=== PATIENT | female | born 1955 | race Caucasian/White ===

== ENCOUNTER → 2018-05-07 | Outpatient (CLI) | payer BC ==
--- NOTE | 2018-05-07 12:06 | Diagnostic Imaging Report ---
EXAMINATION: Left knee 10:30. INDICATION: Knee pain 3 views were obtained. There are no prior studies available for comparison. There is no fracture, dislocation or acute bony abnormality evident. 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 The lateral compartment is well maintained. The soft tissues are unremarkable. IMPRESSION: 1. There is no evidence for an acute bony abnormality. 2. 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 Dictated by: Dictated on workstation # [id number]
== END ==
LOC: RAD FS 10:21
PROVIDERS: ATTEND Nurse Practitioner
DX: M17.12 Unilateral primary osteoarthritis, left knee (principal)
CPT/HCPCS: 73562

== ENCOUNTER → 2019-05-25 | Outpatient (CLI) | payer BC ==
[~2019-05-25] MED LIST: GADOBUTROL 10 MMOL/10 ML (GADAVIST) VIAL IV ONE
[2019-05-25 10:21] LABS: BUN/CREATININE RATIO 10; GFR ESTIMATED > 60
--- NOTE | 2019-05-25 12:46 | Diagnostic Imaging Report ---
PROCEDURE: MRI pelvis with and without contrast. TECHNIQUE: Multiplanar, multisequence MRI of the pelvis was performed with and without contrast. INDICATION: Pelvic mass. COMPARISON: There are no prior studies available for comparison. Reportedly, the patient has had recent pelvic ultrasound exam which suggests the presence of a pelvic mass. Neither that exam nor the report from that study is available at this time. If that exam or report can be made available, it would be helpful for comparison. FINDINGS: On this study, the uterus is anteverted and not enlarged measuring 8.3 x 4.2 x 5.0 cm. The endometrial lining of the uterus does not seem to be abnormally thickened. On the coronal T2 fat saturated series, there is a vague roughly 1 cm area of slightly increased signal within the uterine myometrium adjacent to the endometrium on the left. This area does not appear to enhance on the postcontrast series and its etiology is not certain. This could represent a small fibroid. It would be less likely that this is neoplastic in nature. There is no solid pelvic mass or free fluid collection evident. The urinary bladder is grossly unremarkable. There is no abnormal signal arising from the osseous structures to suggest bone edema or fracture. IMPRESSION: 1. The uterus does not appear to be enlarged and the endometrial lining is not thickened. The vague area of altered signal in the myometrium adjacent to the endometrium on the left is of uncertain etiology. Considerations as above. 2. There is no pelvic mass or free fluid collection noted. 3. If the previous study or the report from the previous exam is available, it would be helpful for comparison. Dictated on workstation # [id number]
== END ==
LOC: RAD 08:56
PROVIDERS: ATTEND Nurse Practitioner Family
DX: N95.0 Postmenopausal bleeding (principal)
CPT/HCPCS: 36415; 72197; 82565; 84520

== ENCOUNTER 2020-05-12 09:09 | Emergency (ER) | payer BC ==
[~2020-05-12] VITALS: Ht 157.4 cm; Wt 94.6 kg
[2020-05-12 09:20] VITALS: BP 139/80
[2020-05-12] MEDS ORDERED: ONDANSETRON 4 MG (ZOFRAN) ORAL DISSOLVE TAB PO STA (09:39)
--- NOTE | 2020-05-12 09:40 | ED GI ---
General Chief Complaint: Abdominal/GI Problems Stated Complaint: BLOODY VOMIT/STOOL History of Present Illness Date Seen by Provider: May 12, 2020 Time Seen by Provider: 09:30 Initial Comments 64-year-old female presents with onset of nausea and vomiting 30 minutes after eating some pizza from [employer] last night. She then proceeded to have some diarrhea which continued this morning about 5 times. Denies any abdominal pain, fever or chills, chest pain or shortness of air. Denies any rash or swelling of extremities. Has taken no medications to alleviate her symptoms. This morning she was able to drink water without vomiting. On arrival she denies nausea, but feels as if she may have more loose stool. Allergies and Home Medications Allergies Coded Allergies: Penicillins (Unverified Allergy, Unknown, 05/25/19) cephalexin (Unverified Allergy, Unknown, 05/25/19) Home Medications Famotidine 20 Mg Tablet, 20 MG PO BID Prescribed by: MOR HAYES on 05/12/20 1028 Ondansetron 4 Mg Tab.rapdis, 4 MG PO TID Prescribed by: MOR HAYES on 05/12/20 1028 Patient Home Medication List Home Medication List Reviewed: Yes Review of Systems Review of Systems Constitutional: No chills, No fever; malaise; No weakness EENTM: No Symptoms Reported Respiratory: No Symptoms Reported Cardiovascular: No Symptoms Reported Gastrointestinal: See HPI; Denies Abdominal Pain; Diarrhea, Nausea; Denies Poor Fluid Intake Musculoskeletal: No back pain, No muscle pain Skin: No change in color, No rash Past Zsugpkk-Twhszr-Ytsdpg Hx Past Med/Social Hx: Reviewed Nursing Past Med/Soc Hx Physical Exam Vital Signs Vital Signs - First Documented 05/12/20 09:20 Temp 37.1 Pulse 91 Resp 20 B/P (MAP) 139/80 (99) Pulse Ox 97 O2 Delivery Room Air Capillary Refill : Height/Weight/BMI Height: '" Weight: lbs. oz. kg; BMI Method: General Appearance: WD/WN, no apparent distress Respiratory: chest non-tender, lungs clear Cardiovascular: regular rate, rhythm, no edema Gastrointestinal: non tender, soft, no organomegaly, no pulsatile mass; No distended, No guarding, No rebound Back: normal inspection, no CVA tenderness Neurologic/Psychiatric: alert, normal mood/affect Skin: normal color, warm/dry Progress/Results/Core Measures Results/Orders Lab Results Laboratory Tests Test 05/12/20 09:42 Range/Units White Blood Count 11.1 H 4.3-11.0 10^3/uL Red Blood Count 3.48 L 4.35-5.85 10^6/uL Hemoglobin 9.9 L 11.5-16.0 G/DL Hematocrit 31 L 35-52 % Mean Corpuscular Volume 88 80-99 FL Mean Corpuscular Hemoglobin 28 25-34 PG Mean Corpuscular Hemoglobin Concent 32 32-36 G/DL Red Cell Distribution Width 13.1 10.0-14.5 % Platelet Count 307 130-400 10^3/uL Mean Platelet Volume 11.3 H 7.4-10.4 FL Immature Granulocyte % (Auto) 0 % Neutrophils (%) (Auto) 78 H 42-75 % Lymphocytes (%) (Auto) 18 12-44 % Monocytes (%) (Auto) 3 0-12 % Eosinophils (%) (Auto) 0 0-10 % Basophils (%) (Auto) 0 0-10 % Neutrophils # (Auto) 8.6 H 1.8-7.8 X 10^3 Lymphocytes # (Auto) 2.0 1.0-4.0 X 10^3 Monocytes # (Auto) 0.4 0.0-1.0 X 10^3 Eosinophils # (Auto) 0.0 0.0-0.3 10^3/uL Basophils # (Auto) 0.1 0.0-0.1 10^3/uL Immature Granulocyte # (Auto) 0.1 0.0-0.1 10^3/uL Sodium Level 138 135-145 MMOL/L Potassium Level 4.2 3.6-5.0 MMOL/L Chloride Level 100 98-107 MMOL/L Carbon Dioxide Level 24 21-32 MMOL/L Anion Gap 14 5-14 MMOL/L Blood Urea Nitrogen 37 H 7-18 MG/DL Creatinine 0.65 0.60-1.30 MG/DL Estimat Glomerular Filtration Rate > 60 BUN/Creatinine Ratio 57 Glucose Level 322 H 70-105 MG/DL Calcium Level 9.3 8.5-10.1 MG/DL Corrected Calcium 9.5 8.5-10.1 MG/DL Total Bilirubin 0.4 0.1-1.0 MG/DL Aspartate Amino Transf (AST/SGOT) 10 5-34 U/L Alanine Aminotransferase (ALT/SGPT) 9 0-55 U/L Alkaline Phosphatase 65 40-136 U/L Total Protein 6.3 L 6.4-8.2 GM/DL Albumin 3.7 3.2-4.5 GM/DL My Orders Orders - MOR HAYES DO Cbc With Automated Diff (05/12/20 09:39) Comprehensive Metabolic Panel (05/12/20 09:39) Ondansetron Oral Dissolve Tab (Zofran (05/12/20 09:39) Famotidine Tablet (Pepcid Tablet) (05/12/20 09:45) Medications Given in ED Current Medications Medications Dose Ordered Sig/Anoop Route Start Time Stop Time Status Last Admin Dose Admin Famotidine 20 mg ONCE ONCE PO 05/12/20 09:45 05/12/20 09:46 DC 05/12/20 09:51 20 MG Vital Signs/I&O 05/12/20 05/12/20 09:20 10:35 Temp 37.1 37.1 Pulse 91 80 Resp 20 18 B/P (MAP) 139/80 (99) 147/72 (97) Pulse Ox 97 97 O2 Delivery Room Air Room Air Progress Progress Note : Progress Note No episodes of nausea vomiting while in the ER. Patient feeling better at discharge and tolerating p.o. liquids. Discussed follow-up if her symptoms get progressively worse otherwise reassurance given and advised allowing this to run its course and seeing her primary care doctor for any other questions. Departure Impression Primary Impression: Food poisoning Disposition: 01 HOME, SELF-CARE Condition: Improved Departure-Patient Inst. Decision time for Depature: 10:16 Referrals: ROXI VALDERRAMA MD (PCP/Family) Primary Care Physician Patient Instructions: Food Poisoning Add. Discharge Instructions: Call Dr Valderrama to arrange for a follow up appointment in 3 days if you are not feeling better. Return to the ER if you are feeling significantly worse. All discharge instructions reviewed with patient and/or family. Voiced understanding. Scripts Ondansetron (Ondansetron Odt) 4 Mg Tab.rapdis 4 MG PO TID for Nausea, #10 TAB Prov: MOR HAYES DO 05/12/20 Famotidine (Pepcid) 20 Mg Tablet 20 MG PO BID, #10 TAB Prov: MOR HAYES DO 05/12/20 MOR HAYES DO May 12, 2020 09:40
[2020-05-12] MEDS ORDERED: FAMOTIDINE 20 MG (PEPCID) TABLET PO ONE (09:45)
[2020-05-12 09:55] LABS: HEMATOCRIT 31 % (35-52); HEMOGLOBIN 9.9 G/DL (11.5-16.0); MEAN CORPUSCULAR HEMOGLOBIN 28 PG (25-34); MEAN CORPUSCULAR HGB CONC 32 G/DL (32-36); MEAN CORPUSCULAR VOLUME 88 FL (80-99); MEAN PLATELET VOLUME 11.3 FL (7.4-10.4); PLATELET COUNT 307 10^3/uL (130-400); WHITE BLOOD COUNT 11.1 10^3/uL (4.3-11.0)
[2020-05-12 09:56] LABS: BASOPHILS # (AUTO) 0.1 10^3/uL (0.0-0.1); BASOPHILS % (AUTO) 0 % (0-10); EOSINOPHILS % (AUTO) 0 % (0-10); LYMPHOCYTES % (AUTO) 18 % (12-44); MONOCYTES # (AUTO) 0.4 X 10^3 (0.0-1.0); MONOCYTES % (AUTO) 3 % (0-12); NEUTROPHILS # (AUTO) 8.6 X 10^3 (1.8-7.8); NEUTROPHILS % (AUTO) 78 % (42-75)
[2020-05-12 10:17] LABS: CARBON DIOXIDE 24 MMOL/L (21-32); CHLORIDE 100 MMOL/L (98-107); POTASSIUM 4.2 MMOL/L (3.6-5.0); SODIUM 138 MMOL/L (135-145)
[2020-05-12 10:18] LABS: ALANINE AMINOTRANSFERASE 9 U/L (0-55); ALBUMIN 3.7 GM/DL (3.2-4.5); ALKALINE PHOSPHATASE 65 U/L (40-136); BILIRUBIN,TOTAL 0.4 MG/DL (0.1-1.0); BUN/CREATININE RATIO 57; CALCIUM 9.3 MG/DL (8.5-10.1); CREATININE SERUM 0.65 MG/DL (0.60-1.30); GFR ESTIMATED > 60; GLUCOSE 322 MG/DL (70-105); TOTAL PROTEIN 6.3 GM/DL (6.4-8.2)
[2020-05-12] MEDS ORDERED: ONDA4TAB11 PO (10:28)
[2020-05-12] MEDS ORDERED: FAMO-119 PO (10:28)
== END 2020-05-12 10:36 | disposition home or self-care (01) ==
LOC: EDUNIT# 09:09 → ER FS 09:12
DX: A05.9 Bacterial foodborne intoxication, unspecified (principal); Z88.0 Allergy status to penicillin; Z88.1 Allergy status to other antibiotic agents
CPT/HCPCS: 36415; 80053; 85025

== ENCOUNTER 2020-07-03 05:38 | Outpatient (RCR) | payer BC ==
[~2020-07-03] VITALS: Ht 157.5 cm; Wt 93.4 kg
[~2020-07-03 05:38] MED LIST changes: +FAMO-119 PO; -GADOBUTROL 10 MMOL/10 ML (GADAVIST) VIAL IV ONE; +ONDA4TAB11 PO
[2020-07-03] MEDS ORDERED: GLUC100016 PO (13:50)
[2020-07-03] MEDS ORDERED: AMLO-250 PO (13:50)
[2020-07-03] MEDS ORDERED: GLIP10TA13 PO (13:50)
[2020-07-03] MEDS ORDERED: PRAV80TA2 PO (13:50)
[2020-07-03] MEDS ORDERED: METF-399 PO (13:50)
[2020-07-03] MEDS ORDERED: LOSA100T3 PO (13:50)
[2020-07-03] MEDS ORDERED: NSTR15C TP (13:50)
[2020-07-03] MEDS ORDERED: SERT-414 PO (13:50)
[2020-07-03] MEDS ORDERED: MULT-593 PO (13:50)
[2020-07-03] MEDS ORDERED: ASPI-999 PO (13:50)
[2020-07-03] MEDS ORDERED: CANA300T PO (13:50)
== END 2020-07-03 14:14 | disposition home or self-care (01) ==
LOC: PREOP 05:38
PROVIDERS: ATTEND Surgery
DX: Z01.818 Encounter for other preprocedural examination (principal)

== ENCOUNTER → 2020-07-07 | Outpatient (CLI) | payer BC ==
[~2020-07-07] MED LIST changes: +AMLO-250 PO; +ASPI-999 PO; +CANA300T PO; +GLIP10TA13 PO; +GLUC100016 PO; +LOSA100T3 PO; +METF-399 PO; +MULT-593 PO; +NSTR15C TP; +PRAV80TA2 PO; +SERT-414 PO
== END ==
LOC: LAB FS 10:00
PROVIDERS: ATTEND Surgery
DX: Z01.812 Encounter for preprocedural laboratory examination (principal); Z12.11 Encounter for screening for malignant neoplasm of colon; K92.0 Hematemesis; Z20.822 Contact with and (suspected) exposure to COVID-19
CPT/HCPCS: 87635

== ENCOUNTER 2020-07-10 10:20 | Day surgery (SDC) | payer BC ==
[~2020-07-10] VITALS: Ht 157 cm; Wt 93.4 kg
[2020-07-10] MEDS ORDERED: LACTATED RINGERS 1,000 ML IV STA (10:33)
[2020-07-10] MEDS ORDERED: HURRICAINE EXT TUBE (BENZOCAINE) XX PRN (10:45)
[2020-07-10 10:59] VITALS: BP 144/71
--- NOTE | 2020-07-10 11:01 | Progress Note-Pre Operative ---
Pre-Operative Progress Note H&P Reviewed The H&P was reviewed, patient examined and no changes noted. Time Seen by Provider: 10:58 Date H&P Reviewed: July 10, 2020 Time H&P Reviewed: 10:58 Pre-Operative Diagnosis: Melena, hematemesis, anemia JASWINDER KAUR DO July 10, 2020 11:01
[2020-07-10] MEDS ORDERED: MIDAZOLAM 2 MG/2 ML (VERSED) VIAL ONE (11:39)
[2020-07-10] MEDS ORDERED: PROPOFOL INJECTION 50 ML IV ONE (11:39)
[2020-07-10] MEDS ORDERED: proPOfol 200 MG/20 ML (DIPRIVAN) VIAL IV ONE (12:01)
[2020-07-10 12:26] VITALS: BP 114/58
[2020-07-10 12:31] VITALS: BP 129/73
--- NOTE | 2020-07-10 12:34 | Progress Note-Post Operative ---
Post-Operative Progess Note Surgeon (s)/Floor Waxer (s) Surgeon JASWINDER KAUR DO Floor Waxer: none Pre-Operative Diagnosis Melena, hematemesis, anemia Post-Operative Diagnosis Gastritis Enteritis Int Hemorrhoid Procedure & Operative Findings Date of Procedure 07/10/20 Procedure Performed/Findings EGD with bx Colonoscopy Anesthesia Type IV sedation by PAPER TUBE GRADER Estimated Blood Loss Estimated blood loss (mL): scant Specimens/Packing Specimens Removed body of stomach bx GE jxn bx JASWINDER KAUR DO July 10, 2020 12:34
[2020-07-10 12:35] VITALS: BP 122/59
--- NOTE | 2020-07-10 12:35 | Endoscopy Discharge Instruct ---
Endo Procedure/Findings Findings 1.: Gastritis 2.: Other Findings (enteritis) 3.: Internal Hemorrhoids Discharge Instructions - Activity: You might feel a little sleepy until tomorrow. This is due to the medicine you received to relax you. Until tomorrow, you should: NOT drive a car, operate machinery or power tools. NOT drink any alcoholic beverages. NOT make any important decisions or sign importortant papers. Do not return to work until tomorrow, unless otherwise instructed. Resume previous activities tomorrow. Diet: Start by taking liquids. If you tolerate liquids, advance to solid food. 1.: EGD in 3 years 2.: Colonscopy in 10 years Notify Physician - If you experience excessive bleeding, unusual abdominal pain, fever, or chest pain, contact your doctor immediately. JASWINDER KAUR DO July 10, 2020 12:35
--- NOTE | 2020-07-10 12:48 | Anesthesia-General Post-Op ---
MAC Patient Condition Mental Status/LOC: Same as Preop Cardiovascular: Satisfactory Nausea/Vomiting: Absent Respiratory: Satisfactory Pain: Controlled Complications: Absent Post Op Complications Complications None Follow Up Care/Instructions Patient Instructions None needed. Anesthesiology Discharge Order Discharge Order Patient is doing well, no complaints, stable vital signs, no apparent adverse anesthesia problems. No complications reported per nursing. KITA MCKAY CRNA July 10, 2020 12:48
[2020-07-10 13:05] VITALS: BP 129/68
[2020-07-10 13:18] VITALS: BP 129/68
--- NOTE | 2020-07-10 21:08 | OPERATIVE REPORT ---
DATE OF SERVICE: PREOPERATIVE DIAGNOSES: History of hematemesis, anemia, some dark stools, but she needed a screening colonoscopy. POSTOPERATIVE DIAGNOSES: Gastritis, enteritis, and internal hemorrhoids. PROCEDURES PERFORMED: 1. EGD with biopsy. 2. Colonoscopy. SURGEON: Audie Valentin DO. MEAT GRADER: None. ANESTHESIA: IV sedation by the WARE SERVER. SPECIMEN: Biopsy from the gastric body and biopsy of the GE junction. BLOOD LOSS: Scant. FLUIDS: Per anesthesia. POSTOPERATIVE CONDITION: Stable. INDICATION FOR PROCEDURE: The patient is a 64-year-old female, who had an episode of hematemesis. She has some anemia and a dark stool, but unsure if this was some melena. She needed a screening colonoscopy; she had not had one in over 10 years. FINDINGS: The patient had some gastritis and enteritis right at her GJ junction and then had some small internal hemorrhoids, nothing else seen. PROCEDURE NOTE: After informed consent was obtained, the patient was brought to the endoscopy suite and placed in the bed in the left lateral decubitus position. She was administered IV sedation by the WARE SERVER, who then monitored her vitals the entire time, heart rate, blood pressure and pulse ox and the scope was inserted, started with the EGD, placed the scope down the mouth through the esophagus and into the remnant of the stomach and right into the small intestine. There was some mild inflammation of the small intestine, took a picture of this and then pulled back into the stomach, did a biopsy of the gastric body. Pulled the scope into the GE junction, did a biopsy and then suctioned the air out and then pulled the scope up the esophagus and out the mouth, did not appear to be any ulcers at the GJ junction. Switched camera, switched gloves, went down below, started the colonoscopy. Pushed all the way into about 140 cm to get all the way to cecum, took a picture of the appendiceal orifice, noted the ileocecal valve and then slowly withdrew the scope, insufflating the circumferential luna looking the cecum, up the ascending colon to the hepatic flexure, then down the transverse colon, splenic flexure, into the descending colon, down into the sigmoid and finally into the rectum, retroflexed in the rectal vault, saw some minimal internal hemorrhoids and took a picture of this. The patient tolerated the procedure and recovered in the endoscopy suite. Job ID: [id number] DocumentID: [id number] Dictated Date: 07/10/2020 14:29:54 Clerk Travel Reservations Date: 07/10/2020 21:07:36 Dictated By: AUDIE VALENTIN DO
== END 2020-07-10 13:23 | disposition home or self-care (01) ==
LOC: ENDO 10:20
PROVIDERS: ATTEND Surgery
DX: Z12.11 Encounter for screening for malignant neoplasm of colon (principal); K29.70 Gastritis, unspecified, without bleeding; K20.90 Esophagitis, unspecified without bleeding; K64.8 Other hemorrhoids; K52.9 Noninfective gastroenteritis and colitis, unspecified; I10 Essential (primary) hypertension; F32.9 Major depressive disorder, single episode, unspecified; E11.9 Type 2 diabetes mellitus without complications; M19.90 Unspecified osteoarthritis, unspecified site; E78.5 Hyperlipidemia, unspecified; D50.9 Iron deficiency anemia, unspecified; E66.01 Morbid (severe) obesity due to excess calories; Z68.37 Body mass index [BMI] 37.0-37.9, adult; Z79.899 Other long term (current) drug therapy; Z79.84 Long term (current) use of oral hypoglycemic drugs; Z79.82 Long term (current) use of aspirin
CPT/HCPCS: 82947; 88305

== ENCOUNTER 2021-01-07 00:09 | Emergency (ER) | payer BC ==
[~2021-01-07] VITALS: Ht 157 cm; Wt 113.0 kg
--- NOTE | 2021-01-07 00:37 | ED Upper Extremity ---
General Stated Complaint: FALL/LEFT SHOULDER PAIN Source: patient Exam Limitations: no limitations History of Present Illness Date Seen by Provider: Jan 07, 2021 Time Seen by Provider: 00:17 Initial Comments 65-year-old female with past medical history of hypertension, hyperlipidemia, and diabetes coming in due to left shoulder pain. About an hour prior to arrival she tripped and landed on her left shoulder with severe sharp constant pain. Pain is worse with movement and better with rest. Never really felt pain like this before. Denies any weakness or numbness, but does have difficulty moving it due to pain. Did not hit her head or pass out. Does not take any blood thinners. Denying any neck or back pain. Allergies and Home Medications Allergies Coded Allergies: Penicillins (Unverified Allergy, Unknown, 05/25/19) adhesive tape (Unverified Allergy, Unknown, 07/03/20) cephalexin (Unverified Allergy, Unknown, 05/25/19) oxycodone (Unverified Allergy, Unknown, 07/03/20) Uncoded Allergies: SULFA (Allergy, Unknown, 07/03/20) Patient Home Medication List Home Medication List Reviewed: Yes Amlodipine Besylate (Amlodipine Besylate) 5 Mg Tablet, 5 MG PO DAILY, (Reported) Entered as Reported by: SKYLA MEDINA on 07/03/20 135 Aspirin (Aspirin) 81 Mg Tab.chew, 81 MG PO DAILY, (Reported) Entered as Reported by: SKYLA MEDINA on 07/03/20 135 Canagliflozin (Invokana) 300 Mg Tablet, 300 MG PO DAILY, (Reported) Entered as Reported by: SKYLA MEDINA on 07/03/20 135 Glipizide (Glipizide) 10 Mg Tablet, 10 MG PO DAILY, (Reported) Entered as Reported by: SKYLA MEDINA on 07/03/20 135 Glucosamine Sulfate 2Kcl (Glucosamine) 1,000 Mg Tablet, 1,000 MG PO DAILY, (Reported) Entered as Reported by: SKYLA MEDINA on 07/03/20 135 Hydrocodone Bit/Acetaminophen (HYDROcodone/APAP 5 MG/325 MG TAB) 1 Tab Tab, 1 TAB PO Q6H Prescribed by: FANY MILLER on 01/07/21 0159 Losartan Potassium (Cozaar) 100 Mg Tablet, 100 MG PO DAILY, (Reported) Entered as Reported by: SKYLA MEDINA on 07/03/201349 Metformin HCl (Metformin HCl) 1,000 Mg Tablet, 1,000 MG PO BID, (Reported) Entered as Reported by: SKYLA MEDINA on 07/03/201349 Multivitamin with Minerals (Multiple Vitamin) 1 Each Tablet, 1 EACH PO DAILY, ( Reported) Entered as Reported by: SKYLA MEDINA on 07/03/201349 Nystatin/Triamcinolone (Nystatin-Triamcinolone Cream) 15 Gm Cr, 15 GM TP for PRN, (Reported) Entered as Reported by: SKYLA MEDINA on 07/03/201349 Pravastatin Sodium (Pravastatin Sodium) 80 Mg Tablet, 80 MG PO DAILY, (Reported) Entered as Reported by: SKYLA MEDINA on 07/03/201349 Sertraline HCl (Sertraline HCl) 100 Mg Tablet, 200 MG PO DAILY, (Reported) Entered as Reported by: SKYLA MEDINA on 07/03/201349 Review of Systems Constitutional: No chills, No fever EENTM: No blurred vision Respiratory: No cough, No short of breath Cardiovascular: No chest pain Gastrointestinal: No abdominal pain, No diarrhea, No nausea, No vomiting Genitourinary: no symptoms reported Musculoskeletal: joint pain Skin: no symptoms reported Psychiatric/Neurological: No Symptoms Reported All Other Systems Reviewed Negative Unless Noted: Yes Past Refvzne-Nrvjrn-Qjezjl Hx Patient Social History Tobacco Use?: No Seasonal Allergies Seasonal Allergies: No Past Medical History Surgeries: Yes (Gastric Bypass, Rotator cuff repair, Carpal tunnel, uterine ablation) Appendectomy, Section, Gallbladder, Orthopedic Respiratory: No Cardiac: Yes High Cholesterol, Hypertension Neurological: No Female Reproductive Disorders: Denies Genitourinary: No Gastrointestinal: Yes Gall Bladder Disease Musculoskeletal: Yes Arthritis Endocrine: Yes Diabetes, Non-Insulin dep HEENT: No Hearing Impairment: Denies Cancer: No Psychosocial: Yes Depression Integumentary: No Blood Disorders: No Adverse Reaction/Blood Tranf: No Physical Exam Vital Signs Vital Signs - First Documented 01/07/21 00:25 Temp 36.2 Pulse 73 Resp 22 B/P (MAP) 126/73 (90) Pulse Ox 99 O2 Delivery Room Air Capillary Refill : Height, Weight, BMI Height: '" Weight: lbs. oz. kg; 37.89 BMI Method: General Appearance: WD/WN, mild distress HEENT: PERRL/EOMI, normal ENT inspection, pharynx normal Neck: non-tender, full range of motion, supple, normal inspection Cardiovascular: no edema, no murmur Respiratory: chest non-tender, lungs clear, normal breath sounds, no respiratory distress, no accessory muscle use Gastrointestinal: normal bowel sounds, non tender, soft; No guarding, No rebound Back: normal inspection, no CVA tenderness, no vertebral tenderness Shoulder: bone tenderness, limited ROM, pain Elbow/Forearm: normal inspection, no evidence of injury, normal ROM Wrist: Yes normal inspection, Yes non-tender, Yes no evidence of injury, Yes normal ROM Hand: normal inspection, non-tender, no evidence of injury, normal ROM Neurologic/Tendon: normal sensation, normal motor functions, normal tendon functions Neurologic/Psychiatric: switchman II-XII nml as tested, no motor/sensory deficits, alert, normal mood/affect, oriented x 3 Skin: normal color, warm/dry Lymphatic: no adenopathy Procedures/Interventions Splinting and Joint Reduction : Pre-Proc Neuro Vasc Exam: normal Post-Proc Neuro Vasc Exam: normal Progress Fracture dislocation seen on initial left shoulder XR. Injected 5cc of 1% lidocaine intraarticular to her shoulder with good pain control followed by traction/countertraction to reduce the shoulder. Joint Reduction Site: shoulder (L) Reduction Attempts: 2 Pre-Procedure NV Exam: Yes post joint reduction film: joint reduced Immobilizers: Large Shoulder Progress/Results/Core Measures Results/Orders My Orders Orders - FANY MILLER MD Shoulder 3 View Left (01/07/21 00:31) Shoulder 1 View Left (01/07/21 00:55) Ct Extremity Upper Left Wo (01/07/21 01:29) Ketorolac Injection (Toradol Injection) (01/07/21 01:51) Hydrocodone/Apap 5/325 Tablet (Lortab 5 (01/07/21 01:51) Rx-Hydrocodone/Apap 5-325 Mg (Rx-Vicodin (01/07/21 02:30) Vital Signs/I&O 01/07/21 00:25 Temp 36.2 Pulse 73 Resp 22 B/P (MAP) 126/73 (90) Pulse Ox 99 O2 Delivery Room Air Progress Progress Note : Progress Note 65-year-old female with above history coming in after a mechanical fall landing on her left shoulder now with severe pain. ABCs intact and vitals were stable on presentation with a GCS of 15. She never did hit her head or pass out. Also not taking blood thinners. Do not believe CT head necessary at this time. Has been ambulatory and denies any neck pain without any weakness or numbness, do not believe we need CT C-spine at this time. X-ray left shoulder ordered by me. This is concerning on my interpretation for fracture dislocation of the left shoulder. I did an intra-articular lidocaine injection in her left shoulder with moderate pain control. I then did traction countertraction reduction x2 with success in the reduction of her shoulder. It was difficult to tell on x-ray if the fracture involved anything intra- articular, so CT was ordered to help assess if she potentially would need surgery and I would needs were for her sooner. She was also given oral hydrocodone and IM Toradol for pain control. On reassessment pain was better. CT confirmed the shoulder is located and she has a left humeral head and anatomic neck fracture. I will recommend follow-up as an outpatient as soon as possible. She was then discharged home in stable condition with strict return precautions Diagnostic Imaging Diagonstic Imaging: Xray (Left shoulder), CT (Left shoulder) Comments X-ray left shoulder ordered and interpreted by me showing fracture dislocation CT left shoulder ordered and read by the overnight stat read showing left humeral head and anatomic neck fracture. Departure Impression Primary Impression: Fracture of humerus Qualified Codes: S42.292A - Other displaced fracture of upper end of left humerus, initial encounter for closed fracture Additional Impression: Shoulder dislocation Qualified Codes: S43.005A - Unspecified dislocation of left shoulder joint, initial encounter Disposition: HOME, SELF-CARE Condition: Stable Departure-Patient Inst. Decision time for Depature: 02:30 Referrals: ROXI CANALES MD (PCP/Family) Primary Care Physician ANNE MARIE DOVER MD Patient Instructions: Shoulder Dislocation, Shoulder Fracture (DC) Add. Discharge Instructions: Your shoulder was dislocated and broken. I need you to follow-up with an orthopedic surgeon as soon as possible as it potentially will need surgery still, but right now it is at least in the correct location. Continue to wear the shoulder immobilizer. Take naproxen 250 mg every 12 hours for pain as well as hydrocodone every 6 hours on top of that for breakthrough pain. You can also ice it for pain. Options for an appointment include with Dr. Dover in [place] (number in this paperwork). Margaret Henriquez [place] [phone] orthopedics [phone] [facility] [phone] Scripts Hydrocodone Bit/Acetaminophen (HYDROcodone/APAP 5 MG/325 MG TAB) 1 Tab Tab 1 TAB PO Q6H for Pain for 3 Days, #12 TAB 0 Refills Prov: FANY MILLER MD 01/07/21 FANY MILLER MD Jan 07, 2021 00:36
[2021-01-07] MEDS ORDERED: KETOROLAC 30 MG/ML VIAL IM STA (01:51)
[2021-01-07] MEDS ORDERED: HYDROcodone/APAP 5 MG/325 MG (LORTAB) TAB PO STA (01:51)
[2021-01-07] MEDS ORDERED: ACHD5005 PO (01:59)
[2021-01-07 02:42] VITALS: BP 126/73
--- NOTE | 2021-01-07 07:22 | Diagnostic Imaging Report ---
EXAM: SHOULDER 3 VIEW LEFT INDICATION: Fall. Left shoulder pain. COMPARISON: None. FINDINGS: Comminuted displaced fractures of the left humeral head. There is also inferior dislocation of the left humeral head in relation to the glenoid. No other fracture is identified. Soft tissue shadows are unremarkable. IMPRESSION: Comminuted displaced fractures of the left humeral head which is also dislocated inferiorly. Dictated by: Dictated on workstation # [id number]
--- NOTE | 2021-01-07 07:24 | Diagnostic Imaging Report ---
PROCEDURE: CT left upper extremity without contrast. TECHNIQUE: Multiple contiguous axial images were obtained through the left upper extremity without the use of intravenous contrast. Auto Exposure Controls were utilized during the CT exam to meet ALARA standards for radiation dose reduction. INDICATION: Left humerus fracture dislocation. COMPARISON: Left shoulder radiographs 01/07/2021. FINDINGS: There has been interval reduction of the left humeral head dislocation. Again seen are the comminuted impacted displaced fractures involving the head and neck of the left humerus. No other fractures are identified. The visualized portions of the left lung are clear. No radiopaque foreign bodies. IMPRESSION: 1. Interval reduction of the left humeral head dislocation. 2. Comminuted impacted displaced fractures of the left humeral head and neck. Agree with preliminary interpretation. Dictated by: Dictated on workstation # [id number]
--- NOTE | 2021-01-07 07:36 | Diagnostic Imaging Report ---
EXAM: SHOULDER 1 VIEW LEFT INDICATION: Left humerus fracture dislocation. COMPARISON: Left shoulder radiograph from earlier today. FINDINGS/ IMPRESSION: Interval reduction of the left humeral head dislocation. Comminuted displaced impacted fractures of the left humeral head. No new fractures identified. Dictated by: Dictated on workstation # [id number]
== END 2021-01-07 02:43 | disposition home or self-care (01) ==
LOC: EDUNIT# 00:09 → ER FS 00:19
DX: S42.292A Other displaced fracture of upper end of left humerus, initial encounter for closed fracture (principal); S43.005A Unspecified dislocation of left shoulder joint, initial encounter; I10 Essential (primary) hypertension; E78.00 Pure hypercholesterolemia, unspecified; F32.9 Major depressive disorder, single episode, unspecified; E11.9 Type 2 diabetes mellitus without complications; Z79.899 Other long term (current) drug therapy; Z79.82 Long term (current) use of aspirin; Z79.84 Long term (current) use of oral hypoglycemic drugs; W01.0XXA Fall on same level from slipping, tripping and stumbling without subsequent striking against object, initial encounter
CPT/HCPCS: 23605; 23655; 73020; 73030; 73200; 99284; A4565; L3650

== ENCOUNTER → 2021-01-23 | Outpatient (CLI) | payer BC ==
[~2021-01-23] MED LIST changes: +ACHD5005 PO
--- NOTE | 2021-01-23 10:53 | Diagnostic Imaging Report ---
INDICATION: Fall with left shoulder fracture. Comparison with 01/07/2021, and CT scan same date. FINDINGS: 3 views. The comminuted impacted fracture of the humeral head is again demonstrated. CT showed large hemarthrosis with pseudosubluxation. There is no evidence of connor dislocation. IMPRESSION: Comminuted impacted humeral head fracture with pseudosubluxation. Dictated by: Dictated on workstation # [id number]
== END ==
LOC: RAD FS 10:03
PROVIDERS: ATTEND Nurse Practitioner
DX: S42.222A 2-part displaced fracture of surgical neck of left humerus, initial encounter for closed fracture (principal); W19.XXXA Unspecified fall, initial encounter
CPT/HCPCS: 73030

== ENCOUNTER 2021-02-04 01:08 | Inpatient (IN) | payer BC ==
[~2021-02-04] VITALS: Ht 157.5 cm; Wt 96.8 kg
--- NOTE | 2021-02-04 01:31 | ED Back Pain ---
General Stated Complaint: CYST IN LEFT GROIN History of Present Illness Date Seen by Provider: Feb 04, 2021 Time Seen by Provider: 01:26 Initial Comments 65-year-old female presents with large abscess induration and erythema present in her right perineal area. She reports that she noticed 3 days ago and has gotten significantly more painful and worse. Patient is a diabetic, does not feel well. She is mildly tachycardic but does not complain of any fever. She does report a significant amount of pain in the area. Patient is in a left arm sling but reports is from a injury back in May. Allergies and Home Medications Allergies Coded Allergies: Penicillins (Unverified Allergy, Unknown, 05/25/19) adhesive tape (Unverified Allergy, Unknown, 07/03/20) cephalexin (Unverified Allergy, Unknown, 05/25/19) oxycodone (Unverified Allergy, Unknown, 07/03/20) Uncoded Allergies: SULFA (Allergy, Unknown, 07/03/20) Patient Home Medication List Home Medication List Reviewed: Yes Amlodipine Besylate (Amlodipine Besylate) 5 Mg Tablet, 5 MG PO DAILY, (Reported) Entered as Reported by: SKYLA MEDINA on 07/03/20 135 Aspirin (Aspirin) 81 Mg Tab.chew, 81 MG PO DAILY, (Reported) Entered as Reported by: SKYLA MEDINA on 07/03/20 135 Canagliflozin (Invokana) 300 Mg Tablet, 300 MG PO DAILY, (Reported) Entered as Reported by: SKYLA MEDINA on 07/03/20 135 Glipizide (Glipizide) 10 Mg Tablet, 10 MG PO DAILY, (Reported) Entered as Reported by: SKYLA MEDINA on 07/03/20 135 Glucosamine Sulfate 2Kcl (Glucosamine) 1,000 Mg Tablet, 1,000 MG PO DAILY, (Reported) Entered as Reported by: SKYLA MEDINA on 07/03/20 135 Hydrocodone Bit/Acetaminophen (HYDROcodone/APAP 5 MG/325 MG TAB) 1 Tab Tab, 1 TAB PO Q6H Prescribed by: FANY MILLER on 01/07/21 0159 Losartan Potassium (Cozaar) 100 Mg Tablet, 100 MG PO DAILY, (Reported) Entered as Reported by: SKYLA MEDINA on 07/03/20 135 Metformin HCl (Metformin HCl) 1,000 Mg Tablet, 1,000 MG PO BID, (Reported) Entered as Reported by: SKYLA MEDINA on 07/03/201349 Multivitamin with Minerals (Multiple Vitamin) 1 Each Tablet, 1 EACH PO DAILY, (Reported) Entered as Reported by: SKYLA MEDINA on 07/03/201349 Nystatin/Triamcinolone (Nystatin-Triamcinolone Cream) 15 Gm Cr, 15 GM TP for P RN, (Reported) Entered as Reported by: SKYLA MEDINA on 07/03/201349 Pravastatin Sodium (Pravastatin Sodium) 80 Mg Tablet, 80 MG PO DAILY, (Reported) Entered as Reported by: SKYLA MEDINA on 07/03/201349 Sertraline HCl (Sertraline HCl) 100 Mg Tablet, 200 MG PO DAILY, (Reported) Entered as Reported by: SKYLA MEDINA on 07/03/201349 Review of Systems Constitutional: malaise Respiratory: No cough, No short of breath Cardiovascular: No chest pain Gastrointestinal: No abdominal pain, No nausea, No vomiting Genitourinary: no symptoms reported Musculoskeletal: see HPI Skin: see HPI Psychiatric/Neurological: No Symptoms Reported Past Dodybmc-Bqwfst-Bxhugn Hx Immunizations Up To Date First/Initial COVID19 Vaccinat: NOV Second COVID19 Vaccination [place]: DEC Seasonal Allergies Seasonal Allergies: No Past Medical History Surgeries: Yes (Gastric Bypass, Rotator cuff repair, Carpal tunnel, uterine ablation) Appendectomy, Section, Gallbladder, Orthopedic Respiratory: No Cardiac: Yes High Cholesterol, Hypertension Neurological: No Female Reproductive Disorders: Denies Genitourinary: No Gastrointestinal: Yes Gall Bladder Disease Musculoskeletal: Yes Arthritis Endocrine: Yes Diabetes, Non-Insulin dep HEENT: No Hearing Impairment: Denies Cancer: No Psychosocial: Yes Depression Integumentary: No Blood Disorders: No Adverse Reaction/Blood Tranf: No Physical Exam Vital Signs Vital Signs - First Documented 02/04/21 01:10 Temp 36.5 Pulse 122 Resp 28 B/P (MAP) 143/81 (101) Pulse Ox 100 O2 Delivery Room Air Capillary Refill : Height, Weight, BMI Height: '" Weight: lbs. oz. kg; 45.00 BMI Method: General Appearance: Moderate Distress, Obese Cardiovascular: Tachycardia Respiratory: Lungs Clear, Normal Breath Sounds Gastrointestinal: Non Tender, Soft Neurologic/Psychiatric: Alert, Oriented x3, Normal Mood/Affect Skin: Other (Large induration/abscess and cellulitis in her perineal region) Progress/Results/Core Measures Results/Orders Lab Results Laboratory Tests Test 02/04/21 01:25 02/04/21 02:20 02/04/21 03:14 02/04/21 04:34 Range/Units White Blood Count 15.4 H 4.3-11.0 10^3/uL Red Blood Count 5.09 3.80-5.11 10^6/uL Hemoglobin 13.3 11.5-16.0 g/dL Hematocrit 43 35-52 % Mean Corpuscular Volume 84 80-99 fL Mean Corpuscular Hemoglobin 26 25-34 pg Mean Corpuscular Hemoglobin Concent 31 L 32-36 g/dL Red Cell Distribution Width 17.0 H 10.0-14.5 % Platelet Count 391 130-400 10^3/uL Mean Platelet Volume 11.5 9.0-12.2 fL Immature Granulocyte % (Auto) 1 % Neutrophils (%) (Auto) 83 H 42-75 % Lymphocytes (%) (Auto) 10 L 12-44 % Monocytes (%) (Auto) 6 0-12 % Eosinophils (%) (Auto) 1 0-10 % Basophils (%) (Auto) 0 0-10 % Neutrophils # (Auto) 12.8 H 1.8-7.8 X 10^3 Lymphocytes # (Auto) 1.5 1.0-4.0 X 10^3 Monocytes # (Auto) 0.9 0.0-1.0 X 10^3 Eosinophils # (Auto) 0.1 0.0-0.3 10^3/uL Basophils # (Auto) 0.1 0.0-0.1 10^3/uL Immature Granulocyte # (Auto) 0.1 0.0-0.1 10^3/uL Neutrophils % (Manual) 89 % Lymphocytes % (Manual) 6 % Monocytes % (Manual) 4 % Band Neutrophils 1 % Sodium Level 128 L 135-145 MMOL/L Potassium Level 3.1 L 3.6-5.0 MMOL/L Chloride Level 88 L 98-107 MMOL/L Carbon Dioxide Level 8 *L 21-32 MMOL/L Anion Gap 32 H 5-14 MMOL/L Blood Urea Nitrogen 14 7-18 MG/DL Creatinine 0.76 0.60-1.30 MG/DL Estimat Glomerular Filtration Rate 76 BUN/Creatinine Ratio 18 Glucose Level 587 *H 70-105 MG/DL Lactic Acid Level 2.18 *H 0.50-2.00 MMOL/L Calcium Level 9.9 8.5-10.1 MG/DL Corrected Calcium 10.1 8.5-10.1 MG/DL Magnesium Level 1.2 L 1.6-2.4 MG/DL Total Bilirubin 0.3 0.1-1.0 MG/DL Aspartate Amino Transf (AST/SGOT) 9 5-34 U/L Alanine Aminotransferase (ALT/SGPT) 5 0-55 U/L Alkaline Phosphatase 217 H 40-136 U/L C-Reactive Protein 28.69 H <0.50 MG/DL Total Protein 8.0 6.4-8.2 GM/DL Albumin 3.7 3.2-4.5 GM/DL Blood Gas Puncture Site RIGHT WRIST Blood Gas Patient Temperature 36.5 Arterial Blood pH 7.27 *L 7.37-7.43 Arterial Blood Partial Pressure CO2 10 *L 35-45 MMHG Arterial Blood Partial Pressure O2 112 H 79-93 MMHG Arterial Blood HCO3 5 *L 23-27 MMOL/L Arterial Blood Total CO2 4.9 *L 21.0-31.0 MMOL/L Arterial Blood Oxygen Saturation 98 94-100 % Arterial Blood Base Excess -19.4 L -2.5-2.5 MMOL/L Bryon Test NA Blood Gas Ventilator Setting NO Blood Gas Inspired Oxygen ROOM AIR Glucometer 451 *H 327 H 70-110 MG/DL My Orders Orders - HERNANDEZ,MK L DO Cbc With Automated Diff (02/04/21 01:34) Comprehensive Metabolic Panel (02/04/21:34) Lactic Acid Analyzer (02/04/21:34) Magnesium (02/04/21:34) Blood Culture (02/04/21:34) Crp Fs (02/04/21:34) Meropenem (Merrem 500 Mg) (02/04/21 01:45) Vancomycin Injection (Vancomycin Injecti (02/04/21 01:45) Fentanyl Inj (Sublimaze Injection) (02/04/21 01:39) Lactated Ringers (Lr 1000 Ml Iv Solution (02/04/21 01:39) Manual Differential (02/04/21 01:25) Iohexol Injection (Omnipaque 350 Mg/Ml 1 (02/04/21 02:15) Received Contrast (Hold Metformin- Contr (02/04/21 02:15) Ns (Ivpb) (Sodium Chloride 0.9% Ivpb Bag (02/04/21 02:15) Potassium Cl 10meq/50ml Ivpb (Kcl 10 Meq (02/04/21 02:15) Insulin Regular Drip (Myxredlin 100 Unit (02/04/21 02:15) Arterial Blood Gas (02/04/21 02:10) Lactated Ringers (Lr 1000 Ml Iv Solution (02/04/21 02:13) Ekg Tracing (02/04/21 02:14) Magnesium 1 Gm/100 Ml Ivpb (Magnesium Paul (02/04/21 02:30) Ct Pelvis W (02/04/21 02:21) Arterial Blood Gas (02/04/21 02:20) Fentanyl Inj (Sublimaze Injection) (02/04/21 03:30) Sodium Bicarbonate 8.4% Syr (Sodium Bica (02/04/21 03:30) Medications Given in ED Current Medications Medications Dose Ordered Sig/Anoop Route Start Time Stop Time Status Last Admin Dose Admin Fentanyl Citrate 50 mcg ONCE ONCE IVP 02/04/21 03:30 02/04/21 03:31 DC 02/04/21 03:47 50 MCG Magnesium Sulfate/ Dextrose 100 ml @ 100 mls/hr ONCE ONCE IV 02/04/21 02:30 02/04/21 03:29 DC 02/04/21 02:47 100 MLS/HR Meropenem 500 mg/ Sodium Chloride 100 ml @ 200 mls/hr ONCE ONCE IV 02/04/21 01:45 02/04/21 02:15 DC 02/04/21 02:05 200 MLS/HR Sodium Bicarbonate 50 meq ONCE ONCE IV 02/04/21 03:30 02/04/21 03:31 DC 02/04/21 03:47 50 MEQ Vancomycin HCl 1000 mg/Sodium Chloride 250 ml @ 250 mls/hr ONCE ONCE IV 02/04/21 01:45 02/04/21 02:44 DC 02/04/21 02:59 250 MLS/HR Vital Signs/I&O 02/04/21 02/04/21 01:10 04:50 Temp 36.5 Pulse 122 119 Resp 28 20 B/P (MAP) 143/81 (101) 139/88 Pulse Ox 100 99 O2 Delivery Room Air Room Air Progress Progress Note : Progress Note Patient is critically ill with DKA and sepsis. Patient with a large buttock/perianal abscess on CT. Patient started on Merrem and Vanco due to her penicillin and cephalexin allergy. Patient is was started on insulin drip, given IV potassium and IV magnesium and IV sodium bicarbonate. Patient was transferred via EMS to [facility] for ICU admission. Initial ECG Impression Date: Feb 04, 2021 Initial ECG Impression Time: 01:24 Initial ECG Rhythm: Normal Sinus Initial ECG Impression: Nonspecific Changes Comment nsr, lvh, fascicular block, no acute changes EKG : EKG Time: 02:17 Rate: 88 Rhythm: Normal Sinus ECG Comparisson: Unchanged Diagnostic Imaging Diagonstic Imaging: CT Plain Films/CT/US/NM/MRI: pelvis Comments Large 7 x 3 x 5.9 cm abscess left buttock Reviewed: Reviewed [facility] Critical Care Note Critical Care Total Time (minutes) 120 Departure Communication (Admissions) Time/Spoke to Admitting Phy: 04:12 Admit to ICU, please consult general surgery on-call Time/Spoke to Consulting Phy: 04:20 Please schedule I&D in OR at [address] Swain Impression Primary Impression: DKA (diabetic ketoacidosis) Qualified Codes: E11.10 - Type 2 diabetes mellitus with ketoacidosis without coma Additional Impressions: Severe sepsis Abscess of left buttock Disposition: 30 STILL A PATIENT Condition: Critical Admissions Decision to Admit Reason: Admit from ER (General) Decision to Admit/Date: Feb 04, 2021 Time/Decision to Admit Time: 04:12 Departure-Patient Inst. Referrals: ROXI CANALES MD (PCP/Family) Primary Care Physician KM HERNANDEZ DO Feb 04, 2021 01:31
[2021-02-04] MEDS ORDERED: LACTATED RINGERS 1,000 ML IV STA ×2 (01:39→02:13)
[2021-02-04] MEDS ORDERED: fentaNYL INJ 100 MCG/2 ML AMP IVP STA (01:39)
[2021-02-04 01:44] LABS: HEMATOCRIT 43 % (35-52); HEMOGLOBIN 13.3 g/dL (11.5-16.0); MEAN CORPUSCULAR HEMOGLOBIN 26 pg (25-34); MEAN CORPUSCULAR HGB CONC 31 g/dL (32-36); MEAN CORPUSCULAR VOLUME 84 fL (80-99); MEAN PLATELET VOLUME 11.5 fL (9.0-12.2); NEUTROPHILS % (AUTO) 83 % (42-75); PLATELET COUNT 391 10^3/uL (130-400); WHITE BLOOD COUNT 15.4 10^3/uL (4.3-11.0)
[2021-02-04 01:45] LABS: BASOPHILS # (AUTO) 0.1 10^3/uL (0.0-0.1); BASOPHILS % (AUTO) 0 % (0-10); EOSINOPHILS # (AUTO) 0.1 10^3/uL (0.0-0.3); EOSINOPHILS % (AUTO) 1 % (0-10); LYMPHOCYTES # (AUTO) 1.5 X 10^3 (1.0-4.0); LYMPHOCYTES % (AUTO) 10 % (12-44); MONOCYTES # (AUTO) 0.9 X 10^3 (0.0-1.0); MONOCYTES % (AUTO) 6 % (0-12); NEUTROPHILS # (AUTO) 12.8 X 10^3 (1.8-7.8)
[2021-02-04] MEDS ORDERED: MEROPENEM 500 MG in NS (IVPB) 100 ML IV ONE (01:45)
[2021-02-04] MEDS ORDERED: VANCOMYCIN INJECTION 1,000 MG in NS (IVPB) 250 ML IV ONE (01:45)
[2021-02-04 02:05] LABS: CREATININE SERUM 0.76 MG/DL (0.60-1.30); POTASSIUM 3.1 MMOL/L (3.6-5.0)
[2021-02-04 02:06] LABS: ALBUMIN 3.7 GM/DL (3.2-4.5); BILIRUBIN,TOTAL 0.3 MG/DL (0.1-1.0); CALCIUM 9.9 MG/DL (8.5-10.1); MAGNESIUM 1.2 MG/DL (1.6-2.4)
[2021-02-04] MEDS ORDERED: NS 100 ML (IVPB) BAG IV ONE (02:15)
[2021-02-04] MEDS ORDERED: HOLD METFORMIN - RECEIVED CONTRAST 20 ML VIAL IV SCH (02:15)
[2021-02-04] MEDS ORDERED: IOHEXOL 350 MG/ML 100 ML (OMNIPAQUE 350) VIAL IV ONE (02:15)
[2021-02-04 02:21] LABS: BAND NEUTROPHILS 1 %; LYMPHOCYTES % (MANUAL) 6 %; MONOCYTES % (MANUAL) 4 %; NEUTROPHILS % (MANUAL) 89 %
[2021-02-04 02:26] LABS: ABG BASE EXCESS -19.4 MMOL/L (-2.5-2.5); ABG OXYGEN SATURATION 98 % (94-100); ABG PO2 112 MMHG (79-93)
[2021-02-04] MEDS ORDERED: MAGNESIUM 1 GM/100 ML IVPB 100 ML IV ONE (02:30)
[2021-02-04 02:31] LABS: INSPIRED O2 ROOM AIR; VENTILATOR NO
[2021-02-04 02:34] LABS: ABG PH 7.27 (7.37-7.43); PATIENT TEMP 36.5
[2021-02-04 02:35] LABS: ABG PCO2 10 MMHG (35-45); ABG TCO2 4.9 MMOL/L (21.0-31.0)
[2021-02-04] MEDS: POTASSIUM CL 10MEQ/50ML IVPB 50 ML IV SCH ×8 (02:48→15:35)
[2021-02-04] MEDS ORDERED: SODIUM BICARB 8.4% 50 MEQ/50 ML (ABBOTT) SYR IV ONE ×2 (03:30→10:00)
[2021-02-04] MEDS ORDERED: fentaNYL INJ 100 MCG/2 ML AMP IVP ONE ×2 (03:30→11:45)
--- NOTE | 2021-02-04 04:22 | Diagnostic Imaging Report ---
PROCEDURE: CT pelvis with contrast. TECHNIQUE: Oral and intravenous contrast were administered with pelvic CT performed. Auto Exposure Controls were utilized during the CT exam to meet ALARA standards for radiation dose reduction. Indication: Left buttock pain and swelling, abscess. Comparison: None. Discussion: Along the left aspect of the gluteal cleft, there is a 7 x 3 x 6 cm complex fluid collection which likely represents an abscess. Mild surrounding soft tissue inflammation. The uterus and urinary bladder are unremarkable. The visualized large and small bowel loops appear within normal limits. Reactive-appearing adenopathy is noted within the inguinal regions. No osseous abnormality identified. Impression: 1. Small abscess along the left aspect of the gluteal cleft as described. 2. Agree with preliminary report. Dictated by: Dictated on workstation # [id number]
[2021-02-04] MEDS ORDERED: EPINEPHrine 1 MG INJECTION 4 MG in NS (IVPB) 248 ML IV SCH (06:00)
--- NOTE | 2021-02-04 06:00 | Tele-ICU Consult ---
History of Present Illness History of Present Illness Date Seen by Provider: Feb 04, 2021 Time Seen by Provider: 05:56 Date of Admission Per ED eval: 65-year-old female presents with large abscess induration and erythema present in her right perineal area. She reports that she noticed 3 days ago and has gotten significantly more painful and worse. Patient is a diabetic, does not feel well. She is mildly tachycardic but does not complain of any fever. She does report a significant amount of pain in the area. Patient is in a left arm sling but reports is from a injury back in May. Pt is not on vasopressor; Inulin drip per DKA protocol; pain still present in the gluteal area Allergies and Home Medications Allergies Coded Allergies: Penicillins (Unverified Allergy, Unknown, 05/25/19) adhesive tape (Unverified Allergy, Unknown, 07/03/20) cephalexin (Unverified Allergy, Unknown, 05/25/19) oxycodone (Unverified Allergy, Unknown, 07/03/20) Uncoded Allergies: SULFA (Allergy, Unknown, 07/03/20) Home Medications Amlodipine Besylate 5 Mg Tablet, 5 MG PO DAILY, (Reported) Aspirin 81 Mg Tab.chew, 81 MG PO DAILY, (Reported) Canagliflozin 300 Mg Tablet, 300 MG PO DAILY, (Reported) Glipizide 10 Mg Tablet, 10 MG PO DAILY, (Reported) Glucosamine Sulfate 2Kcl 1,000 Mg Tablet, 1,000 MG PO DAILY, (Reported) Hydrocodone Bit/Acetaminophen 1 Tab Tab, 1 TAB PO Q6H Prescribed by: FANY MILLER on 01/07/21 0159 Losartan Potassium 100 Mg Tablet, 100 MG PO DAILY, (Reported) Metformin HCl 1,000 Mg Tablet, 1,000 MG PO BID, (Reported) Multivitamin with Minerals 1 Each Tablet, 1 EACH PO DAILY, (Reported) Nystatin/Triamcinolone 15 Gm Cr, 15 GM TP for PRN, (Reported) Pravastatin Sodium 80 Mg Tablet, 80 MG PO DAILY, (Reported) Sertraline HCl 100 Mg Tablet, 200 MG PO DAILY, (Reported) Past Medical/Social/Family Hx Patient Social History Employed/Student: retired Tobacco Use?: No Alcohol Use?: No Pt stated abuse/neglect: No Immunizations Up To Date Influenza Vaccine Up-to-Date: No; Not Current First/Initial COVID19 Vaccinat: SEPT Second COVID19 Vaccination [place]: Moderna Date of Pneumonia Vaccine: Nov 26, 2007 Current Status Communicates: Verbally Primary Language: Irish Preferred Spoken Language: Irish Implanted or Applied Medical D: None Past Medical History DM sepsis OA Review of Systems Constitutional: see HPI Sepsis Event Evaluation Sepsis Stage: Sepsis Possible Source: Skin/Soft Tissue Height, Weight, BMI Height: '" Weight: lbs. oz. kg; 31.00 BMI Method: Exam Exam Patient acknowledged, consented, and participated in this virtual visit which was conducted using real time audio/video Vital Signs Date Time Temp Pulse Resp B/P (MAP) Pulse Ox O2 Delivery O2 Flow Rate FiO2 02/04/21 04:50 119 20 139/88 99 Room Air 02/04/21 01:10 36.5 122 28 143/81 (101) 100 Room Air Height & Weight Height: '" Weight: lbs. oz. kg; 31.00 BMI Method: General Appearance: Moderate Distress (pain in the gluteal area), Obese Respiratory: Lungs Clear, Normal Breath Sounds Cardiovascular: Tachycardia Capillary Refill: Less Than 3 Seconds Neurologic/Psychiatric: Alert, Oriented x3, Normal Mood/Affect Skin: Other (Large induration/abscess and cellulitis in her perineal region) Results Lab Laboratory Tests 02/04/21 01:25 Assessment/Plan Assessment/Plan 1. DKA in the context of gluteus abscess -Insulin drip per DKA protocol -empiric abx meropnem/ vanco -continue iv fluids -trend lactic acid/ labs per dka protocol -gluteus abscess:surgery planned for today am. 2. dvt prophylaxis post op pt visualized; dw bed side team MARISA RIVERA MD Feb 04, 2021 06:00
[2021-02-04 06:12] LABS: BASOPHILS % (AUTO) 0 % (0-10); EOSINOPHILS % (AUTO) 0 % (0-10); HEMATOCRIT 37 % (35-52); HEMOGLOBIN 11.8 g/dL (11.5-16.0); LYMPHOCYTES # (AUTO) 1.3 10^3/uL (1.0-4.0); LYMPHOCYTES % (AUTO) 9 % (12-44); MEAN CORPUSCULAR HEMOGLOBIN 26 pg (25-34); MEAN CORPUSCULAR HGB CONC 32 g/dL (32-36); MEAN CORPUSCULAR VOLUME 82 fL (80-99); MEAN PLATELET VOLUME 11.3 fL (9.0-12.2); MONOCYTES # (AUTO) 0.5 10^3/uL (0.0-1.0); MONOCYTES % (AUTO) 3 % (0-12); NEUTROPHILS # (AUTO) 12.3 10^3/uL (1.8-7.8); NEUTROPHILS % (AUTO) 87 % (42-75); PLATELET COUNT 307 10^3/uL (130-400); WHITE BLOOD COUNT 14.2 10^3/uL (4.3-11.0)
[2021-02-04] MEDS ORDERED: POTASSIUM CL 10MEQ/50ML IVPB 50 ML IV SCH (06:15)
[2021-02-04] MEDS ORDERED: MEROPENEM 1,000 MG in NS (IVPB) 100 ML IV SCH (06:15)
[2021-02-04] MEDS ORDERED: D5 1/2 NS 1000 ML IV SOLUTION 1,000 ML IV SCH (06:15)
[2021-02-04 06:24] LABS: ALBUMIN 3.2 GM/DL (3.2-4.5); CHLORIDE 104 MMOL/L (98-107); POTASSIUM 2.8 MMOL/L (3.6-5.0); SODIUM 138 MMOL/L (135-145)
[2021-02-04 06:26] LABS: CALCIUM 9.4 MG/DL (8.5-10.1)
[2021-02-04 06:27] LABS: GLUCOSE 245 MG/DL (70-105); TOTAL PROTEIN 6.6 GM/DL (6.4-8.2)
[2021-02-04 06:28] LABS: CARBON DIOXIDE 13 MMOL/L (21-32)
[2021-02-04 06:29] LABS: BILIRUBIN,TOTAL 0.4 MG/DL (0.1-1.0)
[2021-02-04 06:30] LABS: ALKALINE PHOSPHATASE 157 U/L (40-136); CREATININE SERUM 1.07 MG/DL (0.60-1.30); GFR ESTIMATED 51
[2021-02-04 06:31] LABS: BUN/CREATININE RATIO 9
[2021-02-04 06:33] LABS: ALANINE AMINOTRANSFERASE < 6 U/L (0-55)
[2021-02-04 06:35] LABS: BAND NEUTROPHILS 1 %; BASOPHILS % (MANUAL) 1 %; LYMPHOCYTES % (MANUAL) 9 %; MONOCYTES % (MANUAL) 3 %; NEUTROPHILS % (MANUAL) 86 %; RBC MORPH NORMAL
--- NOTE | 2021-02-04 06:35 | Diagnostic Imaging Report ---
Indication: Dyspnea. Comparison: None. Discussion: Single portable upright view of the chest was obtained. Hazy infiltrates within the right upper lobe could be seen with artifact, atelectasis, pneumonia. Normal heart size. No pleural fluid or pneumothorax. No osseous abnormality. Impression: 1. Hazy infiltrates within the right upper lobe as described. Dictated by: Dictated on workstation # [id number]
[2021-02-04] MEDS: LACTATED RINGERS 1,000 ML IV SCH ×3 (06:54→21:50)
[2021-02-04] MEDS: NOREPINEPHRINE 8 MG/250 ML 250 ML IV SCH ×2 (06:55→19:30)
[2021-02-04] MEDS: VASOPRESSIN INJECTION 20 UNIT in NS (IVPB) 100 ML IV SCH ×2 (06:56→19:29)
[2021-02-04] MEDS: NS IV 1000 ML 1,000 ML IV SCH ×2 (07:42→08:55)
[2021-02-04 08:42] LABS: POTASSIUM 2.7 MMOL/L (3.6-5.0)
[2021-02-04 08:43] LABS: CALCIUM 8.4 MG/DL (8.5-10.1)
[2021-02-04] MEDS ORDERED: NS IV 1000 ML 1,000 ML ONE (08:46)
[2021-02-04 08:47] LABS: CREATININE SERUM 0.91 MG/DL (0.60-1.30)
[2021-02-04] MEDS: VANCOMYCIN 1 GM/NS 250 ML IVPB IV SCH ×4 (08:51→19:44)
[2021-02-04] MEDS: MEROPENEM 500 MG in NS (IVPB) 100 ML IV SCH ×3 (08:51→19:44)
[2021-02-04] MEDS: 1/2 NS IV SOLUTION 1,000 ML IV SCH ×5 (08:55→23:23)
[2021-02-04] MEDS: fentaNYL INJ 100 MCG/2 ML AMP IV PRN ×3 (09:55→20:50)
[2021-02-04] MEDS ORDERED: MAGNESIUM 2 GM/50 ML IVPB 50 ML IV ONE (10:00)
[2021-02-04] MEDS ORDERED: NS IV 1000 ML 1,000 ML IV PRN (10:00)
[2021-02-04] MEDS ORDERED: MIDAZOLAM 2 MG/2 ML (VERSED) VIAL ONE (10:01)
[2021-02-04] MEDS ORDERED: fentaNYL INJ 100 MCG/2 ML AMP ONE ×2 (10:01→10:40)
--- NOTE | 2021-02-04 10:04 | Progress Note-Pre Operative ---
Pre-Operative Progress Note H&P Reviewed The H&P was reviewed, patient examined and no changes noted. Date Seen by Provider: Feb 04, 2021 Time Seen by Provider: : Date H&P Reviewed: Feb 04, 2021 Time H&P Reviewed: : Pre-Operative Diagnosis: left complex perianal abscess WHIT FISHER MD Feb 04, 2021 10:04
[2021-02-04 10:31] LABS: CLARITY,URINE CLEAR; COLOR,URINE YELLOW; GLUCOSE, URINE (UA) 2+ (NEGATIVE); KETONES,URINE 3+ (NEGATIVE); LEUKOCYTE ESTERASE ,URINE NEGATIVE (NEGATIVE); NITRITE,URINE NEGATIVE (NEGATIVE); PH,URINE 5.5 (5-9); PROTEIN,URINE NEGATIVE (NEGATIVE)
[2021-02-04] MEDS ORDERED: LIDOCAINE/EPI 1%-1:200,000 (XYLOCAINE) 30 ML VIAL ONE (10:36)
[2021-02-04 10:39] LABS: BILIRUBIN,URINE 2+ (NEGATIVE)
[2021-02-04] MEDS ORDERED: morphine INJ 10 MG/ML 1ML (SYR OR VIAL) ONE (10:40)
[2021-02-04] MEDS ORDERED: HYDROmorphone 2 MG/ML VIAL (DILAUDID) ONE (10:40)
[2021-02-04] MEDS ORDERED: MEPERIDINE (DEMEROL) INJ 50 MG/ML ONE (10:40)
[2021-02-04] MEDS ORDERED: ONDANSETRON 4 MG/2 ML (SDV) Z0FRAN ONE ×2 (10:41→11:07)
[2021-02-04 10:43] LABS: BACTERIA,URINE TRACE /HPF; SQUAMOUS EPITHELIAL CELL,UR RARE /HPF; WBC,URINE 0-2 /HPF; YEAST,URINE MODERATE /HPF
--- NOTE | 2021-02-04 10:56 | Progress Note-Post Operative ---
Post-Operative Progess Note Surgeon (s)/Station Mechanic Apprentice (s) Surgeon WHIT FISHER MD Station Mechanic Apprentice: tamiko avalos DIRECTOR QUALITY SYSTEMS Pre-Operative Diagnosis left complex perianal abscess Post-Operative Diagnosis same(10x8cm) Procedure & Operative Findings Date of Procedure 02/04/21 Procedure Performed/Findings incision and drainage and debridement left perineum(skin, subcutaneous, fascia)(10x8cm) Anesthesia Type general LMA Estimated Blood Loss Estimated blood loss (mL): minimal Specimens/Packing Specimens Removed left perineum WHIT FISHER MD Feb 04, 2021 10:55
[2021-02-04] MEDS ORDERED: proPOfol 200 MG/20 ML (DIPRIVAN) VIAL IV ONE (11:07)
[2021-02-04] MEDS ORDERED: SEVOFLURANE (ULTANE) 15 ML INHAL SOLN ONE (11:07)
[2021-02-04 11:16] VITALS: BP 114/66
[2021-02-04 11:20] VITALS: BP 120/64
--- NOTE | 2021-02-04 11:26 | CONSULTATION REPORT ---
DATE OF SERVICE: 02/04/2021 ATTENDING PRIMARY CARE PHYSICIAN: Dr. Valderrama. HISTORY OF PRESENT ILLNESS: The patient is a 65-year-old female who presented to [facility] with left perianal and perineal pain. She states that this developed approximately 3 days ago and became significantly more painful. The patient is an insulin-dependent diabetic and when she presented to the Emergency Department, also did not feel well and may have had some fevers. Upon examination, she was found to have redness and erythema along the left perianal and perineal region. A CT scan was performed, which did confirm this. PAST MEDICAL HISTORY: Hypertension, hypercholesterolemia, diabetes. PAST SURGICAL HISTORY: Gastric bypass, rotator cuff repair, carpal tunnel release, uterine ablation, appendectomy, section, laparoscopic cholecystectomy. ALLERGIES: PENICILLIN, CEPHALEXIN, OXYCODONE, SULFA, SOME TYPES OF TAPE. MEDICATIONS: Amlodipine 5 mg daily, aspirin 81 mg daily, canagliflozin 300 mg daily, glipizide 10 mg daily, hydrocodone p.r.n., losartan 100 mg daily, metformin 1000 mg b.i.d., pravastatin 80 mg daily, sertraline 100 mg daily. SOCIAL HISTORY: Negative smoke, negative alcohol. FAMILY HISTORY: Noncontributory. VITAL SIGNS: Temperature 36.5, blood pressure 134/76, pulse 86, respirations 16, pulse ox 98% on room air. REVIEW OF SYSTEMS: Well-nourished female currently slightly guarded secondary to the perineal pain. She is not experiencing any shortness of breath or difficulty breathing. No chest pain, palpitations, diaphoresis. No nausea, vomiting. No known diarrhea or constipation, no red blood per rectum, no dark tarry stools. Possible fevers and chills at home with fatigue. No recent inadvertent weight loss. All other review of systems negative. PHYSICAL EXAMINATION: CHEST: Clear. Good breath sounds bilaterally. HEART: Regular, no murmurs. EXTREMITIES: No lower extremity edema, negative Homans sign. HEENT: No scleral icterus. NECK: No cervical lymphadenopathy. ABDOMEN: Soft, nontender, nondistended. PERINEUM: Redness, erythema of the left perineal and perianal region with fluctuance to indicate likely complex abscess. LABORATORY DATA: WBC 14.2, hemoglobin 11.8, hematocrit 37, platelets 307. BUN 9, creatinine 0.91, glucose 261. ASSESSMENT AND PLAN: A 65-year-old female with uncontrolled diabetes and left perineal and perianal complex abscess. We will proceed with taking her to the operating room for proper anesthesia and incision and drainage of complex abscess. We will then recommend continued wound care with wet to dry dressings on a b.i.d. basis as well as tight glycemic control and continued IV antibiotics. Job ID: [id number] DocumentID: [id number] Dictated Date: 02/04/2021 10:11:34 Light Rail Train Operator Date: 02/04/2021 11:26:39 Dictated By: WHIT FISHER MD
[2021-02-04 11:30] VITALS: BP 108/70
[2021-02-04 11:40] VITALS: BP 110/70
--- NOTE | 2021-02-04 11:40 | Anesthesia-General Post-Op ---
General Patient Condition Mental Status/LOC: Same as Preop Cardiovascular: Satisfactory Nausea/Vomiting: Absent Respiratory: Satisfactory Pain: Controlled Complications: Absent Post Op Complications Complications None Follow Up Care/Instructions Patient Instructions None needed. Anesthesia/Patient Condition Patient Condition Patient is doing well, no complaints, stable vital signs, no apparent adverse anesthesia problems. No complications reported per nursing. TORSTEN LACKEY CRNA Feb 04, 2021 11:40
[2021-02-04] MEDS ORDERED: morphine INJ 10 MG/ML 1ML (SYR OR VIAL) IVP ONE (11:45)
[2021-02-04] MEDS ORDERED: ONDANSETRON 4 MG/2 ML (SDV) Z0FRAN IVP PRN (11:45)
[2021-02-04 11:50] VITALS: BP 108/72
[2021-02-04 12:00] VITALS: BP 108/70
--- NOTE | 2021-02-04 12:00 | History & Physical-Hospitalist ---
History of Present Illness HPI/Chief Complaint Chief complaint: DKA with abscess History of present illness: This is a 65-year-old white female clinic patient of [facility] who has a past medical history of diabetes who presented to the [place] with left perineal abscess and high sugars. Patient was a poor historian. Patient is in a sling due to prior arm injury in May. She was found to have acidosis requiring insulin drip and IV antibiotics. Source: patient Exam Limitations: clinical condition (Anesthesia from surgery) Date Seen 02/04/21 Time Seen by a Provider: 11:45 Attending Physician Annabelle Moore Pankaj K MD Referring Physician Date of Admission Feb 04, 2021 at 05:27 Home Medications & Allergies Home Medications Reviewed patient Home Medication Reconciliation performed by pharmacy medication reconciliations coffee machine technician and/or nursing. Patients Allergies have been reviewed. Allergies Allergies Coded Allergies Penicillins (Unverified Allergy, Unknown, 05/25/19) adhesive tape (Unverified Allergy, Unknown, 07/03/20) cephalexin (Unverified Allergy, Unknown, 05/25/19) oxycodone (Unverified Allergy, Unknown, 07/03/20) Uncoded Allergies SULFA ( Allergy, Unknown, 07/03/20) Past Nrzkrwx-Qoozvu-Ceqkso Hx Patient Social History Marrital Status: single Employed/Student: retired Tobacco Use?: No Smoking Status: Unknown if Ever Smoked Alcohol Use?: No Pt feels they are or have been: No Immunizations Up To Date Date of Influenza Vaccine: Nov 24, 2019 First/Initial COVID19 Vaccinat: NOV Second COVID19 Vaccination [place]: Moderna Date of Pneumonia Vaccine: Nov 26, 2007 Seasonal Allergies Seasonal Allergies: No Current Status Advance Directives: Unable to obtain Communicates: Verbally Primary Language: [place] Preferred Spoken Language: [place] Is interpretation needed?: No Implanted or Applied Medical D: None Past Medical History Surgeries: Appendectomy, Section, Gallbladder, Orthopedic High Cholesterol, Hypertension Gall Bladder Disease Arthritis Diabetes, Non-Insulin dep Hearing Impairment: Denies Depression Blood Disorders: No Adverse Reaction/Blood Tranf: No DM sepsis OA Review of Systems ROS-Unable to Obtain: Postanesthesia Constitutional: see HPI Physical Exam Physical Exam Vital Signs Vital Signs - First Documented 02/04/21 01:10 Temp 36.5 Pulse 122 Resp 28 B/P (MAP) 143/81 (101) Pulse Ox 100 O2 Delivery Room Air Capillary Refill : Less Than 3 Seconds Height, Weight, BMI Height: '" Weight: lbs. oz. kg; 33.21 BMI Method: General Appearance: No Apparent Distress, Chronically ill Eyes: Right Eye Normal Inspection, Right Eye PERRL HEENT: PERRL/EOMI, TMs Normal, Normal ENT Inspection, Pharynx Normal, Moist Mucous Membranes Neck: Full Range of Motion, Normal Inspection, Non Tender Respiratory: Chest Non Tender, Lungs Clear, Normal Breath Sounds, No Accessory Muscle Use, No Respiratory Distress Cardiovascular: Regular Rate, Rhythm, No Edema, No Gallop, No JVD, No Murmur, Normal Peripheral Pulses Gastrointestinal: Normal Bowel Sounds, No Organomegaly, No Pulsatile Mass, Non Tender, Soft Back: Normal Inspection, No CVA Tenderness, No Vertebral Tenderness Extremity: Normal Capillary Refill, Normal Inspection, Normal Range of Motion, Non Tender, No Calf Tenderness, No Pedal Edema Neurologic/Psychiatric: Alert, Oriented x3, No Motor/Sensory Deficits, Normal Mood/Affect, Disoriented (Disoriented from anesthesia) Skin: Normal Color, Warm/Dry Lymphatic: No Adenopathy Results Results/Procedures Labs Laboratory Tests 02/04/21 01:25 02/04/21 06:07 02/04/21 08:20 02/04/21 12:04 02/04/21 17:15 02/05/21 04:28 Patient resulted labs reviewed. Assessment/Plan Admission Diagnosis Assessment: DKA Right perineal abscess status post incision and drainage by Dr. FISHER uncom plicated Hypertension Hyperlipidemia Acute hypokalemia Plan: Supportive care Antibiotics Appreciate Dr. FISHER Admission Status: Inpatient Order (span 2 midnights) Reason for Inpatient Admission: DKA with right perineal abscess Diagnosis/Problems Diagnosis/Problems (1) DKA (diabetic ketoacidosis) Status: Acute Qualifiers: Diabetes mellitus type: type 2 Diabetes mellitus complication detail: without coma Qualified Codes: E11.10 - Type 2 diabetes mellitus with ketoacidosis without coma (2) Severe sepsis Status: Acute (3) Abscess of left buttock Status: Acute ANNABELLE MOORE DO Feb 04, 2021 12:00
[2021-02-04 12:25] LABS: POTASSIUM 2.7 MMOL/L (3.6-5.0)
[2021-02-04 12:26] LABS: CALCIUM 8.3 MG/DL (8.5-10.1)
[2021-02-04 12:30] LABS: CREATININE SERUM 0.78 MG/DL (0.60-1.30)
--- NOTE | 2021-02-04 14:39 | OPERATIVE REPORT ---
DATE OF SERVICE: 02/04/2021 PRIMARY CARE PHYSICIAN: Dr. Valderrama. ADMITTING PHYSICIAN: Dr. Moore. PREOPERATIVE DIAGNOSIS: Left perineal and perianal complex abscess 10 x 8 cm in size. POSTOPERATIVE DIAGNOSIS: Left perineal and perianal complex abscess 10 x 8 cm in size. PROCEDURE: Incision, drainage and debridement, left perineal abscess from the skin, subcutaneous tissue to the fascia and early necrotizing fasciitis 10 x 8 cm in size. SURGEON: Whit Swain MD. CURLING MACHINE OPERATOR: Sam Lombardi APRN. ANESTHESIA: General laryngeal mask airway with local. ESTIMATED BLOOD LOSS: Minimal. FINDINGS: Necrotic debris and large abscess along the skin and subcutaneous tissue to the level of the fascia of the left perineum 10 x 8 cm in size. DISPOSITION: The patient tolerated the procedure well. INDICATIONS: The patient is a 65-year-old female who presented to [facility] with weakness, fatigue and pain in the perineal region. She stated that this started approximately 3 days ago. She is a diabetic and was found to be significantly hyperglycemic and also ketoacidosis. A CT scan was performed, which did show a large complex abscess of the left perineal region. DESCRIPTION OF PROCEDURE: The patient was brought to the operating room, laid supine on the table. After adequate IV pain and sedative medications and general laryngeal mask airway intubation, the patient was placed in lithotomy and the perineum was prepped and draped in standard surgical fashion. 1% lidocaine with epinephrine was then used to anesthetize the overlying skin and subcutaneous tissue in the perineal region. A skin incision was then made using a 15 blade. There was necrotic debris within the abscess cavity, which was debrided which included skin, subcutaneous tissue to the level of the fascia using blunt dissection as well as electrocautery. The dimensions of the abscess were approximately 10 x 8 cm in size. The wound was then irrigated. The abscess cavity was sent for culture and sensitivity. The wound cavity was then packed with 1-inch iodoform gauze followed by 4 x 4, followed by ABD pad followed by mesh shorts. The patient tolerated the procedure well. We will restart IV antibiotics as well as correction of her ketoacidosis. We will also consult wound care and for now proceed with wet to dry dressings on a b.i.d. basis. Job ID: [id number] DocumentID: [id number] Dictated Date: 02/04/2021 11:01:43 Traffic Signal Repairer Date: 02/04/2021 14:38:38 Dictated By: WHIT SWAIN MD MTDD
[2021-02-04 17:15] LABS: ABG BASE EXCESS -4.6 MMOL/L (-2.5-2.5); ABG OXYGEN SATURATION 94 % (94-100); ABG PCO2 33 MMHG (35-45); ABG PH 7.39 (7.37-7.43); ABG PO2 75 MMHG (79-93); ABG TCO2 20.3 MMOL/L (21.0-31.0); ALLENS TEST POS
[2021-02-04 17:16] LABS: PATIENT TEMP 37.6; VENTILATOR NO
--- NOTE | 2021-02-04 17:23 | Tele-ICU Progress Note ---
Focused Exam Lactate Level 02/04/21 01:25: Lactic Acid Level 2.18*H 02/04/21 08:20: Lactic Acid Level 1.08 Height, Weight, BMI Height: '" Weight: lbs. oz. kg; 33.21 BMI Method: ERIKA CLAYTON MD Feb 04, 2021 17:22
[2021-02-04 17:48] LABS: POTASSIUM 3.4 MMOL/L (3.6-5.0)
[2021-02-04 17:49] LABS: CALCIUM 8.3 MG/DL (8.5-10.1)
[2021-02-04 17:54] LABS: CREATININE SERUM 0.76 MG/DL (0.60-1.30)
[2021-02-04 17:56] LABS: MAGNESIUM 1.5 MG/DL (1.6-2.4)
[2021-02-04] MEDS ORDERED: MAGNESIUM 2 GM/50 ML IVPB 50 ML IV STA (18:11)
[2021-02-04] MEDS ORDERED: MAGNESIUM 1 GM/100 ML IVPB 200 ML IV ONE (19:34)
[2021-02-04] MEDS: MAGNESIUM 1 GM/100 ML IVPB 100 ML IV SCH ×2 (19:45→20:50)
[2021-02-04] MEDS: inSUlin ASPART (NovoLOG) 1 UNIT/0.01 ML (CHARGE PER UNIT) SC SCH (23:35)
[2021-02-05] MEDS: LACTATED RINGERS 1,000 ML IV SCH ×4 (01:52→19:32)
[2021-02-05] MEDS: 1/2 NS IV SOLUTION 1,000 ML IV SCH ×6 (01:53→21:50)
[2021-02-05] MEDS: VASOPRESSIN INJECTION 20 UNIT in NS (IVPB) 100 ML IV SCH ×2 (01:53→15:26)
[2021-02-05] MEDS: MEROPENEM 500 MG in NS (IVPB) 100 ML IV SCH ×4 (01:59→19:32)
[2021-02-05 04:48] LABS: BASOPHILS % (AUTO) 0 % (0-10); EOSINOPHILS # (AUTO) 0.3 10^3/uL (0.0-0.3); EOSINOPHILS % (AUTO) 2 % (0-10); HEMATOCRIT 30 % (35-52); HEMOGLOBIN 9.8 g/dL (11.5-16.0); LYMPHOCYTES # (AUTO) 1.2 10^3/uL (1.0-4.0); LYMPHOCYTES % (AUTO) 11 % (12-44); MEAN CORPUSCULAR HEMOGLOBIN 27 pg (25-34); MEAN CORPUSCULAR HGB CONC 33 g/dL (32-36); MEAN CORPUSCULAR VOLUME 82 fL (80-99); MEAN PLATELET VOLUME 11.2 fL (9.0-12.2); MONOCYTES # (AUTO) 0.6 10^3/uL (0.0-1.0); MONOCYTES % (AUTO) 6 % (0-12); NEUTROPHILS # (AUTO) 9.1 10^3/uL (1.8-7.8); NEUTROPHILS % (AUTO) 80 % (42-75); PLATELET COUNT 225 10^3/uL (130-400); WHITE BLOOD COUNT 11.4 10^3/uL (4.3-11.0)
[2021-02-05 04:59] LABS: ALBUMIN 2.4 GM/DL (3.2-4.5); POTASSIUM 2.8 MMOL/L (3.6-5.0)
[2021-02-05 05:02] LABS: TOTAL PROTEIN 4.8 GM/DL (6.4-8.2)
[2021-02-05 05:03] LABS: BILIRUBIN,TOTAL 0.3 MG/DL (0.1-1.0)
[2021-02-05 05:05] LABS: CREATININE SERUM 0.66 MG/DL (0.60-1.30)
[2021-02-05 05:08] LABS: MAGNESIUM 1.7 MG/DL (1.6-2.4)
[2021-02-05] MEDS: inSUlin ASPART (NovoLOG) 1 UNIT/0.01 ML (CHARGE PER UNIT) SC SCH ×3 (05:13→18:15)
[2021-02-05] MEDS: POTASSIUM CL 10MEQ/50ML IVPB 50 ML IV SCH ×4 (05:21→08:47)
[2021-02-05] MEDS: KCL 20 MEQ TAB (K-DUR) PO SCH (05:21)
[2021-02-05] MEDS: MAGNESIUM 1 GM/100 ML IVPB 100 ML IV SCH ×3 (05:21→06:21)
[2021-02-05] MEDS: fentaNYL INJ 100 MCG/2 ML AMP IV PRN (05:27)
[2021-02-05] MEDS ORDERED: POTASSIUM PHOSPHATE INJ 30 MM in NS (IVPB) 250 ML IV ONE (05:45)
[2021-02-05] MEDS: VANCOMYCIN 1 GM/NS 250 ML IVPB IV SCH ×4 (08:49→19:32)
[2021-02-05] MEDS ORDERED: KCL 20 MEQ TAB (K-DUR) PO ONE (09:45)
--- NOTE | 2021-02-05 09:52 | Tele-ICU Progress Note ---
Subjective Date Seen by a Provider: Feb 05, 2021 Time Seen by a Provider: 09:51 Sepsis Event Evaluation Height, Weight, BMI Height: '" Weight: lbs. oz. kg; 33.21 BMI Method: Focused Exam Lactate Level 02/04/21 01:25: Lactic Acid Level 2.18*H 02/04/21 08:20: Lactic Acid Level 1.08 Exam Exam Patient acknowledged, consented, and participated in this virtual visit which was conducted using real time audio/video Vital Signs Date Time Temp Pulse Resp B/P (MAP) Pulse Ox O2 Delivery O2 Flow Rate FiO2 02/05/21 09:15 12 94 Room Air 02/05/21 09:00 77 13 93 Room Air 02/05/21 08:45 80 16 96 Room Air 02/05/21 08:30 Room Air 02/05/21 08:15 79 18 91 Room Air 02/05/21 08:00 73 13 102/55 94 Room Air 02/05/21 07:54 37.0 02/05/21 07:30 79 16 93 Room Air 02/05/21 07:15 77 14 92 Room Air 02/05/21 07:00 75 02/05/21 07:00 25 118/64 91 Room Air 02/05/21 06:00 76 17 98/56 95 Room Air 02/05/21 05:00 77 9 111/59 95 Room Air 02/05/21 04:00 75 10 107/58 94 Room Air 02/05/21 03:19 37.2 02/05/21 03:17 Room Air 02/05/21 03:00 82 17 107/58 91 Room Air 02/05/21 02:00 81 9 110/66 97 Room Air 02/05/21 01:00 80 19 118/65 94 Room Air 02/05/21 01:00 80 02/05/21 00:00 76 20 104/56 94 Room Air 02/05/21 00:00 37.0 02/04/21 23:25 Room Air 02/04/21 23:00 75 15 111/59 93 Room Air 02/04/21 22:00 84 17 102/60 91 Room Air 02/04/21 21:00 88 17 110/66 92 Room Air 02/04/21 20:00 88 17 95/57 97 Room Air 02/04/21 20:00 Room Air 02/04/21 19:36 92 13 109/64 94 Room Air 02/04/21 19:35 37.4 02/04/21 19:00 91 02/04/21 19:00 91 18 106/67 98 Room Air 02/04/21 18:00 93 14 106/67 97 Room Air 02/04/21 17:45 96 17 107/68 96 02/04/21 17:40 93 18 118/91 98 02/04/21 17:30 14 107/79 95 02/04/21 17:20 21 121/59 96 02/04/21 17:15 102 14 94 02/04/21 17:00 101 22 113/64 97 Room Air 02/04/21 16:45 97 14 112/70 97 02/04/21 16:30 100 16 124/81 95 02/04/21 16:15 98 22 113/67 95 02/04/21 16:00 37.2 02/04/21 16:00 Room Air 02/04/21 16:00 96 13 108/71 96 Room Air 02/04/21 15:50 92 15 132/69 95 02/04/21 15:45 92 14 132/69 95 02/04/21 15:30 96 15 127/68 94 02/04/21 15:15 89 14 119/74 94 02/04/21 15:00 87 18 133/71 94 Room Air 02/04/21 14:45 90 17 130/73 94 02/04/21 14:20 90 18 138/80 96 02/04/21 14:15 85 11 134/73 96 02/04/21 14:00 86 14 128/76 97 Room Air 02/04/21 13:45 85 11 132/75 99 02/04/21 13:30 80 13 122/74 95 02/04/21 13:15 82 12 122/72 96 02/04/21 13:00 87 14 132/74 95 Room Air 02/04/21 13:00 85 35 132/74 94 02/04/21 12:50 83 11 123/70 93 02/04/21 12:45 87 15 93 02/04/21 12:43 85 02/04/21 12:30 87 12 128/71 94 02/04/21 12:15 104 20 95 02/04/21 12:00 36.5 20 108/70 (83) 97 Room Air 02/04/21 12:00 84 11 133/73 97 Room Air 02/04/21 12:00 Room Air 02/04/21 11:56 85 15 108/70 95 02/04/21 11:50 20 108/72 (84) 95 Room Air 02/04/21 11:45 Room Air 02/04/21 11:45 84 14 93 02/04/21 11:40 20 110/70 (83) 95 Room Air 02/04/21 11:30 OxyMask 3 02/04/21 11:30 20 108/70 (83) 100 OxyMask 3 02/04/21 11:30 92 21 114/66 100 02/04/21 11:20 20 120/64 (82) 100 OxyMask 6 02/04/21 11:16 36.5 20 114/66 (82) 100 OxyMask 3 02/04/21 11:16 OxyMask 6 02/04/21 10:00 88 19 126/73 98 Room Air I & O 02/05/21 07:00 Intake Total 4110 ml Output Total 1200 ml Balance 2910 ml Height & Weight Height: '" Weight: lbs. oz. kg; 33.21 BMI Method: General Appearance: No Apparent Distress, Chronically ill HEENT: PERRL/EOMI, TMs Normal, Normal ENT Inspection, Pharynx Normal, Moist Mucous Membranes Neck: Full Range of Motion, Normal Inspection, Non Tender Respiratory: Chest Non Tender, Lungs Clear, Normal Breath Sounds, No Accessory Muscle Use, No Respiratory Distress Cardiovascular: Regular Rate, Rhythm, No Edema, No Gallop, No JVD, No Murmur, Normal Peripheral Pulses Capillary Refill: Less Than 3 Seconds Extremity: Normal Capillary Refill, Normal Inspection, Normal Range of Motion, Non Tender, No Calf Tenderness, No Pedal Edema Neurologic/Psychiatric: Alert, Oriented x3, No Motor/Sensory Deficits, Normal Mood/Affect, Disoriented (Disoriented from anesthesia) Skin: Normal Color, Warm/Dry Lymphatic: No Adenopathy Results Lab Laboratory Tests 02/04/21 01:25 02/04/21 06:07 02/04/21 08:20 02/04/21 12:04 02/04/21 17:15 02/05/21 04:28 Assessment/Plan Assessment/Plan (Tele-ICU Physician , Progress Note ) Available chart/ vitals / labs / Images reviewed Video assessment done using teleICU camera, rest of exam as per RN Discussed with RN , EXAM PER RN Events overnight : febrile FiO2 - ra I/O = pos 3 L Drips: Pressors: , hemodynamically stable Consultants: Sx Hospital course: (02/04) 65F Admitted for DKA and severe sepsis and gluteal cleft abscess. Potassium low-- TO OR: s/p I&D right groin abscess and left perianal abscess under general. A/P DKA - off insulin gtt , follow with ISS Right perineal abscess - s/p incision and drainage 02/04 - as per Sx - cont abx - MEREM 02/04, Vanco 02-04- Runs of SVT vs afib 02/04 - replacing lytes , sinus now Hypertension Anemia - post op , monitor Acute hypokalemia - cont replacemnt Confusion after Or on 02/04 -Neuro exam is grossly nonfocal - avoid sedatives Lines : periph (Central Line Necessity Reviewed) Ca: + OG: Nutrition: PO Analgesia: Anxiety/ delirium VTE Prophylaxis: SCD Stress Ulcer Prophylaxis: PO intake Glycemic Control: Plans in collaboration with bedside consultants and IM MDs. Discussed with RN to reach out if any questions or concerns A total of 32 minutes of critical care time was devoted to this patient today, required to treat and/or prevent further deterioration of critical care condition ( as above) . ERIKA CLAYTON MD Feb 05, 2021 09:52
[2021-02-05] MEDS ORDERED: TURMERIC PO (10:33)
[2021-02-05] MEDS ORDERED: OMEG1CAP58 PO (10:33)
[2021-02-05] MEDS ORDERED: FLAX100032 PO (10:33)
[2021-02-05] MEDS ORDERED: ACET-2267 PO (10:33)
[2021-02-05] MEDS ORDERED: LOSA100T57 PO (10:33)
[2021-02-05] MEDS ORDERED: EMPA10TA PO (10:33)
[2021-02-05] MEDS: NOREPINEPHRINE 8 MG/250 ML 250 ML IV SCH (11:11)
--- NOTE | 2021-02-05 11:52 | Physical Therapy Evaluation ---
PT Evaluation-General Medical Diagnosis Admission Date Feb 04, 2021 at 05:27 Medical Diagnosis: sepsis/DKA abscess Onset Date: Feb 04, 2021 Therapy Diagnosis Therapy Diagnosis: generalized weakness/debility Precautions Precautions/Isolations: Standard Precautions Referral Physician: Teresa Reason for Referral: Evaluation/Treatment Medical History Pertinent Medical History: DM, HTN Current History ER secondary to abscess left groin Reviewed History: Yes Social History Home: Single Level Current Living Status: Spouse Prior Prior Level of Function SCALE: Activities may be completed with or without assistive devices. 0-Ktrrrgszad-awxtkvw completes the activity by him/herself with no assistance from a helper. 5-Set-up or Clean-up Assistance-helper sets up or cleans up; patient completes activity. Stacy assists only prior to or following the activity. 4-Supervision or Touching Assistance-helper provides verbal cues and/or touching/steadying and/or contact guard assistance as patient completes activity . Assistance may be provided throughout the activity or intermittently. 3-Partial/Moderate Assistance-helper does LESS THAN HALF the effort. Stacy lifts, holds or supports trunk or limbs, but provides less than half the effort. 2-Substantial/Maximal Assistance-helper does MORE THAN HALF the effort. Stacy lifts or holds trunk or limbs and provides more than half the effort. 5-Pqlyyywpd-htydkq does ALL the effort. Patient does none of the effort to complete the activity. Or, the assistance of 2 or more helpers is required for the patient to complete the activity. If activity was not attempted, code reason: 7-Patient Refused. 9-Not Applicable-not attempted and the patient did not perform the activity before the current illness, exacerbation or injury. 10-Not Attempted due to Environmental Limitations-(lack of equipment, weather restraints, etc.). 88-Not Attempted due to Medical Conditions or Safety Concerns. Bed Mobility: 6 Transfers (B,C,W/C): 6 Gait: 6 Indoor Mobility (Ambulation): Needed Some Help Stairs: Needed Some Help Prior Devices Use: Manual wheelchair, None works outside of home, however, per spouse, patient has required more assistance the past few months and has multiple falls with left shoulder fracture. PT Evaluation-Current Subjective Patient agrees to PT. Objective Patient Orientation: Person, Time, Situation Attachments: Ca Catheter, IV ROM/Strength ROM Lower Extremities bilateral LE limited due to RA per patient and spouse report Strength Lower Extremities 3/5 grossly bilateral LE Integumentary/Posture Integumentary refer to nursing notes Bladder Incontinence: Ca Cath Posture WFL Neuromuscular (Tone, Coordination, Reflexes) diminished coordination Sensory Vision: Wears Glasses Hearing: Functional Transfers Roll Left to Right (QC): 2 Sit to Lying (QC): 2 Lying to Sitting/Side of Bed(Q: 2 Sit to Stand (QC): 2 Chair/Zql-vk-Zbxwr Xfer(QC): 2 Gait Does the Patient Walk?: No and Walking Goal IS indicated Mode of Locomotion: Walk Anticipated Mode of Locomotion: Walk Gait Assistive Device: Walker [place] Balance Sitting Static: Fair Sitting Dynamic: Fair Standing Static: Fair Standing Dynamic: Poor Assessment/Needs 65 y.o. female, will benefit from skilled PT to address functional strength and mobility to improve current LOF to safely return to home with spouse at maximum LOF. Rehab Potential: Fair Post Rehab Potential-Barriers: compliance PT Jail Goals Coating Machine Operator Helper Goals PT Coating Machine Operator Helper Goals Time Frame: Feb 17, 2021 Roll Left & Right (QC): 5 Sit to Lying (QC): 5 Lying-Sitting on Side/Bed(QC): 5 Sit to Stand (QC): 5 Chair/Bsb-io-Vltxr Xfer(QC): 5 Toilet Transfer (QC): 5 Walk 10 feet (QC): 4 Walk 50ft with 2 Turns (QC): 4 Walk 150 ft (QC): 4 PT Plan Problem List Problem List: Activity Tolerance, Functional Strength, Safety, Balance, Gait, Transfer, Bed Mobility, ROM Treatment/Plan Treatment Plan: Continue Plan of Care Treatment Plan: Bed Mobility, Education, Functional Activity Nas, Functional Strength, Gait, Safety, Therapeutic Exercise, Transfers Treatment Duration: Feb 17, 2021 Frequency: 6 times per week Estimated Hrs Per Day: .5 hour per day Patient and/or Family Agrees t: Yes Time/GCodes Time In: 1115 Time Out: 1131 Total Billed Treatment Time: 16 Total Billed Treatment 1 visit EVModC 16 min DAVY FUENTES PT Feb 05, 2021 11:52
--- NOTE | 2021-02-05 12:27 | Occupational Therapy Eval ---
OT Evaluation-General/PLF Medical Diagnosis Admission Date Feb 04, 2021 at 05:27 Medical Diagnosis: sepsis/DKA abscess Onset Date: Feb 04, 2021 Therapy Diagnosis Therapy Diagnosis: Impaired adls, balance, endurance, rom, strength, cognition Precautions Precautions/Isolations: Fall Prevention, Standard Precautions Referral Physician: Teresa Referral Reason: Evaluation/Treatment Medical History Pertinent Medical History: DM, HTN Current History Presents to ER with perineal abscess and high blood sugars. Found to have keto acidois and is s/p I&D. Per patient, she lives with spouse in single story home. Per , pt has been having multiple falls resulting in recent humerus fracture (January 06, 2021). Pt was put in a sling. Since fx, she has needed extra assist with all adls and her spouse now manages all IADLs. Pt sits in w/c majority of day and only ambulates short distances due to w/c not fitting in bathroom. Reviewed History: Yes Social History Home: Single Level Current Living Status: Spouse Entry Into Home: Stairs With Railing Steps Into Home: 3 ADL-Prior Level of Function SCALE: Activities may be completed with or without assistive devices. 7-Lsnaphfybi-zvtjvdn completes the activity by him/herself with no assistance from a helper. 5-Set-up or Clean-up Assistance-helper sets up or cleans up; patient completes activity. [place] assists only prior to or following the activity. 4-Supervision or Touching Assistance-helper provides verbal cues and/or touching/steadying and/or contact guard assistance as patient completes activity. Assistance may be provided throughout the activity or intermittently. 3-Partial/Moderate Assistance-helper does LESS THAN HALF the effort. [place] lifts, holds or supports trunk or limbs, but provides less than half the effort. 2-Substantial/Maximal Assistance-helper does MORE THAN HALF the effort. [place] lifts or holds trunk or limbs and provides more than half the effort. 6-Vosrsqpyj-civhfl does ALL the effort. Patient does none of the effort to complete the activity. Or, the assistance of 2 or more helpers is required for the patient to complete the activity. If activity was not attempted, code reason: 7-Patient Refused. 9-Not Applicable-not attempted and the patient did not perform the activity before the current illness, exacerbation or injury. 10-Not Attempted due to Environmental Limitations-(lack of equipment, weather restraints, etc.). 88-Not Attempted due to Medical Conditions or Safety Concerns. Self Care: Needed Some Help Functional Cognition: Needed Some Help DME/Equipment: Bath Chair, Grab Bars, Tub/Shower OT Current Status Subjective Pt groggy, requires repetition of commands. Agreeable to treatment Appearance Returned to sitting in chair, all needs within reach. RN and spouse in room. Mental Status/Objective Patient Orientation: Person, Confused Attachments: Ca Catheter, IV, Telemetry Current Upper Extremity ROM R shoulder: ~3/4 AROM, pt has history of old shoulder pain and carpal tunnel in bilateral wrists LUE not assessed secondary to urgency to have BM ADL-Treatment Upper Body Dressing (QC): 1 Lower Body Dressing (QC): 1 On/Off Footwear (QC): 1 Toileting Hygiene (QC): 1 Pt sitting in chair at OT arrival. During interview, pt verbalizes urgency to have BM. Stand pivot from chair to bedside commode with mod a. Second person needed for management of multiple lines. Pt incontinent of liquid stools during transfer, partially contained in brief. Dep to lower brief. While sitting on commode, pt with heavy lean to Right, poor ability to self correct. Min-mod a for standing balance as second person assist with jazzy care. Due to incision in perineal region, pt screaming out in pain when getting cleaned. Due to large jody unts of liquid stool, extra time needed for hygiene and to ensure area around incision was cleaned. Pt returned to reclining in chair in order for RN to get further cleaning in front jazzy area. altagracia Burrell to thread BUE's. Education OT Patient Education: Correct positioning, Progress toward Goal/Update tx plan, Purpose of tx/functional activities, Reviewed precautions, Safety issues, Transfer techniques Teaching Recipient: Patient Teaching Methods: Demonstration, Discussion Response to Teaching: Reinforcement Needed OT Hostel Parent Goals Detention Goals Time Frame: Feb 26, 2021 Oral Hygiene (QC): 4 Toileting Hygiene (QC): 4 Shower/Bathe Self (QC): 4 Upper Body Dressing (QC): 4 Lower Body Dressing (QC): 4 On/Off Footwear (QC): 4 1=Demonstrate adherence to instructed precautions during ADL tasks. 2=Patient will verbalize/demonstrate understanding of assistive devices/modifications for ADL. 3=Patient will improve strength/tolerance for activity to enable patient to perform ADL's. OT Education/Plan Problem List/Assessment Assessment: Decreased Activ Tolerance, Decreased Safety Aware, Decreased UE Strength, Impaired Coordination, Impaired Funct Balance, Impaired I ADL's, Impaired Self-Care Skills, Restricted Funct UE ROM Discharge Recommendations Plan/Recommendations: Continue POC Comment ongoing assessment Treatment Plan/Plan of Care Treatment,Training & Education: Yes Patient would benefit from OT for education, treatment and training to promote independence in ADL's, mobility, safety and/or upper extremity function for ADL's. Plan of Care: ADL Retraining, Functional Mobility, Group Exercise/Act as Ind, UE Funct Exercise/Act Treatment Duration: Feb 26, 2021 Frequency: 5 times per week Estimated Hrs Per Day: .25 hour per day Agreement: Yes Rehab Potential: Fair Time/GCodes Start Time: 11:33 Stop Time: 12:17 Total Time Billed (hr/min): 44 Billed Treatment Time 1 visit EVM (10 min) ADL x2 (33 min) Thea Marquis OT Feb 05, 2021 12:27
--- NOTE | 2021-02-05 12:41 | Progress Note - Hospitalist ---
ROSEMARIELAURENT 02/05/21 1241: Subjective HPI/CC On Admission Date Seen by Provider: Feb 05, 2021 Time Seen by Provider: 08:46 Chief complaint: DKA with abscess History of present illness: This is a 65-year-old white female clinic patient of [facility] who has a past medical history of diabetes who presented to the [place] ER with left perineal abscess and high sugars. Patient was a poor historian. Patient is in a sling due to prior arm injury in May. She was found to have acidosis requiring insulin drip and IV antibiotics. Subjective/Events-last exam Today when I visited the pt she was resting in bed and preparing to eat breakfast. She states that she is feeling much better today, but does have some pain near her surgical site. She has no concerns at this time. Review of Systems General: No Chills, No Night Sweats; Fatigue, Appetite HEENT: No Head Aches, No Dysphasia, No Sore Throat Pulmonary: No Dyspnea, No Cough, No Pleuritic Chest Pain Cardiovascular: No: Chest Pain, Palpitations, Orthopnea, Lt Headedness Gastrointestinal: No: Nausea, Vomiting, Abdominal Pain, Diarrhea Genitourinary: No Dysuria, No Frequency, No Incontinence, No Hematuria Musculoskeletal: No: neck pain, shoulder pain, back pain, hand pain Neurological: No: Weakness, Numbness, Confusion, Seizures Focused Exam Lactate Level 02/04/21 01:25: Lactic Acid Level 2.18*H 02/04/21 08:20: Lactic Acid Level 1.08 Objective Exam Vital Signs Vital Signs Date Time Temp Pulse Resp B/P (MAP) Pulse Ox O2 Delivery O2 Flow Rate FiO2 02/05/21 12:25 Room Air 02/05/21 11:55 37.2 02/05/21 09:15 12 94 02/05/21 09:00 77 02/05/21 08:00 102/55 02/04/21 11:30 3 Capillary Refill : Less Than 3 SecondsLess Than 3 Seconds General Appearance: No Apparent Distress, WD/WN HEENT: PERRL/EOMI, Pharynx Normal Neck: Full Range of Motion, Non Tender, Supple Respiratory: Chest Non Tender, Lungs Clear, Normal Breath Sounds, No Accessory Muscle Use, No Respiratory Distress Cardiovascular: Regular Rate, Rhythm, No Edema, No Gallop, No Murmur, Normal Peripheral Pulses Gastrointestinal: Normal Bowel Sounds, No Organomegaly, No Pulsatile Mass, Non Tender, Soft Rectal: Deferred Back: No CVA Tenderness, No Vertebral Tenderness Extremity: Normal Capillary Refill, Normal Range of Motion, Non Tender, No Calf Tenderness, No Pedal Edema Neurologic/Psychiatric: Alert, Oriented x3, No Motor/Sensory Deficits, Normal Mood/Affect, cableman II-XII Norm as Tested Reflexes: 2+ Bicep (R), 2+ Bicep (L) Skin: Normal Color, Warm/Dry Lymphatic: No Adenopathy (Cervical and axillary) Results/Procedures Lab Laboratory Tests 02/04/21 17:15 02/05/21 04:28 Patient resulted labs reviewed. Assessment/Plan Assessment and Plan Assess & Plan/Chief Complaint Assessment: DKA Right perineal abscess status post incision and drainage by Dr. SWAIN uncomplicated Hypertension Hyperlipidemia Acute hypokalemia Plan: Supportive care Antibiotics Appreciate Dr. SWAIN 02/05/2021 Continue IV insulin and IV abx PT-OT Supportive care ANNABELLE BRAVO DO 02/06/21 0605: Subjective Subjective/Events-last exam DKA is improved Bicarb is 19 Doesn't take insulin at home Early necrotizing fasciitis noted by Dr. Swain on I&D yesterday Potassium 2.8 requiring aggressive supplement Review of Systems General: Fatigue Objective Exam General Appearance: No Apparent Distress, WD/WN, Chronically ill Respiratory: Lungs Clear, Normal Breath Sounds Cardiovascular: Regular Rate, Rhythm Neurologic/Psychiatric: Alert, Oriented x3, No Motor/Sensory Deficits, Normal Mood/Affect Assessment/Plan Assessment and Plan Assess & Plan/Chief Complaint Continue insulin drip Antibiotics Supervisory-Addendum Brief Verification & Attestation Participated in pt care: history, MDM, physical Personally performed: exam, history, MDM, supervision of care Care discussed with: Medical Student Procedures: n/a Results interpretation: Verified all documentation Verification and Attestation of Medical Student E/M Service A medical student performed and documented this service in my presence. I reviewed and verified all information documented by the medical student and made modifications to such information, when appropriate. I personally performed the physical exam and medical decision making. Annabelle Bravo Feb 06, 2021,06:04 LAURENT HOUSTON Feb 05, 2021 12:41 ANNABELLE BRAVO DO Feb 06, 2021 06:05
[2021-02-05 17:17] LABS: POTASSIUM 4.2 MMOL/L (3.6-5.0)
[2021-02-05 17:18] LABS: CALCIUM 8.3 MG/DL (8.5-10.1)
[2021-02-05 17:23] LABS: CREATININE SERUM 0.6 MG/DL (0.60-1.30); PHOSPHORUS 2.1 MG/DL (2.3-4.7)
[2021-02-05 17:25] LABS: MAGNESIUM 1.8 MG/DL (1.6-2.4)
[2021-02-05] MEDS ORDERED: FLUCONAZOLE 200 MG/100 ML 100 ML IV ONE (18:45)
[2021-02-06] MEDS: inSUlin ASPART (NovoLOG) 1 UNIT/0.01 ML (CHARGE PER UNIT) SC SCH ×5 (00:18→20:52)
[2021-02-06] MEDS: MEROPENEM 500 MG in NS (IVPB) 100 ML IV SCH ×4 (02:11→20:45)
[2021-02-06] MEDS: LACTATED RINGERS 1,000 ML IV SCH ×3 (03:30→20:45)
[2021-02-06 04:58] LABS: BASOPHILS % (AUTO) 1 % (0-10); EOSINOPHILS # (AUTO) 0.2 10^3/uL (0.0-0.3); EOSINOPHILS % (AUTO) 3 % (0-10); HEMATOCRIT 30 % (35-52); HEMOGLOBIN 9.6 g/dL (11.5-16.0); LYMPHOCYTES # (AUTO) 1.3 10^3/uL (1.0-4.0); LYMPHOCYTES % (AUTO) 16 % (12-44); MEAN CORPUSCULAR HEMOGLOBIN 26 pg (25-34); MEAN CORPUSCULAR HGB CONC 32 g/dL (32-36); MEAN CORPUSCULAR VOLUME 81 fL (80-99); MEAN PLATELET VOLUME 11.1 fL (9.0-12.2); MONOCYTES # (AUTO) 0.6 10^3/uL (0.0-1.0); MONOCYTES % (AUTO) 7 % (0-12); NEUTROPHILS % (AUTO) 73 % (42-75); PLATELET COUNT 235 10^3/uL (130-400); WHITE BLOOD COUNT 8.2 10^3/uL (4.3-11.0)
[2021-02-06 05:12] LABS: ALBUMIN 2.4 GM/DL (3.2-4.5)
[2021-02-06 05:13] LABS: CALCIUM 8.3 MG/DL (8.5-10.1)
[2021-02-06 05:16] LABS: BILIRUBIN,TOTAL 0.3 MG/DL (0.1-1.0)
[2021-02-06 05:18] LABS: CREATININE SERUM 0.56 MG/DL (0.60-1.30); PHOSPHORUS 1.7 MG/DL (2.3-4.7)
[2021-02-06 05:21] LABS: MAGNESIUM 1.5 MG/DL (1.6-2.4)
[2021-02-06] MEDS: POTASSIUM CL 10MEQ/50ML IVPB 50 ML IV SCH (05:46)
[2021-02-06] MEDS: KCL 20 MEQ TAB (K-DUR) PO SCH (05:47)
[2021-02-06] MEDS: MAGNESIUM 1 GM/100 ML IVPB 100 ML IV SCH ×3 (05:47→06:58)
[2021-02-06] MEDS: LOSARTAN 100 MG (COZAAR) TABLET PO SCH (09:19)
[2021-02-06] MEDS: amLODIPine 5 MG (NORVASC) TAB PO SCH (09:19)
[2021-02-06] MEDS: SERTRALINE 100 MG (ZOLOFT) TAB PO SCH (09:19)
[2021-02-06] MEDS: FLUCONAZOLE 100 MG/50 ML IV SCH ×2 (09:20)
[2021-02-06] MEDS: ASPIRIN 81 MG CHEW (CHILDREN'S ASA) PO SCH (09:20)
[2021-02-06] MEDS: VANCOMYCIN 1 GM/NS 250 ML IVPB IV SCH ×4 (09:20→20:45)
--- NOTE | 2021-02-06 10:28 | Physical Therapy Daily Note ---
PT Daily Note-Current Subjective Patient more alert and able to safely participate with PT. Mental Status Patient Orientation: Normal For Age Attachments: Ca Catheter, IV Transfers SCALE: Activities may be completed with or without assistive devices. 1-Jfjorwtptt-hebjgev completes the activity by him/herself with no assistance from a helper. 5-Set-up or Clean-up Assistance-helper sets up or cleans up; patient completes activity. [place] assists only prior to or following the activity. 4-Supervision or Touching Assistance-helper provides verbal cues and/or touching/steadying and/or contact guard assistance as patient completes act ivity. Assistance may be provided throughout the activity or intermittently. 3-Partial/Moderate Assistance-helper does LESS THAN HALF the effort. [place] lifts, holds or supports trunk or limbs, but provides less than half the effort. 2-Substantial/Maximal Assistance-helper does MORE THAN HALF the effort. [place] lifts or holds trunk or limbs and provides more than half the effort. 6-Dgclmkhft-dkjvli does ALL the effort. Patient does none of the effort to complete the activity. Or, the assistance of 2 or more helpers is required for the patient to complete the activity. If activity was not attempted, code reason: 7-Patient Refused. 9-Not Applicable-not attempted and the patient did not perform the activity before the current illness, exacerbation or injury. 10-Not Attempted due to Environmental Limitations-(lack of equipment, weather restraints, etc.). 88-Not Attempted due to Medical Conditions or Safety Concerns. Lying to Sitting/Side of Bed(Q: 3 Sit to Stand (QC): 3 (x 3 sets with stand x 5 min without assistance) Chair/Qpn-sh-Wgcck Xfer(QC): 3 Gait Training Distance: 5' Gait Assistive Device: None PT assist min Exercises Seated Therapy Exercises: Long arc quads Seated Reps: 15 Assessment Patient tolerates minimal activity and is up in recliner with dry shampoo cap in place and patient actively "washing" her hair. PT increase activity as tolerated by patient. PT Conference Reservationist Goals Conference Reservationist Goals PT Conference Reservationist Goals Time Frame: Feb 17, 2021 Roll Left & Right (QC): 5 Sit to Lying (QC): 5 Lying-Sitting on Side/Bed(QC): 5 Sit to Stand (QC): 5 Chair/Sws-yp-Gkcvv Xfer(QC): 5 Toilet Transfer (QC): 5 Walk 10 feet (QC): 4 Walk 50ft with 2 Turns (QC): 4 Walk 150 ft (QC): 4 PT Plan Treatment/Plan Treatment Plan: Continue Plan of Care Treatment Plan: Bed Mobility, Education, Functional Activity Nas, Functional Strength, Gait, Safety, Therapeutic Exercise, Transfers Treatment Duration: Feb 17, 2021 Frequency: 6 times per week Estimated Hrs Per Day: .5 hour per day Patient and/or Family Agrees t: Yes Time/GCodes Time In: 828 Time Out: 845 Total Billed Treatment Time: 17 Total Billed Treatment 1 visit FA 17 min DAVY FUENTES PT Feb 06, 2021 10:27
--- NOTE | 2021-02-06 10:44 | Tele-ICU Progress Note ---
Subjective Date Seen by a Provider: Feb 06, 2021 Time Seen by a Provider: 08:13 Sepsis Event Evaluation Height, Weight, BMI Height: '" Weight: lbs. oz. kg; 33.21 BMI Method: Focused Exam Lactate Level 02/04/21 01:25: Lactic Acid Level 2.18*H 02/04/21 08:20: Lactic Acid Level 1.08 Exam Exam Patient acknowledged, consented, and participated in this virtual visit which was conducted using real time audio/video Vital Signs Date Time Temp Pulse Resp B/P (MAP) Pulse Ox O2 Delivery O2 Flow Rate FiO2 02/06/21 08:30 86 14 98 02/06/21 08:15 154 19 96 Room Air 02/06/21 08:00 Room Air 02/06/21 08:00 134/81 02/06/21 08:00 37.3 02/06/21 07:45 79 15 97 Room Air 02/06/21 07:30 78 16 96 Room Air 02/06/21 07:15 75 22 95 Room Air 02/06/21 07:00 80 23 135/79 97 Room Air 02/06/21 07:00 96 02/06/21 06:00 74 13 121/71 96 Room Air 02/06/21 05:00 72 12 136/81 98 Room Air 02/06/21 04:14 Room Air 02/06/21 04:00 79 13 117/63 96 Room Air 02/06/21 03:00 77 14 127/76 96 Room Air 02/06/21 02:00 80 23 132/78 97 Room Air 02/06/21 01:00 68 02/06/21 01:00 68 22 141/84 97 Room Air 02/06/21 00:20 37.2 02/06/21 00:00 77 11 130/73 97 Room Air 02/06/21 00:00 Room Air 02/05/21 23:00 68 15 143/79 95 Room Air 02/05/21 22:00 77 21 134/73 95 Room Air 02/05/21 21:00 77 18 126/73 98 Room Air 02/05/21 20:37 36.9 02/05/21 20:20 Room Air 02/05/21 20:00 84 22 128/74 93 Room Air 02/05/21 19:37 89 15 125/77 94 Room Air 02/05/21 19:00 96 02/05/21 18:15 84 21 95 Room Air 02/05/21 18:00 84 23 111/69 95 Room Air 02/05/21 17:45 82 13 96 Room Air 02/05/21 17:30 19 95 Room Air 02/05/21 17:15 86 15 95 Room Air 02/05/21 17:00 84 19 114/61 93 Room Air 02/05/21 16:45 84 13 96 Room Air 02/05/21 16:30 82 14 94 Room Air 02/05/21 16:15 86 16 95 Room Air 02/05/21 16:12 Room Air 02/05/21 16:00 36.8 02/05/21 16:00 17 116/69 94 Room Air 02/05/21 15:45 79 18 96 Room Air 02/05/21 15:30 80 18 95 Room Air 02/05/21 15:15 77 17 95 Room Air 02/05/21 15:00 12 107/68 96 Room Air 02/05/21 14:30 10 98 Room Air 02/05/21 14:15 77 16 97 Room Air 02/05/21 14:00 95 12 133/74 98 Room Air 02/05/21 13:30 14 99 Room Air 02/05/21 13:15 78 11 96 Room Air 02/05/21 13:00 76 02/05/21 13:00 86 17 112/69 97 02/05/21 13:00 Room Air 02/05/21 12:45 77 11 95 02/05/21 12:30 14 97 Room Air 02/05/21 12:25 Room Air 02/05/21 12:15 82 21 96 Room Air 02/05/21 12:00 20 Room Air 02/05/21 11:55 37.2 02/05/21 11:30 14 94 Room Air 02/05/21 11:15 9 96 Room Air 02/05/21 11:00 78 10 116/65 96 Room Air 02/05/21 10:45 77 19 91 Room Air I & O 02/06/21 07:00 Intake Total 2510 ml Output Total 2400 ml Balance 110 ml Height & Weight Height: '" Weight: lbs. oz. kg; 33.21 BMI Method: General Appearance: No Apparent Distress, WD/WN, Chronically ill HEENT: PERRL/EOMI, Pharynx Normal Neck: Full Range of Motion, Non Tender, Supple Respiratory: Lungs Clear, Normal Breath Sounds Cardiovascular: Regular Rate, Rhythm Capillary Refill: Less Than 3 Seconds Extremity: Normal Capillary Refill, Normal Range of Motion, Non Tender, No Calf Tenderness, No Pedal Edema Neurologic/Psychiatric: Alert, Oriented x3, No Motor/Sensory Deficits, Normal Mood/Affect Skin: Normal Color, Warm/Dry Lymphatic: No Adenopathy (Cervical and axillary) Results Lab Laboratory Tests 02/04/21 12:04 02/04/21 17:15 02/05/21 04:28 02/05/21 16:45 02/06/21 04:20 Assessment/Plan Assessment/Plan (Tele-ICU Physician , Progress Note ) Available chart/ vitals / labs / Images reviewed Video assessment done using teleICU camera, rest of exam as per RN Discussed with RN , EXAM PER RN Events overnight : febrile 37.3 FiO2 - ra I/O = pos 600 Drips: Pressors: , hemodynamically stable Consultants: Sx Hospital course: (02/04) 65F Admitted for DKA and severe sepsis and gluteal cleft abscess. Potassium low-- TO OR: s/p I&D right groin abscess and left perianal abscess under general. A/P DKA - off insulin gtt , follow with ISS Right perineal abscess - s/p incision and drainage 02/04 - as per Sx - abscess cx - Strep agalactiae Group B - cont abx - MERREM 02/04- to cont , Vanco 02/04-30 Runs of SVT vs afib 02/04 - replacing lytes , sinus now Hypertension - controlled Anemia - post op , monitor Acute hypokalemia - cont replacemnt Confusion after Or on 02/04 -Neuro exam is grossly nonfocal - avoid sedatives Lines : periph (Central Line Necessity Reviewed) Ca: + OG: Nutrition: PO Analgesia: Anxiety/ delirium VTE Prophylaxis: SCD, ambulate - if not - start on lovenoc sq Stress Ulcer Prophylaxis: PO intake Glycemic Control: Plans in collaboration with bedside consultants and IM MDs. Discussed with RN to reach out if any questions or concerns A total of 22 minutes of critical care time was devoted to this patient today, required to treat and/or prevent further deterioration of critical care condition ( as above) . ERIKA CLAYTON MD Feb 06, 2021 10:44
--- NOTE | 2021-02-06 11:49 | Occupational Ther Daily Note ---
OT Current Status-Daily Note Subjective Pt reports feeling much better today, agreeable to treatment. Appearance Left supine in bed, all needs within reach. Mental Status/Objective Patient Orientation: Person, Confused Attachments: Ca Catheter, IV ADL-Treatment Therapy Code Descriptions/Definitions Functional [place] Measure: 0=Not Assessed/NA 4=Minimal Assistance 1=Total Assistance 5=Supervision or Setup 2=Maximal Assistance 6=Modified [place] 3=Moderate Assistance 7=Complete IndependenceSCALE: Activities may be completed with or without assistive devices. 1-Kwhrxsazdv-enbjehc completes the activity by him/herself with no assistance from a helper. 5-Set-up or Clean-up Assistance-helper sets up or cleans up; patient completes activity. [place] assists only prior to or following the activity. 4-Supervision or Touching Assistance-helper provides verbal cues and/or touching/steadying and/or contact guard assistance as patient completes activity. Assistance may be provided throughout the activity or intermittently. 3-Partial/Moderate Assistance-helper does LESS THAN HALF the effort. [place] lifts, holds or supports trunk or limbs, but provides less than half the effort. 2-Substantial/Maximal Assistance-helper does MORE THAN HALF the effort. [place] lifts or holds trunk or limbs and provides more than half the effort. 8-Yuwldnzye-koprwl does ALL the effort. Patient does none of the effort to complete the activity. Or, the assistance of 2 or more helpers is required for the patient to complete the activity. If activity was not attempted, code reason: 7-Patient Refused. 9-Not Applicable-not attempted and the patient did not perform the activity be fore the current illness, exacerbation or injury. 10-Not Attempted due to Environmental Limitations-(lack of equipment, weather restraints, etc.). 88-Not Attempted due to Medical Conditions or Safety Concerns. Other Treatment Pt describes codmans/pendulum exercises that she was prescribed to do post shoulder fracture. She verbalizes that she would do them while sitting in the shower and swinging her arm around in a [place]. OT educated pt and spouse that doing that exercise bent over in the shower was not a safe option. OT then demonstrated the proper form and emphasized that the movement was to be created by the body performing rocking/swaying motions and allowing the shoulder to hang and move passively. OT provided pt with AROM exercises from elbow-distally. No shoulder exercises provided at this time as family/pt unable to recall if there are any ROM restrictions. Family/pt asking questions regarding bathing and getting incision wet. OT discussed reaching out to physician for clarification. Education OT Patient Education: Correct positioning, Exercise program, Modified ADL tech niques, Purpose of tx/functional activities, Reviewed precautions, Safety issues, Transfer techniques Teaching Recipient: Patient, Family Teaching Methods: Demonstration, Discussion Response to Teaching: Verbalize Understanding, Reinforcement Needed OT Correction Goals Channel Machine Operator Goals Time Frame: Feb 26, 2021 Oral Hygiene (QC): 4 Toileting Hygiene (QC): 4 Shower/Bathe Self (QC): 4 Upper Body Dressing (QC): 4 Lower Body Dressing (QC): 4 On/Off Footwear (QC): 4 1=Demonstrate adherence to instructed precautions during ADL tasks. 2=Patient will verbalize/demonstrate understanding of assistive devices/modifications for ADL. 3=Patient will improve strength/tolerance for activity to enable patient to perform ADL's. OT Education/Plan Problem List/Assessment Assessment: Decreased Activ Tolerance, Decreased Safety Aware, Decreased UE Strength, Impaired Cognition, Impaired Funct Balance, Impaired I ADL's, Impaired Self-Care Skills, Restricted Funct UE ROM Discharge Recommendations Plan/Recommendations: Continue POC Treatment Plan/Plan of Care Treatment,Training & Education: Yes Patient would benefit from OT for education, treatment and training to promote independence in ADL's, mobility, safety and/or upper extremity function for ADL's. Plan of Care: ADL Retraining, Functional Mobility, Group Exercise/Act as Ind, UE Funct Exercise/Act Treatment Duration: Feb 26, 2021 Frequency: 5 times per week Estimated Hrs Per Day: .25 hour per day Agreement: Yes Rehab Potential: Fair Time/GCodes Start Time: 10:39 Stop Time: 10:52 Total Time Billed (hr/min): 13 Billed Treatment Time 1 visit EX Thea Marquis OT Feb 06, 2021 11:49
--- NOTE | 2021-02-06 12:55 | Progress Note - Hospitalist ---
ROSEMARIELAURENT 02/06/21 1255: Subjective HPI/CC On Admission Date Seen by Provider: Feb 06, 2021 Time Seen by Provider: 08:41 Chief complaint: DKA with abscess History of present illness: This is a 65-year-old white female clinic patient of [facility] who has a past medical history of diabetes who presented to the [place] ER with left perineal abscess and high sugars. Patient was a poor historian. Patient is in a sling due to prior arm injury in May. She was found to have acidosis requiring insulin drip and IV antibiotics. Subjective/Events-last exam Today when I visited the pt she was resting comfortably in bed and was eating breakfast. She states that she continues to feel much better and is in little to no pain - she confirms multiple dressing changes to her wound site. She denies N/V and urinary and bowel habits remain normal. Her labs have improved over yesterday and she will be moved to medical floor today for continued recovery, to include PT&OT. Review of Systems General: No Chills, No Night Sweats, No Fatigue, No Malaise; Appetite HEENT: No Head Aches, No Visual Changes, No Dysphasia, No Sore Throat Pulmonary: No Dyspnea, No Cough, No Pleuritic Chest Pain Cardiovascular: No: Chest Pain, Palpitations, Edema, Lt Headedness Gastrointestinal: No: Nausea, Vomiting, Abdominal Pain, Diarrhea, Constipation Genitourinary: No Dysuria, No Frequency, No Incontinence Musculoskeletal: No: neck pain, shoulder pain, back pain, hand pain Neurological: No: Weakness, Numbness, Confusion, Seizures Focused Exam Lactate Level 02/04/21 01:25: Lactic Acid Level 2.18*H 02/04/21 08:20: Lactic Acid Level 1.08 Objective Exam Vital Signs Vital Signs Date Time Temp Pulse Resp B/P (MAP) Pulse Ox O2 Delivery O2 Flow Rate FiO2 02/06/21 08:30 86 14 98 02/06/21 08:15 Room Air 02/06/21 08:00 134/81 02/06/21 08:00 37.3 02/04/21 11:30 3 Capillary Refill : Less Than 3 SecondsLess Than 3 Seconds General Appearance: No Apparent Distress, WD/WN HEENT: PERRL/EOMI, Pharynx Normal Neck: Full Range of Motion, Non Tender, Supple Respiratory: Chest Non Tender, Lungs Clear, Normal Breath Sounds, No Accessory Muscle Use, No Respiratory Distress Cardiovascular: Regular Rate, Rhythm, No Edema, No Gallop, No Murmur, Normal Peripheral Pulses Gastrointestinal: Normal Bowel Sounds, No Organomegaly, No Pulsatile Mass, Non Tender, Soft Rectal: Deferred Back: No CVA Tenderness, No Vertebral Tenderness Extremity: Normal Capillary Refill, Normal Range of Motion, Non Tender, No Calf Tenderness, No Pedal Edema Neurologic/Psychiatric: Alert, Oriented x3, No Motor/Sensory Deficits, Normal Mood/Affect, promotion officer II-XII Norm as Tested Skin: Normal Color, Warm/Dry Lymphatic: No Adenopathy (cervical and axillary) Results/Procedures Lab Laboratory Tests 02/05/21 16:45 02/06/21 04:20 Patient resulted labs reviewed. Assessment/Plan Assessment and Plan Assess & Plan/Chief Complaint Assessment: DKA Right perineal abscess status post incision and drainage by Dr. FISHER uncomplicated Hypertension Hyperlipidemia Acute hypokalemia Plan: Supportive care Antibiotics Appreciate Dr. FISHER 02/05/2021 Continue IV insulin and IV abx PT-OT Supportive care 02/06/2021 Continue IV abx, transition to SQ Insulin PT-OT Supportive care Likely DC tomorrow ANNABELLE BRAVO DO 02/07/21 0612: Subjective Subjective/Events-last exam Pt doing a lot better Transferring to fourth floor PT and OT will be ordered Picc line may be needed Bicarbonate of 20 HgbA1C of 11 Has an endocrinology appointment on Friday Review of Systems General: Fatigue, Malaise Objective Exam General Appearance: No Apparent Distress, WD/WN, Chronically ill, Obese Respiratory: Lungs Clear, Normal Breath Sounds Cardiovascular: Regular Rate, Rhythm Neurologic/Psychiatric: Alert, Oriented x3, No Motor/Sensory Deficits, Normal Mood/Affect Assessment/Plan Assessment and Plan Assess & Plan/Chief Complaint Midline IV antibiotics Insulin Supervisory-Addendum Brief Verification & Attestation Participated in pt care: history, MDM, physical Personally performed: exam, history, MDM, supervision of care Care discussed with: Medical Student Procedures: n/a Results interpretation: Verified all documentation Verification and Attestation of Medical Student E/M Service A medical student performed and documented this service in my presence. I reviewed and verified all information documented by the medical student and made modifications to such information, when appropriate. I personally performed the physical exam and medical decision making. Annabelle Bravo, Feb 07, 2021,06:11 LAURENT HOUSTON Feb 06, 2021 12:55 ANNABELLE BRAVO DO Feb 07, 2021 06:12
--- NOTE | 2021-02-06 13:43 | Progress Note ---
Subjective Date Seen by a Provider: Feb 06, 2021 Time Seen by a Provider: 13:00 Subjective/Events-last exam doing ok. wound mostly granulation tissue with some surrounding fibrinoexudative material. redness/erythema improving. patient appears to have poor functional capacity. Focused Exam Lactate Level 02/04/21 01:25: Lactic Acid Level 2.18*H 02/04/21 08:20: Lactic Acid Level 1.08 Objective Exam Vital Signs Date Time Temp Pulse Resp B/P (MAP) Pulse Ox O2 Delivery O2 Flow Rate FiO2 02/06/21 08:30 86 14 98 02/06/21 08:15 154 19 96 Room Air 02/06/21 08:00 Room Air 02/06/21 08:00 134/81 02/06/21 08:00 37.3 02/06/21 07:45 79 15 97 Room Air 02/06/21 07:30 78 16 96 Room Air 02/06/21 07:15 75 22 95 Room Air 02/06/21 07:00 80 23 135/79 97 Room Air 02/06/21 07:00 96 02/06/21 06:00 74 13 121/71 96 Room Air 02/06/21 05:00 72 12 136/81 98 Room Air 02/06/21 04:14 Room Air 02/06/21 04:00 79 13 117/63 96 Room Air 02/06/21 03:00 77 14 127/76 96 Room Air 02/06/21 02:00 80 23 132/78 97 Room Air 02/06/21 01:00 68 02/06/21 01:00 68 22 141/84 97 Room Air 02/06/21 00:20 37.2 02/06/21 00:00 77 11 130/73 97 Room Air 02/06/21 00:00 Room Air 02/05/21 23:00 68 15 143/79 95 Room Air 02/05/21 22:00 77 21 134/73 95 Room Air 02/05/21 21:00 77 18 126/73 98 Room Air 02/05/21 20:37 36.9 02/05/21 20:20 Room Air 02/05/21 20:00 84 22 128/74 93 Room Air 02/05/21 19:37 89 15 125/77 94 Room Air 02/05/21 19:00 96 02/05/21 18:15 84 21 95 Room Air 02/05/21 18:00 84 23 111/69 95 Room Air 02/05/21 17:45 82 13 96 Room Air 02/05/21 17:30 19 95 Room Air 02/05/21 17:15 86 15 95 Room Air 02/05/21 17:00 84 19 114/61 93 Room Air 02/05/21 16:45 84 13 96 Room Air 02/05/21 16:30 82 14 94 Room Air 02/05/21 16:15 86 16 95 Room Air 02/05/21 16:12 Room Air 02/05/21 16:00 36.8 02/05/21 16:00 17 116/69 94 Room Air 02/05/21 15:45 79 18 96 Room Air 02/05/21 15:30 80 18 95 Room Air 02/05/21 15:15 77 17 95 Room Air 02/05/21 15:00 12 107/68 96 Room Air 02/05/21 14:30 10 98 Room Air 02/05/21 14:15 77 16 97 Room Air 02/05/21 14:00 95 12 133/74 98 Room Air I & O 02/06/21 07:00 Intake Total 2510 ml Output Total 2400 ml Balance 110 ml Capillary Refill : Less Than 3 SecondsLess Than 3 Seconds General Appearance: No Apparent Distress HEENT: PERRL/EOMI Neck: Full Range of Motion Respiratory: Chest Non Tender, Lungs Clear, Normal Breath Sounds Cardiovascular: Regular Rate, Rhythm Gastrointestinal: normal bowel sounds, non tender, soft Extremity: Normal Capillary Refill Neurologic/Psychiatric: Alert, Oriented x3 Skin: Other (wound-mostly granulation tissue with mild fibrinoexudative, mild redness/erythema) Lymphatic: No Adenopathy Results Lab Laboratory Tests 02/05/21 16:45: Sodium Level 134L, Potassium Level 4.2, Chloride Level 106, Carbon Dioxide Level 19L, Anion Gap 9, Blood Urea Nitrogen 5L, Creatinine 0.60, Estimat Glomerular Filtration Rate 100, BUN/Creatinine Ratio 8, Glucose Level 119H, Calcium Level 8.3L, Phosphorus Level 2.1L, Magnesium Level 1.8 02/05/21 17:43: Glucometer 128H 02/06/21 00:14: Glucometer 211H 02/06/21 04:20: Sodium Level 136, Potassium Level 4.0, Chloride Level 108H, Carbon Dioxide Level 20L, Anion Gap 8, Blood Urea Nitrogen 4L, Creatinine 0.56L, Estimat Glomerular Filtration Rate 108, BUN/Creatinine Ratio 7, Glucose Level 159H, Calcium Level 8.3L, Phosphorus Level 1.7L, Magnesium Level 1.5L, White Blood Count 8.2, Red Blood Count 3.70L, Hemoglobin 9.6L, Hematocrit 30L, Mean Corpuscular Volume 81, Mean Corpuscular Hemoglobin 26, Mean Corpuscular Hemoglobin Concent 32, Red Cell Distribution Width 16.8H, Platelet Count 235, Mean Platelet Volume 11.1, Immature Granulocyte % (Auto) 1, Neutrophils (%) (Auto) 73, Lymphocytes (%) (Auto) 16, Monocytes (%) (Auto) 7, Eosinophils (%) (Auto) 3, Basophils (%) (Auto) 1, Neutrophils # (Auto) 6.0, Lymphocytes # (Auto) 1.3, Monocytes # (Auto) 0.6, Eosinophils # (Auto) 0.2, Basophils # (Auto) 0.0, Immature Granulocyte # (Auto) 0.1, Corrected Calcium 9.6, Total Bilirubin 0.3, Aspartate Amino Transf (AST/SGOT) 15, Alanine Aminotransferase (ALT/SGPT) 8, Alkaline Phosphatase 112, Total Protein 5.0L, Albumin 2.4L, Beta-Hydroxybutyrate (Chem panel) 0.69H 02/06/21 11:43: Glucometer 255H Microbiology 02/04/21 MRSA Screen - Final, Complete MRSA not isolated 02/04/21 Gram Stain - Final, Resulted 02/04/21 Anaerobic Culture - Preliminary, Resulted Culture In Progress 02/04/21 Surgical Culture - Preliminary, Resulted Strep agalactiae Group B Lactobacillus gasseri 02/04/21 Urine Culture - Final, Complete YEAST 02/04/21 Blood Culture - Preliminary, Resulted No growth Assessment/Plan Assessment/Plan Assess & Plan/Chief Complaint s/p debridement left perineum. cont wet to dry. cont abx. unsure of baseline functional capacity. will consult for at least wound care. WHIT FISHER MD Feb 06, 2021 13:43
[2021-02-06] MEDS: fentaNYL INJ 100 MCG/2 ML AMP IV PRN (14:44)
[2021-02-06] MEDS ORDERED: inSUlin ASPART (NovoLOG) 1 UNIT/0.01 ML (CHARGE PER UNIT) SC SCH (15:00)
--- NOTE | 2021-02-06 15:03 | Physician Query Clarification ---
Physician Query-General Query to Physician: The medical record reflects the following clinical scenario: The patient, in the setting of History/Risk factors, DM uncontrolled, Abscess to perineal area with "early necrotizing fasciitis" Clinical Findings Admission VS/Labs: HR 122, RR 28, BP 143/81, T 36.5, WBC 15.4, glucose 587, 451, lactic Acid 2.18 Treatment ER: Meropenem IV, vancomycin IV, fentanyl IV, lactated Ringer's 2 L, Surgical consult with debridement Question: Sepsis/Severe Sepsis is documented by the ER Physician and is listed on the H and P, but not documented on the progress notes on 02/05 and 02/06. Do you still agree with the impression of Severe sepsis, present on admission? 1. Yes; will document Sepsis/Severe Sepsis present on admission in the Progress Notes 2. No; will continue current documentation in the Progress Notes 3. Other; will document explanation of clinical findings 4. Clinically undetermined; no explanation for clinical findings Please clarify and document your clinical opinion in the Progress Notes and Discharge Summary including the definitive and/or presumptive diagnosis, (suspected or probable), related to the above clinical findings. Please include clinical findings supporting your diagnosis. In responding to this query, please exercise your independent professional judgment. The purpose of this communication is to more accurately reflect the complexity of your patients condition. The fact that a question is asked does not imply that any particular answer is desired or expected. Please remember a lack of response to the above will prompt a phone page by CDI /coding staff Thank you for timely response to this clarification. Shu Reveles MSN, RN Clinical Patent Examiner [phone] [email or web address] PHYSICIAN RESPONSE: Based on the clinical findings in the record, please respond to the query above on this document as an addendum. Physician Response: Physician Response Sepsis If you have questions please contact: Disease Control Inspector: Ext: Thank you for your time and cooperation. Clinical Patent Examiner/Disease Control Inspector This is a permanent part of the medical record SHU REVELES Feb 06, 2021 15:03 BERNA BRAVO DO Feb 07, 2021 06:16
[2021-02-06] MEDS: ACETAMINOPHEN 500 MG TAB (TYLENOL) PO PRN (17:07)
[2021-02-06] MEDS: MICONAZOLE 2% POWDER (DESENEX AF) 90 GM TOP SCH (18:32)
[2021-02-07] MEDS: ACETAMINOPHEN 500 MG TAB (TYLENOL) PO PRN ×2 (02:00→20:49)
[2021-02-07] MEDS: MEROPENEM 500 MG in NS (IVPB) 100 ML IV SCH ×4 (02:03→20:49)
[2021-02-07] MEDS ORDERED: ZIPRASIDONE 20 MG INJ (GEODON) VIAL IM PRN (02:30)
[2021-02-07] MEDS ORDERED: LORazepam INJ 2 MG/ML (ATIVAN) VIAL IVP PRN (02:30)
[2021-02-07] MEDS ORDERED: WATER (STERILE) FOR INJ 10 ML BTL INJ SCH (02:30)
[2021-02-07] MEDS ORDERED: HALOPERIDOL 5 MG/ML (HALDOL) VIAL IM PRN (02:30)
[2021-02-07 05:46] LABS: BASOPHILS # (AUTO) 0.1 10^3/uL (0.0-0.1); BASOPHILS % (AUTO) 1 % (0-10); EOSINOPHILS # (AUTO) 0.1 10^3/uL (0.0-0.3); EOSINOPHILS % (AUTO) 1 % (0-10); HEMATOCRIT 34 % (35-52); HEMOGLOBIN 10.5 g/dL (11.5-16.0); LYMPHOCYTES # (AUTO) 1.2 10^3/uL (1.0-4.0); LYMPHOCYTES % (AUTO) 13 % (12-44); MEAN CORPUSCULAR HEMOGLOBIN 26 pg (25-34); MEAN CORPUSCULAR HGB CONC 31 g/dL (32-36); MEAN CORPUSCULAR VOLUME 84 fL (80-99); MEAN PLATELET VOLUME 10.8 fL (9.0-12.2); MONOCYTES # (AUTO) 0.6 10^3/uL (0.0-1.0); MONOCYTES % (AUTO) 7 % (0-12); NEUTROPHILS # (AUTO) 7.1 10^3/uL (1.8-7.8); NEUTROPHILS % (AUTO) 77 % (42-75); PLATELET COUNT 229 10^3/uL (130-400); WHITE BLOOD COUNT 9.2 10^3/uL (4.3-11.0)
[2021-02-07 05:57] LABS: ALBUMIN 2.4 GM/DL (3.2-4.5); POTASSIUM 3.8 MMOL/L (3.6-5.0)
[2021-02-07 05:58] LABS: CALCIUM 8.4 MG/DL (8.5-10.1)
[2021-02-07 05:59] LABS: TOTAL PROTEIN 4.9 GM/DL (6.4-8.2)
[2021-02-07 06:01] LABS: BILIRUBIN,TOTAL 0.3 MG/DL (0.1-1.0)
[2021-02-07 06:03] LABS: CREATININE SERUM 0.55 MG/DL (0.60-1.30)
[2021-02-07] MEDS: inSUlin ASPART (NovoLOG) 1 UNIT/0.01 ML (CHARGE PER UNIT) SC SCH ×4 (06:18→20:50)
[2021-02-07] MEDS: LACTATED RINGERS 1,000 ML IV SCH ×2 (06:29→20:50)
--- NOTE | 2021-02-07 10:47 | Occ Therapy Progress Note ---
Therapy Progress Note Attempt to see pt this am for OT treatment. Pt sleeping in bed. Per spouse and chart, pt did not sleep at night as she was extremely agitated while also experiencing hallucinations and increased confusion. RN reports pt having difficult time staying awake this am and Spouse requests OT let pt sleep. OT to check back at a later time if patient is medically appropriate. Thea Marquis OT Feb 07, 2021 10:47
[2021-02-07] MEDS: SERTRALINE 100 MG (ZOLOFT) TAB PO SCH (10:49)
[2021-02-07] MEDS: ASPIRIN 81 MG CHEW (CHILDREN'S ASA) PO SCH (10:49)
[2021-02-07] MEDS: LOSARTAN 100 MG (COZAAR) TABLET PO SCH (10:49)
[2021-02-07] MEDS: amLODIPine 5 MG (NORVASC) TAB PO SCH (10:49)
[2021-02-07] MEDS: FLUCONAZOLE 100 MG/50 ML IV SCH ×2 (10:52)
[2021-02-07] MEDS: MICONAZOLE 2% POWDER (DESENEX AF) 90 GM TOP SCH ×2 (10:54→20:50)
--- NOTE | 2021-02-07 12:50 | Progress Note - Hospitalist ---
TIMOTHY PHILIP 02/07/21 1250: Subjective HPI/CC On Admission Date Seen by Provider: Feb 07, 2021 Time Seen by Provider: 07:45 Chief complaint: DKA with abscess History of present illness: This is a 65-year-old white female clinic patient of [facility] who has a past medical history of diabetes who presented to the [facility] ER with left perineal abscess and high sugars. Patient was a poor historian. Patient is in a sling due to prior arm injury in May. She was found to have acidosis requiring insulin drip and IV antibiotics. Subjective/Events-last exam Patient had an episode of delirium last night around 0200. Patient was confused and agitated, calling her to have him "bust her out". Patient was given ativan at around 0230 and that seemed to help sedate her. Patients was in the room and states this is not the norm for her. She is still groggy this morning and is difficult to arouse and assess. Patient would briefly open eyes to my voice and then promptly fall back asleep. Objective Exam Vital Signs Vital Signs Date Time Temp Pulse Resp B/P (MAP) Pulse Ox O2 Delivery O2 Flow Rate FiO2 02/07/21 11:26 36.9 68 20 124/70 95 Room Air 02/07/21 09:56 0.00 Capillary Refill : Less Than 3 SecondsLess Than 3 Seconds General Appearance: No Apparent Distress, WD/WN Respiratory: Lungs Clear, Normal Breath Sounds, No Accessory Muscle Use, No Respiratory Distress Cardiovascular: Regular Rate, Rhythm, Normal Peripheral Pulses Rectal: Deferred Neurologic/Psychiatric: Other (Minimally responsive to verbal stimulus, groggy/tired, couldn't stay awake when I tried to talk to her) Skin: Normal Color, Warm/Dry Results/Procedures Lab Laboratory Tests 02/07/21 05:29 Patient resulted labs reviewed. Assessment/Plan Assessment and Plan Assess & Plan/Chief Complaint Assessment DKA Right perineal abscess status post incision and drainage by Dr. FISHER uncomplicated Hypertension Hyperlipidemia Delirium Altered Mental Status Plan Continue IV antibiotics Continue insulin CT head without contrast Continue monitoring mental status ANNABELLE BRAVO DO 02/08/21 0531: Subjective Subjective/Events-last exam Pt had a lot of sundowning last night requiring Ativan and antipsychotics Currently Pt is sleeping May need inpatient rehab Wound care initiated IV antibiotics maintained CT of the brain maintained She will need home health at discharge Review of Systems Neurological: Confusion Objective Exam General Appearance: No Apparent Distress, WD/WN, Chronically ill, Obese Respiratory: Lungs Clear, Normal Breath Sounds Cardiovascular: Regular Rate, Rhythm Assessment/Plan Assessment and Plan Assess & Plan/Chief Complaint Delirium management IV antibiotics Blood sugar control Supervisory-Addendum Brief Verification & Attestation Participated in pt care: history, MDM, physical Personally performed: exam, history, MDM, supervision of care Care discussed with: Medical Student Procedures: n/a Results interpretation: Verified all documentation Verification and Attestation of Medical Student E/M Service A medical student performed and documented this service in my presence. I reviewed and verified all information documented by the medical student and made modifications to such information, when appropriate. I personally performed the physical exam and medical decision making. Annabelle Bravo, Feb 08, 2021,05:29 TIMOTHY PHILIP Feb 07, 2021 12:50 ANNABELLE BRAVO DO Feb 08, 2021 05:31
--- NOTE | 2021-02-07 13:26 | Physical Therapy Progress Note ---
Therapy Progress Note Patient is too lethargic to participate in physical therapy, she did moan a couple of times but didn't open eyes or communicate even with light shaking to awake her. Will try back in the morning. NEVILLE GARDNER PT Feb 07, 2021 13:26
--- NOTE | 2021-02-07 14:22 | Progress Note ---
Subjective Date Seen by a Provider: Feb 07, 2021 Time Seen by a Provider: 14:00 Subjective/Events-last exam doing ok. no fever/chills. unsuccessful attempt at wound vac yesterday. ambulatory status still poor. Objective Exam Vital Signs Date Time Temp Pulse Resp B/P (MAP) Pulse Ox O2 Delivery O2 Flow Rate FiO2 02/07/21 11:26 36.9 68 20 124/70 95 Room Air 02/07/21 09:56 Room Air 0.00 02/07/21 08:10 95 Room Air 02/07/21 08:00 36.8 72 20 117/71 95 Room Air 02/07/21 03:16 36.0 75 20 139/72 94 Room Air 02/06/21 23:12 36.5 78 20 128/69 94 Room Air 02/06/21 20:00 36.7 83 20 126/76 95 Room Air 02/06/21 20:00 95 Room Air 02/06/21 16:00 37.1 73 128/67 Room Air I & O 02/07/21 07:00 Intake Total 1775 ml Output Total 3500 ml Balance -1725 ml Capillary Refill : Less Than 3 SecondsLess Than 3 Seconds General Appearance: No Apparent Distress HEENT: PERRL/EOMI Neck: Full Range of Motion Respiratory: Chest Non Tender, Lungs Clear Cardiovascular: Regular Rate, Rhythm Gastrointestinal: normal bowel sounds, non tender, soft Extremity: Normal Capillary Refill, Other (lt perineal wound dressed/dry) Neurologic/Psychiatric: Alert, Oriented x3 Skin: Normal Color Lymphatic: No Adenopathy Results Lab Laboratory Tests 02/06/21 16:17: Glucometer 182H 02/06/21 20:08: Glucometer 229H 02/06/21 22:47: Glucometer 157H 02/07/21 05:29: White Blood Count 9.2, Red Blood Count 4.11, Hemoglobin 10.5L, Hematocrit 34L, Mean Corpuscular Volume 84, Mean Corpuscular Hemoglobin 26, Mean Corpuscular Hemoglobin Concent 31L, Red Cell Distribution Width 17.0H, Platelet Count 229, Mean Platelet Volume 10.8, Immature Granulocyte % (Auto) 1, Neutrophils (%) (Auto) 77H, Lymphocytes (%) (Auto) 13, Monocytes (%) (Auto) 7, Eosinophils (%) (Auto) 1, Basophils (%) (Auto) 1, Neutrophils # (Auto) 7.1, Lymphocytes # (Auto) 1.2, Monocytes # (Auto) 0.6, Eosinophils # (Auto) 0.1, Basophils # (Auto) 0.1, Immature Granulocyte # (Auto) 0.1, Sodium Level 138, Potassium Level 3.8, Chloride Level 105, Carbon Dioxide Level 18L, Anion Gap 15H, Blood Urea Nitrogen 4L, Creatinine 0.55L, Estimat Glomerular Filtration Rate 111, BUN/Creatinine Ratio 7, Glucose Level 236H, Calcium Level 8.4L, Corrected Calcium 9.7, Total Bilirubin 0.3, Aspartate Amino Transf (AST/SGOT) 16, Alanine Aminotransferase (ALT/SGPT) 10, Alkaline Phosphatase 123, Total Protein 4.9L, Albumin 2.4L 02/07/21 05:31: Glucometer 214H 02/07/21 10:10: Glucometer 168H Microbiology 02/04/21 MRSA Screen - Final, Complete MRSA not isolated 02/04/21 Gram Stain - Final, Resulted 02/04/21 Anaerobic Culture - Preliminary, Resulted No anaerobes isolated 02/04/21 Surgical Culture - Final, Resulted Strep agalactiae Group B Lactobacillus gasseri 02/04/21 Urine Culture - Final, Complete YEAST 02/04/21 Blood Culture - Preliminary, Resulted No growth Assessment/Plan Assessment/Plan Assess & Plan/Chief Complaint s/p debridement left perineum. cont wet to dry. cont abx. unsure of baseline functional capacity. will consult for at least wound care. WHIT FISHER MD Feb 07, 2021 14:22
--- NOTE | 2021-02-07 15:41 | Diagnostic Imaging Report ---
EXAMINATION: CT head without contrast. TECHNIQUE: Multiple contiguous axial images were obtained through the brain without the use of intravenous contrast. All CT scans use one or more of the following dose optimizing techniques: automated exposure control, MA and/or KvP adjustment based on patient size and exam type or iterative reconstruction. HISTORY: Altered mental status. COMPARISON: None available. FINDINGS: No large acute territorial ischemia, mass, or hemorrhage. No midline shift or mass effect. Scattered decreased attenuation is seen in the periventricular and subcortical white matter. The ventricles, cortical sulci, and basilar cisterns are patent and unremarkable. The orbits are normal. Mild mucosal thickening is seen in the paranasal sinuses. Mastoid air cells are clear. No soft tissue abnormality is seen. No osseus lesions or fractures are seen. IMPRESSION: 1. No large acute territorial ischemia, mass, or hemorrhage. 2. Scattered age-indeterminate microvascular disease. Dictated by: Dictated on workstation # [id number]
--- NOTE | 2021-02-07 20:03 | Diagnostic Imaging Report ---
INDICATION: PICC line placement. EXAMINATION: Portable chest at 8:01 PM. Right upper extremity PICC line tip projects over the SVC. Heart size and pulmonary vascularity are normal. Lungs are clear. There are no effusions or pneumothoraces. IMPRESSION: No acute abnormality in the chest. Dictated by: Dictated on workstation # [id number]
[2021-02-08] MEDS: MEROPENEM 500 MG in NS (IVPB) 100 ML IV SCH ×4 (02:19→19:55)
[2021-02-08 04:16] LABS: BASOPHILS % (AUTO) 0 % (0-10); EOSINOPHILS # (AUTO) 0.3 10^3/uL (0.0-0.3); EOSINOPHILS % (AUTO) 4 % (0-10); HEMATOCRIT 28 % (35-52); HEMOGLOBIN 8.9 g/dL (11.5-16.0); LYMPHOCYTES # (AUTO) 1.9 10^3/uL (1.0-4.0); LYMPHOCYTES % (AUTO) 28 % (12-44); MEAN CORPUSCULAR HEMOGLOBIN 26 pg (25-34); MEAN CORPUSCULAR HGB CONC 32 g/dL (32-36); MEAN CORPUSCULAR VOLUME 82 fL (80-99); MEAN PLATELET VOLUME 10.6 fL (9.0-12.2); MONOCYTES # (AUTO) 0.6 10^3/uL (0.0-1.0); MONOCYTES % (AUTO) 9 % (0-12); NEUTROPHILS # (AUTO) 3.9 10^3/uL (1.8-7.8); NEUTROPHILS % (AUTO) 58 % (42-75); PLATELET COUNT 219 10^3/uL (130-400); WHITE BLOOD COUNT 6.8 10^3/uL (4.3-11.0)
[2021-02-08 04:28] LABS: POTASSIUM 3.3 MMOL/L (3.6-5.0)
[2021-02-08 04:30] LABS: TOTAL PROTEIN 4.2 GM/DL (6.4-8.2)
[2021-02-08 04:32] LABS: BILIRUBIN,TOTAL 0.2 MG/DL (0.1-1.0)
[2021-02-08 04:34] LABS: CREATININE SERUM 0.55 MG/DL (0.60-1.30)
[2021-02-08] MEDS: inSUlin ASPART (NovoLOG) 1 UNIT/0.01 ML (CHARGE PER UNIT) SC SCH ×4 (04:49→19:55)
[2021-02-08] MEDS: SERTRALINE 100 MG (ZOLOFT) TAB PO SCH (09:23)
[2021-02-08] MEDS: ASPIRIN 81 MG CHEW (CHILDREN'S ASA) PO SCH (09:23)
[2021-02-08] MEDS: amLODIPine 5 MG (NORVASC) TAB PO SCH (09:23)
[2021-02-08] MEDS: LOSARTAN 100 MG (COZAAR) TABLET PO SCH (09:23)
[2021-02-08] MEDS: FLUCONAZOLE 100 MG/50 ML IV SCH ×2 (09:25)
[2021-02-08] MEDS: MICONAZOLE 2% POWDER (DESENEX AF) 90 GM TOP SCH ×2 (09:26→19:56)
--- NOTE | 2021-02-08 10:17 | Occupational Ther Daily Note ---
OT Current Status-Daily Note Subjective Denies pain, agreeable to treatment. Appearance Left sitting in bathroom with RESIDENTIAL REAL ESTATE ASSISTANT present. OT educated RESIDENTIAL REAL ESTATE ASSISTANT that patient is not safe to be left unattended. Mental Status/Objective Patient Orientation: Person, Confused Attachments: Ca Catheter, IV ADL-Treatment Therapy Code Descriptions/Definitions Functional [place] Measure: 0=Not Assessed/NA 4=Minimal Assistance 1=Total Assistance 5=Supervision or Setup 2=Maximal Assistance 6=Modified [place] 3=Moderate Assistance 7=Complete IndependenceSCALE: Activities may be completed with or without assistive devices. 5-Osyhzhaenc-gzlptxh completes the activity by him/herself with no assistance from a helper. 5-Set-up or Clean-up Assistance-helper sets up or cleans up; patient completes activity. [place] assists only prior to or following the activity. 4-Supervision or Touching Assistance-helper provides verbal cues and/or touching/steadying and/or contact guard assistance as patient completes activity. Assistance may be provided throughout the activity or intermittently. 3-Partial/Moderate Assistance-helper does LESS THAN HALF the effort. [place] lifts, holds or supports trunk or limbs, but provides less than half the effort. 2-Substantial/Maximal Assistance-helper does MORE THAN HALF the effort. [place] lifts or holds trunk or limbs and provides more than half the effort. 0-Zjjvxockm-zeepme does ALL the effort. Patient does none of the effort to complete the activity. Or, the assistance of 2 or more helpers is required for the patient to complete the activity. If activity was not attempted, code reason: 7-Patient Refused. 9-Not Applicable-not attempted and the patient did not perform the activity before the current illness, exacerbation or injury. 10-Not Attempted due to Environmental Limitations-(lack of equipment, weather restraints, etc.). 88-Not Attempted due to Medical Conditions or Safety Concerns. On/Off Footwear: 1 Toilet Transfer (QC): 3 Pt resting in bed at OT arrival. More alert but still having some confusion. Some statements still illogical. Mod a to elevate torso due to inability to use LUE to assist. Mild c/o dizziness upon sitting, extra time to resolve. Pt still demonstrating lateral lean to R elbow. Requires cues to correct yet unable to sustain. Does not appear to be due to weakness but to compensate for LUE pain. She washed her face sitting EOB with RUE only. Able to stand with min A, extra time to come to full upright. She ambulated around room with use of oralia walker and min A. Very slow gait with short strides. Able to lower to shower chair with min a and mod verbal cues for sequencing. RESIDENTIAL REAL ESTATE ASSISTANT reports RN is expected to come and disconnect IV so that pt can shower. PT left sitting in bathroom with RESIDENTIAL REAL ESTATE ASSISTANT present. Education OT Patient Education: Correct positioning, Disease process, Modified ADL techniques, Progress toward Goal/Update tx plan, Safety issues, Transfer techniques Teaching Recipient: Patient Teaching Methods: Discussion Response to Teaching: Return Demonstration, Reinforcement Needed OT Assisted Goals Assisted Goals Time Frame: Feb 26, 2021 Oral Hygiene (QC): 4 Toileting Hygiene (QC): 4 Shower/Bathe Self (QC): 4 Upper Body Dressing (QC): 4 Lower Body Dressing (QC): 4 On/Off Footwear (QC): 4 1=Demonstrate adherence to instructed precautions during ADL tasks. 2=Patient will verbalize/demonstrate understanding of assistive dev ices/modifications for ADL. 3=Patient will improve strength/tolerance for activity to enable patient to perform ADL's. OT Education/Plan Problem List/Assessment Assessment: Decreased Activ Tolerance, Decreased Safety Aware, Decreased UE Strength, Impaired Coordination, Impaired Funct Balance, Impaired I ADL's, Impaired Self-Care Skills, Restricted Funct UE ROM Discharge Recommendations Plan/Recommendations: Continue POC Treatment Plan/Plan of Care Treatment,Training & Education: Yes Patient would benefit from OT for education, treatment and training to promote independence in ADL's, mobility, safety and/or upper extremity function for ADL's. Plan of Care: ADL Retraining, Functional Mobility, Group Exercise/Act as Ind, UE Funct Exercise/Act Treatment Duration: Feb 26, 2021 Frequency: 5 times per week Estimated Hrs Per Day: .25 hour per day Agreement: Yes Rehab Potential: Fair Time/GCodes Start Time: 09:33 Stop Time: 09:47 Total Time Billed (hr/min): 14 Billed Treatment Time 1 visit Thea Almazan OT Feb 08, 2021 10:17
--- NOTE | 2021-02-08 10:17 | Physical Therapy Daily Note ---
PT Daily Note-Current Subjective Patient very confused and delayed with responses verbally and physically. OT present. Mental Status Patient Orientation: Confused Attachments: Ca Catheter, IV Transfers SCALE: Activities may be completed with or without assistive devices. 5-Slbekcnkky-asrcpvs completes the activity by him/herself with no assistance from a helper. 5-Set-up or Clean-up Assistance-helper sets up or cleans up; patient completes activity. [place] assists only prior to or following the activity. 4-Supervision or Touching Assistance-helper provides verbal cues and/or touching/steadying and/or contact guard assistance as patient completes activity. Assistance may be provided throughout the activity or intermittently. 3-Partial/Moderate Assistance-helper does LESS THAN HALF the effort. [place] lifts, holds or supports trunk or limbs, but provides less than half the effort. 2-Substantial/Maximal Assistance-helper does MORE THAN HALF the effort. [place] lifts or holds trunk or limbs and provides more than half the effort. 8-Bmoklvvsc-kktbha does ALL the effort. Patient does none of the effort to complete the activity. Or, the assistance of 2 or more helpers is required for the patient to complete the activity. If activity was not attempted, code reason: 7-Patient Refused. 9-Not Applicable-not attempted and the patient did not perform the activity before the current illness, exacerbation or injury. 10-Not Attempted due to Environmental Limitations-(lack of equipment, weather restraints, etc.). 88-Not Attempted due to Medical Conditions or Safety Concerns. Sit to Stand (QC): 3 Chair/Krw-fl-Znekn Xfer(QC): 3 Gait Training Distance: 40' Walk 10 feet (QC): 3 Gait Assistive Device: Walker [place] very slow, slightly unsteady gait with use of marin walker Assessment Patient in shower after session with nursing staff. Patient progressing slowly with gross motor skills. Patient continues to be very confused. PT Intermediate Goals Embryology Professor Goals PT Intermediate Goals Time Frame: Feb 17, 2021 Roll Left & Right (QC): 5 Sit to Lying (QC): 5 Lying-Sitting on Side/Bed(QC): 5 Sit to Stand (QC): 5 Chair/Kyw-fe-Ufbce Xfer(QC): 5 Toilet Transfer (QC): 5 Walk 10 feet (QC): 4 Walk 50ft with 2 Turns (QC): 4 Walk 150 ft (QC): 4 PT Plan Treatment/Plan Treatment Plan: Continue Plan of Care Treatment Plan: Bed Mobility, Education, Functional Activity Nas, Functional Strength, Gait, Safety, Therapeutic Exercise, Transfers Treatment Duration: Feb 17, 2021 Frequency: 6 times per week Estimated Hrs Per Day: .5 hour per day Patient and/or Family Agrees t: Yes Time/GCodes Time In: 939 Time Out: 948 Total Billed Treatment Time: 9 Total Billed Treatment 1 visit GT 9 min DAVY FUENTES PT Feb 08, 2021 10:17
[2021-02-08] MEDS: PANTOPRAZOLE 40 MG (PROTONIX) TAB PO SCH (11:03)
[2021-02-08] MEDS: LACTATED RINGERS 1,000 ML IV SCH ×2 (15:02→15:54)
--- NOTE | 2021-02-08 15:10 | Progress Note - Hospitalist ---
TIMOTHY PHILIP 02/08/21 1510: Subjective HPI/CC On Admission Date Seen by Provider: Feb 08, 2021 Time Seen by Provider: 08:51 Chief complaint: DKA with abscess History of present illness: This is a 65-year-old white female clinic patient of [facility] who has a past medical history of diabetes who presented to the [place] [facility] with left perineal abscess and high sugars. Patient was a poor historian. Patient is in a sling due to prior arm injury in May. She was found to have acidosis requiring insulin drip and IV antibiotics. Subjective/Events-last exam Patient awake and sitting up in bed this morning. Awake and oriented x3 today. States she feels better and well rested today. Patient had a PICC line placed yesterday after her IVs fell out and staff was unable to obtain another IV site. Patient had a CT scan yesterday that came back negative. Patient was able to eat and drink today. Does state she is having some acid reflux symptoms. Patient stated surgery had not been by to look at her wound yet, but was unable to apply wound vac yesterday. Denies N/V, fever, SOB, abdominal pain, dysuria, confusion. Objective Exam Vital Signs Vital Signs Date Time Temp Pulse Resp B/P (MAP) Pulse Ox O2 Delivery O2 Flow Rate FiO2 02/08/21 11:27 36.8 68 20 166/76 96 Room Air 02/08/21 08:00 Capillary Refill : Less Than 3 SecondsLess Than 3 Seconds General Appearance: No Apparent Distress, WD/WN HEENT: PERRL/EOMI, Moist Mucous Membranes Neck: Non Tender, Supple Respiratory: Chest Non Tender, Lungs Clear, Normal Breath Sounds, No Accessory Muscle Use, No Respiratory Distress Cardiovascular: Regular Rate, Rhythm, No Murmur, Normal Peripheral Pulses Gastrointestinal: Non Tender, Soft Rectal: Deferred Extremity: Non Tender, No Calf Tenderness, No Pedal Edema Neurologic/Psychiatric: Alert, Oriented x3, Normal Mood/Affect Results/Procedures Lab Laboratory Tests 02/08/21 04:00 Patient resulted labs reviewed. Assessment/Plan Assessment and Plan Assess & Plan/Chief Complaint Assessment DKA Right perineal abscess status post incision and drainage by Dr. FISHER, uncomplicated Hypertension Hyperlipidemia GERD Delirium, resolved Altered Mental Status, resolved Plan Continue IV antibiotics Continue insulin PPI Continue monitoring mental status ANNABELLE BRAVO DO 02/09/21 0522: Subjective Subjective/Events-last exam Pt doing a lot better Delirium has cleared Inpatient rehab submitted to insurance Labs are okay Proton pump inhibitor will be started due to reflux reports Picc line was placed after central line required Review of Systems General: Fatigue, Malaise Objective Exam General Appearance: No Apparent Distress, WD/WN, Chronically ill Respiratory: Lungs Clear, Normal Breath Sounds Cardiovascular: Regular Rate, Rhythm Neurologic/Psychiatric: Alert, Oriented x3, No Motor/Sensory Deficits, Normal Mood/Affect Assessment/Plan Assessment and Plan Assess & Plan/Chief Complaint Inpatient rehab tomorrow Supervisory-Addendum Brief Verification & Attestation Participated in pt care: history, MDM, physical Personally performed: exam, history, MDM, supervision of care Care discussed with: Medical Student Procedures: n/a Results interpretation: Verified all documentation Verification and Attestation of Medical Student E/M Service A medical student performed and documented this service in my presence. I reviewed and verified all information documented by the medical student and made modifications to such information, when appropriate. I personally performed the physical exam and medical decision making. Annabelle Bravo, Feb 09, 2021,05:21 TIMOTHY PHILIP Feb 08, 2021 15:10 ANNABELLE BRAVO DO Feb 09, 2021 05:22
--- NOTE | 2021-02-08 15:22 | Progress Note ---
Subjective Date Seen by a Provider: Feb 08, 2021 Time Seen by a Provider: 15:10 Subjective/Events-last exam Patient seen with Dr. Swain. Patient sitting up in bed awake. Denies any perineum pain. No N/V or fever/chills. Tolerating diet. Objective Exam Vital Signs Date Time Temp Pulse Resp B/P (MAP) Pulse Ox O2 Delivery O2 Flow Rate FiO2 02/08/21 11:27 36.8 68 20 166/76 96 Room Air 02/08/21 08:13 95 Room Air 02/08/21 08:00 36.9 74 20 164/80 94 Room Air 02/08/21 04:48 36.6 69 18 154/70 94 Room Air 02/08/21 01:37 36.8 72 18 164/70 93 Room Air 02/08/21 00:00 36.8 72 18 164/70 93 Room Air 02/07/21 20:00 95 Room Air 02/07/21 19:58 37.0 77 20 174/72 95 Room Air 02/07/21 16:07 36.8 72 20 135/83 95 Room Air I & O 02/08/21 07:00 Intake Total 850 ml Output Total 1525 ml Balance -675 ml Capillary Refill : Less Than 3 SecondsLess Than 3 Seconds General Appearance: No Apparent Distress, WD/WN Neck: Normal Inspection, Supple Respiratory: No Accessory Muscle Use, No Respiratory Distress Cardiovascular: Regular Rate, Rhythm, No Edema Gastrointestinal: normal bowel sounds, non tender, soft Extremity: Normal Inspection, Normal Range of Motion Neurologic/Psychiatric: Alert, Oriented x3 Skin: Other (There is an open wound of the left buttock with mild erythema. No active drainage. Good granulation tissue noted of wound bed.) Results Lab Laboratory Tests 02/07/21 16:10: Glucometer 190H 02/07/21 20:36: Glucometer 216H 02/08/21 04:00: White Blood Count 6.8, Red Blood Count 3.41L, Hemoglobin 8.9L, Hematocrit 28L, Mean Corpuscular Volume 82, Mean Corpuscular Hemoglobin 26, Mean Corpuscular Hemoglobin Concent 32, Red Cell Distribution Width 17.1H, Platelet Count 219, Mean Platelet Volume 10.6, Immature Granulocyte % (Auto) 1, Neutrophils (%) (Auto) 58, Lymphocytes (%) (Auto) 28, Monocytes (%) (Auto) 9, Eosinophils (%) (Auto) 4, Basophils (%) (Auto) 0, Neutrophils # (Auto) 3.9, Lymphocytes # (Auto) 1.9, Monocytes # (Auto) 0.6, Eosinophils # (Auto) 0.3, Basophils # (Auto) 0.0, Immature Granulocyte # (Auto) 0.1, Sodium Level 140, Potassium Level 3.3L, Chloride Level 103, Carbon Dioxide Level 23, Anion Gap 14, Blood Urea Nitrogen 4L, Creatinine 0.55L, Estimat Glomerular Filtration Rate 111, BUN/Creatinine Ratio 7, Glucose Level 163H, Calcium Level 8.0L, Corrected Calcium 9.6, Total Bilirubin 0.2, Aspartate Amino Transf (AST/SGOT) 13, Alanine Aminotransferase (ALT/SGPT) 9, Alkaline Phosphatase 99, Total Protein 4.2L, Albumin 2.0L 02/08/21 10:37: Glucometer 220H Microbiology 02/04/21 MRSA Screen - Final, Complete MRSA not isolated 02/04/21 Gram Stain - Final, Resulted 02/04/21 Anaerobic Culture - Preliminary, Resulted No anaerobes isolated 02/04/21 Surgical Culture - Final, Resulted Strep agalactiae Group B Lactobacillus gasseri 02/04/21 Urine Culture - Final, Complete YEAST 02/04/21 Blood Culture - Preliminary, Resulted No growth Assessment/Plan Assessment/Plan Assess & Plan/Chief Complaint s/p debridement left perineum. VSS cont wet to dry. cont abx. unsure of baseline functional capacity. will consult for at least wound care. ENEIDA REYES [employer] Feb 08, 2021 15:22
[2021-02-08] MEDS: ACETAMINOPHEN 500 MG TAB (TYLENOL) PO PRN (17:41)
[2021-02-09] MEDS: MEROPENEM 500 MG in NS (IVPB) 100 ML IV SCH (02:07)
[2021-02-09 04:58] LABS: BASOPHILS % (AUTO) 0 % (0-10); EOSINOPHILS # (AUTO) 0.2 10^3/uL (0.0-0.3); EOSINOPHILS % (AUTO) 2 % (0-10); HEMATOCRIT 28 % (35-52); HEMOGLOBIN 8.8 g/dL (11.5-16.0); LYMPHOCYTES # (AUTO) 1.6 10^3/uL (1.0-4.0); LYMPHOCYTES % (AUTO) 24 % (12-44); MEAN CORPUSCULAR HEMOGLOBIN 26 pg (25-34); MEAN CORPUSCULAR HGB CONC 31 g/dL (32-36); MEAN CORPUSCULAR VOLUME 82 fL (80-99); MEAN PLATELET VOLUME 10.1 fL (9.0-12.2); MONOCYTES # (AUTO) 0.7 10^3/uL (0.0-1.0); MONOCYTES % (AUTO) 10 % (0-12); NEUTROPHILS # (AUTO) 4.2 10^3/uL (1.8-7.8); NEUTROPHILS % (AUTO) 62 % (42-75); PLATELET COUNT 235 10^3/uL (130-400); WHITE BLOOD COUNT 6.8 10^3/uL (4.3-11.0)
[2021-02-09 05:15] LABS: ALBUMIN 2.1 GM/DL (3.2-4.5)
[2021-02-09 05:18] LABS: TOTAL PROTEIN 4.3 GM/DL (6.4-8.2)
[2021-02-09 05:20] LABS: BILIRUBIN,TOTAL 0.2 MG/DL (0.1-1.0)
[2021-02-09 05:21] LABS: CREATININE SERUM 0.51 MG/DL (0.60-1.30)
[2021-02-09] MEDS: inSUlin ASPART (NovoLOG) 1 UNIT/0.01 ML (CHARGE PER UNIT) SC SCH (05:25)
--- NOTE | 2021-02-09 06:46 | Discharge Summary ---
Diagnosis/Chief Complaint Date of Admission Feb 04, 2021 at 05:27 Date of Discharge Discharge Date: Feb 09, 2021 Discharge Diagnosis Assessment Severe sepsis DKA Right perineal abscess status post incision and drainage by Dr. FISHER, uncomplicated Hypertension Hyperlipidemia GERD Delirium, resolved Altered Mental Status, resolved Discharge Summary Discharge Physical Examination Allergies: Coded Allergies: Penicillins (Unverified Allergy, Unknown, 05/25/19) Sulfa (Sulfonamide Antibiotics) (Unverified Allergy, Unknown, 02/05/21) adhesive tape (Unverified Allergy, Unknown, 07/03/20) cephalexin (Unverified Allergy, Unknown, 05/25/19) hydrocodone (Unverified Allergy, Unknown, Shortness of Breath, 02/07/21) reports she feels like she can't breath. oxycodone (Unverified Adverse Reaction, Intermediate, Abdominal Pain, Confusion, 02/07/21) reports that she became very "loopy" and had to quit taking it. Vitals & I&Os Vital Signs Date Time Temp Pulse Resp B/P (MAP) Pulse Ox O2 Delivery O2 Flow Rate FiO2 02/09/21 08:00 Room Air 02/09/21 07:54 36.7 68 18 152/80 94 02/08/21 08:00 General Appearance: Alert, Oriented X3, Cooperative Respiratory: Clear to Auscultation Cardiovascular: Regular Rate Psych/Mental Status: Mental Status NL Hospital Course Was the Problem List Reviewed?: Yes Hospital Course: Pt had a lengthy hospital course for 6 days after she was admitted for DKA and severe sepsis with perineal abscess s/p I&D by Dr. Fisher. Pt was placed on empiric antibiotics. Overall she attained good control, resolution of acidosis with initiation of insulin drip and insulin subQ. Pt was deemed stable for admit to rehab after he delirium had resolved. Labs (last 24 hrs) Laboratory Tests 02/04/21 01:25: White Blood Count 15.4H, Red Blood Count 5.09, Hemoglobin 13.3, Hematocrit 43, Mean Corpuscular Volume 84, Mean Corpuscular Hemoglobin 26, Mean Corpuscular Hemoglobin Concent 31L, Red Cell Distribution Width 17.0H, Platelet Count 391, Mean Platelet Volume 11.5, Immature Granulocyte % (Auto) 1, Neutrophils (%) (Auto) 83H, Lymphocytes (%) (Auto) 10L, Monocytes (%) (Auto) 6, Eosinophils (%) (Auto) 1, Basophils (%) (Auto) 0, Neutrophils # (Auto) 12.8H, Lymphocytes # (Auto) 1.5, Monocytes # (Auto) 0.9, Eosinophils # (Auto) 0.1, Basophils # (Auto) 0.1, Immature Granulocyte # (Auto) 0.1, Neutrophils % (Manual) 89, Lymphocytes % (Manual) 6, Monocytes % (Manual) 4, Band Neutrophils 1, Sodium Level 128L, Potassium Level 3.1L, Chloride Level 88L, Carbon Dioxide Level 8*L, Anion Gap 32H, Blood Urea Nitrogen 14, Creatinine 0.76, Estimat Glomerular Filtration Rate 76, BUN/Creatinine Ratio 18, Glucose Level 587*H, Lactic Acid Level 2.18*H, Calcium Level 9.9, Corrected Calcium 10.1, Magnesium Level 1.2L, Total Bilirubin 0.3, Aspartate Amino Transf (AST/SGOT) 9, Alanine Aminotransferase (ALT/SGPT) 5, Alkaline Phosphatase 217H, C-Reactive Protein 28.69H, Total Protein 8.0, Albumin 3.7 02/04/21 02:20: Blood Gas Puncture Site RIGHT WRIST, Blood Gas Patient Temperature 36.5, Arterial Blood pH 7.27*L, Arterial Blood Partial Pressure CO2 10*L, Arterial Blood Partial Pressure O2 112H, Arterial Blood HCO3 5*L, Arterial Blood Total CO2 4.9*L, Arterial Blood Oxygen Saturation 98, Arterial Blood Base Excess - 19.4L, Bryon Test NA, Blood Gas Ventilator Setting NO, Blood Gas Inspired Oxygen ROOM AIR 02/04/21 03:14: Glucometer 451*H 02/04/21 04:34: Glucometer 327H 02/04/21 05:27: Lab Scanned Report Referred Lab Report 02/04/21 06:07: White Blood Count 14.2H, Red Blood Count 4.49, Hemoglobin 11.8, Hematocrit 37, Mean Corpuscular Volume 82, Mean Corpuscular Hemoglobin 26, Mean Corpuscular Hemoglobin Concent 32, Red Cell Distribution Width 16.4H, Platelet Count 307, Mean Platelet Volume 11.3, Immature Granulocyte % (Auto) 1, Neutrophils (%) (Auto) 87H, Lymphocytes (%) (Auto) 9L, Monocytes (%) (Auto) 3, Eosinophils (%) (Auto) 0, Basophils (%) (Auto) 0, Neutrophils # (Auto) 12.3H, Lymphocytes # (Auto) 1.3, Monocytes # (Auto) 0.5, Eosinophils # (Auto) 0.0, Basophils # (Auto) 0.0, Immature Granulocyte # (Auto) 0.1, Neutrophils % (Manual) 86, Lymphocytes % (Manual) 9, Monocytes % (Manual) 3, Basophils % (Manual) 1, Band Neutrophils 1, Blood Morphology Comment NORMAL, Sodium Level 138, Potassium Level 2.8L, Chloride Level 104, Carbon Dioxide Level 13L, Anion Gap 21H, Blood Urea Nitrogen 10, Creatinine 1.07, Estimat Glomerular Filtration Rate 51, BUN/Creatinine Ratio 9, Glucose Level 245H, Glucometer 220H, Mean Blood Glucose 286H, Hemoglobin A1c 11.6H, Calcium Level 9.4, Corrected Calcium 10.0, Total Bilirubin 0.4, Aspartate Amino Transf (AST/SGOT) 7, Alanine Aminotransferase (ALT/SGPT) < 6, Alkaline Phosphatase 157H, Total Protein 6.6, Albumin 3.2, Beta-Hydroxybutyrate (Chem panel) 4.16H 02/04/21 08:20: Sodium Level 137, Potassium Level 2.7L, Chloride Level 106, Carbon Dioxide Level 12L, Anion Gap 19H, Blood Urea Nitrogen 9, Creatinine 0.91, Estimat Glomerular Filtration Rate 62, BUN/Creatinine Ratio 10, Glucose Level 292H, Calcium Level 8.4L, Lactic Acid Level 1.08 02/04/21 08:23: Glucometer 267H 02/04/21 09:00: Urine Color YELLOW, Urine Clarity CLEAR, Urine pH 5.5, Urine Specific [place] 1.020, Urine Protein NEGATIVE, Urine Glucose (UA) 2+H, Urine Ketones 3+H, Urine Nitrite NEGATIVE, Urine Bilirubin 2+H, Urine Urobilinogen 0.2, Urine Leukocyte Esterase NEGATIVE, Urine RBC (Auto) NEGATIVE, Urine RBC NONE, Urine WBC 0-2, Urine Squamous Epithelial Cells RARE, Urine Crystals NONE, Urine Bacteria TRACE, Urine Casts NONE, Urine Mucus NEGATIVE, Urine Yeast MODERATEH, Urine Culture Indicated YES 02/04/21 09:29: Glucometer 261H 02/04/21 11:27: Glucometer 175H 02/04/21 12:04: Sodium Level 139, Potassium Level 2.7L, Chloride Level 109H, Carbon Dioxide Level 17L, Anion Gap 13, Blood Urea Nitrogen 8, Creatinine 0.78, Estimat Glomerular Filtration Rate 74, BUN/Creatinine Ratio 10, Glucose Level 174H, Calcium Level 8.3L 02/04/21 12:53: Glucometer 158H 02/04/21 14:30: Glucometer 210H 02/04/21 15:11: Glucometer 207H 02/04/21 15:49: Glucometer 189H 02/04/21 17:00: Blood Gas Puncture Site RRAD, Blood Gas Patient Temperature 37.6, Arterial Blood pH 7.39, Arterial Blood Partial Pressure CO2 33L, Arterial Blood Partial Pressure O2 75L, Arterial Blood HCO3 19L, Arterial Blood Total CO2 20.3L, Arterial Blood Oxygen Saturation 94, Arterial Blood Base Excess -4.6L, Bryon Test POS, Blood Gas Ventilator Setting NO, Blood Gas Inspired Oxygen NA 02/04/21 17:15: Sodium Level 137, Potassium Level 3.4L, Chloride Level 108H, Carbon Dioxide Level 19L, Anion Gap 10, Blood Urea Nitrogen 7, Creatinine 0.76, Estimat Glomerular Filtration Rate 76, BUN/Creatinine Ratio 9, Glucose Level 178H, Calcium Level 8.3L, Magnesium Level 1.5L 02/04/21 17:53: Glucometer 176H 02/04/21 19:13: Glucometer 175H 02/04/21 20:31: Glucometer 194H 02/04/21 21:29: Glucometer 188H 02/04/21 23:31: Glucometer 193H 02/05/21 04:28: White Blood Count 11.4H, Red Blood Count 3.70L, Hemoglobin 9.8L, Hematocrit 30L, Mean Corpuscular Volume 82, Mean Corpuscular Hemoglobin 27, Mean Corpuscular Hemoglobin Concent 33, Red Cell Distribution Width 16.7H, Platelet Count 225, Mean Platelet Volume 11.2, Immature Granulocyte % (Auto) 1, Neutrophils (%) (Auto) 80H, Lymphocytes (%) (Auto) 11L, Monocytes (%) (Auto) 6, Eosinophils (%) (Auto) 2, Basophils (%) (Auto) 0, Neutrophils # (Auto) 9.1H, Lymphocytes # (Auto) 1.2, Monocytes # (Auto) 0.6, Eosinophils # (Auto) 0.3, Basophils # (Auto) 0.0, Immature Granulocyte # (Auto) 0.1, Sodium Level 136, Potassium Level 2.8L, Chloride Level 107, Carbon Dioxide Level 19L, Anion Gap 10, Blood Urea Nitrogen 7, Creatinine 0.66, Estimat Glomerular Filtration Rate 90, BUN/Creatinine Ratio 11, Glucose Level 165H, Calcium Level 8.0L, Corrected Calcium 9.3, Phosphorus Level 1.0*L, Magnesium Level 1.7, Total Bilirubin 0.3, Aspartate Amino Transf (AST/SGOT) 13, Alanine Aminotransferase (ALT/SGPT) 7, Alkaline Phosphatase 117, Total Protein 4.8L, Albumin 2.4L, Beta-Hydroxybutyrate (Chem panel) 0.67H 02/05/21 11:09: Glucometer 196H 02/05/21 16:45: Sodium Level 134L, Potassium Level 4.2, Chloride Level 106, Carbon Dioxide Level 19L, Anion Gap 9, Blood Urea Nitrogen 5L, Creatinine 0.60, Estimat Glomerular Filtration Rate 100, BUN/Creatinine Ratio 8, Glucose Level 119H, Calcium Level 8.3L, Phosphorus Level 2.1L, Magnesium Level 1.8 02/05/21 17:43: Glucometer 128H 02/06/21 00:14: Glucometer 211H 02/06/21 04:20: White Blood Count 8.2, Red Blood Count 3.70L, Hemoglobin 9.6L, Hematocrit 30L, Mean Corpuscular Volume 81, Mean Corpuscular Hemoglobin 26, Mean Corpuscular Hemoglobin Concent 32, Red Cell Distribution Width 16.8H, Platelet Count 235, M lonny Platelet Volume 11.1, Immature Granulocyte % (Auto) 1, Neutrophils (%) (Auto) 73, Lymphocytes (%) (Auto) 16, Monocytes (%) (Auto) 7, Eosinophils (%) (Auto) 3, Basophils (%) (Auto) 1, Neutrophils # (Auto) 6.0, Lymphocytes # (Auto) 1.3, Monocytes # (Auto) 0.6, Eosinophils # (Auto) 0.2, Basophils # (Auto) 0.0, Immature Granulocyte # (Auto) 0.1, Sodium Level 136, Potassium Level 4.0, Chloride Level 108H, Carbon Dioxide Level 20L, Anion Gap 8, Blood Urea Nitrogen 4L, Creatinine 0.56L, Estimat Glomerular Filtration Rate 108, BUN/Creatinine Ratio 7, Glucose Level 159H, Calcium Level 8.3L, Corrected Calcium 9.6, Phosphorus Level 1.7L, Magnesium Level 1.5L, Total Bilirubin 0.3, Aspartate Amino Transf (AST/SGOT) 15, Alanine Aminotransferase (ALT/SGPT) 8, Alkaline Phosphatase 112, Total Protein 5.0L, Albumin 2.4L, Beta-Hydroxybutyrate (Chem panel) 0.69H 02/06/21 11:43: Glucometer 255H 02/06/21 16:17: Glucometer 182H 02/06/21 20:08: Glucometer 229H 02/06/21 22:47: Glucometer 157H 02/07/21 05:29: White Blood Count 9.2, Red Blood Count 4.11, Hemoglobin 10.5L, Hematocrit 34L, Mean Corpuscular Volume 84, Mean Corpuscular Hemoglobin 26, Mean Corpuscular Hemoglobin Concent 31L, Red Cell Distribution Width 17.0H, Platelet Count 229, Mean Platelet Volume 10.8, Immature Granulocyte % (Auto) 1, Neutrophils (%) (Auto) 77H, Lymphocytes (%) (Auto) 13, Monocytes (%) (Auto) 7, Eosinophils (%) (Auto) 1, Basophils (%) (Auto) 1, Neutrophils # (Auto) 7.1, Lymphocytes # (Auto) 1.2, Monocytes # (Auto) 0.6, Eosinophils # (Auto) 0.1, Basophils # (Auto) 0.1, Immature Granulocyte # (Auto) 0.1, Sodium Level 138, Potassium Level 3.8, Chloride Level 105, Carbon Dioxide Level 18L, Anion Gap 15H, Blood Urea Nitrogen 4L, Creatinine 0.55L, Estimat Glomerular Filtration Rate 111, BUN/Creatinine Ratio 7, Glucose Level 236H, Calcium Level 8.4L, Corrected Calcium 9.7, Total Bilirubin 0.3, Aspartate Amino Transf (AST/SGOT) 16, Alanine Aminotransferase (ALT/SGPT) 10, Alkaline Phosphatase 123, Total Protein 4.9L, Albumin 2.4L 02/07/21 05:31: Glucometer 214H 02/07/21 10:10: Glucometer 168H 02/07/21 16:10: Glucometer 190H 02/07/21 20:36: Glucometer 216H 02/08/21 04:00: White Blood Count 6.8, Red Blood Count 3.41L, Hemoglobin 8.9L, Hematocrit 28L, Mean Corpuscular Volume 82, Mean Corpuscular Hemoglobin 26, Mean Corpuscular Hemoglobin Concent 32, Red Cell Distribution Width 17.1H, Platelet Count 219, Mean Platelet Volume 10.6, Immature Granulocyte % (Auto) 1, Neutrophils (%) (Auto) 58, Lymphocytes (%) (Auto) 28, Monocytes (%) (Auto) 9, Eosinophils (%) (Auto) 4, Basophils (%) (Auto) 0, Neutrophils # (Auto) 3.9, Lymphocytes # (Auto) 1.9, Monocytes # (Auto) 0.6, Eosinophils # (Auto) 0.3, Basophils # (Auto) 0.0, Immature Granulocyte # (Auto) 0.1, Sodium Level 140, Potassium Level 3.3L, Chloride Level 103, Carbon Dioxide Level 23, Anion Gap 14, Blood Urea Nitrogen 4L, Creatinine 0.55L, Estimat Glomerular Filtration Rate 111, BUN/Creatinine Ratio 7, Glucose Level 163H, Calcium Level 8.0L, Corrected Calcium 9.6, Total Bilirubin 0.2, Aspartate Amino Transf (AST/SGOT) 13, Alanine Aminotransferase (ALT/SGPT) 9, Alkaline Phosphatase 99, Total Protein 4.2L, Albumin 2.0L 02/08/21 10:37: Glucometer 220H 02/08/21 16:05: Glucometer 142H 02/08/21 19:54: Glucometer 116H 02/09/21 04:46: White Blood Count 6.8, Red Blood Count 3.42L, Hemoglobin 8.8L, Hematocrit 28L, Mean Corpuscular Volume 82, Mean Corpuscular Hemoglobin 26, Mean Corpuscular Hemoglobin Concent 31L, Red Cell Distribution Width 16.9H, Platelet Count 235, Mean Platelet Volume 10.1, Immature Granulocyte % (Auto) 1, Neutrophils (%) (Auto) 62, Lymphocytes (%) (Auto) 24, Monocytes (%) (Auto) 10, Eosinophils (%) (Auto) 2, Basophils (%) (Auto) 0, Neutrophils # (Auto) 4.2, Lymphocytes # (Auto) 1.6, Monocytes # (Auto) 0.7, Eosinophils # (Auto) 0.2, Basophils # (Auto) 0.0, Immature Granulocyte # (Auto) 0.1, Sodium Level 143, Potassium Level 3.0L, Chloride Level 105, Carbon Dioxide Level 28, Anion Gap 10, Blood Urea Nitrogen 4L, Creatinine 0.51L, Estimat Glomerular Filtration Rate 121, BUN/Creatinine Ratio 8, Glucose Level 96, Calcium Level 8.0L, Corrected Calcium 9.5, Total Bilirubin 0.2, Aspartate Amino Transf (AST/SGOT) 13, Alanine Aminotransferase (ALT/SGPT) 10, Alkaline Phosphatase 98, Total Protein 4.3L, Albumin 2.1L Microbiology 02/04/21 MRSA Screen - Final, Complete MRSA not isolated 02/04/21 Gram Stain - Final, Complete 02/04/21 Anaerobic Culture - Final, Complete No anaerobes isolated 02/04/21 Surgical Culture - Final, Complete Strep agalactiae Group B Lactobacillus gasseri 02/04/21 Urine Culture - Final, Complete YEAST 02/04/21 Blood Culture - Final, Complete No growth Pending Labs Microbiology Date/Time Source Procedure Growth Status 02/04/21 17:00 Nasal MRSA Screen - Final MRSA not isolated Complete 02/04/21 10:41 Abscess Perianal Gram Stain - Final Complete 02/04/21 10:41 Abscess Perianal Anaerobic Culture - Final No anaerobes isolated Complete 02/04/21 10:41 Surgical Culture - Final Strep agalactiae Group B Lactobacillus gasseri Complete 02/04/21 09:00 Urine U Cath,Nos Urine Culture - Final YEAST Complete 02/04/21 01:55 Peripheral Rt Hand Blood Culture - Final No growth Complete 02/04/21 01:50 Peripheral Rt Ac Blood Culture - Final No growth Complete Laboratory Tests 02/04/21 01:25: White Blood Count 15.4, Red Blood Count 5.09, Hemoglobin 13.3, Hematocrit 43, Mean Corpuscular Volume 84, Mean Corpuscular Hemoglobin 26, Mean Corpuscular Hemoglobin Concent 31, Red Cell Distribution Width 17.0, Platelet Count 391, Mean Platelet Volume 11.5, Immature Granulocyte % (Auto) 1, Neutrophils (%) (Auto) 83, Lymphocytes (%) (Auto) 10, Monocytes (%) (Auto) 6, Eosinophils (%) (Auto) 1, Basophils (%) (Auto) 0, Neutrophils # (Auto) 12.8, Lymphocytes # (Auto) 1.5, Monocytes # (Auto) 0.9, Eosinophils # (Auto) 0.1, Basophils # (Auto) 0.1, Immature Granulocyte # (Auto) 0.1, Neutrophils % (Manual) 89, Lymphocytes % (Manual) 6, Monocytes % (Manual) 4, Band Neutrophils 1, Sodium Level 128, Potassium Level 3.1, Chloride Level 88, Carbon Dioxide Level 8, Anion Gap 32, Blood Urea Nitrogen 14, Creatinine 0.76, Estimat Glomerular Filtration Rate 76, BUN/Creatinine Ratio 18, Glucose Level 587, Lactic Acid Level 2.18, Calcium Level 9.9, Corrected Calcium 10.1, Magnesium Level 1.2, Total Bilirubin 0.3, Aspartate Amino Transf (AST/SGOT) 9, Alanine Aminotransferase (ALT/SGPT) 5, Alkaline Phosphatase 217, C-Reactive Protein 28.69, Total Protein 8.0, Albumin 3.7 02/04/21 02:20: Blood Gas Puncture Site RIGHT WRIST, Blood Gas Patient Temperature 36.5, Arterial Blood pH 7.27, Arterial Blood Partial Pressure CO2 10, Arterial Blood Partial Pressure O2 112, Arterial Blood HCO3 5, Arterial Blood Total CO2 4.9, Arterial Blood Oxygen Saturation 98, Arterial Blood Base Excess -19.4, Bryon Test NA, Blood Gas Ventilator Setting NO, Blood Gas Inspired Oxygen ROOM AIR 02/04/21 03:14: Glucometer 451 02/04/21 04:34: Glucometer 327 02/04/21 05:27: Lab Scanned Report Referred Lab Report 02/04/21 06:07: White Blood Count 14.2, Red Blood Count 4.49, Hemoglobin 11.8, Hematocrit 37, Mean Corpuscular Volume 82, Mean Corpuscular Hemoglobin 26, Mean Corpuscular Hemoglobin Concent 32, Red Cell Distribution Width 16.4, Platelet Count 307, Mean Platelet Volume 11.3, Immature Granulocyte % (Auto) 1, Neutrophils (%) (Auto) 87, Lymphocytes (%) (Auto) 9, Monocytes (%) (Auto) 3, Eosinophils (%) (Auto) 0, Basophils (%) (Auto) 0, Neutrophils # (Auto) 12.3, Lymphocytes # (Auto) 1.3, Monocytes # (Auto) 0.5, Eosinophils # (Auto) 0.0, Basophils # (Auto) 0.0, Immature Granulocyte # (Auto) 0.1, Neutrophils % (Manual) 86, Lymphocytes % (Manual) 9, Monocytes % (Manual) 3, Basophils % (Manual) 1, Band Neutrophils 1, Blood Morphology Comment NORMAL, Sodium Level 138, Potassium Level 2.8, Chloride Level 104, Carbon Dioxide Level 13, Anion Gap 21, Blood Urea Nitrogen 10, Creatinine 1.07, Estimat Glomerular Filtration Rate 51, BUN/Creatinine Ratio 9, Glucose Level 245, Glucometer 220, Mean Blood Glucose 286, Hemoglobin A1c 11.6, Calcium Level 9.4, Corrected Calcium 10.0, Total Bilirubin 0.4, Aspartate Amino Transf (AST/SGOT) 7, Alanine Aminotransferase (ALT/SGPT) < 6, Alkaline Phosphatase 157, Total Protein 6.6, Albumin 3.2, Beta-Hydroxybutyrate (Chem panel) 4.16 02/04/21 08:20: Sodium Level 137, Potassium Level 2.7, Chloride Level 106, Carbon Dioxide Level 12, Anion Gap 19, Blood Urea Nitrogen 9, Creatinine 0.91, Estimat Glomerular Filtration Rate 62, BUN/Creatinine Ratio 10, Glucose Level 292, Calcium Level 8.4, Lactic Acid Level 1.08 02/04/21 08:23: Glucometer 267 02/04/21 09:00: Urine Color YELLOW, Urine Clarity CLEAR, Urine pH 5.5, Urine Specific [place] 1.020, Urine Protein NEGATIVE, Urine Glucose (UA) 2+, Urine Ketones 3+, Urine Nitrite NEGATIVE, Urine Bilirubin 2+, Urine Urobilinogen 0.2, Urine Leukocyte Esterase NEGATIVE, Urine RBC (Auto) NEGATIVE, Urine RBC NONE, Urine WBC 0-2, Urine Squamous Epithelial Cells RARE, Urine Crystals NONE, Urine Bacteria TRACE, Urine Casts NONE, Urine Mucus NEGATIVE, Urine Yeast MODERATE, Urine Culture Indicated YES 02/04/21 09:29: Glucometer 261 02/04/21 11:27: Glucometer 175 02/04/21 12:04: Sodium Level 139, Potassium Level 2.7, Chloride Level 109, Carbon Dioxide Level 17, Anion Gap 13, Blood Urea Nitrogen 8, Creatinine 0.78, Estimat Glomerular Filtration Rate 74, BUN/Creatinine Ratio 10, Glucose Level 174, Calcium Level 8.3 02/04/21 12:53: Glucometer 158 02/04/21 14:30: Glucometer 210 02/04/21 15:11: Glucometer 207 02/04/21 15:49: Glucometer 189 02/04/21 17:00: Blood Gas Puncture Site RRAD, Blood Gas Patient Temperature 37.6, Arterial Blood pH 7.39, Arterial Blood Partial Pressure CO2 33, Arterial Blood Partial Pressure O2 75, Arterial Blood HCO3 19, Arterial Blood Total CO2 20.3, Arterial Blood Oxygen Saturation 94, Arterial Blood Base Excess -4.6, Bryon Test POS, Blood Gas Ventilator Setting NO, Blood Gas Inspired Oxygen NA 02/04/21 17:15: Sodium Level 137, Potassium Level 3.4, Chloride Level 108, Carbon Dioxide Level 19, Anion Gap 10, Blood Urea Nitrogen 7, Creatinine 0.76, Estimat Glomerular Filtration Rate 76, BUN/Creatinine Ratio 9, Glucose Level 178, Calcium Level 8.3, Magnesium Level 1.5 02/04/21 17:53: Glucometer 176 02/04/21 19:13: Glucometer 175 02/04/21 20:31: Glucometer 194 02/04/21 21:29: Glucometer 188 02/04/21 23:31: Glucometer 193 02/05/21 04:28: White Blood Count 11.4, Red Blood Count 3.70, Hemoglobin 9.8, Hematocrit 30, Mean Corpuscular Volume 82, Mean Corpuscular Hemoglobin 27, Mean Corpuscular Hemoglobin Concent 33, Red Cell Distribution Width 16.7, Platelet Count 225, Mean Platelet Volume 11.2, Immature Granulocyte % (Auto) 1, Neutrophils (%) (Auto) 80, Lymphocytes (%) (Auto) 11, Monocytes (%) (Auto) 6, Eosinophils (%) (Auto) 2, Basophils (%) (Auto) 0, Neutrophils # (Auto) 9.1, Lymphocytes # (Auto) 1.2, Monocytes # (Auto) 0.6, Eosinophils # (Auto) 0.3, Basophils # (Auto) 0.0, Immature Granulocyte # (Auto) 0.1, Sodium Level 136, Potassium Level 2.8, Chloride Level 107, Carbon Dioxide Level 19, Anion Gap 10, Blood Urea Nitrogen 7, Creatinine 0.66, Estimat Glomerular Filtration Rate 90, BUN/Creatinine Ratio 11, Glucose Level 165, Calcium Level 8.0, Corrected Calcium 9.3, Phosphorus Level 1.0, Magnesium Level 1.7, Total Bilirubin 0.3, Aspartate Amino Transf (AST/SGOT) 13, Alanine Aminotransferase (ALT/SGPT) 7, Alkaline Phosphatase 117, Total Protein 4.8, Albumin 2.4, Beta-Hydroxybutyrate (Chem panel) 0.67 02/05/21 11:09: Glucometer 196 02/05/21 16:45: Sodium Level 134, Potassium Level 4.2, Chloride Level 106, Carbon Dioxide Level 19, Anion Gap 9, Blood Urea Nitrogen 5, Creatinine 0.60, Estimat Glomerular Filtration Rate 100, BUN/Creatinine Ratio 8, Glucose Level 119, Calcium Level 8.3, Phosphorus Level 2.1, Magnesium Level 1.8 02/05/21 17:43: Glucometer 128 02/06/21 00:14: Glucometer 211 02/06/21 04:20: White Blood Count 8.2, Red Blood Count 3.70, Hemoglobin 9.6, Hematocrit 30, Mean Corpuscular Volume 81, Mean Corpuscular Hemoglobin 26, Mean Corpuscular Hemoglobin Concent 32, Red Cell Distribution Width 16.8, Platelet Count 235, Mean Platelet Volume 11.1, Immature Granulocyte % (Auto) 1, Neutrophils (%) (Auto) 73, Lymphocytes (%) (Auto) 16, Monocytes (%) (Auto) 7, Eosinophils (%) (Auto) 3, Basophils (%) (Auto) 1, Neutrophils # (Auto) 6.0, Lymphocytes # (Auto) 1.3, Monocytes # (Auto) 0.6, Eosinophils # (Auto) 0.2, Basophils # (Auto) 0.0, Immature Granulocyte # (Auto) 0.1, Sodium Level 136, Potassium Level 4.0, Chloride Level 108, Carbon Dioxide Level 20, Anion Gap 8, Blood Urea Nitrogen 4, Creatinine 0.56, Estimat Glomerular Filtration Rate 108, BUN/Creatinine Ratio 7, Glucose Level 159, Calcium Level 8.3, Corrected Calcium 9.6, Phosphorus Level 1.7, Magnesium Level 1.5, Total Bilirubin 0.3, Aspartate Amino Transf (AST/SGOT) 15, Alanine Aminotransferase (ALT/SGPT) 8, Alkaline Phosphatase 112, Total Protein 5.0, Albumin 2.4, Beta-Hydroxybutyrate (Chem panel) 0.69 02/06/21 11:43: Glucometer 255 02/06/21 16:17: Glucometer 182 02/06/21 20:08: Glucometer 229 02/06/21 22:47: Glucometer 157 02/07/21 05:29: White Blood Count 9.2, Red Blood Count 4.11, Hemoglobin 10.5, Hematocrit 34, Mean Corpuscular Volume 84, Mean Corpuscular Hemoglobin 26, Mean Corpuscular Hemoglobin Concent 31, Red Cell Distribution Width 17.0, Platelet Count 229, Mean Platelet Volume 10.8, Immature Granulocyte % (Auto) 1, Neutrophils (%) (Auto) 77, Lymphocytes (%) (Auto) 13, Monocytes (%) (Auto) 7, Eosinophils (%) (Auto) 1, Basophils (%) (Auto) 1, Neutrophils # (Auto) 7.1, Lymphocytes # (Auto) 1.2, Monocytes # (Auto) 0.6, Eosinophils # (Auto) 0.1, Basophils # (Auto) 0.1, Immature Granulocyte # (Auto) 0.1, Sodium Level 138, Potassium Level 3.8, Chloride Level 105, Carbon Dioxide Level 18, Anion Gap 15, Blood Urea Nitrogen 4, Creatinine 0.55, Estimat Glomerular Filtration Rate 111, BUN/Creatinine Ratio 7, Glucose Level 236, Calcium Level 8.4, Corrected Calcium 9.7, Total Bilirubin 0.3, Aspartate Amino Transf (AST/SGOT) 16, Alanine Aminotransferase (ALT/SGPT) 10, Alkaline Phosphatase 123, Total Protein 4.9, Albumin 2.4 02/07/21 05:31: Glucometer 214 02/07/21 10:10: Glucometer 168 02/07/21 16:10: Glucometer 190 02/07/21 20:36: Glucometer 216 02/08/21 04:00: White Blood Count 6.8, Red Blood Count 3.41, Hemoglobin 8.9, Hematocrit 28, Mean Corpuscular Volume 82, Mean Corpuscular Hemoglobin 26, Mean Corpuscular Hemoglobin Concent 32, Red Cell Distribution Width 17.1, Platelet Count 219, Mean Platelet Volume 10.6, Immature Granulocyte % (Auto) 1, Neutrophils (%) (Auto) 58, Lymphocytes (%) (Auto) 28, Monocytes (%) (Auto) 9, Eosinophils (%) (Auto) 4, Basophils (%) (Auto) 0, Neutrophils # (Auto) 3.9, Lymphocytes # (Auto) 1.9, Monocytes # (Auto) 0.6, Eosinophils # (Auto) 0.3, Basophils # (Auto) 0.0, Immature Granulocyte # (Auto) 0.1, Sodium Level 140, Potassium Level 3.3, Chloride Level 103, Carbon Dioxide Level 23, Anion Gap 14, Blood Urea Nitrogen 4, Creatinine 0.55, Estimat Glomerular Filtration Rate 111, BUN/Creatinine Ratio 7, Glucose Level 163, Calcium Level 8.0, Corrected Calcium 9.6, Total Bilirubin 0.2, Aspartate Amino Transf (AST/SGOT) 13, Alanine Aminotransferase (ALT/SGPT) 9, Alkaline Phosphatase 99, Total Protein 4.2, Albumin 2.0 02/08/21 10:37: Glucometer 220 02/08/21 16:05: Glucometer 142 02/08/21 19:54: Glucometer 116 02/09/21 04:46: White Blood Count 6.8, Red Blood Count 3.42, Hemoglobin 8.8, Hematocrit 28, Mean Corpuscular Volume 82, Mean Corpuscular Hemoglobin 26, Mean Corpuscular Hemoglobin Concent 31, Red Cell Distribution Width 16.9, Platelet Count 235, Shelley n Platelet Volume 10.1, Immature Granulocyte % (Auto) 1, Neutrophils (%) (Auto) 62, Lymphocytes (%) (Auto) 24, Monocytes (%) (Auto) 10, Eosinophils (%) (Auto) 2, Basophils (%) (Auto) 0, Neutrophils # (Auto) 4.2, Lymphocytes # (Auto) 1.6, Monocytes # (Auto) 0.7, Eosinophils # (Auto) 0.2, Basophils # (Auto) 0.0, Immature Granulocyte # (Auto) 0.1, Sodium Level 143, Potassium Level 3.0, Chloride Level 105, Carbon Dioxide Level 28, Anion Gap 10, Blood Urea Nitrogen 4, Creatinine 0.51, Estimat Glomerular Filtration Rate 121, BUN/Creatinine Ratio 8, Glucose Level 96, Calcium Level 8.0, Corrected Calcium 9.5, Total Bilirubin 0.2, Aspartate Amino Transf (AST/SGOT) 13, Alanine Aminotransferase (ALT/SGPT) 10, Alkaline Phosphatase 98, Total Protein 4.3, Albumin 2.1 Discharge Home Medications: Active Scripts Active Reported [place] 3 1,000 mg Softgel ([place]-3 Fatty Acids/Fish Oil) 1 Each Capsule 1 Each PO DAILY Flaxseed (Flaxseed Oil) 1,000 Mg Capsule 1,000 Mg PO DAILY Tylenol Extra Strength (Acetaminophen) 500 Mg Tablet 500-1,000 Mg PO Q8H PRN [Turmeric] Chew 1 Ea PO DAILY Jardiance (Empagliflozin) 10 Mg Tablet 10 Mg PO DAILY Losartan Potassium 100 Mg Tablet 100 Mg PO DAILY Multiple Vitamin (Multivitamin with Minerals) 1 Each Tablet 1 Each PO DAILY Sertraline HCl 100 Mg Tablet 200 Mg PO DAILY TAKES 2 (100MG) TABS Pravastatin Sodium 80 Mg Tablet 80 Mg PO DAILY Metformin HCl 1,000 Mg Tablet 1,000 Mg PO BIDAC Glipizide 10 Mg Tablet 20 Mg PO BIDAC TAKES 2 (10MG) TABS Aspirin 81 Mg Tab.chew 81 Mg PO DAILY Amlodipine Besylate 5 Mg Tablet 5 Mg PO DAILY Instructions to patient/family Please see electronic discharge instructions given to patient. Diagnosis/Problems Diagnosis/Problems (1) DKA (diabetic ketoacidosis) Status: Acute Qualifiers: Qualified Codes: E11.10 - Type 2 diabetes mellitus with ketoacidosis without coma (2) Severe sepsis Status: Acute (3) Abscess of left buttock Status: Acute BERNA BRAVO DO Feb 09, 2021 06:46
[2021-02-09] MEDS ORDERED: KCL 20 MEQ TAB (K-DUR) PO NR (07:00)
[2021-02-09] MEDS: FLUCONAZOLE 100 MG/50 ML IV SCH ×2 (08:54)
[2021-02-09] MEDS: amLODIPine 5 MG (NORVASC) TAB PO SCH (08:55)
[2021-02-09] MEDS: SERTRALINE 100 MG (ZOLOFT) TAB PO SCH (08:55)
[2021-02-09] MEDS: PANTOPRAZOLE 40 MG (PROTONIX) TAB PO SCH (08:55)
[2021-02-09] MEDS: ASPIRIN 81 MG CHEW (CHILDREN'S ASA) PO SCH (08:55)
[2021-02-09] MEDS: LOSARTAN 100 MG (COZAAR) TABLET PO SCH (08:55)
[2021-02-09] MEDS: MICONAZOLE 2% POWDER (DESENEX AF) 90 GM TOP SCH (09:05)
--- NOTE | 2021-02-09 13:51 | Progress Note ---
TIMOTHY PHILIP 02/09/21 1351: Progress Note Patient presented to [facility] with a chief complaint of high sugars and perianal abscess. Patient was admitted to [facility] ICU with an admitting diagnosis of DKA, perianal abscess, hypertension, hyperlipidemia, and acute hypokalemia. Patient was admitted to Dr. Moore and started on antibiotics, IV fluids, potassium replacement, and insulin. Patient had an incision and drainage of perianal abscess done on 02/[address] Swain. Patient was moved to the med/surg floor on 02/06 due to improvements in condition and started on home medications of sertraline, losartan, and amlodipine. At 0200 on 02/07 patient had an episode of acute delirium, and was given IV ativan. Patient was asleep for most of 02/07, but did have a CT scan of her head that was negative. By 02/08 the patients delirium had resolved and she was back to baseline mental capacity and feeling much better. During the episode of delirium patient lost IV access and had a PICC line placed. Patient had wound care consulted on 02/08 for her I+D site that was still draining. Patient was having symptoms of GERD and was started on a PPI for management. Patient was determined to need inpatient rehab before discharge home and was admitted to inpatient rehab on 02/09. ANNABELLE MOORE DO 02/10/21 0709: Supervisory-Addendum Brief Verification & Attestation Participated in pt care: history, MDM, physical Personally performed: exam, history, MDM, supervision of care Care discussed with: Medical Student Procedures: n/a Results interpretation: Verified all documentation Verification and Attestation of Medical Student E/M Service A medical student performed and documented this service in my presence. I reviewed and verified all information documented by the medical student and made modifications to such information, when appropriate. I personally performed the physical exam and medical decision making. Annabelle Moore Feb 10, 2021,07:09 TIMOTHY PHILIP Feb 09, 2021 13:51 ANNABELLE MOORE DO Feb 10, 2021 07:09
== END 2021-02-09 09:45 | DRG 853 ==
LOC: EDUNIT# 01:08 → ER FS 01:13 → ICU 05:27 → 4TH 02-06 10:56
PROVIDERS: ADMIT Internal Medicine; ATTEND Internal Medicine
PROC: 0JBB0ZZ Excision of Perineum Subcutaneous Tissue and Fascia, Open Approach (ICD-10-PCS; principal; 2021-02-04 10:17)
DX: A41.9 Sepsis, unspecified organism (principal); E10.10 Type 1 diabetes mellitus with ketoacidosis without coma; M72.6 Necrotizing fasciitis; L02.215 Cutaneous abscess of perineum; R65.20 Severe sepsis without septic shock; I10 Essential (primary) hypertension; K21.9 Gastro-esophageal reflux disease without esophagitis; R41.0 Disorientation, unspecified; E87.6 Hypokalemia; E78.00 Pure hypercholesterolemia, unspecified; M19.90 Unspecified osteoarthritis, unspecified site; F32.A Depression, unspecified; Z88.0 Allergy status to penicillin; Z88.1 Allergy status to other antibiotic agents; Z88.5 Allergy status to narcotic agent
CPT/HCPCS: 36415; 36569; 70450; 71045; 72193; 76937; 80048; 80053; 81000; 82010; 82805; 82947; 83036; 83605; 83735; 84100; 85007; 85025; 85027; 86141; 87040; 87070; 87075; 87077; 87081; 87088; 87205; 88304; 93005

== ENCOUNTER 2021-02-09 09:45 | Inpatient (IN) | payer BC ==
[~2021-02-09] VITALS: Ht 157.5 cm; Wt 86.3 kg
[~2021-02-09 09:45] MED LIST changes: +ACET-2267 PO; +EMPA10TA PO; +FLAX100032 PO; +LOSA100T57 PO; +OMEG1CAP58 PO; +TURMERIC PO
--- NOTE | 2021-02-09 10:56 | Physical Therapy Evaluation ---
PT Evaluation-General Medical Diagnosis Admission Date Feb 09, 2021 at 09:45 Medical Diagnosis: sepsis/DKA abscess Onset Date: Feb 04, 2021 Therapy Diagnosis Therapy Diagnosis: impaired mobility, strength, endurance Weight Bear Status patient has a fracture of the left shoulder, we don't have any documentation of weight bearing status at this time, it will be treated as NWB for now Referral Physician: Annabelle Moore DO Reason for Referral: Evaluation/Treatment Medical History Pertinent Medical History: DM, HTN Reviewed History: Yes Social History Home: Single Level Current Living Status: Spouse Entry Into Home: Stairs With Railing PT Steps Into Home: 2 Prior Prior Level of Function SCALE: Activities may be completed with or without assistive devices. 0-Yesucrllyh-dvmarce completes the activity by him/herself with no assistance from a helper. 5-Set-up or Clean-up Assistance-helper sets up or cleans up; patient completes activity. [place] assists only prior to or following the activity. 4-Supervision or Touching Assistance-helper provides verbal cues and/or touching/steadying and/or contact guard assistance as patient completes activity. Assistance may be provided throughout the activity or intermittently. 3-Partial/Moderate Assistance-helper does LESS THAN HALF the effort. [place] lifts, holds or supports trunk or limbs, but provides less than half the effort. 2-Substantial/Maximal Assistance-helper does MORE THAN HALF the effort. [place] lifts or holds trunk or limbs and provides more than half the effort. 3-Mzhxgmvfs-uflbtw does ALL the effort. Patient does none of the effort to complete the activity. Or, the assistance of 2 or more helpers is required for the patient to complete the activity. If activity was not attempted, code reason: 7-Patient Refused. 9-Not Applicable-not attempted and the patient did not perform the activity before the current illness, exacerbation or injury. 10-Not Attempted due to Environmental Limitations-(lack of equipment, weather restraints, etc.). 88-Not Attempted due to Medical Conditions or Safety Concerns. Bed Mobility: 6 Transfers (B,C,W/C): 6 Gait: 6 Stairs: 6 Indoor Mobility (Ambulation): Independent Stairs: Independent PT Evaluation-Current Subjective Patient in bed pre tx, agrees to PT, says has very little pain. Will be co- treating for part of tx with OT due to poor patient mobility, strength, endurance, severe pain with activity, coordinate UE and LE with activity, safety and reduce risk of falls. Pt/Family Goals to be independent at home Objective Patient Orientation: Person, Place, Situation ROM/Strength ROM Lower Extremities WNL Strength Lower Extremities LLE (hip flexion 3/5, knee flexion 3+/5, knee extension 4/5, dorsiflexion 4+/5), RLE (hip flexion 3/5, knee flexion 3/5, knee extension 3/5, dorsiflexion 4+/5) Patient has a lot of right knee pain, she says she feel on it. Sensory Vision: Wears Glasses Hearing: Functional Sensation Right Lower Extremit: Intact Sensation Left Lower Extremity: Intact Transfers Roll Left & Right (QC): 4 Sit to Lying (QC): 3 Lying to Sitting/Side of Bed(Q: 3 Sit to Stand (QC): 3 Chair/Vmx-hw-Rxhmc Xfer(QC): 4 Toilet Transfer (QC): 4 Car Transfer (QC): 3 Patient performs rolling with SBA, supine <-> sit min assist, sit <-> stand min assist, transfers CGA, car transfer mod assist. Patient needs frequent cues for safety and positioning. Gait Does the Patient Walk?: Yes Mode of Locomotion: Walk Anticipated Mode of Locomotion: Walk Walk 10 feet (QC): 4 Walk 50 ft with 2 Turns(QC): 88 Walk 150 ft (QC): 88 Walking 10ft/uneven surface-QC: 88 Distance: 20' Gait Assistive Device: Walker [place] Comments/Gait Description Patient can ambulate 20' with a hemiwalker with CGA. Patient has antalgic ambulation, takes tiny steps that don't really clear the floor. Patient is not able to ambulate over an uneven surface at this time. Wheelchair Training Does the Pt Use a Wheelchair?: Yes Wheel 50 ft with 2 turns (QC): 1 Wheel 150 ft (QC): 1 Type of Wheelchair: Manual Stairs 1 Step (curb) (QC): 88 4 Steps (QC): 88 12 Steps (QC): 88 Balance Sitting Static: Normal Sitting Dynamic: Normal Standing Static: Poor Standing Dynamic: Poor Picking up an Object (QC): 4 (using a machine pecan picker) Treatment PT performed bed mobility and transfers, ambulation, standing and positioning during dressing and bathing and ADL's. OT performed dressing, bathing, ADL's, U E positioning and safety during activity. Assessment/Needs Patient in bed post tx with nurse call, phone, tray, all needs met. Patient has impaired mobility, strength, endurance. She has a lot of pain in abscess area with activity. Rehab Potential: Fair PT Short Term Goals Short Term Goals Time Frame: Feb 16, 2021 Roll Left & Right: 6 Sit to lyin Lying to sitting on side of be: 6 Sit to stand: 4 Chair/wio-mv-nelpk transfer: 4 Walk 10 feet: 4 Walk 50 feet with two turns: 4 PT Distributed [employer] Consultant Goals Distributed Energy Systems Consultant Goals PT Skilled Nursing Goals Time Frame: Mar 02, 2021 Roll Left & Right (QC): 6 Sit to Lying (QC): 6 Lying-Sitting on Side/Bed(QC): 6 Sit to Stand (QC): 5 Chair/Sxx-ak-Epdir Xfer(QC): 5 Toilet Transfer (QC): 5 Car Transfer (QC): 4 Does the Patient Walk: Yes Walk 10 feet (QC): 5 Walk 50ft with 2 Turns (QC): 5 Walk 150 ft (QC): 5 Walking 10ft on Uneven Surface: 4 1 Step (curb) (QC): 4 4 Steps (QC): 4 12 Steps (QC): 88 Picking up an Object (QC): 5 Wheel 50 feet with 2 turns (QC: 9 Wheel 150 feet: 9 PT Plan Problem List Problem List: Activity Tolerance, Functional Strength, Safety, Balance, Gait, Transfer, Bed Mobility, ROM Treatment/Plan Treatment Plan: Continue Plan of Care Treatment Plan: Bed Mobility, Education, Functional Activity Nas, Functional Strength, Group Therapy, Gait, Safety, Therapeutic Exercise, Transfers Treatment Duration: Mar 02, 2021 Frequency: At least 5 of 7 days/Wk (IRF) Estimated Hrs Per Day: 1.5 hours per day Patient and/or Family Agrees t: Yes Safety Risks/Education Patient Education: Gait Training, Transfer Techniques, Correct Positioning, Safety Issues Teaching Recipient: Patient Teaching Methods: Demonstration, Discussion Response to Teaching: Reinforcement Needed Discharge Recommendations Plan Patient will perform bed mobility and transfer training, balance and endurance training, functional strengthening, stair training, gait training, and education, to improve functional mobility and independence at home. Therapy Discharge Recommendati: Scheduled Assistance, Home & Family, Post Acute PT Time/GCodes Time In: 939 Time Out: 1105 Total Billed Treatment Time: 75 Total Billed Treatment 1 visit EVM 10' FA 65' PT eval from [id number], OT eval from [id number], co-treat from [id number] NEVILLE GARDNER PT Feb 09, 2021 10:56
--- NOTE | 2021-02-09 11:04 | Occupational Therapy Eval ---
OT Evaluation-General/PLF Medical Diagnosis Admission Date Feb 09, 2021 at 09:45 Medical Diagnosis: Sepsis, DKA, abscess Onset Date: Feb 04, 2021 Therapy Diagnosis Therapy Diagnosis: Impaired adls, rom, strength, iadls, balance, endurance Precautions Precautions/Isolations: Fall Prevention, Standard Precautions Weight Bear Status patient has a fracture of the left shoulder, No documentation of weight bearing status at this time, Thus will be treated as NWB for now Referral Physician: Teresa Referral Reason: Evaluation/Treatment Medical History Pertinent Medical History: DM, HTN Current History Presents to ER with perineal abscess and high blood sugars. Found to have keto acidois and is s/p I&D. Per patient, she lives with spouse in single story home. Per , pt has been having multiple falls resulting in recent humerus fracture (January 06, 2021). Pt was put in a sling. Since fx, she has needed extra assist with all adls and her spouse now manages all IADLs. Pt sits in w/c majority of day and only ambulates short distances due to w/c not fitting in bathroom. Reviewed History: Yes Social History Home: Single Level Current Living Status: Spouse Entry Into Home: Stairs With Railing Steps Inside Home: 3 ADL-Prior Level of Function SCALE: Activities may be completed with or without assistive devices. 3-Ektdqwdhyb-sysiljh completes the activity by him/herself with no assistance from a helper. 5-Set-up or Clean-up Assistance-helper sets up or cleans up; patient completes activity. [place] assists only prior to or following the activity. 4-Supervision or Touching Assistance-helper provides verbal cues and/or touching/steadying and/or contact guard assistance as patient completes activity. Assistance may be provided throughout the activity or intermittently. 3-Partial/Moderate Assistance-helper does LESS THAN HALF the effort. [place] lifts, holds or supports trunk or limbs, but provides less than half the effort. 2-Substantial/Maximal Assistance-helper does MORE THAN HALF the effort. [place] lifts or holds trunk or limbs and provides more than half the effort. 9-Zlbhviufs-trumdb does ALL the effort. Patient does none of the effort to complete the activity. Or, the assistance of 2 or more helpers is required for the patient to complete the activity. If activity was not attempted, code reason: 7-Patient Refused. 9-Not Applicable-not attempted and the patient did not perform the activity before the current illness, exacerbation or injury. 10-Not Attempted due to Environmental Limitations-(lack of equipment, weather restraints, etc.). 88-Not Attempted due to Medical Conditions or Safety Concerns. Self Care: Needed Some Help DME/Equipment: Bath Chair, Grab Bars, Shower Drive Self: Yes OT Current Status Subjective Pt with inconsistent responses to pain value. Pt reports pain as 7, than 5, than 8 throughout session. Pain resides in R knee, L shoulder, and jazzy area. RN notified and meds given during session. Co-treat with PT as pt requires 2 skilled clinicians due to weakness, decreased activity tolerance, high fall risk, as well as need for addressing multiple areas with 2 different professionals. Appearance Left supine in bed, all needs within reach. Mental Status/Objective Patient Orientation: Person, Confused, Situation Attachments: IV Current Glasses/Contacts: Yes Hearing Aids: No Dentures/Partials: No Hand Dominance: Right Upper Extremity ROM R shoulder: ~3/4 AROM, pt has history of old shoulder pain L shoulder: not tested due to no clarification on ROM restrictions L elbow-distally: WNL ADL-Treatment Eating (QC): 5 Oral Hygiene (QC): 3 Shower/Bathe Self (QC): 2 Upper Body Dressing (QC): 2 Lower Body Dressing (QC): 3 On/Off Footwear (QC): 1 Toileting Hygiene (QC): 2 Pt declines shower, agreeable to sponge bath. Majority of task completed sitting at sink. Pt stood only briefly to wash jazzy area/buttocks. Mod a to stand, min a once upright. Education to pat jazzy area vs rub secondary to incision. Min-mod a still needed due to pain and inability to reach L side of buttocks with LUE. Assist to lift L arm just slightly enough to wash axilla area.Pt demonstrates good problem solving to use compensatory 1 arm technique to wash R axilla. She was able to bend at waist to reach ankles, assist needed to wash feet. Mod verbal cues for sequencing and initiating throughout task. Post demonstration, max a still needed to don shirt as pt required assist with threading BUE and pulling down around torso. With extra time, she was able to thread BLE's into brief, max a to pull up over hips in standing. She sat at sink for grooming tasks, anticipate balance assist would be needed if completed in standing. Due to pain and fatigue, several rest breaks needed throughout adls. Education OT Patient Education: Correct positioning, Energy conservation, Modified ADL techniques, Progress toward Goal/Update tx plan, Purpose of tx/functional activities, Reviewed precautions, Rehab process, Safety issues, Transfer techniques Teaching Recipient: Patient Teaching Methods: Demonstration, Discussion Response to Teaching: Verbalize Understanding, Reinforcement Needed OT Short Term Goals Short Term Goals Time Frame: Feb 23, 2021 Eatin Oral hygiene: 5 Toileting hygiene: 3 Shower/bathe self: 3 Upper body dressin Lower body dressin Putting on/taking off footwear: 3 OT Usp Goals Audio Visual Manager Goals Time Frame: Mar 03, 2021 Eating (QC): 6 Oral Hygiene (QC): 6 Toileting Hygiene (QC): 5 Shower/Bathe Self (QC): 5 Upper Body Dressing (QC): 5 Lower Body Dressing (QC): 5 On/Off Footwear (QC): 5 1=Demonstrate adherence to instructed precautions during ADL tasks. 2=Patient will verbalize/demonstrate understanding of assistive devices/modifications for ADL. 3=Patient will improve strength/tolerance for activity to enable patient to perform ADL's. OT Education/Plan Problem List/Assessment Assessment: Decreased Activ Tolerance, Decreased Safety Aware, Decreased UE Strength, Impaired Funct Balance, Impaired I ADL's, Impaired Self-Care Skills, Restricted Funct UE ROM Discharge Recommendations Plan/Recommendations: Continue POC Comment continue to assess Target Placement home health Treatment Plan/Plan of Care Treatment,Training & Education: Yes Patient would benefit from OT for education, treatment and training to promote independence in ADL's, mobility, safety and/or upper extremity function for ADL's. Plan of Care: ADL Retraining, Cognitive Retraining, Functional Mobility, Group Exercise/Act as Ind, UE Funct Exercise/Act, W/C Management Training Treatment Duration: Mar 03, 2021 Frequency: At least 5 of 7 days/Wk (IRF) Estimated Hrs Per Day: 1.5 hours per day Agreement: Yes Rehab Potential: Fair Time/GCodes Start Time: 09:50 Stop Time: 11:05 Total Time Billed (hr/min): 75 Billed Treatment Time 1 visit EVM (10 min) ADL x3 (45 min) FA (20min) Thea Marquis OT Feb 09, 2021 11:04
[2021-02-09] MEDS ORDERED: CALCIUM CARBONATE 500 MG (TUMS) TAB.CHEW PO PRN (11:15)
[2021-02-09] MEDS ORDERED: diphenhydrAMINE 25 MG TAB (BENADRYL) PO PRN (11:15)
[2021-02-09] MEDS ORDERED: fentaNYL INJ 100 MCG/2 ML AMP IV PRN (11:15)
[2021-02-09] MEDS ORDERED: MELATONIN 3 MG TABLET PO PRN (11:15)
[2021-02-09] MEDS ORDERED: DOCUSATE SODIUM 100 MG (COLACE) CAP PO PRN (11:15)
[2021-02-09] MEDS ORDERED: guaiFENesin/CODEINE (ROBITUSSIN AC) 10ML UDC PO PRN (11:15)
[2021-02-09] MEDS ORDERED: FLEET ENEMA ADULT 1 EA BTL PR PRN (11:15)
[2021-02-09] MEDS ORDERED: ONDANSETRON 4 MG/2 ML (SDV) Z0FRAN IVP PRN (11:15)
[2021-02-09] MEDS ORDERED: ONDANSETRON 4 MG (ZOFRAN) ORAL DISSOLVE TAB PO PRN (11:15)
[2021-02-09] MEDS ORDERED: NALOXONE 0.4 MG/ML 1 ML (NARCAN) VIAL IV PRN (11:15)
[2021-02-09] MEDS ORDERED: LACTULOSE SYRUP 10GM/15ML (ENULOSE) 30ML UDC PO PRN (11:15)
[2021-02-09] MEDS ORDERED: ALPRAZolam 0.25 MG (XANAX) TAB PO PRN (11:15)
[2021-02-09] MEDS ORDERED: BISACODYL 10 MG SUPP (DULCOLAX) PR PRN (11:15)
[2021-02-09] MEDS ORDERED: LOPERAMIDE 2 MG (IMODIUM) TABLET PO PRN (11:15)
--- NOTE | 2021-02-09 11:28 | PM&R Post Admission Assessment ---
PM&R HP Date of Visit: Feb 09, 2021 Time of Visit: 11:00 History of Present Illness CC: Debility following sepsis HPI: This is a 65yoWF who presented to the ICU then to fourth floor med-surg and then inpatient rehab due to severe weakness and then severe sepsis DKA and abscess s/p perineal abscess I&D with packing. She is currently on antibiotics, packing the wound per general surgery recommendations. Her blood sugars are much improved. She has an endocrinology appointment that she will have to reschedule since that is scheduled for Friday. Her DKA has resolved. She did have a delirium during her med-surg hospital stay, resulting in management with antipsychotics but currently she is doing very well with no evidence of any recurrence. She will need extensive rehab due to severe weakness in order to return back home to live with her . Past Opsohmf-Howmny-Vvkysi Hx Past Med/Social Hx: Reviewed Nursing Past Med/Soc Hx, Reviewed and Corrections made Patient Social History Marrital Status: Employed/Student: retired Smoking Status: Former Smoker 2nd Hand Smoke Exposure: No Recent Hopitalizations: No Immunizations Up To Date Date of Pneumonia Vaccine: Nov 26, 2007 Date of Influenza Vaccine: Nov 24, 2019 Seasonal Allergies Seasonal Allergies: No Past Medical History Surgeries: Appendectomy, Section, Gallbladder, Orthopedic Currently Using CPAP: No Currently Using BIPAP: No Cardiac: High Cholesterol, Hypertension Female Reproductive Disorders: Denies Gastrointestinal: Gall Bladder Disease Musculoskeletal: Arthritis Endocrine: Diabetes, Non-Insulin dep Hearing Impairment: Denies Psychosocial: Depression History of Blood Disorders: No Adverse Reaction to Blood Ovalle: No Prior Level of Function Bed Mobility: 6 Transfers: 6 Gait: 6 Stairs: 6 Indoor Mobility (Ambulation): Independent Stairs: Independent Self Care: Needed Some Help Drive Self: Yes Current Level of Fuctioning Roll Left to Right: 4 Sit to Lyin Lying to Sitting/Side of Bed: 3 Sit to Stand: 3 Chair/Sjq-cl-Gkokf Xfer: 4 Car Transfer: 3 Does the Patient Walk: Yes Mode of Locomotion: Walk Anticipated Mode of Locomotion: Walk Walk 10 feet: 4 Walk 50 ft with 2 Turns: 88 Walk 150 ft: 88 Walking 10ft on uneven surface: 88 Gait Assistive Device: Walker [place] Does the Pt Use a Wheelchair: Yes Wheel 50 ft with 2 turns: 1 Wheel 150 ft: 1 Type of Wheelchair: Manual 1 Step (curb): 88 4 Steps: 88 12 Steps: 88 Picking up an Object: 4 (using a library acquisitions technician) Eatin Oral Hygiene: 3 Shower/Bathe Self: 2 Upper Body Dressin Lower Body Dressin On/Off Footwear: 1 Toileting Hygiene: 2 PM&R Allergy/Meds/Data Review Allergies Coded Allergies: Penicillins (Unverified Allergy, Unknown, 05/25/19) Sulfa (Sulfonamide Antibiotics) (Unverified Allergy, Unknown, 02/05/21) adhesive tape (Unverified Allergy, Unknown, 07/03/20) cephalexin (Unverified Allergy, Unknown, 05/25/19) hydrocodone (Unverified Allergy, Unknown, Shortness of Breath, 02/07/21) reports she feels like she can't breath. oxycodone (Unverified Adverse Reaction, Intermediate, Abdominal Pain, Confusion, 02/07/21) reports that she became very "loopy" and had to quit taking it. Home Medications Scheduled Amlodipine Besylate (Amlodipine Besylate), 5 MG PO DAILY, (Reported) Aspirin (Aspirin), 81 MG PO DAILY, (Reported) Empagliflozin (Jardiance), 10 MG PO DAILY, (Reported) Flaxseed Oil (Flaxseed), 1,000 MG PO DAILY, (Reported) Glipizide (Glipizide), 20 MG PO BIDAC, (Reported) Losartan Potassium (Losartan Potassium), 100 MG PO DAILY, (Reported) Metformin HCl (Metformin HCl), 1,000 MG PO BIDAC, (Reported) Multivitamin with Minerals (Multiple Vitamin), 1 EACH PO DAILY, (Reported) [place]oka-3 Fatty Acids/Fish Oil ([place]oka 3 1,000 mg Softgel), 1 EACH PO DAILY, (Reported) Pravastatin Sodium (Pravastatin Sodium), 80 MG PO DAILY, (Reported) Sertraline HCl (Sertraline HCl), 200 MG PO DAILY, (Reported) [Turmeric], 1 EA PO DAILY, (Reported) Scheduled PRN Acetaminophen (Tylenol Extra Strength), 500-1,000 MG PO Q8H PRN for PAIN-MILD (1-4), (Reported) Discontinued Medications Canagliflozin (Invokana), 300 MG PO DAILY, (Reported) Discontinued Reason: No Longer Taking Glucosamine Sulfate 2Kcl (Glucosamine), 1,000 MG PO DAILY, (Reported) Discontinued Reason: No Longer Taking Hydrocodone Bit/Acetaminophen (HYDROcodone/APAP 5 MG/325 MG TAB), 1 TAB PO Q6H Discontinued Reason: No Longer Taking Losartan Potassium (Cozaar), 100 MG PO DAILY, (Reported) Discontinued Reason: Duplicate Order Nystatin/Triamcinolone (Nystatin-Triamcinolone Cream), 15 GM TP for PRN, (Reported) Discontinued Reason: No Longer Taking Current Medications Current Medications Reviewed Review of Systems Constitutional: see HPI, malaise, weakness EENTM: no symptoms reported Respiratory: dyspnea on exertion Cardiovascular: no symptoms reported Gastrointestinal: no symptoms reported Genitourinary: no symptoms reported Musculoskeletal: back pain, joint pain Skin: see HPI Psychiatric/Neurological: Depressed All Other Systems Reviewed Negative Unless Noted: Yes Physical Exam Physical Exam Vital Signs Capillary Refill : Height, Weight, BMI Height: '" Weight: lbs. oz. kg; 33.21 BMI Method: General Appearance: No Apparent Distress, WD/WN, Chronically ill, Obese Eyes: Bilateral Eye Normal Inspection, Bilateral Eye PERRL HEENT: PERRL/EOMI, Normal ENT Inspection, Pharynx Normal Neck: Full Range of Motion, Normal Inspection, Non Tender, Supple, Carotid Bruit Respiratory: Chest Non Tender, Lungs Clear, Normal Breath Sounds, No Accessory Muscle Use, No Respiratory Distress Cardiovascular: Regular Rate, Rhythm, No Edema, No Gallop, No JVD, No Murmur, Normal Peripheral Pulses Gastrointestinal: Normal Bowel Sounds, No Organomegaly, No Pulsatile Mass, Non Tender, Soft Back: Normal Inspection, No CVA Tenderness, No Vertebral Tenderness Extremity: Normal Capillary Refill, Normal Inspection, Normal Range of Motion, Non Tender, No Calf Tenderness, No Pedal Edema Neurologic/Psychiatric: Alert, Oriented x3, No Motor/Sensory Deficits, Normal Mood/Affect, director audience marketing II-XII Norm as Tested, Motor Weakness (Generalized 4/5) Skin: Normal Color, Warm/Dry Lymphatic: No Adenopathy PM&R Medical Assessment & Plan REHAB/MEDICAL ASSESSMENT AND PLAN: REHAB IMPAIRMENT GROUP: Debility ETIOLOGIC DIAGNOSIS: Debility The comorbidities that impact the patients function and/or functional outcome by: Recent severe sepsis, new onset insulin-dependent diabetes status post DKA REHAB PLAN: The patient is being admitted to our comprehensive inpatient rehabilitation facility and can tolerate the intensity of service consisting of at least: 180 minutes of therapy a day, 5 out of 7 days a week Rehab treatment will consist of: PT and OT will focus on regaining function and strength and stamina with use of walker and help increase independence in ADLs in order to return back home with her spouse The patient/family has a good understanding of our discharge process and will benefit from an interdisciplinary inpatient rehabilitation program. The patient has potential to make improvement and is in need of at least two of the following multidisciplinary therapies including but not limited to physical, occupational, speech, and prosthetics and orthotics. Additionally the patient will need services from respiratory, nutritional services, wound care, psychology, etc. (Customize this to each patient). Given the patients complex condition and risk of further medical complications, rehabilitation services cannot be safely or effectively provided at a lower level of care such as a care home facility. BARRIERS TO DISCHARGE: New insulin-dependent diabetes ESTIMATED LOS: 10 days DISPOSITION: Home RELEVANT CHANGES SINCE PREADMISSION SCREENING: I have compared the patients medical and functional status at the time of the preadmission screening and there are: No changes PROGNOSIS: Good REHABILITATION GOALS: 1. PT and OT will focus on regaining function and strength and stamina with use of walker and help increase independence in ADLs in order to return back home with her spouse All the above goals were reviewed with the patient and he/she is in agreement. By signing this document, I acknowledge that I have personally performed a full physical examination on this patient within 24 hours of admission to this inpatient rehabilitation facility and have determined the patient to be able to tolerate the above course of treatment at an intensive level for a reasonable period of time. I will be completing a detailed individualized Plan of Care for this patient by day #4 of the patients stay based upon the Preadmission Screen, the Post-Admission Evaluation, and the therapy evaluations. Admission Dx/Comorbidities: (1) Severe sepsis Status: Acute ICD Codes: A41.9 - Sepsis, unspecified organism; R65.20 - Severe sepsis without septic shock (2) Abscess of left buttock Status: Acute ICD Codes: L02.31 - Cutaneous abscess of buttock; R65.20 - Severe sepsis without septic shock (3) DKA (diabetic ketoacidosis) Status: Acute ICD Codes: E11.10 - Type 2 diabetes mellitus with ketoacidosis without coma Assessment/Plan Assessment and Plan Assess & Plan/Chief Complaint Assessment: Severe debility New onset insulin-dependent diabetes with DKA Status post right perineal abscess status post incision and drainage by Dr. FISHER uncomplicated Hypertension Hyperlipidemia Depression Plan: Supportive care Inpatient rehab Appreciate Dr. FISHER Wound care BERNA BRAVO DO Feb 09, 2021 11:27
[2021-02-09 12:17] VITALS: BP 137/78
--- NOTE | 2021-02-09 12:17 | ST Cognitive Linguistic Eval ---
Speech Evaluation-General Medical Diagnosis Sepsis, DKA, Abcess Onset Date: Feb 04, 2021 Therapy Diagnosis Therapy Diagnosis: Moderate Cognitive Linguistic Impairment Precautions Precautions: Fall Precautions/Isolations: Fall Prevention, Standard Precautions Referral Referring Physician: Dr. Annabelle Moore Reason for Referral: Evaluation/Treatment Medical History Pertinent Medical History: DM, HTN Current History The patient is a 65 year-old female with a past medical history of DM, sepsis, and OA, who presented to [facility] from the [place] emergency room with a left perineal abscess and elevated sugars. CXR: 02/07/21: IMPRESSION: No acute abnormality in the chest. CT Head: 02/07/21: IMPRESSION: 1. No large acute territorial ischemia, mass, or hemorrhage. 2. Scattered age-indeterminate microvascular disease. Reviewed History: Yes Social History Current Living Status: Spouse Speech PLF-Current Status Prior Level of Function The patient reported independent completion of ADL's prior to her recent hospitalization. Prior to admission, the patient lived at home with her . Subjective The patient was lying in bed, alert upon entrance by the clinician. The patient greeted the clinician appropriately and was agreeable to participation in the cognitive linguistic assessment. The patient remained pleasant and cooperative throughout the evaluation. Language Eval: Auditory Comprehends Simple Yes/No Ques: Functional Indent/Objects Multiple Macdonald: Functional Ident/Pics in Multiple Macdonald: Functional Follows 1-Step Commands: Functional Follows Complex Directions: Mild Follows General Conversations: Functional Language Eval: Verbal Language Completes Spontaneous Greeting: Functional Produces Auto, Serial Info: Functional Imitates Simple Words/Phrases: Functional Word Finding: Mild (The patient was able to provide nine animals within a one minute time frame (WNL=15).) Requests Basic Needs: Functional States Basic Personal Info: Functional Expresses Complex Ideas: Functional Language Evaluation: Reading Comprehends Single Nouns: Functional Language Evaluation: Writing Copies/Traces: Functional Writes to Simple Dictation: Functional Cognitive Patient Orientation The patient is independently oriented to self, location, city, room number, month, day of week, date, and year. Objective Cognitive Domain Attention: Mild Memory: Mild Problem Solving: Mild Executive Functions: Moderate Visuospatial Skills: Mild Composite Severity Rating: Moderate Clock Drawing Severity Rating: Moderate Objective Formal/Standardized Tests [facility] Status ([facility]) Results +20/30 (which correlates to a rating of "dementia" per SLUMS record sheet). Oral Motor/Speech Production The patient demonstrated appropriate oral and lingual range of motion, strength, and coordination. Dysarthria or apraxia of speech were not appreciated. Impression The patient is a 65 year-old female who presents with a moderate cognitive linguistic impairment on this date. The patient obtained a result of +20/30 on the SLUMS correlating to a "dementia" rating on the SLUMS record sheet. Throughout the SLUMS, the patient displayed difficulty with the following areas: - Recall: The patient was able to recall two of five items independently following a five minute delay. With category cues, the patient was able to recall five of five items. - Word Finding: The patient was able to provide nine animals within a one minute time frame (WNL=15). - Problem Solving: The patient displayed difficulty with simple math equations (addition and subtraction). - Clock Drawing: The patient provided all digits, however, spatial orientation was inaccurate. Additionally, the patient was unable to place the clock hands on the accurate time. The patient appears most appropriate for skilled speech pathology intervention focusing on the areas of memory, problem solving, and executive functioning. Speech Patient Assess Expression of Ideas/Wants: Frequently (2) Understanding Verbal Content: Usually Understands (3) Brief Interview-Mental Status: Yes Repetition of Three Words: Three (3) Temporal Orientation: Year: Correct (3) Temporal Orientation: Month: Accurate within 5 days(2) Temporal Orientation: Day: Correct (1) Recall : Wear to say "Sock": Yes, no cue required (2) Recall : Color: Yes, no cue required (2) Recall : Bed: Yes,after cueing (1) Memory/Recall Ability: Current season, Location of own room, Staff names and faces, That he or she is in a hsp/hsp unit Speech Short Term Goals Short Term Goals Short Term Goals 1. The patient will complete functional memory exercises related to her daily routine with 80% accuracy or better, independently. 2. The patient will complete functional safety strategies and exercises related to their daily routine (ADL's) with 80% accuracy or higher, independently. 3. The patient will complete functional problem solving exercises related to their daily routine with 80% accuracy or better, independently. Speech Senior Living Goals Senior Living Goals 1. The patient will improve functional abilities related to their daily routines (ADL's) in order to require decreased assistance for completion. Speech-Plan Patient/Family Goals Patient/Family Goals: Per patient, "To go home!" The patient wishes to return home, independently. Treatment Plan Speech Therapy Treatment Plan: Continue Plan of Care Treatment Duration: Mar 09, 2021 Frequency: 4 times per week (Four to five times per week.) Estimated Hrs Per Day: .5 hour per day Rehab Potential: Fair Barriers to Learning: Current cognitive status (moderate decline). Pt/Family Agrees to Plan: Yes Safety Risks/Education Teaching Recipient: Patient Teaching Methods: Discussion Response to Teaching: Verbalize Understanding Education Topics Provided: The clinician and patient discussed the patient's SLUMS' results, as well as, the role of the speech language pathologist in her care. The patient's cognitive goals were addressed and the clinician provided examples of possible cognitive exercises to attempt throughout future skilled treatment sessions. Time Speech Therapy Time In: 10:58 Speech Therapy Time Out: 11:34 Total Billed Time: 36 Billed Treatment Time 1, ARIANNA BOWERS [facility] ST Feb 09, 2021 12:17
[2021-02-09] MEDS: inSUlin ASPART (NovoLOG) 1 UNIT/0.01 ML (CHARGE PER UNIT) SC SCH ×2 (17:28→20:23)
[2021-02-09] MEDS: ACETAMINOPHEN 500 MG TAB (TYLENOL) PO PRN (18:27)
[2021-02-09 20:00] VITALS: BP 95/60
[2021-02-09] MEDS: DOCUSATE SODIUM 100 MG (COLACE) CAP PO SCH (20:56)
[2021-02-09] MEDS: polyethylene glycoL POWDER 17 GM (MIRALAX) PACK PO SCH (20:56)
[2021-02-09] MEDS: SENNA W/DOCUSATE (SENOKOT S) TABLET PO SCH (20:56)
[2021-02-09] MEDS: MICONAZOLE 2% POWDER (DESENEX AF) 90 GM TOP SCH (21:03)
[2021-02-10] MEDS: inSUlin ASPART (NovoLOG) 1 UNIT/0.01 ML (CHARGE PER UNIT) SC SCH ×4 (06:10→20:53)
[2021-02-10 06:31] LABS: BASOPHILS % (AUTO) 0 % (0-10); EOSINOPHILS # (AUTO) 0.3 10^3/uL (0.0-0.3); EOSINOPHILS % (AUTO) 4 % (0-10); HEMATOCRIT 29 % (35-52); HEMOGLOBIN 9.1 g/dL (11.5-16.0); LYMPHOCYTES # (AUTO) 1.8 10^3/uL (1.0-4.0); LYMPHOCYTES % (AUTO) 26 % (12-44); MEAN CORPUSCULAR HEMOGLOBIN 26 pg (25-34); MEAN CORPUSCULAR HGB CONC 32 g/dL (32-36); MEAN CORPUSCULAR VOLUME 83 fL (80-99); MEAN PLATELET VOLUME 10.2 fL (9.0-12.2); MONOCYTES # (AUTO) 0.8 10^3/uL (0.0-1.0); MONOCYTES % (AUTO) 11 % (0-12); NEUTROPHILS # (AUTO) 3.9 10^3/uL (1.8-7.8); NEUTROPHILS % (AUTO) 58 % (42-75); PLATELET COUNT 236 10^3/uL (130-400); WHITE BLOOD COUNT 6.7 10^3/uL (4.3-11.0)
[2021-02-10 06:45] LABS: ALBUMIN 2.2 GM/DL (3.2-4.5); POTASSIUM 3.2 MMOL/L (3.6-5.0)
[2021-02-10 06:46] LABS: CALCIUM 7.8 MG/DL (8.5-10.1)
[2021-02-10 06:48] LABS: TOTAL PROTEIN 4.6 GM/DL (6.4-8.2)
[2021-02-10 06:49] LABS: BILIRUBIN,TOTAL 0.3 MG/DL (0.1-1.0)
[2021-02-10 06:51] LABS: CREATININE SERUM 0.55 MG/DL (0.60-1.30)
[2021-02-10] MEDS ORDERED: KCL 20 MEQ TAB (K-DUR) PO NR (07:00)
[2021-02-10 08:36] VITALS: BP 119/73
[2021-02-10] MEDS: amLODIPine 5 MG (NORVASC) TAB PO SCH (08:39)
[2021-02-10] MEDS: ASPIRIN 81 MG CHEW (CHILDREN'S ASA) PO SCH (08:39)
[2021-02-10] MEDS: PANTOPRAZOLE 40 MG (PROTONIX) TAB PO SCH (08:39)
[2021-02-10] MEDS: LOSARTAN 100 MG (COZAAR) TABLET PO SCH (08:39)
[2021-02-10] MEDS: SERTRALINE 100 MG (ZOLOFT) TAB PO SCH (08:39)
[2021-02-10] MEDS: DOCUSATE SODIUM 100 MG (COLACE) CAP PO SCH ×2 (08:40→19:56)
[2021-02-10] MEDS: SENNA W/DOCUSATE (SENOKOT S) TABLET PO SCH ×2 (08:40→20:02)
[2021-02-10] MEDS: MICONAZOLE 2% POWDER (DESENEX AF) 90 GM TOP SCH ×2 (08:40→21:09)
[2021-02-10] MEDS: polyethylene glycoL POWDER 17 GM (MIRALAX) PACK PO SCH ×2 (08:40→20:02)
[2021-02-10] MEDS: FLUCONAZOLE 200 MG/100 ML 50 ML, EMPTY IV BAG (PVC) 1 EA IV SCH ×2 (08:57)
--- NOTE | 2021-02-10 08:57 | Physical Therapy Daily Note ---
PT Daily Note-Current Subjective Patient in bed pre tx, agrees to PT, has 5/10 pain in right knee. Appearance Patient in bed post tx with nurse call, phone, tray, all needs met. Mental Status Patient Orientation: Person, Place, Situation Transfers SCALE: Activities may be completed with or without assistive devices. 9-Qaeekwwvlm-unajkys completes the activity by him/herself with no assistance from a helper. 5-Set-up or Clean-up Assistance-helper sets up or cleans up; patient completes activity. [place] assists only prior to or following the activity. 4-Supervision or Touching Assistance-helper provides verbal cues and/or touching/steadying and/or contact guard assistance as patient completes activity. Assistance may be provided throughout the activity or intermittently. 3-Partial/Moderate Assistance-helper does LESS THAN HALF the effort. [place] lifts, holds or supports trunk or limbs, but provides less than half the effort. 2-Substantial/Maximal Assistance-helper does MORE THAN HALF the effort. [place] lifts or holds trunk or limbs and provides more than half the effort. 0-Jikvpedzj-kwlcog does ALL the effort. Patient does none of the effort to complete the activity. Or, the assistance of 2 or more helpers is required for the patient to complete the activity. If activity was not attempted, code reason: 7-Patient Refused. 9-Not Applicable-not attempted and the patient did not perform the activity before the current illness, exacerbation or injury. 10-Not Attempted due to Environmental Limitations-(lack of equipment, weather restraints, etc.). 88-Not Attempted due to Medical Conditions or Safety Concerns. Roll Left & Right (QC): 4 Sit to Lying (QC): 3 Lying to Sitting/Side of Bed(Q: 4 Sit to Stand (QC): 4 Chair/Huf-vb-Rmopc Xfer(QC): 4 Weight Bearing patient has a fracture of the left shoulder, we don't have any documentation of weight bearing status at this time, it will be treated as NWB for now Gait Training Distance: 20' Walk 10 feet (QC): 4 Gait Persons Needed: 1 Gait Assistive Device: Walker Marin Patient ambulates very slow, decreased stance time on right knee, patient insists of using hemiwalker the wrong way even after cues on how to do it cor rectly. A regular quad cane may be better. Exercises Seated Therapy Exercises: Ankle pumps, Long arc quads Seated Reps: 20 Treatments bed mobility and transfers, ambulation, LE strengthening Assessment Current Status: Fair Progress improving endurance PT Short Term Goals Short Term Goals Time Frame: Feb 16, 2021 Roll Left & Right: 6 Sit to lyin Lying to sitting on side of be: 6 Sit to stand: 4 Chair/uwh-if-zgxwa transfer: 4 Walk 10 feet: 4 Walk 50 feet with two turns: 4 PT Director Public Service Goals Director Public Service Goals PT Director Public Service Goals Time Frame: Mar 02, 2021 Roll Left & Right (QC): 6 Sit to Lying (QC): 6 Lying-Sitting on Side/Bed(QC): 6 Sit to Stand (QC): 5 Chair/Jwj-ik-Lptla Xfer(QC): 5 Toilet Transfer (QC): 5 Car Transfer (QC): 4 Does the Patient Walk: Yes Walk 10 feet (QC): 5 Walk 50ft with 2 Turns (QC): 5 Walk 150 ft (QC): 5 Walking 10ft on Uneven Surface: 4 1 Step (curb) (QC): 4 4 Steps (QC): 4 12 Steps (QC): 88 Picking up an Object (QC): 5 Wheel 50 feet with 2 turns (QC: 9 Wheel 150 feet: 9 PT Plan Problem List Problem List: Activity Tolerance, Functional Strength, Safety, Balance, Gait, Transfer, Bed Mobility, ROM Treatment/Plan Treatment Plan: Continue Plan of Care Treatment Plan: Bed Mobility, Education, Functional Activity Nas, Functional Strength, Group Therapy, Gait, Safety, Therapeutic Exercise, Transfers Treatment Duration: Mar 02, 2021 Frequency: At least 5 of 7 days/Wk (IRF) Estimated Hrs Per Day: 1.5 hours per day Patient and/or Family Agrees t: Yes Safety Risks/Education Patient Education: Gait Training, Transfer Techniques, Correct Positioning, Safety Issues Teaching Recipient: Patient Teaching Methods: Demonstration, Discussion Response to Teaching: Reinforcement Needed Time/GCodes Time In: 0840 Time Out: 0850 Total Billed Treatment Time: 10 Total Billed Treatment 1 visit GT 10' NEVILLE GARDNER PT Feb 10, 2021 08:57
--- NOTE | 2021-02-10 09:21 | PM&R Progress Note ---
Subjective HPI/CC On Admission Date Seen by Provider: Feb 10, 2021 Time Seen by Provider: 12:00 Subjective/Events-last exam 02/10/21: Patient doing really well Perineal abscess was packed Potassium will be supplemented maintained on 20 mEq Left arm pain Diclofenac gel will be added to the knee also Review of Systems General: Fatigue, Malaise Objective Exam Vital Signs Vital Signs Date Time Temp Pulse Resp B/P (MAP) Pulse Ox O2 Delivery O2 Flow Rate FiO2 02/11/21 07:30 37.0 65 20 120/58 (78) 93 Room Air Capillary Refill : General Appearance: No Apparent Distress, WD/WN, Chronically ill, Obese HEENT: PERRL/EOMI, Normal ENT Inspection, Pharynx Normal Neck: Full Range of Motion, Normal Inspection, Non Tender, Supple, Carotid Bruit Respiratory: Chest Non Tender, Lungs Clear, Normal Breath Sounds, No Accessory Muscle Use, No Respiratory Distress Cardiovascular: Regular Rate, Rhythm, No Edema, No Gallop, No JVD, No Murmur, Normal Peripheral Pulses Gastrointestinal: Normal Bowel Sounds, No Organomegaly, No Pulsatile Mass, Non Tender, Soft Back: Normal Inspection, No CVA Tenderness, No Vertebral Tenderness Extremity: Normal Capillary Refill, Normal Inspection, Normal Range of Motion, Non Tender, No Calf Tenderness, No Pedal Edema Neurologic/Psychiatric: Alert, Oriented x3, No Motor/Sensory Deficits, Normal Mood/Affect, 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 FIM Transfers Therapy Code Descriptions/Definitions Functional [place] Measure: 0=Not Assessed/NA 4=Minimal Assistance 1=Total Assistance 5=Supervision or Setup 2=Maximal Assistance 6=Modified [place] 3=Moderate Assistance 7=Complete IndependenceSCALE: Activities may be completed with or without assistive devices. 9-Gquoodglpa-taaiyso completes the activity by him/herself with no assistance from a helper. 5-Set-up or Clean-up Assistance-helper sets up or cleans up; patient completes activity. [place] assists only prior to or following the activity. 4-Supervision or Touching Assistance-helper provides verbal cues and/or touching/steadying and/or contact guard assistance as patient completes activity. Assistance may be provided throughout the activity or intermittently. 3-Partial/Moderate Assistance-helper does LESS THAN HALF the effort. [place] lifts, holds or supports trunk or limbs, but provides less than half the effort. 2-Substantial/Maximal Assistance-helper does MORE THAN HALF the effort. [place] lifts or holds trunk or limbs and provides more than half the effort. 9-Fwmltzity-timqto does ALL the effort. Patient does none of the effort to complete the activity. Or, the assistance of 2 or more helpers is required for the patient to complete the activity. If activity was not attempted, code reason: 7-Patient Refused. 9-Not Applicable-not attempted and the patient did not perform the activity before the current illness, exacerbation or injury. 10-Not Attempted due to Environmental Limitations-(lack of equipment, weather restraints, etc.). 88-Not Attempted due to Medical Conditions or Safety Concerns. Roll Left to Right (QC): 4 Sit to Lying (QC): 3 Sit to Stand (QC): 4 Chair/Gav-tc-Nutfa Xfer(QC): 4 Car Transfer (QC): 3 Gait Training Does the Patient Walk?: Yes Distance: 20' Walk 10 feet (QC): 4 Walk 50 ft with 2 Turns(QC): 88 Walk 150 ft (QC): 88 Walking 10ft/uneven surface-QC: 88 Gait Persons Needed: 1 Gait Assistive Device: Walker [place] Wheelchair Training Does the Pt Use a Wheelchair?: Yes Wheel 50 ft with 2 turns (QC): 1 Wheel 150 ft (QC): 1 Type of Wheelchair: Manual Stair Training 1 Step (curb) (QC): 88 4 Steps (QC): 88 12 Steps (QC): 88 Balance Picking up an Object (QC): 4 (using a investor relations specialist) ADL-Treatment Eating (QC): 5 Oral Hygiene (QC): 3 Shower/Bathe Self (QC): 2 Upper Body Dressing (QC): 2 Lower Body Dressing (QC): 3 On/Off Footwear (QC): 1 Toileting Hygiene (QC): 2 Assessment/Plan Assessment and Plan Assess & Plan/Chief Complaint Assessment: Severe debility New onset insulin-dependent diabetes with DKA Status post right perineal abscess status post incision and drainage by Dr. FISHER uncomplicated Hypertension Hyperlipidemia Depression Plan: Supportive care Inpatient rehab Appreciate Dr. FISHER Wound care 02/10/2021: Patient doing well Continue wound care Blood sugars improved (1) Severe sepsis Status: Acute (2) Abscess of left buttock Status: Acute (3) DKA (diabetic ketoacidosis) Status: Acute BERNA BRAVO DO Feb 10, 2021 09:21
--- NOTE | 2021-02-10 09:22 | Individualized Plan of Care ---
Individualized Plan of Care Rehab Nursing IPOC Order Admission Date Feb 09, 2021 at 09:45 Current Orders Orders Admission Order(Inpt,Obs,Sdc) (02/09/21 11:11) Vital Signs: Per Unit Policy ( 00 (02/09/21 11:11) Tiburcio Sexton (02/09/21 11:11) Sequential Compression Device (02/09/21 11:11) It Desktop Support Specialist-Inpt Rehab Con (02/09/21 11:11) Rehab Nursing Orders-Ipoc (02/09/21 11:11) Physical Therapy Rehab Orders (02/09/21 11:11) Occupational Therapy Rehab Ord (02/09/21 11:11) Speech Therapy Rehab Orders (02/09/21 11:11) Cbc With Automated Diff (02/10/21 06:00) Comprehensive Metabolic Panel (02/10/21 06:00) Precautions (Aru) (02/09/21 11:11) Weekly Weight WEEK (02/09/21 11:11) Rehab-Intensity Of Therapy (02/09/21 11:11) Initiate Admission Nursing Pro .admission (02/09/21 11:11) Alprazolam Tablet (Xanax Tablet) (02/09/21 11:15) Calcium Carbonate Chew Tablet (Antacid C (02/09/21 11:15) Diphenhydramine Tablet (Benadryl Tablet) (02/09/21 11:15) Docusate Sodium Capsule (Colace Capsule) (02/09/21 21:00) Docusate Sodium Capsule (Colace Capsule) (02/09/21 11:15) Bisacodyl Suppository (Dulcolax Supposit (02/09/21 11:15) Lactulose Oral Solution (Enulose Oral So (02/09/21 11:15) Na Phos/Na Biphos Enema (Fleet Enema Taqueria (02/09/21 11:15) Guaifenesin/Codeine Syrup (Robitussin Ac (02/09/21 11:15) Loperamide Tablet (Imodium Tablet) (02/09/21 11:15) Melatonin Tablet (Melatonin Tablet) (02/09/21 11:15) Polyethylene Glycol Powder Pkt (Miralax (12/3/21 21:00) Ondansetron Oral Dissolve Tab (Zofran (02/09/21 11:15) Senna S Tablet (Senokot S Tablet) (02/09/21 21:00) Therapeutic Activity Goals: .PRN (02/09/21 11:11) Nursing Communication (Order) (02/09/21 ) Naloxone Injection (Narcan Injection) (02/09/21 11:15) Code/Resuscitation (02/09/21 11:11) Initiate Admission Nursing Pro .admission (02/09/21 11:11) Code/Resuscitation (02/09/21 11:12) Accucheck Achs ACHS (02/09/21 11:12) Dressing Order (Intervention) BID (02/09/21 11:12) Picc Cap(S) Change Q7D (02/09/21 11:12) Picc Dressing/Securement Devic Q7D (02/09/21 11:12) Cho 60g/M 3snack (16-2000 Dagoberto) (02/09/21 Lunch) Acetaminophen Tablet (Tylenol Tablet) (02/09/21 11:15) Aspirin Chewable Tablet (Baby Aspirin Ch (02/10/21 09:00) Fluconazole 200 Mg/100 Ml (Diflucan Iv) (02/10/21 09:00) Losartan Tablet (Cozaar Tablet) (02/10/21 09:00) Miconazole 2% Powder (Phytoplex Af 2% Po (02/09/21 21:00) Pantoprazole Tablet (Protonix Tablet) (02/10/21 09:00) Potassium Chloride (Tablet) (K Dur Table (02/10/21 07:00) Sertraline Tablet (Zoloft Tablet) (02/10/21 09:00) Ondansetron Injection (Zofran Injectio (02/09/21 11:15) Amlodipine Tablet (Norvasc Tablet) (02/10/21 09:00) Fentanyl Inj (Sublimaze Injection) (02/09/21 11:15) Insulin Aspart (Novolog) (Novolog (Charg (02/09/21 16:00) Insulin Determir (Per Unit) (Levemir (Pe (02/09/21 21:00) Consult General Surgery (02/09/21 11:12) Patient Visit (02/09/21 ) Speech Sound Lang Comp (02/09/21 ) Treat. Speech/Lang/Voice (02/09/21 ) Patient Visit (02/09/21 ) Pt Eval Moderate Complexity (02/09/21 ) Functional Activities, Ea 15 (02/09/21 ) Physical Therapy Order (02/09/21 14:25) Consult Wound Care Physician (02/09/21 20:11) Patient Visit (02/10/21 ) Gait Training, Ea 15 Min (02/10/21 ) Diclofenac 1% Gel (Voltaren 1% Gel) (02/10/21 13:00) Sodium Chloride Flush (Catheter Flush Sy (02/10/21 22:00) Rehab Nursing Orders: Ongoing Assess. of Cognitive Status, Ongoing Assess. of Function Status, Bladder Management, Bladder Scan, Bladder Training, Bowel Management, Bowel Training, Disease Management & Educaiton, DVT Prophylaxis, Fall Prevention, Fluid/Electrolyte/Nutrition Mgmt, Infection Prevention, Medication Management & Education, Management of Risks & Complications, Management of Skin Intergrity, Nutrition Management, Pain Management, Patient/Family Support, Safety Management, Weight Bearing Precaution, Wound Management Intensity of Therapy to be met Patient to be seen: Min.3h per day/5 of 7d PT IPOC Problem List: Activity Tolerance, Functional Strength, Safety, Balance, Gait, Transfer, Bed Mobility, ROM Treatment Plan: Continue Plan of Care Bed Mobility, Education, Functional Activity Nas, Functional Strength, Group Therapy, Gait, Safety, Therapeutic Exercise, Transfers Treatment Duration: Mar 02, 2021 Frequency: At least 5 of 7 days/Wk (IRF) Estimated Hrs Per Day: 1.5 hours per day OT IPOC Problems: Decreased Activ Tolerance, Decreased Safety Aware, Decreased UE S trength, Impaired Funct Balance, Impaired I ADL's, Impaired Self-Care Skills, Restricted Funct UE ROM OT Treatment, Training and Edu: Yes Plan of Care: ADL Retraining, Cognitive Retraining, Functional Mobility, Group Exercise/Act as Ind, UE Funct Exercise/Act, W/C Management Training Treatment Duration: Mar 03, 2021 Frequency: At least 5 of 7 days/Wk (IRF) Estimated Hrs Per Day: 1.[address] IPOC Speech Therapy Treatment Plan: Continue Plan of Care Treatment Duration: Mar 09, 2021 Frequency: 4 times per week (Four to five times per week.) Estimated Hrs Per Day: .5 hour per day It Desktop Support Specialist/Case Mgmt It Desktop Support Specialist/Case Managemen: Discharge Planning Dietitian/Allergy And Immunology Chief Dietitian/Allergy And Immunology Chief to monitor nutritional status and make changes and/or recommendations as needed and work with speech pathology on dietary upgrades as the occur. Physician IPOC Medical Issues being managed closely and that require the 24 hour availability of a physician: Recent new onset DKA with new insulin management with perineal abscess s/p I&D will require close monitoring for decompensation Medical Issues: Bowel/Bladder Function, DVT Prophylaxis, Falls Precautions, Fluid/Electrolyte/Nutrition Balance, Infection Protection, Pain Management, Wound Care Brief Synthesis of Preadmission Screen, Post-Admission Evaluation, and Therapy Evaluations: PT OT will focus on regaining function with use of assitive devices and increase ADL independence in order to return to independent living Medical Prognosis: Good Anticipated Length of Stay: 14 days BERNA BRAVO DO Feb 10, 2021 09:22
[2021-02-10] MEDS: ACETAMINOPHEN 500 MG TAB (TYLENOL) PO PRN (11:01)
[2021-02-10] MEDS: DICLOFENAC 1% GEL 100 GM (VOLTAREN) TUBE TOP SCH ×3 (13:44→21:09)
[2021-02-10 20:12] VITALS: BP 122/87
[2021-02-10] MEDS: CATHETER FLUSH 10 ML SYR IV SCH (21:09)
[2021-02-11] MEDS: inSUlin ASPART (NovoLOG) 1 UNIT/0.01 ML (CHARGE PER UNIT) SC SCH ×4 (05:34→21:30)
[2021-02-11] MEDS: CATHETER FLUSH 10 ML SYR IV SCH ×3 (06:35→21:29)
[2021-02-11 07:30] VITALS: BP 120/58
[2021-02-11] MEDS: LOSARTAN 100 MG (COZAAR) TABLET PO SCH (08:55)
[2021-02-11] MEDS: DOCUSATE SODIUM 100 MG (COLACE) CAP PO SCH ×2 (08:55→19:33)
[2021-02-11] MEDS: amLODIPine 5 MG (NORVASC) TAB PO SCH (08:55)
[2021-02-11] MEDS: ASPIRIN 81 MG CHEW (CHILDREN'S ASA) PO SCH (08:55)
[2021-02-11] MEDS: SERTRALINE 100 MG (ZOLOFT) TAB PO SCH (08:55)
[2021-02-11] MEDS: PANTOPRAZOLE 40 MG (PROTONIX) TAB PO SCH (08:55)
[2021-02-11] MEDS: SENNA W/DOCUSATE (SENOKOT S) TABLET PO SCH ×2 (08:56→19:33)
[2021-02-11] MEDS: polyethylene glycoL POWDER 17 GM (MIRALAX) PACK PO SCH ×2 (08:56→19:33)
[2021-02-11] MEDS: DICLOFENAC 1% GEL 100 GM (VOLTAREN) TUBE TOP SCH ×4 (08:56→21:29)
[2021-02-11] MEDS: MICONAZOLE 2% POWDER (DESENEX AF) 90 GM TOP SCH ×2 (08:56→21:29)
[2021-02-11] MEDS: FLUCONAZOLE 200 MG/100 ML 50 ML, EMPTY IV BAG (PVC) 1 EA IV SCH ×2 (08:58)
[2021-02-11] MEDS: ACETAMINOPHEN 500 MG TAB (TYLENOL) PO PRN (10:34)
--- NOTE | 2021-02-11 12:35 | PM&R Progress Note ---
Subjective HPI/CC On Admission Date Seen by Provider: Feb 11, 2021 Time Seen by Provider: 12:45 Subjective/Events-last exam 02/11/2021: Patient doing really well Sleeping currently Voltaren gel really helps Blood sugars reviewed No falls Pain is well controlled 02/10/21: Patient doing really well Perineal abscess was packed Potassium will be supplemented maintained on 20 mEq Left arm pain Diclofenac gel will be added to the knee also Review of Systems General: Fatigue, Malaise Musculoskeletal: arm pain, leg pain Objective Exam Vital Signs Vital Signs Date Time Temp Pulse Resp B/P (MAP) Pulse Ox O2 Delivery O2 Flow Rate FiO2 02/11/21 09:00 Room Air 02/11/21 07:30 37.0 65 20 120/58 (78) 93 Capillary Refill : General Appearance: No Apparent Distress, WD/WN, Chronically ill, Obese HEENT: PERRL/EOMI, Normal ENT Inspection, Pharynx Normal Neck: Full Range of Motion, Normal Inspection, Non Tender, Supple, Carotid Bruit Respiratory: Chest Non Tender, Lungs Clear, Normal Breath Sounds, No Accessory Muscle Use, No Respiratory Distress Cardiovascular: Regular Rate, Rhythm, No Edema, No Gallop, No JVD, No Murmur, Normal Peripheral Pulses Gastrointestinal: Normal Bowel Sounds, No Organomegaly, No Pulsatile Mass, Non Tender, Soft Back: Normal Inspection, No CVA Tenderness, No Vertebral Tenderness Extremity: Normal Capillary Refill, Normal Inspection, Normal Range of Motion, Non Tender, No Calf Tenderness, No Pedal Edema Neurologic/Psychiatric: Alert, Oriented x3, No Motor/Sensory Deficits, Normal Mood/Affect, fitness consultant II-XII Norm as Tested, Motor Weakness (Generalized 4/5) Skin: Normal Color, Warm/Dry Lymphatic: No Adenopathy Results/Procedures Lab Patient resulted labs reviewed. FIM Transfers Therapy Code Descriptions/Definitions Functional [place] Measure: 0=Not Assessed/NA 4=Minimal Assistance 1=Total Assistance 5=Supervision or Setup 2=Maximal Assistance 6=Modified [place] 3=Moderate Assistance 7=Complete IndependenceSCALE: Activities may be completed with or without assistive devices. 4-Mdesizcsda-cefoknx completes the activity by him/herself with no assistance from a helper. 5-Set-up or Clean-up Assistance-helper sets up or cleans up; patient completes activity. [place] assists only prior to or following the activity. 4-Supervision or Touching Assistance-helper provides verbal cues and/or touching/steadying and/or contact guard assistance as patient completes activity. Assistance may be provided throughout the activity or intermittently. 3-Partial/Moderate Assistance-helper does LESS THAN HALF the effort. [place] lifts, holds or supports trunk or limbs, but provides less than half the effort. 2-Substantial/Maximal Assistance-helper does MORE THAN HALF the effort. [place] lifts or holds trunk or limbs and provides more than half the effort. 6-Kqrtjxujk-hcdwyp does ALL the effort. Patient does none of the effort to complete the activity. Or, the assistance of 2 or more helpers is required for the patient to complete the activity. If activity was not attempted, code reason: 7-Patient Refused. 9-Not Applicable-not attempted and the patient did not perform the activity before the current illness, exacerbation or injury. 10-Not Attempted due to Environmental Limitations-(lack of equipment, weather restraints, etc.). 88-Not Attempted due to Medical Conditions or Safety Concerns. Roll Left to Right (QC): 4 Sit to Lying (QC): 3 Sit to Stand (QC): 4 Chair/Syw-ph-Defoc Xfer(QC): 4 Car Transfer (QC): 3 Gait Training Does the Patient Walk?: Yes Distance: 20' Walk 10 feet (QC): 4 Walk 50 ft with 2 Turns(QC): 88 Walk 150 ft (QC): 88 Walking 10ft/uneven surface-QC: 88 Gait Persons Needed: 1 Gait Assistive Device: Walker [place] Wheelchair Training Does the Pt Use a Wheelchair?: Yes Wheel 50 ft with 2 turns (QC): 1 Wheel 150 ft (QC): 1 Type of Wheelchair: Manual Stair Training 1 Step (curb) (QC): 88 4 Steps (QC): 88 12 Steps (QC): 88 Balance Picking up an Object (QC): 4 (using a lobster catcher) ADL-Treatment Eating (QC): 5 Oral Hygiene (QC): 3 Shower/Bathe Self (QC): 2 Upper Body Dressing (QC): 2 Lower Body Dressing (QC): 3 On/Off Footwear (QC): 1 Toileting Hygiene (QC): 2 Assessment/Plan Assessment and Plan Assess & Plan/Chief Complaint Assessment: Severe debility New onset insulin-dependent diabetes with DKA Status post right perineal abscess status post incision and drainage by Dr. FISHER uncomplicated Hypertension Hyperlipidemia Depression Plan: Supportive care Inpatient rehab Appreciate Dr. FISHER Wound care 02/10/2021: Patient doing well Continue wound care Blood sugars improved 02/11/2021: Reviewed blood sugars Supportive care (1) Severe sepsis Status: Acute (2) Abscess of left buttock Status: Acute (3) DKA (diabetic ketoacidosis) Status: Acute BERNA BRAVO DO Feb 11, 2021 12:35
[2021-02-11] MEDS: KCL 20 MEQ TAB (K-DUR) PO SCH (13:39)
[2021-02-11 20:00] VITALS: BP 126/68
[2021-02-12 05:01] LABS: BASOPHILS % (AUTO) 0 % (0-10); EOSINOPHILS # (AUTO) 0.3 10^3/uL (0.0-0.3); EOSINOPHILS % (AUTO) 4 % (0-10); HEMATOCRIT 30 % (35-52); HEMOGLOBIN 9.3 g/dL (11.5-16.0); LYMPHOCYTES # (AUTO) 2.5 10^3/uL (1.0-4.0); LYMPHOCYTES % (AUTO) 38 % (12-44); MEAN CORPUSCULAR HEMOGLOBIN 26 pg (25-34); MEAN CORPUSCULAR HGB CONC 31 g/dL (32-36); MEAN CORPUSCULAR VOLUME 85 fL (80-99); MEAN PLATELET VOLUME 10.3 fL (9.0-12.2); MONOCYTES # (AUTO) 0.7 10^3/uL (0.0-1.0); MONOCYTES % (AUTO) 10 % (0-12); NEUTROPHILS # (AUTO) 3.2 10^3/uL (1.8-7.8); NEUTROPHILS % (AUTO) 48 % (42-75); PLATELET COUNT 297 10^3/uL (130-400); WHITE BLOOD COUNT 6.8 10^3/uL (4.3-11.0)
[2021-02-12] MEDS: inSUlin ASPART (NovoLOG) 1 UNIT/0.01 ML (CHARGE PER UNIT) SC SCH ×4 (05:09→20:28)
[2021-02-12 05:13] LABS: ALBUMIN 2.4 GM/DL (3.2-4.5)
[2021-02-12 05:14] LABS: POTASSIUM 3.2 MMOL/L (3.6-5.0)
[2021-02-12 05:15] LABS: CALCIUM 7.8 MG/DL (8.5-10.1)
[2021-02-12 05:16] LABS: TOTAL PROTEIN 4.9 GM/DL (6.4-8.2)
[2021-02-12 05:18] LABS: BILIRUBIN,TOTAL 0.3 MG/DL (0.1-1.0)
[2021-02-12 05:20] LABS: CREATININE SERUM 0.58 MG/DL (0.60-1.30)
[2021-02-12] MEDS: KCL 20 MEQ TAB (K-DUR) PO SCH (06:48)
[2021-02-12] MEDS: CATHETER FLUSH 10 ML SYR IV SCH ×3 (06:48→21:40)
[2021-02-12] MEDS: LOSARTAN 100 MG (COZAAR) TABLET PO SCH (07:30)
[2021-02-12] MEDS: ASPIRIN 81 MG CHEW (CHILDREN'S ASA) PO SCH (07:30)
[2021-02-12] MEDS: SENNA W/DOCUSATE (SENOKOT S) TABLET PO SCH ×2 (07:30→21:10)
[2021-02-12] MEDS: PANTOPRAZOLE 40 MG (PROTONIX) TAB PO SCH (07:31)
[2021-02-12] MEDS: DOCUSATE SODIUM 100 MG (COLACE) CAP PO SCH ×2 (07:31→21:10)
[2021-02-12] MEDS: SERTRALINE 100 MG (ZOLOFT) TAB PO SCH (07:31)
[2021-02-12] MEDS: amLODIPine 5 MG (NORVASC) TAB PO SCH (07:31)
[2021-02-12] MEDS: DICLOFENAC 1% GEL 100 GM (VOLTAREN) TUBE TOP SCH ×4 (07:32→21:39)
[2021-02-12] MEDS: MICONAZOLE 2% POWDER (DESENEX AF) 90 GM TOP SCH ×2 (07:32→21:39)
[2021-02-12] MEDS: ACETAMINOPHEN 500 MG TAB (TYLENOL) PO PRN ×2 (07:36→17:57)
[2021-02-12] MEDS: FLUCONAZOLE 200 MG/100 ML 50 ML, EMPTY IV BAG (PVC) 1 EA IV SCH ×2 (07:36)
[2021-02-12] MEDS: polyethylene glycoL POWDER 17 GM (MIRALAX) PACK PO SCH ×2 (07:48→21:09)
[2021-02-12 08:00] VITALS: BP 128/58
--- NOTE | 2021-02-12 09:16 | PM&R Progress Note ---
Subjective HPI/CC On Admission Date Seen by Provider: Feb 12, 2021 Time Seen by Provider: 09:20 Subjective/Events-last exam 02/12/21: Pt doing well Full range of motion of the shoulder after X-ray obtained that Keven Graff needed Sugars noted so will decrease insulin since they are getting low 02/11/2021: Patient doing really well Sleeping currently Voltaren gel really helps Blood sugars reviewed No falls Pain is well controlled 02/10/21: Patient doing really well Perineal abscess was packed Potassium will be supplemented maintained on 20 mEq Left arm pain Diclofenac gel will be added to the knee also Review of Systems General: Fatigue, Malaise Objective Exam Vital Signs Vital Signs Date Time Temp Pulse Resp B/P (MAP) Pulse Ox O2 Delivery O2 Flow Rate FiO2 02/12/21 20:35 Room Air 02/12/21 19:35 36.5 60 16 111/62 (78) 99 Capillary Refill : General Appearance: No Apparent Distress, WD/WN, Chronically ill, Obese HEENT: PERRL/EOMI, Normal ENT Inspection, Pharynx Normal Neck: Full Range of Motion, Normal Inspection, Non Tender, Supple, Carotid Bruit Respiratory: Chest Non Tender, Lungs Clear, Normal Breath Sounds, No Accessory Muscle Use, No Respiratory Distress Cardiovascular: Regular Rate, Rhythm, No Edema, No Gallop, No JVD, No Murmur, Normal Peripheral Pulses Gastrointestinal: Normal Bowel Sounds, No Organomegaly, No Pulsatile Mass, Non Tender, Soft Back: Normal Inspection, No CVA Tenderness, No Vertebral Tenderness Extremity: Normal Capillary Refill, Normal Inspection, Normal Range of Motion, Non Tender, No Calf Tenderness, No Pedal Edema Neurologic/Psychiatric: Alert, Oriented x3, No Motor/Sensory Deficits, Normal Mood/Affect, 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 FIM Transfers Therapy Code Descriptions/Definitions Functional [place] Measure: 0=Not Assessed/NA 4=Minimal Assistance 1=Total Assistance 5=Supervision or Setup 2=Maximal Assistance 6=Modified [place] 3=Moderate Assistance 7=Complete IndependenceSCALE: Activities may be completed with or without assistive devices. 4-Etlmsysqek-bqfgzlj completes the activity by him/herself with no assistance from a helper. 5-Set-up or Clean-up Assistance-helper sets up or cleans up; patient completes activity. [place] assists only prior to or following the activity. 4-Supervision or Touching Assistance-helper provides verbal cues and/or touching/steadying and/or contact guard assistance as patient completes activity. Assistance may be provided throughout the activity or intermittently. 3-Partial/Moderate Assistance-helper does LESS THAN HALF the effort. [place] lifts, holds or supports trunk or limbs, but provides less than half the effort. 2-Substantial/Maximal Assistance-helper does MORE THAN HALF the effort. [place] lifts or holds trunk or limbs and provides more than half the effort. 9-Hdemlfrzz-nivujq does ALL the effort. Patient does none of the effort to complete the activity. Or, the assistance of 2 or more helpers is required for the patient to complete the activity. If activity was not attempted, code reason: 7-Patient Refused. 9-Not Applicable-not attempted and the patient did not perform the activity before the current illness, exacerbation or injury. 10-Not Attempted due to Environmental Limitations-(lack of equipment, weather restraints, etc.). 88-Not Attempted due to Medical Conditions or Safety Concerns. Roll Left to Right (QC): 4 Sit to Lying (QC): 3 Sit to Stand (QC): 4 Chair/Vgz-pc-Fskaa Xfer(QC): 4 Car Transfer (QC): 3 Gait Training Does the Patient Walk?: Yes Distance: 20' Walk 10 feet (QC): 4 Walk 50 ft with 2 Turns(QC): 88 Walk 150 ft (QC): 88 Walking 10ft/uneven surface-QC: 88 Gait Persons Needed: 1 Gait Assistive Device: Walker [place] Wheelchair Training Does the Pt Use a Wheelchair?: Yes Wheel 50 ft with 2 turns (QC): 1 Wheel 150 ft (QC): 1 Type of Wheelchair: Manual Stair Training 1 Step (curb) (QC): 88 4 Steps (QC): 88 12 Steps (QC): 88 Balance Picking up an Object (QC): 4 (using a health information clerk) ADL-Treatment Eating (QC): 5 Oral Hygiene (QC): 3 Shower/Bathe Self (QC): 2 Upper Body Dressing (QC): 2 Lower Body Dressing (QC): 3 On/Off Footwear (QC): 1 Toileting Hygiene (QC): 2 Assessment/Plan Assessment and Plan Assess & Plan/Chief Complaint Assessment: Severe debility New onset insulin-dependent diabetes with DKA Status post right perineal abscess status post incision and drainage by Dr. FISHER uncomplicated Hypertension Hyperlipidemia Depression Plan: Supportive care Inpatient rehab Appreciate Dr. FISHER Wound care 02/10/2021: Patient doing well Continue wound care Blood sugars improved 02/11/2021: Reviewed blood sugars Supportive care 02/12/21: Monitor closely Decrease insulin (1) Severe sepsis Status: Acute (2) Abscess of left buttock Status: Acute (3) DKA (diabetic ketoacidosis) Status: Acute BERNA BRAVO DO Feb 12, 2021 09:16
--- NOTE | 2021-02-12 10:43 | Occupational Ther Daily Note ---
OT Current Status-Daily Note Subjective Pt agreeable to treatment. Reports receiving Tylenol earlier in AM, unsure what time. co-treat with PT for part of session ([id number]) due to poor endurance/activity tolerance, reduced safety, and high fall risk. Appearance Left in gym with physical therapy present. Mental Status/Objective Patient Orientation: Person, Confused, Situation ADL-Treatment Therapy Code Descriptions/Definitions Functional [place] Measure: 0=Not Assessed/NA 4=Minimal Assistance 1=Total Assistance 5=Supervision or Setup 2=Maximal Assistance 6=Modified [place] 3=Moderate Assistance 7=Complete IndependenceSCALE: Activities may be completed with or without assistive devices. 7-Anbyocwtue-otjfclg completes the activity by him/herself with no assistance from a helper. 5-Set-up or Clean-up Assistance-helper sets up or cleans up; patient completes activity. [place] assists only prior to or following the activity. 4-Supervision or Touching Assistance-helper provides verbal cues and/or touching/steadying and/or contact guard assistance as patient completes activity. Assistance may be provided throughout the activity or intermittently. 3-Partial/Moderate Assistance-helper does LESS THAN HALF the effort. [place] lifts, holds or supports trunk or limbs, but provides less than half the effort. 2-Substantial/Maximal Assistance-helper does MORE THAN HALF the effort. [place] lifts or holds trunk or limbs and provides more than half the effort. 1-Tophnlrsa-ijnzyj does ALL the effort. Patient does none of the effort to complete the activity. Or, the assistance of 2 or more helpers is required for the patient to complete the activity. If activity was not attempted, code reason: 7-Patient Refused. 9-Not Applicable-not attempted and the patient did not perform the activity before the current illness, exacerbation or injury. 10-Not Attempted due to Environmental Limitations-(lack of equipment, weather restraints, etc.). 88-Not Attempted due to Medical Conditions or Safety Concerns. Oral Hygiene (QC): 4 Upper Body Dressing (QC): 4 Toileting Hygiene (QC): 3 Toilet Transfer (QC): 4 Pt sitting on toilet at OT arrival. Able to perform jazzy care in sitting without assist. Min a to pull up brief on L side due to limited shoulder AROM. Declines shower as she reports taking one over the weekend. Encouragement needed to dress this date. Extra time but no physical assist required to don nightgown over head. Pt stood at sink for oral care, SBA-CGA for safety with balance. Other Treatment Pt ambulated to gym with CGA, short strides, extra time. Once reaching gym, pt cries out in pain regarding L shoulder. No obnoxious or abnormal movements notable to increase pain. It appears more as fear of upcoming shoulder ROM activities. Physician Keven Graff called, verbalizes pt can perform all planes, no restrictions, heavy emphasis on shoulder flexion and internal/external rotation. PROM exercises performed in supine. Pt unable to tolerate 90 degrees shoulder abduction, thus external/internal rotation performed at ~45 degrees abduction. Pt able to tolerate internal rotation better than external. Shoulder flexion performed to ~90 degrees (within pain tolerance). Pt shaking/guarded throughout all movement, cues/education on relaxation. Pt ambulated around room to pickle maker perales bags from different heights with use of installation service representative and LUE. Pt encouraged to reach with L hand when perales bag placed at hip/counter height. Cues for walker placement, safety, and utilizing LUE as much as possible. c/o pain in knee with activity, requires lengthy sitting rest break. Education OT Patient Education: Correct positioning, Exercise program, Modified ADL techniques, Progress toward Goal/Update tx plan, Purpose of tx/functional activities, Rehab process, Safety issues, Use of adapted equipment Teaching Recipient: Patient Teaching Methods: Demonstration, Discussion Response to Teaching: Reinforcement Needed OT Short Term Goals Short Term Goals Time Frame: Feb 23, 2021 Eatin Oral hygiene: 5 Toileting hygiene: 3 Shower/bathe self: 3 Upper body dressin Lower body dressin Putting on/taking off footwear: 3 OT Correction Goals Senior Principal Goals Time Frame: Mar 03, 2021 Eating (QC): 6 Oral Hygiene (QC): 6 Toileting Hygiene (QC): 5 Shower/Bathe Self (QC): 5 Upper Body Dressing (QC): 5 Lower Body Dressing (QC): 5 On/Off Footwear (QC): 5 1=Demonstrate adherence to instructed precautions during ADL tasks. 2=Patient will verbalize/demonstrate understanding of assistive devices/modifications for ADL. 3=Patient will improve strength/tolerance for activity to enable patient to perform ADL's. OT Education/Plan Problem List/Assessment Assessment: Decreased Activ Tolerance, Decreased Safety Aware, Decreased UE Strength, Impaired Cognition, Impaired I ADL's, Impaired Self-Care Skills, Restricted Funct UE ROM Discharge Recommendations Plan/Recommendations: Continue POC Treatment Plan/Plan of Care Treatment,Training & Education: Yes Patient would benefit from OT for education, treatment and training to promote independence in ADL's, mobility, safety and/or upper extremity function for ADL's. Plan of Care: ADL Retraining, Cognitive Retraining, Functional Mobility, Group Exercise/Act as Ind, UE Funct Exercise/Act, W/C Management Training Treatment Duration: Mar 03, 2021 Frequency: At least 5 of 7 days/Wk (IRF) Estimated Hrs Per Day: 1.5 hours per day Agreement: Yes Rehab Potential: Fair Time/GCodes Start Time: 09:15 Stop Time: 10:30 Total Time Billed (hr/min): 75 Billed Treatment Time 1 visit ADL x2 (25 min) FA (15 min) EX x2 (35 min) co-treat with PT for 30 min Thea Marquis OT Feb 12, 2021 10:43
--- NOTE | 2021-02-12 10:54 | Physical Therapy Daily Note ---
PT Daily Note-Current Subjective Patient in therapy gym pre tx, agrees to PT, has unrated pain in left shoulder, knee, and groin. Patient has been cleared to bear weight on her left arm and can use a walker. Appearance Patient in bed post tx with nurse call, phone, tray, all needs met. Mental Status Patient Orientation: Person, Place, Situation Transfers SCALE: Activities may be completed with or without assistive devices. 1-Wgrcdkivtn-hsxmogx completes the activity by him/herself with no assistance from a helper. 5-Set-up or Clean-up Assistance-helper sets up or cleans up; patient completes activity. [place] assists only prior to or following the activity. 4-Supervision or Touching Assistance-helper provides verbal cues and/or touching/steadying and/or contact guard assistance as patient completes activity. Assistance may be provided throughout the activity or intermittently. 3-Partial/Moderate Assistance-helper does LESS THAN HALF the effort. [place] lifts, holds or supports trunk or limbs, but provides less than half the effort. 2-Substantial/Maximal Assistance-helper does MORE THAN HALF the effort. [place] lifts or holds trunk or limbs and provides more than half the effort. 0-Bdhjlckvq-rcpwsh does ALL the effort. Patient does none of the effort to c omplete the activity. Or, the assistance of 2 or more helpers is required for the patient to complete the activity. If activity was not attempted, code reason: 7-Patient Refused. 9-Not Applicable-not attempted and the patient did not perform the activity before the current illness, exacerbation or injury. 10-Not Attempted due to Environmental Limitations-(lack of equipment, weather restraints, etc.). 88-Not Attempted due to Medical Conditions or Safety Concerns. Weight Bearing Patient has been cleared to bear weight on her left arm and can use a walker. Gait Training Does the Patient Walk?: Yes Distance: 120' Walk 10 feet (QC): 4 Walk 50 ft with 2 Turns(QC): 4 Gait Persons Needed: 1 Gait Assistive Device: FWW slow ambulation, antalgic Exercises activity ambulating about room grabbing perales bags with national van truck driver using left hand or reaching with her own hand if they are close enough NuStep Minutes: 15 NuStep Workload: 4 Treatments PT performed bed mobility and transfers, ambulation, perales bag activity, function al strengthening, OT performed UE positioning and safety during activity, perales bag activity Assessment Current Status: Fair Progress improved ambulation PT Short Term Goals Short Term Goals Time Frame: Feb 16, 2021 Roll Left & Right: 6 Sit to lyin Lying to sitting on side of be: 6 Sit to stand: 4 Chair/smb-qs-hveaf transfer: 4 Walk 10 feet: 4 Walk 50 feet with two turns: 4 PT Fci Goals Bag Making Machine Tender Goals PT Bag Making Machine Tender Goals Time Frame: Mar 02, 2021 Roll Left & Right (QC): 6 Sit to Lying (QC): 6 Lying-Sitting on Side/Bed(QC): 6 Sit to Stand (QC): 5 Chair/Voi-vm-Gawoj Xfer(QC): 5 Toilet Transfer (QC): 5 Car Transfer (QC): 4 Does the Patient Walk: Yes Walk 10 feet (QC): 5 Walk 50ft with 2 Turns (QC): 5 Walk 150 ft (QC): 5 Walking 10ft on Uneven Surface: 4 1 Step (curb) (QC): 4 4 Steps (QC): 4 12 Steps (QC): 88 Picking up an Object (QC): 5 Wheel 50 feet with 2 turns (QC: 9 Wheel 150 feet: 9 PT Plan Problem List Problem List: Activity Tolerance, Functional Strength, Safety, Balance, Gait, Transfer, Bed Mobility, ROM Treatment/Plan Treatment Plan: Continue Plan of Care Treatment Plan: Bed Mobility, Education, Functional Activity Nas, Functional Strength, Group Therapy, Gait, Safety, Therapeutic Exercise, Transfers Treatment Duration: Mar 02, 2021 Frequency: At least 5 of 7 days/Wk (IRF) Estimated Hrs Per Day: 1.5 hours per day Patient and/or Family Agrees t: Yes Safety Risks/Education Patient Education: Gait Training, Transfer Techniques, Correct Positioning, Safety Issues Teaching Recipient: Patient Teaching Methods: Demonstration, Discussion Response to Teaching: Reinforcement Needed Time/GCodes Time In: 1000 Time Out: 1100 Total Billed Treatment Time: 60 Total Billed Treatment 1 visit EX 15' FA 45' co-treated with OT from [id number] NEVILLE GARDNER PT Feb 12, 2021 10:54
--- NOTE | 2021-02-12 11:13 | Diagnostic Imaging Report ---
INDICATION: Follow-up left shoulder fracture. TIME OF EXAM: 10:56 a.m. COMPARISON: Correlation is made with prior radiograph from 01/23/2021. FINDINGS: The impacted fracture of the proximal humerus is again noted. There is some increasing sclerosis as well as callus formation at the fracture site consistent with some healing. The overall alignment does appear to be improved at the glenohumeral joint. Acromioclavicular alignment is normal. IMPRESSION: Healing proximal humerus fracture. Dictated by: Dictated on workstation # [id number]
--- NOTE | 2021-02-12 11:47 | Speech Therapy Daily Note ---
Speech Daily Progress Note Subjective Date Seen by Provider: Feb 12, 2021 Time Seen by Provider: 00:30 The patient was resting in her bed. She states she hopes she gets to go home soon. Objective Patient oriented to all concepts without cues. Patient able to recall new information related to current health situation with 80% given 10% cues. Assessment Assessment Current Status: Good Progress Treatment Plan Continue Plan of Care Speech Short Term Goals Short Term Goals Short Term Goals 1. The patient will complete functional memory exercises related to her daily routine with 80% accuracy or better, independently. 2. The patient will complete functional safety strategies and exercises related to their daily routine (ADL's) with 80% accuracy or higher, independently. 3. The patient will complete functional problem solving exercises related to their daily routine with 80% accuracy or better, independently. Speech Group Home Goals Group Home Goals 1. The patient will improve functional abilities related to their daily routines (ADL's) in order to require decreased assistance for completion. Speech-Plan Patient/Family Goals Patient/Family Goals: Patient plans to return to her home where she lives with her . Treatment Plan Speech Therapy Treatment Plan: Continue Plan of Care Treatment Duration: Mar 09, 2021 Frequency: 4 times per week (Four to five times per week.) Estimated Hrs Per Day: .5 hour per day Rehab Potential: Fair Barriers to Learning: Patient's recent health status, cognitive deficits Pt/Family Agrees to Plan: Yes Safety Risks/Education Teaching Recipient: Patient Teaching Methods: Demonstration, Discussion Response to Teaching: Verbalize Understanding, Return Demonstration Education Topics Provided: Safety within her room, discussed the mtg of the rehab team on Wednesdays, communication of wants/needs Time Speech Therapy Time In: 11:00 Speech Therapy Time Out: 11:30 Total Billed Time: 30 Billed Treatment Time 1, ALESSIO Mejias Feb 12, 2021 11:47
--- NOTE | 2021-02-12 13:48 | Physical Therapy Daily Note ---
PT Daily Note-Current Subjective Patient in bed pre tx, agrees to PT, has 4/10 pain in right knee. Appearance Patient in restroom on toilet post tx, instructed to use nurse call when done. Mental Status Patient Orientation: Person, Place, Situation Transfers SCALE: Activities may be completed with or without assistive devices. 1-Kmcoigxkif-yndejov completes the activity by him/herself with no assistance from a helper. 5-Set-up or Clean-up Assistance-helper sets up or cleans up; patient completes activity. [place] assists only prior to or following the activity. 4-Supervision or Touching Assistance-helper provides verbal cues and/or touching/steadying and/or contact guard assistance as patient completes activity. Assistance may be provided throughout the activity or intermittently. 3-Partial/Moderate Assistance-helper does LESS THAN HALF the effort. [place] lifts, holds or supports trunk or limbs, but provides less than half the effort. 2-Substantial/Maximal Assistance-helper does MORE THAN HALF the effort. [place] lifts or holds trunk or limbs and provides more than half the effort. 3-Chnizzttb-ingjve does ALL the effort. Patient does none of the effort to complete the activity. Or, the assistance of 2 or more helpers is required for the patient to complete the activity. If activity was not attempted, code reason: 7-Patient Refused. 9-Not Applicable-not attempted and the patient did not perform the activity before the current illness, exacerbation or injury. 10-Not Attempted due to Environmental Limitations-(lack of equipment, weather restraints, etc.). 88-Not Attempted due to Medical Conditions or Safety Concerns. Roll Left & Right (QC): 6 Lying to Sitting/Side of Bed(Q: 4 Sit to Stand (QC): 4 Chair/Zis-xj-Wvnmj Xfer(QC): 4 SBA with sit to stand and transfers Weight Bearing Patient has been cleared to bear weight on her left arm and can use a walker. Gait Training Distance: 120'x2 Walk 10 feet (QC): 4 Walk 50 ft with 2 Turns(QC): 4 Gait Persons Needed: 1 Gait Assistive Device: FWW SBA, slow but steady ambulation Treatments bed mobility and transfers, ambulation Assessment Current Status: Fair Progress improving endurance PT Short Term Goals Short Term Goals Time Frame: Feb 16, 2021 Roll Left & Right: 6 Sit to lyin Lying to sitting on side of be: 6 Sit to stand: 4 Chair/ked-gl-anlxy transfer: 4 Walk 10 feet: 4 Walk 50 feet with two turns: 4 PT Planning Assistant Goals Long-Term Goals PT Planning Assistant Goals Time Frame: Mar 02, 2021 Roll Left & Right (QC): 6 Sit to Lying (QC): 6 Lying-Sitting on Side/Bed(QC): 6 Sit to Stand (QC): 5 Chair/Wzo-lr-Bssuy Xfer(QC): 5 Toilet Transfer (QC): 5 Car Transfer (QC): 4 Does the Patient Walk: Yes Walk 10 feet (QC): 5 Walk 50ft with 2 Turns (QC): 5 Walk 150 ft (QC): 5 Walking 10ft on Uneven Surface: 4 1 Step (curb) (QC): 4 4 Steps (QC): 4 12 Steps (QC): 88 Picking up an Object (QC): 5 Wheel 50 feet with 2 turns (QC: 9 Wheel 150 feet: 9 PT Plan Problem List Problem List: Activity Tolerance, Functional Strength, Safety, Balance, Gait, Transfer, Bed Mobility, ROM Treatment/Plan Treatment Plan: Continue Plan of Care Treatment Plan: Bed Mobility, Education, Functional Activity Nas, Functional Strength, Group Therapy, Gait, Safety, Therapeutic Exercise, Transfers Treatment Duration: Mar 02, 2021 Frequency: At least 5 of 7 days/Wk (IRF) Estimated Hrs Per Day: 1.5 hours per day Patient and/or Family Agrees t: Yes Safety Risks/Education Patient Education: Gait Training, Transfer Techniques, Correct Positioning, Safety Issues Teaching Recipient: Patient Teaching Methods: Demonstration, Discussion Response to Teaching: Reinforcement Needed Time/GCodes Time In: 1330 Time Out: 1345 Total Billed Treatment Time: 15 Total Billed Treatment 1 visit GT 15' NEVILLE GARDNER PT Feb 12, 2021 13:48
--- NOTE | 2021-02-12 15:24 | Wound Care Assessment ---
Wound Care Assessment Date Seen by Provider: Feb 12, 2021 Time Seen by Provider: 11:00 Chief Complaint Abscess Left buttock HPI This pleasant lady was admitted to the hospital in January with sepsis and DKA. She was found to have a perirectal abscess which was drained per surgery. She was quite confused at the time of admission and did not tolerate initial order for wound vac therapy. Per staff, her wound has improved significantly with iodaform packing as current. Cultures positive only for normal vaginal ren. She was initially on broad spectrum antibiotics. Currently admitted to rehab for further strengthening. She has had significant improvement in glycemic control and mentation. She remains anemia with hypoalbuminemia. She will benefit from increased protein intake (if not already). Her healing course will be complicated by: diabetes, obesity and generalized weakness complicating offloading. Past Medical History: Admits Diabetes Type II Smoking Status: Former Smoker Review of Systems General: Other (obesity) Neurological: Weakness Exam Vital Signs Date Time Temp Pulse Resp B/P (MAP) Pulse Ox O2 Delivery O2 Flow Rate FiO2 02/12/21 09:00 Room Air 02/12/21 08:00 36.5 63 18 128/58 (81) 95 Capillary Refill : General Appearance: no apparent distress, obese HEENT: PERRL/EOMI Neck: full range of motion Cardiovascular: no edema Respiratory: no respiratory distress, no accessory muscle use Extremities: normal range of motion Skin: normal color, warm/dry Skin Problem Location: other Skin Character: abscess Wound assessment: 3.0x5.3x1.2 cm. Tunneling at 10 o'clock 2.5cm. The epit helialization is small, drainage is large and serosanguinous, margin is flat, granulation is medium and pink, necrotic is medium and slough. Results Laboratory Tests 02/11/21 15:20: Glucometer 90 02/11/21 20:24: Glucometer 118H 02/12/21 04:42: Glucometer 85 02/12/21 04:50: White Blood Count 6.8, Red Blood Count 3.57L, Hemoglobin 9.3L, Hematocrit 30L, Mean Corpuscular Volume 85, Mean Corpuscular Hemoglobin 26, Mean Corpuscular Hemoglobin Concent 31L, Red Cell Distribution Width 17.0H, Platelet Count 297, Mean Platelet Volume 10.3, Immature Granulocyte % (Auto) 0, Neutrophils (%) (Auto) 48, Lymphocytes (%) (Auto) 38, Monocytes (%) (Auto) 10, Eosinophils (%) (Auto) 4, Basophils (%) (Auto) 0, Neutrophils # (Auto) 3.2, Lymphocytes # (Auto) 2.5, Monocytes # (Auto) 0.7, Eosinophils # (Auto) 0.3, Basophils # (Auto) 0.0, Immature Granulocyte # (Auto) 0.0, Sodium Level 144, Potassium Level 3.2L, Chloride Level 107, Carbon Dioxide Level 24, Anion Gap 13, Blood Urea Nitrogen 6L, Creatinine 0.58L, Estimat Glomerular Filtration Rate 104, BUN/Creatinine Ratio 10, Glucose Level 80, Calcium Level 7.8L, Corrected Calcium 9.1, Total Bilirubin 0.3, Aspartate Amino Transf (AST/SGOT) 17, Alanine Aminotransferase (ALT/SGPT) 11, Alkaline Phosphatase 103, Total Protein 4.9L, Albumin 2.4L 02/12/21 11:00: Glucometer 81 02/12/21 15:08: Glucometer 106 Assessment/Plan/Dx Assessment: 1. Full thickness wound (abscess cavity) left buttock 2. DM2 3. Anemia 4. PEM Plan: 1. Cleanse wound cavity daily with Vashe 2. Pack loosely with fluffed kerlix dampened with Vashe twice daily 3. Cover with ABD and tape 4. Continued glycemic control by primary's capable hands 5. Nutritional support (specifically protein shakes). Will order if not already started 6. Check prealbumin MARCOS LIM MD Feb 12, 2021 15:24
[2021-02-12] MEDS: HYPOCHLOROUS ACID/NaCl (VASHE) 250 ML IR SCH (16:30)
[2021-02-12 19:35] VITALS: BP 111/62
[2021-02-13] MEDS: ACETAMINOPHEN 500 MG TAB (TYLENOL) PO PRN ×2 (05:23→15:18)
[2021-02-13] MEDS: CATHETER FLUSH 10 ML SYR IV SCH ×3 (05:24→21:07)
[2021-02-13] MEDS: inSUlin ASPART (NovoLOG) 1 UNIT/0.01 ML (CHARGE PER UNIT) SC SCH ×4 (05:38→21:08)
[2021-02-13] MEDS: KCL 20 MEQ TAB (K-DUR) PO SCH (06:04)
[2021-02-13 07:57] VITALS: BP 121/66
--- NOTE | 2021-02-13 09:23 | PM&R Progress Note ---
Subjective HPI/CC On Admission Date Seen by Provider: Feb 13, 2021 Time Seen by Provider: 09:30 Subjective/Events-last exam 02/13/2021: Patient doing well Had some nausea after breakfast Bowels are moving Blood sugars maintained in good control 02/12/21: Pt doing well Full range of motion of the shoulder after X-ray obtained that Keven Graff needed Sugars noted so will decrease insulin since they are getting low 02/11/2021: Patient doing really well Sleeping currently Voltaren gel really helps Blood sugars reviewed No falls Pain is well controlled 02/10/21: Patient doing really well Perineal abscess was packed Potassium will be supplemented maintained on 20 mEq Left arm pain Diclofenac gel will be added to the knee also Review of Systems General: Fatigue, Malaise Objective Exam Vital Signs Vital Signs Date Time Temp Pulse Resp B/P (MAP) Pulse Ox O2 Delivery O2 Flow Rate FiO2 02/13/21 21:16 97 Room Air 02/13/21 20:12 36.7 62 18 133/62 (85) Capillary Refill : General Appearance: No Apparent Distress, WD/WN, Chronically ill, Obese HEENT: PERRL/EOMI, Normal ENT Inspection, Pharynx Normal Neck: Full Range of Motion, Normal Inspection, Non Tender, Supple, Carotid Bruit Respiratory: Chest Non Tender, Lungs Clear, Normal Breath Sounds, No Accessory Muscle Use, No Respiratory Distress Cardiovascular: Regular Rate, Rhythm, No Edema, No Gallop, No JVD, No Murmur, Normal Peripheral Pulses Gastrointestinal: Normal Bowel Sounds, No Organomegaly, No Pulsatile Mass, Non Tender, Soft Back: Normal Inspection, No CVA Tenderness, No Vertebral Tenderness Extremity: Normal Capillary Refill, Normal Inspection, Normal Range of Motion, Non Tender, No Calf Tenderness, No Pedal Edema Neurologic/Psychiatric: Alert, Oriented x3, No Motor/Sensory Deficits, Normal Mood/Affect, 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 FIM Transfers Therapy Code Descriptions/Definitions Functional [place] Measure: 0=Not Assessed/NA 4=Minimal Assistance 1=Total Assistance 5=Supervision or Setup 2=Maximal Assistance 6=Modified [place] 3=Moderate Assistance 7=Complete IndependenceSCALE: Activities may be completed with or without assistive devices. 4-Vjqdipxlid-ijkgigp completes the activity by him/herself with no assistance from a helper. 5-Set-up or Clean-up Assistance-helper sets up or cleans up; patient completes activity. [place] assists only prior to or following the activity. 4-Supervision or Touching Assistance-helper provides verbal cues and/or t ouching/steadying and/or contact guard assistance as patient completes activity. Assistance may be provided throughout the activity or intermittently. 3-Partial/Moderate Assistance-helper does LESS THAN HALF the effort. [place] lifts, holds or supports trunk or limbs, but provides less than half the effort. 2-Substantial/Maximal Assistance-helper does MORE THAN HALF the effort. [place] lifts or holds trunk or limbs and provides more than half the effort. 5-Bdpzvaycn-lzkkbc does ALL the effort. Patient does none of the effort to complete the activity. Or, the assistance of 2 or more helpers is required for the patient to complete the activity. If activity was not attempted, code reason: 7-Patient Refused. 9-Not Applicable-not attempted and the patient did not perform the activity before the current illness, exacerbation or injury. 10-Not Attempted due to Environmental Limitations-(lack of equipment, weather restraints, etc.). 88-Not Attempted due to Medical Conditions or Safety Concerns. Roll Left to Right (QC): 6 Sit to Lying (QC): 3 Sit to Stand (QC): 4 Chair/Spj-cr-Oyayk Xfer(QC): 4 Car Transfer (QC): 3 Gait Training Does the Patient Walk?: Yes Distance: 120'x2 Walk 10 feet (QC): 4 Walk 50 ft with 2 Turns(QC): 4 Walk 150 ft (QC): 88 Walking 10ft/uneven surface-QC: 88 Gait Persons Needed: 1 Gait Assistive Device: FWW Wheelchair Training Does the Pt Use a Wheelchair?: Yes Wheel 50 ft with 2 turns (QC): 1 Wheel 150 ft (QC): 1 Type of Wheelchair: Manual Stair Training 1 Step (curb) (QC): 88 4 Steps (QC): 88 12 Steps (QC): 88 Balance Picking up an Object (QC): 4 (using a property underwriter) ADL-Treatment Eating (QC): 5 Oral Hygiene (QC): 4 Shower/Bathe Self (QC): 2 Upper Body Dressing (QC): 4 Lower Body Dressing (QC): 3 On/Off Footwear (QC): 1 Toileting Hygiene (QC): 3 Toilet Transfer (QC): 4 Assessment/Plan Assessment and Plan Assess & Plan/Chief Complaint Assessment: Severe debility New onset insulin-dependent diabetes with DKA Status post right perineal abscess status post incision and drainage by Dr. FISHER uncomplicated Hypertension Hyperlipidemia Depression Plan: Supportive care Inpatient rehab Appreciate Dr. FISHER Wound care 02/10/2021: Patient doing well Continue wound care Blood sugars improved 02/11/2021: Reviewed blood sugars Supportive care 02/12/21: Monitor closely Decrease insulin 02/13/2021: Blood sugar control Monitor nausea (1) Severe sepsis Status: Acute (2) Abscess of left buttock Status: Acute (3) DKA (diabetic ketoacidosis) Status: Acute BERNA BRAVO DO Feb 13, 2021 09:23
[2021-02-13] MEDS: amLODIPine 5 MG (NORVASC) TAB PO SCH (09:28)
[2021-02-13] MEDS: DOCUSATE SODIUM 100 MG (COLACE) CAP PO SCH ×2 (09:28→21:06)
[2021-02-13] MEDS: SENNA W/DOCUSATE (SENOKOT S) TABLET PO SCH ×2 (09:28→21:06)
[2021-02-13] MEDS: SERTRALINE 100 MG (ZOLOFT) TAB PO SCH (09:28)
[2021-02-13] MEDS: ASPIRIN 81 MG CHEW (CHILDREN'S ASA) PO SCH (09:28)
[2021-02-13] MEDS: PANTOPRAZOLE 40 MG (PROTONIX) TAB PO SCH (09:28)
[2021-02-13] MEDS: LOSARTAN 100 MG (COZAAR) TABLET PO SCH (09:28)
[2021-02-13] MEDS: polyethylene glycoL POWDER 17 GM (MIRALAX) PACK PO SCH ×2 (09:29→21:09)
[2021-02-13] MEDS: MICONAZOLE 2% POWDER (DESENEX AF) 90 GM TOP SCH ×2 (09:31→21:10)
[2021-02-13] MEDS: DICLOFENAC 1% GEL 100 GM (VOLTAREN) TUBE TOP SCH ×4 (09:32→21:10)
[2021-02-13] MEDS: HYPOCHLOROUS ACID/NaCl (VASHE) 250 ML IR SCH (09:49)
--- NOTE | 2021-02-13 10:16 | Occupational Ther Daily Note ---
OT Current Status-Daily Note Subjective Pt reports pain as 4/10 in R knee and L shoulder but often tearful with limited activity. Complaints also of nausea, Zofran given by RN. Appearance Left sitting EOB with physical therapy present. Mental Status/Objective Attachments: IV ADL-Treatment Therapy Code Descriptions/Definitions Functional [place] Measure: 0=Not Assessed/NA 4=Minimal Assistance 1=Total Assistance 5=Supervision or Setup 2=Maximal Assistance 6=Modified [place] 3=Moderate Assistance 7=Complete IndependenceSCALE: Activities may be completed with or without assistive devices. 8-Vymckquhgb-lptwggx completes the activity by him/herself with no assistance from a helper. 5-Set-up or Clean-up Assistance-helper sets up or cleans up; patient completes activity. [place] assists only prior to or following the activity. 4-Supervision or Touching Assistance-helper provides verbal cues and/or touching/steadying and/or contact guard assistance as patient completes activity. Assistance may be provided throughout the activity or intermittently. 3-Partial/Moderate Assistance-helper does LESS THAN HALF the effort. [place] lifts, holds or supports trunk or limbs, but provides less than half the effort. 2-Substantial/Maximal Assistance-helper does MORE THAN HALF the effort. [place] lifts or holds trunk or limbs and provides more than half the effort. 6-Ntstvaqah-bbgyda does ALL the effort. Patient does none of the effort to compl ete the activity. Or, the assistance of 2 or more helpers is required for the patient to complete the activity. If activity was not attempted, code reason: 7-Patient Refused. 9-Not Applicable-not attempted and the patient did not perform the activity before the current illness, exacerbation or injury. 10-Not Attempted due to Environmental Limitations-(lack of equipment, weather restraints, etc.). 88-Not Attempted due to Medical Conditions or Safety Concerns. Upper Body Dressing (QC): 3 Lower Body Dressing (QC): 3 Toileting Hygiene (QC): 3 Toilet Transfer (QC): 4 Significantly more time needed this date for ADLs secondary to c/o nausea and poor initiation. Pt refused shower. Clothes donned seated EOB. Extra time and min a to thread LLE into clothing due to pain when reaching with LUE. Min A to pull up completely over L hip due to reduced AROM with Left. Assist required to pull sweatshirt over L shoulder and pull down around torso (more on L side). OT donned kamryn hose and socks due to nausea and time constraints. Education OT Patient Education: Correct positioning, Energy conservation, Modified ADL techniques, Progress toward Goal/Update tx plan, Purpose of tx/functional activities, Safety issues Teaching Recipient: Patient Teaching Methods: Demonstration, Discussion Response to Teaching: Reinforcement Needed OT Short Term Goals Short Term Goals Time Frame: Feb 23, 2021 Eatin Oral hygiene: 5 Toileting hygiene: 3 Shower/bathe self: 3 Upper body dressin Lower body dressin Putting on/taking off footwear: 3 OT Jail Goals E Commerce Marketing Manager Goals Time Frame: Mar 03, 2021 Eating (QC): 6 Oral Hygiene (QC): 6 Toileting Hygiene (QC): 5 Shower/Bathe Self (QC): 5 Upper Body Dressing (QC): 5 Lower Body Dressing (QC): 5 On/Off Footwear (QC): 5 1=Demonstrate adherence to instructed precautions during ADL tasks. 2=Patient will verbalize/demonstrate understanding of assistive devices/modifications for ADL. 3=Patient will improve strength/tolerance for activity to enable patient to perform ADL's. OT Education/Plan Problem List/Assessment Assessment: Decreased Activ Tolerance, Decreased UE Strength, Impaired I ADL's, Impaired Self-Care Skills, Restricted Funct UE ROM Discharge Recommendations Plan/Recommendations: Continue POC Treatment Plan/Plan of Care Treatment,Training & Education: Yes Patient would benefit from OT for education, treatment and training to promote independence in ADL's, mobility, safety and/or upper extremity function for ADL's. Plan of Care: ADL Retraining, Cognitive Retraining, Functional Mobility, Group Exercise/Act as Ind, UE Funct Exercise/Act, W/C Management Training Treatment Duration: Mar 03, 2021 Frequency: At least 5 of 7 days/Wk (IRF) Estimated Hrs Per Day: 1.5 hours per day Agreement: Yes Rehab Potential: Fair Time/GCodes Start Time: 09:15 Stop Time: 10:00 Total Time Billed (hr/min): 45 Billed Treatment Time 1 visit ADL x3 Thea Marquis OT Feb 13, 2021 10:16
--- NOTE | 2021-02-13 10:34 | Speech Therapy Daily Note ---
Speech Daily Progress Note Subjective Date Seen by Provider: Feb 13, 2021 Time Seen by Provider: 08:30 The patient was lying in bed, awake and alert upon entrance by the clinician. The patient reported fatigue however, was agreeable to participation in the skilled speech pathology treatment session. Objective - Orientation: The patient was independently oriented to location, month, day of week, date, and year. - Word Finding Strategies: The patient and clinician reviewed and discussed word-finding strategies which included circumlocution, pausing, returning to a difficult word to find, and providing a synonym. - Category Members: The patient completed a word finding exercise where the clinician provided a category and a specific letter. The patient was asked to provide a word which began with the specific letter and "fit into" the category. The patient demonstrated 70% accuracy (+12/17) with maximum clinician cueing provided throughout the exercise. - Functional Recall: The patient was able to independently recall events of the prior date. Assessment Assessment Current Status: Good Progress Treatment Plan Continue Plan of Care Speech Short Term Goals Short Term Goals Short Term Goals 1. The patient will complete functional memory exercises related to her daily routine with 80% accuracy or better, independently. 2. The patient will complete functional safety strategies and exercises related to their daily routine (ADL's) with 80% accuracy or higher, independently. 3. The patient will complete functional problem solving exercises related to their daily routine with 80% accuracy or better, independently. Speech Coding Compliance Specialist Goals Mcfp Goals 1. The patient will improve functional abilities related to their daily routines (ADL's) in order to require decreased assistance for completion. Speech-Plan Treatment Plan Speech Therapy Treatment Plan: Continue Plan of Care Treatment Duration: Mar 09, 2021 Frequency: 4 times per week (Four to five times per week.) Estimated Hrs Per Day: .5 hour per day Rehab Potential: Fair Barriers to Learning: - Intermittent memory difficulties (retention). Pt/Family Agrees to Plan: Yes Safety Risks/Education Teaching Recipient: Patient Teaching Methods: Demonstration, Discussion Response to Teaching: Verbalize Understanding, Return Demonstration Education Topics Provided: Word-Finding Strategies Time Speech Therapy Time In: 08:30 Speech Therapy Time Out: 09:00 Total Billed Time: 30 Billed Treatment Time 1, ARIANNA Amada DAYSI ODOM Feb 13, 2021 10:34
--- NOTE | 2021-02-13 10:52 | Physical Therapy Daily Note ---
PT Daily Note-Current Subjective Patient in bed pre tx, agrees to PT, has 4/10 pain in right knee. Patient is very difficult to motivate because she feels ill and nauseated. Appearance Patient in bed post tx with nurse call, phone, tray, all needs met. Mental Status Patient Orientation: Person, Place, Situation Transfers SCALE: Activities may be completed with or without assistive devices. 0-Lmurrbiknu-xibdmtf completes the activity by him/herself with no assistance from a helper. 5-Set-up or Clean-up Assistance-helper sets up or cleans up; patient completes activity. [place] assists only prior to or following the activity. 4-Supervision or Touching Assistance-helper provides verbal cues and/or touching/steadying and/or contact guard assistance as patient completes activity. Assistance may be provided throughout the activity or intermittently. 3-Partial/Moderate Assistance-helper does LESS THAN HALF the effort. [place] lifts, holds or supports trunk or limbs, but provides less than half the effort. 2-Substantial/Maximal Assistance-helper does MORE THAN HALF the effort. [place] lifts or holds trunk or limbs and provides more than half the effort. 9-Syesfvkrc-jvrysa does ALL the effort. Patient does none of the effort to complete the activity. Or, the assistance of 2 or more helpers is required for the patient to complete the activity. If activity was not attempted, code reason: 7-Patient Refused. 9-Not Applicable-not attempted and the patient did not perform the activity before the current illness, exacerbation or injury. 10-Not Attempted due to Environmental Limitations-(lack of equipment, weather restraints, etc.). 88-Not Attempted due to Medical Conditions or Safety Concerns. Roll Left & Right (QC): 6 Sit to Lying (QC): 3 Lying to Sitting/Side of Bed(Q: 3 Sit to Stand (QC): 4 Chair/Stx-js-Gnfby Xfer(QC): 4 Weight Bearing Patient has been cleared to bear weight on her left arm and can use a walker. Gait Training Distance: 120'x2 Walk 10 feet (QC): 4 Walk 50 ft with 2 Turns(QC): 4 Gait Persons Needed: 1 Gait Assistive Device: FWW Slow, antalgic. Patient had to use the restroom after ambulating to the therapy gym so she ambulated back to her room and in the restroom. Nurse amy assisted with wiping when done. Patient wanted to go back to bed because she feels ill but was convinced to continue with PT, ambulated back to therapy gym and then back to her room again and back to bed. Treatments toileting, bed mobility and transfers, ambulation Assessment Current Status: Poor Progress Patient needed rest breaks between bouts of ambulation due to nausea and being ill. Very slow mobility. PT Short Term Goals Short Term Goals Time Frame: Feb 16, 2021 Roll Left & Right: 6 Sit to lyin Lying to sitting on side of be: 6 Sit to stand: 4 Chair/wog-ra-zybrt transfer: 4 Walk 10 feet: 4 Walk 50 feet with two turns: 4 PT Correction Goals Correction Goals PT Correction Goals Time Frame: Mar 02, 2021 Roll Left & Right (QC): 6 Sit to Lying (QC): 6 Lying-Sitting on Side/Bed(QC): 6 Sit to Stand (QC): 5 Chair/Eay-cz-Rteny Xfer(QC): 5 Toilet Transfer (QC): 5 Car Transfer (QC): 4 Does the Patient Walk: Yes Walk 10 feet (QC): 5 Walk 50ft with 2 Turns (QC): 5 Walk 150 ft (QC): 5 Walking 10ft on Uneven Surface: 4 1 Step (curb) (QC): 4 4 Steps (QC): 4 12 Steps (QC): 88 Picking up an Object (QC): 5 Wheel 50 feet with 2 turns (QC: 9 Wheel 150 feet: 9 PT Plan Problem List Problem List: Activity Tolerance, Functional Strength, Safety, Balance, Gait, Transfer, Bed Mobility, ROM Treatment/Plan Treatment Plan: Continue Plan of Care Treatment Plan: Bed Mobility, Education, Functional Activity Nas, Functional Strength, Group Therapy, Gait, Safety, Therapeutic Exercise, Transfers Treatment Duration: Mar 02, 2021 Frequency: At least 5 of 7 days/Wk (IRF) Estimated Hrs Per Day: 1.5 hours per day Patient and/or Family Agrees t: Yes Safety Risks/Education Patient Education: Gait Training, Transfer Techniques, Correct Positioning, Safety Issues Teaching Recipient: Patient Teaching Methods: Demonstration, Discussion Response to Teaching: Reinforcement Needed Time/GCodes Time In: 1000 Time Out: 1100 Total Billed Treatment Time: 60 Total Billed Treatment 1 visit FA Ozzie' NEVILLE GARDNER PT Feb 13, 2021 10:52
--- NOTE | 2021-02-13 12:06 | Occupational Ther Daily Note ---
OT Current Status-Daily Note Subjective Reports feeling better with less nausea this session. Appearance left supine in bed, all needs within reach. ADL-Treatment Therapy Code Descriptions/Definitions Functional [place] Measure: 0=Not Assessed/NA 4=Minimal Assistance 1=Total Assistance 5=Supervision or Setup 2=Maximal Assistance 6=Modified [place] 3=Moderate Assistance 7=Complete IndependenceSCALE: Activities may be completed with or without assistive devices. 7-Yfgmigngab-daoyswh completes the activity by him/herself with no assistance from a helper. 5-Set-up or Clean-up Assistance-helper sets up or cleans up; patient completes activity. [place] assists only prior to or following the activity. 4-Supervision or Touching Assistance-helper provides verbal cues and/or touching/steadying and/or contact guard assistance as patient completes activity. Assistance may be provided throughout the activity or intermittently. 3-Partial/Moderate Assistance-helper does LESS THAN HALF the effort. [place] lifts, holds or supports trunk or limbs, but provides less than half the effort. 2-Substantial/Maximal Assistance-helper does MORE THAN HALF the effort. [place] lifts or holds trunk or limbs and provides more than half the effort. 7-Kobflaxkf-uuhoqb does ALL the effort. Patient does none of the effort to complete the activity. Or, the assistance of 2 or more helpers is required for the patient to complete the activity. If activity was not attempted, code reason: 7-Patient Refused. 9-Not Applicable-not attempted and the patient did not perform the activity before the current illness, exacerbation or injury. 10-Not Attempted due to Environmental Limitations-(lack of equipment, weather restraints, etc.). 88-Not Attempted due to Medical Conditions or Safety Concerns. Other Treatment While supine, OT performed PROM exercises to LUE including: shoulder flexion, abduction, and internal/external rotation. Pt only able to tolerate ~45 degrees abduction during external/internal rotation exercises. Improved shoulder flexion noted to ~120 degrees. Initially pt more relaxed than previous date, yet as session continued pt begins to tense up and becomes slightly resistant to movements. Pt able to complete AROM exercises elbow-distally 12x1 in all planes. Education OT Patient Education: Correct positioning, Exercise program, Reviewed precautions Teaching Recipient: Patient Teaching Methods: Discussion Response to Teaching: Return Demonstration, Reinforcement Needed OT Short Term Goals Short Term Goals Time Frame: Feb 23, 2021 Eatin Oral hygiene: 5 Toileting hygiene: 3 Shower/bathe self: 3 Upper body dressin Lower body dressin Putting on/taking off footwear: 3 OT Rrt Goals Rrt Goals Time Frame: Mar 03, 2021 Eating (QC): 6 Oral Hygiene (QC): 6 Toileting Hygiene (QC): 5 Shower/Bathe Self (QC): 5 Upper Body Dressing (QC): 5 Lower Body Dressing (QC): 5 On/Off Footwear (QC): 5 1=Demonstrate adherence to instructed precautions during ADL tasks. 2=Patient will verbalize/demonstrate understanding of assistive devices/modifications for ADL. 3=Patient will improve strength/tolerance for activity to enable patient to perform ADL's. OT Education/Plan Problem List/Assessment Assessment: Decreased Activ Tolerance, Decreased UE Strength, Impaired I ADL's, Impaired Self-Care Skills, Restricted Funct UE ROM Discharge Recommendations Plan/Recommendations: Continue POC Treatment Plan/Plan of Care Treatment,Training & Education: Yes Patient would benefit from OT for education, treatment and training to promote independence in ADL's, mobility, safety and/or upper extremity function for ADL's. Plan of Care: ADL Retraining, Cognitive Retraining, Functional Mobility, Group Exercise/Act as Ind, UE Funct Exercise/Act, W/C Management Training Treatment Duration: Mar 03, 2021 Frequency: At least 5 of 7 days/Wk (IRF) Estimated Hrs Per Day: 1.5 hours per day Agreement: Yes Rehab Potential: Fair Time/GCodes Start Time: 11:30 Stop Time: 12:00 Total Time Billed (hr/min): 30 Billed Treatment Time 1 visit EX Thea Wilson OT Feb 13, 2021 12:06
--- NOTE | 2021-02-13 14:16 | Physical Therapy Daily Note ---
PT Daily Note-Current Subjective Patient in bed pre tx, agrees to PT, states she feels a lot better and has very little pain in her right knee. Appearance Patient in restroom post tx, instructed to use nurse call when done. Mental Status Patient Orientation: Person, Place, Situation Transfers SCALE: Activities may be completed with or without assistive devices. 7-Vaoiusiydo-dafvaza completes the activity by him/herself with no assistance from a helper. 5-Set-up or Clean-up Assistance-helper sets up or cleans up; patient completes activity. [place] assists only prior to or following the activity. 4-Supervision or Touching Assistance-helper provides verbal cues and/or touching/steadying and/or contact guard assistance as patient completes activity. Assistance may be provided throughout the activity or intermittently. 3-Partial/Moderate Assistance-helper does LESS THAN HALF the effort. [place] lifts, holds or supports trunk or limbs, but provides less than half the effort. 2-Substantial/Maximal Assistance-helper does MORE THAN HALF the effort. [place] lifts or holds trunk or limbs and provides more than half the effort. 3-Rmdneluyz-rzofvv does ALL the effort. Patient does none of the effort to complete the activity. Or, the assistance of 2 or more helpers is required for the patient to complete the activity. If activity was not attempted, code reason: 7-Patient Refused. 9-Not Applicable-not attempted and the patient did not perform the activity before the current illness, exacerbation or injury. 10-Not Attempted due to Environmental Limitations-(lack of equipment, weather restraints, etc.). 88-Not Attempted due to Medical Conditions or Safety Concerns. Roll Left & Right (QC): 6 Lying to Sitting/Side of Bed(Q: 3 Sit to Stand (QC): 4 Chair/Yox-cu-Zczbf Xfer(QC): 4 Toilet Transfer (QC): 4 Weight Bearing Patient has been cleared to bear weight on her left arm and can use a walker. Gait Training Distance: 120'x2 Walk 10 feet (QC): 4 Walk 50 ft with 2 Turns(QC): 4 Gait Persons Needed: 1 Gait Assistive Device: FWW slow but steady ambulation Treatments bed mobility and transfers, ambulation Assessment Current Status: Fair Progress patient feeling much better this afternoon PT Short Term Goals Short Term Goals Time Frame: Feb 16, 2021 Roll Left & Right: 6 Sit to lyin Lying to sitting on side of be: 6 Sit to stand: 4 Chair/dgr-ue-opduy transfer: 4 Walk 10 feet: 4 Walk 50 feet with two turns: 4 PT Residential Goals Anvil Worker Goals PT Anvil Worker Goals Time Frame: Mar 02, 2021 Roll Left & Right (QC): 6 Sit to Lying (QC): 6 Lying-Sitting on Side/Bed(QC): 6 Sit to Stand (QC): 5 Chair/Bir-la-Mgxzw Xfer(QC): 5 Toilet Transfer (QC): 5 Car Transfer (QC): 4 Does the Patient Walk: Yes Walk 10 feet (QC): 5 Walk 50ft with 2 Turns (QC): 5 Walk 150 ft (QC): 5 Walking 10ft on Uneven Surface: 4 1 Step (curb) (QC): 4 4 Steps (QC): 4 12 Steps (QC): 88 Picking up an Object (QC): 5 Wheel 50 feet with 2 turns (QC: 9 Wheel 150 feet: 9 PT Plan Problem List Problem List: Activity Tolerance, Functional Strength, Safety, Balance, Gait, Transfer, Bed Mobility, ROM Treatment/Plan Treatment Plan: Continue Plan of Care Treatment Plan: Bed Mobility, Education, Functional Activity Nas, Functional Strength, Group Therapy, Gait, Safety, Therapeutic Exercise, Transfers Treatment Duration: Mar 02, 2021 Frequency: At least 5 of 7 days/Wk (IRF) Estimated Hrs Per Day: 1.5 hours per day Patient and/or Family Agrees t: Yes Safety Risks/Education Patient Education: Gait Training, Transfer Techniques, Correct Positioning, Safety Issues Teaching Recipient: Patient Teaching Methods: Demonstration, Discussion Response to Teaching: Reinforcement Needed Time/GCodes Time In: 1400 Time Out: 1415 Total Billed Treatment Time: 15 Total Billed Treatment 1 visit GT 15' NEVILLE GARDNER PT Feb 13, 2021 14:16
[2021-02-13 20:12] VITALS: BP 133/62
[2021-02-14] MEDS: ACETAMINOPHEN 500 MG TAB (TYLENOL) PO PRN ×2 (05:41→14:12)
--- NOTE | 2021-02-14 05:48 | PM&R Progress Note ---
Subjective HPI/CC On Admission Date Seen by Provider: Feb 14, 2021 Time Seen by Provider: 10:00 Subjective/Events-last exam 02/14/21: Pt doing okay Bed alarm due to very labile and impulsive Memory deficit will addressed with Nausea is improved now 02/13/2021: Patient doing well Had some nausea after breakfast Bowels are moving Blood sugars maintained in good control 02/12/21: Pt doing well Full range of motion of the shoulder after X-ray obtained that Keven Graff needed Sugars noted so will decrease insulin since they are getting low 02/11/2021: Patient doing really well Sleeping currently Voltaren gel really helps Blood sugars reviewed No falls Pain is well controlled 02/10/21: Patient doing really well Perineal abscess was packed Potassium will be supplemented maintained on 20 mEq Left arm pain Diclofenac gel will be added to the knee also Review of Systems General: Fatigue, Malaise Neurological: Weakness, Confusion Objective Exam Vital Signs Vital Signs Date Time Temp Pulse Resp B/P (MAP) Pulse Ox O2 Delivery O2 Flow Rate FiO2 02/14/21 20:46 95 Room Air 02/14/21 20:16 36.8 66 16 147/68 (94) Capillary Refill : General Appearance: No Apparent Distress, WD/WN, Chronically ill, Obese HEENT: PERRL/EOMI, Normal ENT Inspection, Pharynx Normal Neck: Full Range of Motion, Normal Inspection, Non Tender, Supple, Carotid Bruit Respiratory: Chest Non Tender, Lungs Clear, Normal Breath Sounds, No Accessory Muscle Use, No Respiratory Distress Cardiovascular: Regular Rate, Rhythm, No Edema, No Gallop, No JVD, No Murmur, Normal Peripheral Pulses Gastrointestinal: Normal Bowel Sounds, No Organomegaly, No Pulsatile Mass, Non Tender, Soft Back: Normal Inspection, No CVA Tenderness, No Vertebral Tenderness Extremity: Normal Capillary Refill, Normal Inspection, Normal Range of Motion, Non Tender, No Calf Tenderness, No Pedal Edema Neurologic/Psychiatric: Alert, Oriented x3, No Motor/Sensory Deficits, Normal Mood/Affect, supervisor electric II-XII Norm as Tested, Motor Weakness (Generalized 4/5) Skin: Normal Color, Warm/Dry Lymphatic: No Adenopathy Results/Procedures Lab Patient resulted labs reviewed. FIM Transfers Therapy Code Descriptions/Definitions Functional [place] Measure: 0=Not Assessed/NA 4=Minimal Assistance 1=Total Assistance 5=Supervision or Setup 2=Maximal Assistance 6=Modified [place] 3=Moderate Assistance 7=Complete IndependenceSCALE: Activities may be completed with or without assistive devices. 2-Bnswbiamkm-yhkgwyt completes the activity by him/herself with no assistance from a helper. 5-Set-up or Clean-up Assistance-helper sets up or cleans up; patient completes activity. [place] assists only prior to or following the activity. 4-Supervision or Touching Assistance-helper provides verbal cues and/or touching/steadying and/or contact guard assistance as patient completes activity. Assistance may be provided throughout the activity or intermittently. 3-Partial/Moderate Assistance-helper does LESS THAN HALF the effort. [place] lifts, holds or supports trunk or limbs, but provides less than half the effort. 2-Substantial/Maximal Assistance-helper does MORE THAN HALF the effort. [place] lifts or holds trunk or limbs and provides more than half the effort. 1-Sltsxczzj-dpnvmo does ALL the effort. Patient does none of the effort to complete the activity. Or, the assistance of 2 or more helpers is required for the patient to complete the activity. If activity was not attempted, code reason: 7-Patient Refused. 9-Not Applicable-not attempted and the patient did not perform the activity before the current illness, exacerbation or injury. 10-Not Attempted due to Environmental Limitations-(lack of equipment, weather restraints, etc.). 88-Not Attempted due to Medical Conditions or Safety Concerns. Roll Left to Right (QC): 6 Sit to Lying (QC): 3 Sit to Stand (QC): 4 Chair/Kfz-cm-Qlitq Xfer(QC): 4 Car Transfer (QC): 3 Gait Training Does the Patient Walk?: Yes Distance: 120'x2 Walk 10 feet (QC): 4 Walk 50 ft with 2 Turns(QC): 4 Walk 150 ft (QC): 88 Walking 10ft/uneven surface-QC: 88 Gait Persons Needed: 1 Gait Assistive Device: FWW Wheelchair Training Does the Pt Use a Wheelchair?: No Wheel 50 ft with 2 turns (QC): 1 Wheel 150 ft (QC): 1 Type of Wheelchair: N/A Stair Training 1 Step (curb) (QC): 88 4 Steps (QC): 88 12 Steps (QC): 88 Balance Picking up an Object (QC): 4 (using a autoclave operator) ADL-Treatment Eating (QC): 5 Oral Hygiene (QC): 4 Shower/Bathe Self (QC): 2 Upper Body Dressing (QC): 3 Lower Body Dressing (QC): 3 On/Off Footwear (QC): 1 Toileting Hygiene (QC): 3 Toilet Transfer (QC): 4 Assessment/Plan Assessment and Plan Assess & Plan/Chief Complaint Assessment: Severe debility New onset insulin-dependent diabetes with DKA Status post right perineal abscess status post incision and drainage by Dr. FISHER uncomplicated Hypertension Hyperlipidemia Depression Cognitive deficit Plan: Supportive care Inpatient rehab Appreciate Dr. FISHER Wound care 02/10/2021: Patient doing well Continue wound care Blood sugars improved 02/11/2021: Reviewed blood sugars Supportive care 02/12/21: Monitor closely Decrease insulin 02/13/2021: Blood sugar control Monitor nausea 02/14/21: Eval cognition baseline with (1) Severe sepsis Status: Acute (2) Abscess of left buttock Status: Acute (3) DKA (diabetic ketoacidosis) Status: Acute BERNA BRAVO DO Feb 14, 2021 05:47
[2021-02-14] MEDS: inSUlin ASPART (NovoLOG) 1 UNIT/0.01 ML (CHARGE PER UNIT) SC SCH ×4 (06:13→20:07)
[2021-02-14] MEDS: KCL 20 MEQ TAB (K-DUR) PO SCH (06:15)
[2021-02-14] MEDS: CATHETER FLUSH 10 ML SYR IV SCH ×3 (06:17→20:13)
[2021-02-14] MEDS: SERTRALINE 100 MG (ZOLOFT) TAB PO SCH (09:06)
[2021-02-14] MEDS: ASPIRIN 81 MG CHEW (CHILDREN'S ASA) PO SCH (09:06)
[2021-02-14] MEDS: PANTOPRAZOLE 40 MG (PROTONIX) TAB PO SCH (09:06)
[2021-02-14] MEDS: SENNA W/DOCUSATE (SENOKOT S) TABLET PO SCH ×2 (09:07→20:06)
[2021-02-14] MEDS: DOCUSATE SODIUM 100 MG (COLACE) CAP PO SCH ×2 (09:07→20:06)
[2021-02-14] MEDS: polyethylene glycoL POWDER 17 GM (MIRALAX) PACK PO SCH ×2 (09:07→20:07)
[2021-02-14 09:13] VITALS: BP 138/62
[2021-02-14] MEDS: amLODIPine 5 MG (NORVASC) TAB PO SCH (09:14)
[2021-02-14] MEDS: LOSARTAN 100 MG (COZAAR) TABLET PO SCH (09:14)
[2021-02-14] MEDS: MICONAZOLE 2% POWDER (DESENEX AF) 90 GM TOP SCH ×2 (09:17→20:07)
[2021-02-14] MEDS: DICLOFENAC 1% GEL 100 GM (VOLTAREN) TUBE TOP SCH ×4 (09:17→20:08)
--- NOTE | 2021-02-14 09:21 | Speech Therapy Daily Note ---
Speech Daily Progress Note Subjective Date Seen by Provider: Feb 14, 2021 Time Seen by Provider: 08:30 The patient was lying supine in bed, alert and awake. The patient greeted the clinician appropriately and was agreeable to participation in the cognitive linguistic treatment session. The patient reported she was able to consume breakfast without nausea on this date. Objective - Orientation: The patient was independently oriented to month, day of week, date, year, location, and city. - Structured Conversation: The patient and clinician discussed the patient's daily life and routines in order to problem solve the level of function necessar y and appropriate to return home. The patient stated she would need to be able to "get herself ready for work" which would include showering and basic self- care. 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 Per patient, she is able to recall stenograph use and function. The patient stated "all court is through Zoom for the end of the year," therefore the patient could remain at home for her profession. - Word List Retention: The patient was provided five words and asked a question regarding the five words immediately following. The patient displayed 40% accuracy with maximum clinician verbal cueing. When repetition of the word list was provided, the patient's accuracy increased to 80%. - The patient stated, "I feel I am moving along but I want it to move faster." Assessment Assessment Current Status: Good Progress Treatment Plan Continue Plan of Care Speech Short Term Goals Short Term Goals Short Term Goals 1. The patient will complete functional memory exercises related to her daily routine with 80% accuracy or better, independently. 2. The patient will complete functional safety strategies and exercises related to their daily routine (ADL's) with 80% accuracy or higher, independently. 3. The patient will complete functional problem solving exercises related to their daily routine with 80% accuracy or better, independently. Speech Glass Washer Goals Glass Washer Goals 1. The patient will improve functional abilities related to their daily routines (ADL's) in order to require decreased assistance for completion. Speech-Plan Treatment Plan Speech Therapy Treatment Plan: Continue Plan of Care Treatment Duration: Mar 09, 2021 Frequency: 4 times per week (Four to five times per week.) Estimated Hrs Per Day: .5 hour per day Rehab Potential: Fair Pt/Family Agrees to Plan: Yes Safety Risks/Education Teaching Recipient: Patient Teaching Methods: Demonstration, Discussion Response to Teaching: Verbalize Understanding, Return Demonstration Education Topics Provided: Memory Strategies. Time Speech Therapy Time In: 08:30 Speech Therapy Time Out: 09:00 Total Billed Time: 30 Billed Treatment Time ARIANNA Alfonso [facility] Feb 14, 2021 09:21
--- NOTE | 2021-02-14 10:09 | Occupational Ther Daily Note ---
OT Current Status-Daily Note Subjective Pt verbalizes pain as 5/10 in R knee and L shoulder, but appears to experiencing more pain than stated. RN informed. Appearance Left supine in bed, all needs within reach. Mental Status/Objective Patient Orientation: Person, Confused, Place Attachments: IV ADL-Treatment Therapy Code Descriptions/Definitions Functional [place] Measure: 0=Not Assessed/NA 4=Minimal Assistance 1=Total Assistance 5=Supervision or Setup 2=Maximal Assistance 6=Modified [place] 3=Moderate Assistance 7=Complete IndependenceSCALE: Activities may be completed with or without assistive devices. 3-Xjafirqpmt-opzvmxp completes the activity by him/herself with no assistance from a helper. 5-Set-up or Clean-up Assistance-helper sets up or cleans up; patient completes activity. [place] assists only prior to or following the activity. 4-Supervision or Touching Assistance-helper provides verbal cues and/or touching/steadying and/or contact guard assistance as patient completes activity. Assistance may be provided throughout the activity or intermittently. 3-Partial/Moderate Assistance-helper does LESS THAN HALF the effort. [place] lifts, holds or supports trunk or limbs, but provides less than half the effort. 2-Substantial/Maximal Assistance-helper does MORE THAN HALF the effort. [place] lifts or holds trunk or limbs and provides more than half the effort. 2-Zglvuaumv-ucqxws does ALL the effort. Patient does none of the effort to complete the activity. Or, the assistance of 2 or more helpers is required for the patient to complete the activity. If activity was not attempted, code reason: 7-Patient Refused. 9-Not Applicable-not attempted and the patient did not perform the activity before the current illness, exacerbation or injury. 10-Not Attempted due to Environmental Limitations-(lack of equipment, weather restraints, etc.). 88-Not Attempted due to Medical Conditions or Safety Concerns. Shower/Bathe Self (QC): 3 Upper Body Dressing (QC): 2 Lower Body Dressing (QC): 3 On/Off Footwear: 3 Toileting Hygiene (QC): 3 Toilet Transfer (QC): 3 Pt supine at OT arrival. Agreeable to shower.Max verbal/tactile Cues for shower transfer with walker. Pt with very poor safety awareness, problem solving, and impulsivity this date. While in shower, she washed her hair first and then verbalizes being finished. Cues and assist needed to initiate soap on body and each individual body part. Feet not washed due to refusal. She stood to wash jazzy area with CGA and required cues to pat area vs rubbing secondary to wound. Poor follow through. Pt labile throughout session and exhibiting times of agitation, happiness, crying, and anxiety. Once water turned off, pt impulsively stood and attempted to walk out of shower dripping wet. OT had to intervene and direct pt to sit back down. Again, while drying body, pt attempts to walk out of shower due to c/o being cold. Dressing tasks finished sitting on toilet. Pt initiates Multiple sit<>stands on toilet, yet unable to explain what/why she was doing. Max a to don shirt due to pt impulsively trying to don (while still slightly damp) and unable to thread LUE or bring over L shoulder. No attempt to finish last step of managing around torso. Pt was able to thread BLE's through LB clothing with extra time, unable to identify incorrect orientation and re quired cues to correct. Mod a to pull up over L hip due to L shoulder pain. Despite just sitting on toilet, while walking back to bed, pt impulsively turned around and reports needing to use bathroom. Max cues for walker management throughout session as pt has tendency to leave walker off to side. Education OT Patient Education: Correct positioning, Modified ADL techniques, Progress toward Goal/Update tx plan, Purpose of tx/functional activities, Reviewed precautions, Rehab process, Safety issues, Transfer techniques Teaching Recipient: Patient Teaching Methods: Demonstration, Discussion Response to Teaching: Reinforcement Needed OT Short Term Goals Short Term Goals Time Frame: Feb 23, 2021 Eatin Oral hygiene: 5 Toileting hygiene: 3 Shower/bathe self: 3 Upper body dressin Lower body dressin Putting on/taking off footwear: 3 OT Retirement Goals Retirement Goals Time Frame: Mar 03, 2021 Eating (QC): 6 Oral Hygiene (QC): 6 Toileting Hygiene (QC): 5 Shower/Bathe Self (QC): 5 Upper Body Dressing (QC): 5 Lower Body Dressing (QC): 5 On/Off Footwear (QC): 5 1=Demonstrate adherence to instructed precautions during ADL tasks. 2=Patient will verbalize/demonstrate understanding of assistive devices/modifications for ADL. 3=Patient will improve strength/tolerance for activity to enable patient to perform ADL's. OT Education/Plan Problem List/Assessment Assessment: Decreased Activ Tolerance, Decreased Safety Aware, Decreased UE Strength, Impaired Funct Balance, Impaired I ADL's, Impaired Self-Care Skills, Restricted Funct UE ROM Discharge Recommendations Plan/Recommendations: Continue POC Treatment Plan/Plan of Care Treatment,Training & Education: Yes Patient would benefit from OT for education, treatment and training to promote independence in ADL's, mobility, safety and/or upper extremity function for ADL's. Plan of Care: ADL Retraining, Cognitive Retraining, Functional Mobility, Group Exercise/Act as Ind, UE Funct Exercise/Act, W/C Management Training Treatment Duration: Mar 03, 2021 Frequency: At least 5 of 7 days/Wk (IRF) Estimated Hrs Per Day: 1.5 hours per day Agreement: Yes Rehab Potential: Fair Time/GCodes Start Time: 09:07 Stop Time: 10:00 Total Time Billed (hr/min): 53 Billed Treatment Time 1 visit ADL x4 Thea Marquis OT Feb 14, 2021 10:09
[2021-02-14] MEDS: HYPOCHLOROUS ACID/NaCl (VASHE) 250 ML IR SCH (10:12)
--- NOTE | 2021-02-14 11:05 | Physical Therapy Daily Note ---
PT Daily Note-Current Subjective Pt. in bed on right side. Nurse changing jazzy wound dressing, this INDUSTRIAL TECHNOLOGY TEACHER assisted in positioning and instructing pt. in positioning. Pt. c/o of min pain in left arm and right leg. Pt. asks to lay back down but agrees to work after the Rehab process was explained. Pain Numeric Pain Scale: 3 Location: Left Location Body Site: Shoulder Pain Description: Ache Mental Status Patient Orientation: Person, Place Transfers SCALE: Activities may be completed with or without assistive devices. 0-Tysxumfhxz-rfovwhk completes the activity by him/herself with no assistance from a helper. 5-Set-up or Clean-up Assistance-helper sets up or cleans up; patient completes activity. [place] assists only prior to or following the activity. 4-Supervision or Touching Assistance-helper provides verbal cues and/or touching/steadying and/or contact guard assistance as patient completes activity. Assistance may be provided throughout the activity or intermittently. 3-Partial/Moderate Assistance-helper does LESS THAN HALF the effort. [place] lifts, holds or supports trunk or limbs, but provides less than half the effort. 2-Substantial/Maximal Assistance-helper does MORE THAN HALF the effort. [place] lifts or holds trunk or limbs and provides more than half the effort. 8-Ekyoytlil-xbnwzi does ALL the effort. Patient does none of the effort to complete the activity. Or, the assistance of 2 or more helpers is required for the patient to complete the activity. If activity was not attempted, code reason: 7-Patient Refused. 9-Not Applicable-not attempted and the patient did not perform the activity before the current illness, exacerbation or injury. 10-Not Attempted due to Environmental Limitations-(lack of equipment, weather restraints, etc.). 88-Not Attempted due to Medical Conditions or Safety Concerns. Roll Left & Right (QC): 6 Sit to Lying (QC): 6 Lying to Sitting/Side of Bed(Q: 6 Sit to Stand (QC): 5 Chair/Rgm-gl-Ejiqm Xfer(QC): 5 Car Transfer (QC): 3 pt. became somewhat disoriented in space and required mod assist in car TRF, laying herself back and nearly dropping buttocks to floor board of car requiring mod assist of 2 to sit back upright. Weight Bearing Patient has been cleared to bear weight on her left arm and can use a walker. Gait Training Does the Patient Walk?: Yes Walk 10 feet (QC): 4 Walk 50 ft with 2 Turns(QC): 4 Walk 150 ft (QC): 4 Gait Persons Needed: 1 Gait Assistive Device: FWW some antalgia, slow gait Exercises Supine Ex: Bridging, Ankle pumps, Rolling, Heel Slides, Straight leg raise Supine Reps: 15 Seated Therapy Exercises: Sit to stand, Long arc quads Seated Reps: 15 NuStep Minutes: 8 NuStep Workload: 2 Treatments pt. sat EOB and with min assist and instruction donned brief and pants, stood CGA and pulled both up. Assessment Current Status: Good Progress states repeatedly she wants to go home. This INDUSTRIAL TECHNOLOGY TEACHER explained the safety and function goals, pt. seemed to accept this and sat up in recliner after Rx PT Short Term Goals Short Term Goals Time Frame: Feb 16, 2021 Roll Left & Right: 6 Sit to lyin Lying to sitting on side of be: 6 Sit to stand: 4 Chair/dvt-oz-qjagw transfer: 4 Walk 10 feet: 4 Walk 50 feet with two turns: 4 PT Jail Goals Certified Registered Nurse Anesthetist Goals PT Jail Goals Time Frame: Mar 02, 2021 Roll Left & Right (QC): 6 Sit to Lying (QC): 6 Lying-Sitting on Side/Bed(QC): 6 Sit to Stand (QC): 5 Chair/Wwq-qg-Xhdoe Xfer(QC): 5 Toilet Transfer (QC): 5 Car Transfer (QC): 4 Does the Patient Walk: Yes Walk 10 feet (QC): 5 Walk 50ft with 2 Turns (QC): 5 Walk 150 ft (QC): 5 Walking 10ft on Uneven Surface: 4 1 Step (curb) (QC): 4 4 Steps (QC): 4 12 Steps (QC): 88 Picking up an Object (QC): 5 Wheel 50 feet with 2 turns (QC: 9 Wheel 150 feet: 9 PT Plan Treatment/Plan Treatment Plan: Continue Plan of Care Treatment Plan: Bed Mobility, Education, Functional Activity Nas, Functional Strength, Group Therapy, Gait, Safety, Therapeutic Exercise, Transfers Treatment Duration: Mar 02, 2021 Frequency: At least 5 of 7 days/Wk (IRF) Estimated Hrs Per Day: 1.5 hours per day Patient and/or Family Agrees t: Yes Safety Risks/Education Patient Education: Gait Training, Transfer Techniques, Correct Positioning, Disease Process, Safety Issues Teaching Recipient: Patient Teaching Methods: Demonstration, Discussion Response to Teaching: Verbalize Understanding, Return Demonstration, Reinforcement Needed Time/GCodes Time In: 1000 Time Out: 1100 Total Billed Treatment Time: 60 Total Billed Treatment 1,FA25m,GT15m,EX20m MAHAMED ALLISON PTA Feb 14, 2021 11:05
--- NOTE | 2021-02-14 12:08 | Occupational Ther Daily Note ---
OT Current Status-Daily Note Subjective Verbalizes pain as 6/10, appears to be exhibiting more pain than stated. Appearance Left supine in bed, all needs within reach. ADL-Treatment Therapy Code Descriptions/Definitions Functional [place] Measure: 0=Not Assessed/NA 4=Minimal Assistance 1=Total Assistance 5=Supervision or Setup 2=Maximal Assistance 6=Modified [place] 3=Moderate Assistance 7=Complete IndependenceSCALE: Activities may be completed with or without assistive devices. 4-Vzfuryopbg-icoaviw completes the activity by him/herself with no assistance from a helper. 5-Set-up or Clean-up Assistance-helper sets up or cleans up; patient completes activity. [place] assists only prior to or following the activity. 4-Supervision or Touching Assistance-helper provides verbal cues and/or touching/steadying and/or contact guard assistance as patient completes activity. Assistance may be provided throughout the activity or intermittently. 3-Partial/Moderate Assistance-helper does LESS THAN HALF the effort. [place] lifts, holds or supports trunk or limbs, but provides less than half the effort. 2-Substantial/Maximal Assistance-helper does MORE THAN HALF the effort. [place] lifts or holds trunk or limbs and provides more than half the effort. 1-Vnjnqwhmo-djshte does ALL the effort. Patient does none of the effort to complete the activity. Or, the assistance of 2 or more helpers is required for the patient to complete the activity. If activity was not attempted, code reason: 7-Patient Refused. 9-Not Applicable-not attempted and the patient did not perform the activity before the current illness, exacerbation or injury. 10-Not Attempted due to Environmental Limitations-(lack of equipment, weather restraints, etc.). 88-Not Attempted due to Medical Conditions or Safety Concerns. Other Treatment While supine, OT performed PROM exercises to LUE including: shoulder flexion, abduction, and internal/external rotation. Shoulder flexion noted to ~120 degrees. Pt unable to tolerate external rotation this date with arm abducted in ~45 degrees. Exercise not performed as pt often attempting to pull arm away from therapist; resistant. Pt able to complete AROM exercises elbow-distally 12x1 in all planes. Education OT Patient Education: Correct positioning, Exercise program, Purpose of tx/functional activities Teaching Recipient: Patient Teaching Methods: Discussion Response to Teaching: Reinforcement Needed OT Short Term Goals Short Term Goals Time Frame: Feb 23, 2021 Eatin Oral hygiene: 5 Toileting hygiene: 3 Shower/bathe self: 3 Upper body dressin Lower body dressin Putting on/taking off footwear: 3 OT Penitentiary Goals Penitentiary Goals Time Frame: Mar 03, 2021 Eating (QC): 6 Oral Hygiene (QC): 6 Toileting Hygiene (QC): 5 Shower/Bathe Self (QC): 5 Upper Body Dressing (QC): 5 Lower Body Dressing (QC): 5 On/Off Footwear (QC): 5 1=Demonstrate adherence to instructed precautions during ADL tasks. 2=Patient will verbalize/demonstrate understanding of assistive devices/modifications for ADL. 3=Patient will improve strength/tolerance for activity to enable patient to perform ADL's. OT Education/Plan Problem List/Assessment Assessment: Decreased Activ Tolerance, Decreased Safety Aware, Decreased UE Strength, Impaired I ADL's, Impaired Self-Care Skills, Restricted Funct UE ROM Discharge Recommendations Plan/Recommendations: Continue POC Treatment Plan/Plan of Care Treatment,Training & Education: Yes Patient would benefit from OT for education, treatment and training to promote independence in ADL's, mobility, safety and/or upper extremity function for ADL's. Plan of Care: ADL Retraining, Cognitive Retraining, Functional Mobility, Group Exercise/Act as Ind, UE Funct Exercise/Act, W/C Management Training Treatment Duration: Mar 03, 2021 Frequency: At least 5 of 7 days/Wk (IRF) Estimated Hrs Per Day: 1.5 hours per day Agreement: Yes Rehab Potential: Fair Time/GCodes Start Time: 11:38 Stop Time: 12:02 Total Time Billed (hr/min): 24 Billed Treatment Time 1 visit EX Thea Wilson OT Feb 14, 2021 12:08
--- NOTE | 2021-02-14 14:06 | Physical Therapy Daily Note ---
PT Daily Note-Current Subjective Pt. asleep in bed with lunch tray in front of her. This CHANGE MANAGER asked " how was lunch"? Pt. stated "LUNCH"? what do you mean with a confused look on her face. This CHANGE MANAGER reoriented pt. to time of day. Pt. agreed to all exerc and activity Pain Location: No Pain Reported Transfers SCALE: Activities may be completed with or without assistive devices. 6-Hsjbctdzii-xegjyne completes the activity by him/herself with no assistance from a helper. 5-Set-up or Clean-up Assistance-helper sets up or cleans up; patient completes activity. [place] assists only prior to or following the activity. 4-Supervision or Touching Assistance-helper provides verbal cues and/or touching/steadying and/or contact guard assistance as patient completes activity. Assistance may be provided throughout the activity or intermittently. 3-Partial/Moderate Assistance-helper does LESS THAN HALF the effort. [place] lifts, holds or supports trunk or limbs, but provides less than half the effort. 2-Substantial/Maximal Assistance-helper does MORE THAN HALF the effort. [place] lifts or holds trunk or limbs and provides more than half the effort. 2-Jjkrofqbc-pxftti does ALL the effort. Patient does none of the effort to complete the activity. Or, the assistance of 2 or more helpers is required for the patient to complete the activity. If activity was not attempted, code reason: 7-Patient Refused. 9-Not Applicable-not attempted and the patient did not perform the activity before the current illness, exacerbation or injury. 10-Not Attempted due to Environmental Limitations-(lack of equipment, weather restraints, etc.). 88-Not Attempted due to Medical Conditions or Safety Concerns. Roll Left & Right (QC): 6 Sit to Lying (QC): 6 Lying to Sitting/Side of Bed(Q: 6 Sit to Stand (QC): 5 Chair/Rao-qe-Kcdpu Xfer(QC): 5 Toilet Transfer (QC): 6 pt. also pushed self up in bed to reposition indep Weight Bearing Patient has been cleared to bear weight on her left arm and can use a walker. Gait Training Does the Patient Walk?: Yes Walk 10 feet (QC): 5 Walk 50 ft with 2 Turns(QC): 5 Gait Persons Needed: 1 Gait Assistive Device: FWW Exercises Supine Ex: Bridging, Ankle pumps, Quad Set, Rolling, Glut sets, Heel Slides, Short Arc Quads, Scooting, Straight leg raise, Hip abd/add (sidelying) Supine Reps: 15 Treatments toileting, gait and therex Assessment Current Status: Good Progress disoriented at first but more cooperative for Rx PT Short Term Goals Short Term Goals Time Frame: Feb 16, 2021 Roll Left & Right: 6 Sit to lyin Lying to sitting on side of be: 6 Sit to stand: 4 Chair/dbs-fu-itukb transfer: 4 Walk 10 feet: 4 Walk 50 feet with two turns: 4 PT Long-Term Goals Key Maker Goals PT Long-Term Goals Time Frame: Mar 02, 2021 Roll Left & Right (QC): 6 Sit to Lying (QC): 6 Lying-Sitting on Side/Bed(QC): 6 Sit to Stand (QC): 5 Chair/Zne-wz-Whgeo Xfer(QC): 5 Toilet Transfer (QC): 5 Car Transfer (QC): 4 Does the Patient Walk: Yes Walk 10 feet (QC): 5 Walk 50ft with 2 Turns (QC): 5 Walk 150 ft (QC): 5 Walking 10ft on Uneven Surface: 4 1 Step (curb) (QC): 4 4 Steps (QC): 4 12 Steps (QC): 88 Picking up an Object (QC): 5 Wheel 50 feet with 2 turns (QC: 9 Wheel 150 feet: 9 PT Plan Treatment/Plan Treatment Plan: Continue Plan of Care Treatment Plan: Bed Mobility, Education, Functional Activity Nas, Functional Strength, Group Therapy, Gait, Safety, Therapeutic Exercise, Transfers Treatment Duration: Mar 02, 2021 Frequency: At least 5 of 7 days/Wk (IRF) Estimated Hrs Per Day: 1.5 hours per day Patient and/or Family Agrees t: Yes Safety Risks/Education Patient Education: Gait Training, Transfer Techniques, Correct Positioning, Disease Process, Safety Issues Teaching Recipient: Patient Teaching Methods: Demonstration, Discussion Response to Teaching: Verbalize Understanding, Return Demonstration, Reinfo rcement Needed Time/GCodes Time In: 1350 Time Out: 1405 Total Billed Treatment Time: 15 Total Billed Treatment 1,EX15m MAHAMED ALLISON CHANGE MANAGER Feb 14, 2021 14:06
[2021-02-14 20:16] VITALS: BP 147/68
[2021-02-15] MEDS: inSUlin ASPART (NovoLOG) 1 UNIT/0.01 ML (CHARGE PER UNIT) SC SCH ×4 (05:29→20:58)
[2021-02-15] MEDS: KCL 20 MEQ TAB (K-DUR) PO SCH (06:18)
[2021-02-15] MEDS: CATHETER FLUSH 10 ML SYR IV SCH ×3 (06:19→20:59)
[2021-02-15 07:12] VITALS: BP 143/61
[2021-02-15] MEDS: PANTOPRAZOLE 40 MG (PROTONIX) TAB PO SCH (07:45)
[2021-02-15] MEDS: amLODIPine 5 MG (NORVASC) TAB PO SCH (07:45)
[2021-02-15] MEDS: LOSARTAN 100 MG (COZAAR) TABLET PO SCH (07:45)
[2021-02-15] MEDS: ASPIRIN 81 MG CHEW (CHILDREN'S ASA) PO SCH (07:45)
[2021-02-15] MEDS: SERTRALINE 100 MG (ZOLOFT) TAB PO SCH (07:46)
[2021-02-15] MEDS: polyethylene glycoL POWDER 17 GM (MIRALAX) PACK PO SCH ×2 (07:47→19:02)
[2021-02-15] MEDS: DOCUSATE SODIUM 100 MG (COLACE) CAP PO SCH ×2 (07:47→21:03)
[2021-02-15] MEDS: SENNA W/DOCUSATE (SENOKOT S) TABLET PO SCH ×2 (07:47→21:03)
[2021-02-15] MEDS: DICLOFENAC 1% GEL 100 GM (VOLTAREN) TUBE TOP SCH ×4 (07:55→20:59)
[2021-02-15] MEDS: MICONAZOLE 2% POWDER (DESENEX AF) 90 GM TOP SCH ×2 (07:56→20:58)
--- NOTE | 2021-02-15 09:11 | Speech Therapy Daily Note ---
Speech Daily Progress Note Subjective Date Seen by Provider: Feb 15, 2021 Time Seen by Provider: 08:30 The patient was lying supine in bed, awake and alert upon entrance. The patient greeted the clinician appropriately and was agreeable to participation in the cognitive linguistic treatment session. The patient denied nausea on this date. Objective - Orientation: The patient remains independently oriented to month, day of week, date, year, and location. The patient described (circumlocution) her current city and following prolonged processing time, was able to provide "[place]." - Functional Recall: The patient was unable to immediately recall if she consumed breakfast on this date. Following additional processing time, the patient stated she did consume breakfast but it was "not good" and plans "to order a little something" following the treatment session. The patient does recall items from an update on her plan of care from the rehabilitation team meeting, stating "Pietro will come in and learn how to do this." in reference to her wound. Additional information from the plan of care meeting was discussed with the patient. - Category Members (word-finding): The patient was provided a category member and a specific letter. The patient was asked to provide an item which began with the letter and "fit into" the category provided. The patient displayed 80% accuracy (+19/24), independently. With moderate verbal prompting, the patient demonstrated 96% accuracy. The patient is becoming more aware of her own anomia difficulty stating, "This shouldn't be so hard." Assessment Assessment Current Status: Good Progress Treatment Plan Continue Plan of Care Speech Short Term Goals Short Term Goals Short Term Goals 1. The patient will complete functional memory exercises related to her daily routine with 80% accuracy or better, independently. 2. The patient will complete functional safety strategies and exercises related to their daily routine (ADL's) with 80% accuracy or higher, independently. 3. The patient will complete functional problem solving exercises related to their daily routine with 80% accuracy or better, independently. Speech Brass Pourer Goals Brass Pourer Goals 1. The patient will improve functional abilities related to their daily routines (ADL's) in order to require decreased assistance for completion. Speech-Plan Treatment Plan Speech Therapy Treatment Plan: Continue Plan of Care Treatment Duration: Mar 09, 2021 Frequency: 4 times per week (Four to five times per week.) Estimated Hrs Per Day: .5 hour per day Rehab Potential: Fair Barriers to Learning: Questionable patient self-motivation Pt/Family Agrees to Plan: Yes Safety Risks/Education Teaching Recipient: Patient Teaching Methods: Demonstration, Discussion Response to Teaching: Verbalize Understanding, Return Demonstration Education Topics Provided: Word-finding strategies. Time Speech Therapy Time In: 08:30 Speech Therapy Time Out: 09:00 Total Billed Time: 30 Billed Treatment Time 1ARIANNAROLDANDAYSI ST Feb 15, 2021 09:11
--- NOTE | 2021-02-15 10:04 | Occupational Ther Daily Note ---
OT Current Status-Daily Note Subjective Pt reports pain as 4/10, however continues to cry out in pain throughout treatment. Appearance Returned to supine, all needs within reach. Mental Status/Objective Attachments: IV ADL-Treatment Therapy Code Descriptions/Definitions Functional [place] Measure: 0=Not Assessed/NA 4=Minimal Assistance 1=Total Assistance 5=Supervision or Setup 2=Maximal Assistance 6=Modified [place] 3=Moderate Assistance 7=Complete IndependenceSCALE: Activities may be completed with or without assistive devices. 6-Peyxldipbb-rjqscok completes the activity by him/herself with no assistance from a helper. 5-Set-up or Clean-up Assistance-helper sets up or cleans up; patient completes activity. [place] assists only prior to or following the activity. 4-Supervision or Touching Assistance-helper provides verbal cues and/or touching/steadying and/or contact guard assistance as patient completes activity. Assistance may be provided throughout the activity or intermittently. 3-Partial/Moderate Assistance-helper does LESS THAN HALF the effort. [place] lifts, holds or supports trunk or limbs, but provides less than half the effort. 2-Substantial/Maximal Assistance-helper does MORE THAN HALF the effort. [place] lifts or holds trunk or limbs and provides more than half the effort. 9-Okgpcuhea-xdinfn does ALL the effort. Patient does none of the effort to complete the activity. Or, the assistance of 2 or more helpers is required for the patient to complete the activity. If activity was not attempted, code reason: 7-Patient Refused. 9-Not Applicable-not attempted and the patient did not perform the activity before the current illness, exacerbation or injury. 10-Not Attempted due to Environmental Limitations-(lack of equipment, weather restraints, etc.). 88-Not Attempted due to Medical Conditions or Safety Concerns. Oral Hygiene (QC): 4 Upper Body Dressing (QC): 3 (assist to press puller L shoulder and around torso) Toileting Hygiene (QC): 3 (min a for clothing management) Toilet Transfer (QC): 3 (min a for liftting boost) Pt with different presentation when compared to previous date. She moves extra slow and exhibits slow processing with all adls and gait this session. Continues to need min cues for safety; exhibits poor follow through with command following. She stood at the sink for grooming tasks, sup/CGA for safety. Other Treatment Pt completed Pendulum exercises front/back, side to side, and rotation x2 each. Min assist to move hips and education on passive motion. Pt fatigues quickly and requires several rest breaks. Shoulder Appears to tolerate well. Unable to recall room number when ambulating back to room but able to find without assist. Education OT Patient Education: Correct positioning, Energy conservation, Exercise program, Modified ADL techniques, Progress toward Goal/Update tx plan, Purpose of tx/functional activities, Reviewed precautions, Safety issues, Transfer techniques Teaching Recipient: Patient Teaching Methods: Demonstration, Discussion Response to Teaching: Verbalize Understanding, Reinforcement Needed OT Short Term Goals Short Term Goals Time Frame: Feb 23, 2021 Eatin Oral hygiene: 5 Toileting hygiene: 3 Shower/bathe self: 3 Upper body dressin Lower body dressin Putting on/taking off footwear: 3 OT Terrazzo Installer Goals Residential Goals Time Frame: Mar 03, 2021 Eating (QC): 6 Oral Hygiene (QC): 6 Toileting Hygiene (QC): 5 Shower/Bathe Self (QC): 5 Upper Body Dressing (QC): 5 Lower Body Dressing (QC): 5 On/Off Footwear (QC): 5 1=Demonstrate adherence to instructed precautions during ADL tasks. 2=Patient will verbalize/demonstrate understanding of assistive devices/modifications for ADL. 3=Patient will improve strength/tolerance for activity to enable patient to perform ADL's. OT Education/Plan Problem List/Assessment Assessment: Decreased Activ Tolerance, Decreased Safety Aware, Decreased UE Strength, Impaired Funct Balance, Impaired I ADL's, Impaired Self-Care Skills, Restricted Funct UE ROM Discharge Recommendations Plan/Recommendations: Continue POC Treatment Plan/Plan of Care Treatment,Training & Education: Yes Patient would benefit from OT for education, treatment and training to promote independence in ADL's, mobility, safety and/or upper extremity function for ADL's. Plan of Care: ADL Retraining, Cognitive Retraining, Functional Mobility, Group Exercise/Act as Ind, UE Funct Exercise/Act, W/C Management Training Treatment Duration: Mar 03, 2021 Frequency: At least 5 of 7 days/Wk (IRF) Estimated Hrs Per Day: 1.5 hours per day Agreement: Yes Rehab Potential: Fair Time/GCodes Start Time: 09:15 Stop Time: 10:00 Total Time Billed (hr/min): 45 Billed Treatment Time 1 visit ADL x2 (30 min) EX (15 min) Thea Marquis OT Feb 15, 2021 10:04
--- NOTE | 2021-02-15 10:45 | PM&R Progress Note ---
Subjective HPI/CC On Admission Date Seen by Provider: Feb 15, 2021 Time Seen by Provider: 11:00 Subjective/Events-last exam 02/15/2021: Patient doing well No more loose stools Holding laxatives Refusing to learn how to give injections Son here visiting Cognition is deficient 02/14/21: Pt doing okay Bed alarm due to very labile and impulsive Memory deficit will addressed with Nausea is improved now 02/13/2021: Patient doing well Had some nausea after breakfast Bowels are moving Blood sugars maintained in good control 02/12/21: Pt doing well Full range of motion of the shoulder after X-ray obtained that Keven Graff needed Sugars noted so will decrease insulin since they are getting low 02/11/2021: Patient doing really well Sleeping currently Voltaren gel really helps Blood sugars reviewed No falls Pain is well controlled 02/10/21: Patient doing really well Perineal abscess was packed Potassium will be supplemented maintained on 20 mEq Left arm pain Diclofenac gel will be added to the knee also Review of Systems General: Fatigue, Malaise Objective Exam Vital Signs Vital Signs Date Time Temp Pulse Resp B/P (MAP) Pulse Ox O2 Delivery O2 Flow Rate FiO2 02/15/21 20:42 36.5 60 20 148/78 (101) 93 Room Air Capillary Refill : General Appearance: No Apparent Distress, WD/WN, Chronically ill, Obese HEENT: PERRL/EOMI, Normal ENT Inspection, Pharynx Normal Neck: Full Range of Motion, Normal Inspection, Non Tender, Supple, Carotid Bruit Respiratory: Chest Non Tender, Lungs Clear, Normal Breath Sounds, No Accessory Muscle Use, No Respiratory Distress Cardiovascular: Regular Rate, Rhythm, No Edema, No Gallop, No JVD, No Murmur, Normal Peripheral Pulses Gastrointestinal: Normal Bowel Sounds, No Organomegaly, No Pulsatile Mass, Non Tender, Soft Back: Normal Inspection, No CVA Tenderness, No Vertebral Tenderness Extremity: Normal Capillary Refill, Normal Inspection, Normal Range of Motion, Non Tender, No Calf Tenderness, No Pedal Edema Neurologic/Psychiatric: Alert, Oriented x3, No Motor/Sensory Deficits, Normal Mood/Affect, christmas tree 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 FIM Transfers Therapy Code Descriptions/Definitions Functional [place] Measure: 0=Not Assessed/NA 4=Minimal Assistance 1=Total Assistance 5=Supervision or Setup 2=Maximal Assistance 6=Modified [place] 3=Moderate Assistance 7=Complete IndependenceSCALE: Activities may be completed with or without assistive devices. 6-Mqqyoeshjg-fsqlqio completes the activity by him/herself with no assistance from a helper. 5-Set-up or Clean-up Assistance-helper sets up or cleans up; patient completes activity. [place] assists only prior to or following the activity. 4-Supervision or Touching Assistance-helper provides verbal cues and/or touching/steadying and/or contact guard assistance as patient completes activity. Assistance may be provided throughout the activity or intermittently. 3-Partial/Moderate Assistance-helper does LESS THAN HALF the effort. [place] lifts, holds or supports trunk or limbs, but provides less than half the effort. 2-Substantial/Maximal Assistance-helper does MORE THAN HALF the effort. [place] lifts or holds trunk or limbs and provides more than half the effort. 0-Oqruknupl-rrknmq does ALL the effort. Patient does none of the effort to complete the activity. Or, the assistance of 2 or more helpers is required for the patient to complete the activity. If activity was not attempted, code reason: 7-Patient Refused. 9-Not Applicable-not attempted and the patient did not perform the activity before the current illness, exacerbation or injury. 10-Not Attempted due to Environmental Limitations-(lack of equipment, weather restraints, etc.). 88-Not Attempted due to Medical Conditions or Safety Concerns. Roll Left to Right (QC): 6 Sit to Lying (QC): 6 Sit to Stand (QC): 5 Chair/Xbu-di-Oqhgj Xfer(QC): 5 Car Transfer (QC): 3 Gait Training Does the Patient Walk?: Yes Distance: 120'x2 Walk 10 feet (QC): 5 Walk 50 ft with 2 Turns(QC): 5 Walk 150 ft (QC): 4 Walking 10ft/uneven surface-QC: 88 Gait Persons Needed: 1 Gait Assistive Device: FWW Wheelchair Training Does the Pt Use a Wheelchair?: No Wheel 50 ft with 2 turns (QC): 1 Wheel 150 ft (QC): 1 Type of Wheelchair: N/A Stair Training 1 Step (curb) (QC): 88 4 Steps (QC): 88 12 Steps (QC): 88 Balance Picking up an Object (QC): 4 (using a reproduction artist) ADL-Treatment Eating (QC): 5 Oral Hygiene (QC): 4 Shower/Bathe Self (QC): 3 Upper Body Dressing (QC): 3 (assist to pulley man L shoulder and around torso) Lower Body Dressing (QC): 3 On/Off Footwear (QC): 3 Toileting Hygiene (QC): 3 (min a for clothing management) Toilet Transfer (QC): 3 (min a for liftting boost) Assessment/Plan Assessment and Plan Assess & Plan/Chief Complaint Assessment: Severe debility New onset insulin-dependent diabetes with DKA Status post right perineal abscess status post incision and drainage by Dr. FISHER uncomplicated Hypertension Hyperlipidemia Depression Cognitive deficit Plan: Supportive care Inpatient rehab Appreciate Dr. FISHER Wound care 02/10/2021: Patient doing well Continue wound care Blood sugars improved 02/11/2021: Reviewed blood sugars Supportive care 02/12/21: Monitor closely Decrease insulin 02/13/2021: Blood sugar control Monitor nausea 02/14/21: Eval cognition baseline with 02/15/2021: Supportive care Insulin (1) Severe sepsis Status: Acute (2) Abscess of left buttock Status: Acute (3) DKA (diabetic ketoacidosis) Status: Acute BERNA BRAVO DO Feb 15, 2021 10:45
--- NOTE | 2021-02-15 11:04 | Physical Therapy Daily Note ---
PT Daily Note-Current Subjective Pt. in bed. Agrees to Rx. Expresses that she feels better but still has some pain in left shoulder and right knee. Pt. does not rate her pain. 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 Son very encouraging and supportive Pain Location: No Pain Reported Mental Status Patient Orientation: Person, Place Transfers SCALE: Activities may be completed with or without assistive devices. 8-Oqagyzgmxf-okvvpyi completes the activity by him/herself with no assistance from a helper. 5-Set-up or Clean-up Assistance-helper sets up or cleans up; patient completes activity. [place] assists only prior to or following the activity. 4-Supervision or Touching Assistance-helper provides verbal cues and/or touching/steadying and/or contact guard assistance as patient completes activity. Assistance may be provided throughout the activity or intermittently. 3-Partial/Moderate Assistance-helper does LESS THAN HALF the effort. [place] lifts, holds or supports trunk or limbs, but provides less than half the effort. 2-Substantial/Maximal Assistance-helper does MORE THAN HALF the effort. [place] lifts or holds trunk or limbs and provides more than half the effort. 7-Hhffvhufo-xwxbhi does ALL the effort. Patient does none of the effort to complete the activity. Or, the assistance of 2 or more helpers is required for the patient to complete the activity. If activity was not attempted, code reason: 7-Patient Refused. 9-Not Applicable-not attempted and the patient did not perform the activity before the current illness, exacerbation or injury. 10-Not Attempted due to Environmental Limitations-(lack of equipment, weather restraints, etc.). 88-Not Attempted due to Medical Conditions or Safety Concerns. Roll Left & Right (QC): 6 Sit to Lying (QC): 6 Lying to Sitting/Side of Bed(Q: 6 Sit to Stand (QC): 6 Chair/Enp-ue-Anzrl Xfer(QC): 6 Weight Bearing Patient has been cleared to bear weight on her left arm and can use a walker. Gait Training Does the Patient Walk?: Yes Walk 10 feet (QC): 5 Walk 50 ft with 2 Turns(QC): 5 Walk 150 ft (QC): 5 Gait Persons Needed: 1 Gait Assistive Device: FWW pt. veers as she walks with FWW. Pt. is easily distracted and needs reoriented to her destination Balance Special Test Comments AHUMADA begun and will finish this PM Exercises Supine Ex: Bridging, Ankle pumps, Quad Set, Rolling, Glut sets, Heel Slides, Short Arc Quads, Scooting, Straight leg raise, Hip abd/add Supine Reps: 20 Seated Therapy Exercises: Ankle pumps, Sit to stand, Long arc quads, Hip flexion Seated Reps: 15 NuStep Minutes: 10 NuStep Workload: 3 Neuromuscular AHUMADA begun, see soft chart; to be scanned in perm chart Assessment Current Status: Good Progress PT Short Term Goals Short Term Goals Time Frame: Feb 16, 2021 Roll Left & Right: 6 Sit to lyin Lying to sitting on side of be: 6 Sit to stand: 4 Chair/vln-ip-otksa transfer: 4 Walk 10 feet: 4 Walk 50 feet with two turns: 4 PT Railroad Track Inspector Goals Care Home Goals PT Railroad Track Inspector Goals Time Frame: Mar 02, 2021 Roll Left & Right (QC): 6 Sit to Lying (QC): 6 Lying-Sitting on Side/Bed(QC): 6 Sit to Stand (QC): 5 Chair/Iwf-kc-Kojvw Xfer(QC): 5 Toilet Transfer (QC): 5 Car Transfer (QC): 4 Does the Patient Walk: Yes Walk 10 feet (QC): 5 Walk 50ft with 2 Turns (QC): 5 Walk 150 ft (QC): 5 Walking 10ft on Uneven Surface: 4 1 Step (curb) (QC): 4 4 Steps (QC): 4 12 Steps (QC): 88 Picking up an Object (QC): 5 Wheel 50 feet with 2 turns (QC: 9 Wheel 150 feet: 9 PT Plan Treatment/Plan Treatment Plan: Continue Plan of Care Treatment Plan: Bed Mobility, Education, Functional Activity Nas, Functional Strength, Group Therapy, Gait, Safety, Therapeutic Exercise, Transfers Treatment Duration: Mar 02, 2021 Frequency: At least 5 of 7 days/Wk (IRF) Estimated Hrs Per Day: 1.5 hours per day Patient and/or Family Agrees t: Yes Safety Risks/Education Patient Education: Gait Training, Transfer Techniques, Correct Positioning, Disease Process, Safety Issues Teaching Recipient: Patient Teaching Methods: Demonstration, Discussion Response to Teaching: Verbalize Understanding, Return Demonstration, Reinforcement Needed Time/GCodes Time In: 1000 Time Out: 1100 Total Billed Treatment Time: 60 Total Billed Treatment 1,NM10m,EX35m,GT15m MAHAMED ALLISON ENTERTAINER OR VARIETY ARTIST Feb 15, 2021 11:04
[2021-02-15] MEDS: ACETAMINOPHEN 500 MG TAB (TYLENOL) PO PRN (11:59)
--- NOTE | 2021-02-15 11:59 | Occupational Ther Daily Note ---
OT Current Status-Daily Note Subjective Agreeable to treatment. Appearance Left sitting in recliner, all needs within reach, RN in room. ADL-Treatment Therapy Code Descriptions/Definitions Functional [place] Measure: 0=Not Assessed/NA 4=Minimal Assistance 1=Total Assistance 5=Supervision or Setup 2=Maximal Assistance 6=Modified [place] 3=Moderate Assistance 7=Complete IndependenceSCALE: Activities may be completed with or without assistive devices. 8-Znarcynnsa-qugpqdr completes the activity by him/herself with no assistance from a helper. 5-Set-up or Clean-up Assistance-helper sets up or cleans up; patient completes activity. [place] assists only prior to or following the activity. 4-Supervision or Touching Assistance-helper provides verbal cues and/or touching/steadying and/or contact guard assistance as patient completes activi ty. Assistance may be provided throughout the activity or intermittently. 3-Partial/Moderate Assistance-helper does LESS THAN HALF the effort. [place] lifts, holds or supports trunk or limbs, but provides less than half the effort. 2-Substantial/Maximal Assistance-helper does MORE THAN HALF the effort. [place] lifts or holds trunk or limbs and provides more than half the effort. 0-Ebahjhghl-aaijvu does ALL the effort. Patient does none of the effort to complete the activity. Or, the assistance of 2 or more helpers is required for the patient to complete the activity. If activity was not attempted, code reason: 7-Patient Refused. 9-Not Applicable-not attempted and the patient did not perform the activity before the current illness, exacerbation or injury. 10-Not Attempted due to Environmental Limitations-(lack of equipment, weather restraints, etc.). 88-Not Attempted due to Medical Conditions or Safety Concerns. Other Treatment While supine, OT performed manual therapy to LUE including: shoulder flexion, abduction, and internal/external rotation. Shoulder flexion noted to ~130 degrees. Improved external rotation to ~30 degrees and abduction to ~60 degrees. External rotation appears to be most painful for patient and at times pt will pull arm from therapist and is resistant to movement. Gentle massage at levator scapulea/trap to aid in reducing tightness/tension. Pt able to complete AROM exercises elbow-distally 12x1 in all planes. Education OT Patient Education: Correct positioning, Exercise program, Progress toward Goal/Update tx plan, Purpose of tx/functional activities Teaching Recipient: Patient Teaching Methods: Discussion Response to Teaching: Verbalize Understanding, Reinforcement Needed OT Short Term Goals Short Term Goals Time Frame: Feb 23, 2021 Eatin Oral hygiene: 5 Toileting hygiene: 3 Shower/bathe self: 3 Upper body dressin Lower body dressin Putting on/taking off footwear: 3 OT Fpc Goals Fpc Goals Time Frame: Mar 03, 2021 Eating (QC): 6 Oral Hygiene (QC): 6 Toileting Hygiene (QC): 5 Shower/Bathe Self (QC): 5 Upper Body Dressing (QC): 5 Lower Body Dressing (QC): 5 On/Off Footwear (QC): 5 1=Demonstrate adherence to instructed precautions during ADL tasks. 2=Patient will verbalize/demonstrate understanding of assistive devices/modifications for ADL. 3=Patient will improve strength/tolerance for activity to enable patient to perform ADL's. OT Education/Plan Problem List/Assessment Assessment: Decreased Activ Tolerance, Decreased Safety Aware, Decreased UE Strength, Impaired I ADL's, Impaired Self-Care Skills, Restricted Funct UE ROM Discharge Recommendations Plan/Recommendations: Continue POC Treatment Plan/Plan of Care Treatment,Training & Education: Yes Patient would benefit from OT for education, treatment and training to promote independence in ADL's, mobility, safety and/or upper extremity function for ADL's. Plan of Care: ADL Retraining, Cognitive Retraining, Functional Mobility, Group Exercise/Act as Ind, UE Funct Exercise/Act, W/C Management Training Treatment Duration: Mar 03, 2021 Frequency: At least 5 of 7 days/Wk (IRF) Estimated Hrs Per Day: 1.5 hours per day Agreement: Yes Rehab Potential: Fair Time/GCodes Start Time: 11:25 Stop Time: 11:55 Total Time Billed (hr/min): 30 Billed Treatment Time 1 visit MAN (20 min) EX (10 min) Thea Marquis OT Feb 15, 2021 11:59
--- NOTE | 2021-02-15 13:37 | Physical Therapy Daily Note ---
PT Daily Note-Current Subjective Pt. sitting in bed eating lunch. Nurse reports pt. did not like what was brought originally and reordered . Pt. agrees to exercises and up in chair for lunch. Pain Location: No Pain Reported Mental Status Patient Orientation: Person, Place Transfers SCALE: Activities may be completed with or without assistive devices. 3-Hqbdxpchmw-yylrpby completes the activity by him/herself with no assistance from a helper. 5-Set-up or Clean-up Assistance-helper sets up or cleans up; patient completes activity. [place] assists only prior to or following the activity. 4-Supervision or Touching Assistance-helper provides verbal cues and/or touching/steadying and/or contact guard assistance as patient completes acti vity. Assistance may be provided throughout the activity or intermittently. 3-Partial/Moderate Assistance-helper does LESS THAN HALF the effort. [place] lifts, holds or supports trunk or limbs, but provides less than half the effort. 2-Substantial/Maximal Assistance-helper does MORE THAN HALF the effort. [place] lifts or holds trunk or limbs and provides more than half the effort. 1-Odgsxonsl-qwcjdd does ALL the effort. Patient does none of the effort to complete the activity. Or, the assistance of 2 or more helpers is required for the patient to complete the activity. If activity was not attempted, code reason: 7-Patient Refused. 9-Not Applicable-not attempted and the patient did not perform the activity before the current illness, exacerbation or injury. 10-Not Attempted due to Environmental Limitations-(lack of equipment, weather restraints, etc.). 88-Not Attempted due to Medical Conditions or Safety Concerns. all bed mob, in out bed , SBA Weight Bearing Patient has been cleared to bear weight on her left arm and can use a walker. Gait Training Gait Assistive Device: FWW 25 ft inside room with FWW SBA no LOB, managed AD well Exercises Supine Ex: Ankle pumps, Quad Set, Rolling, Heel Slides, Scooting, Straight leg raise, Hip abd/add Supine Reps: 12 Seated Therapy Exercises: Ankle pumps, Sit to stand, Long arc quads, Hip flexion Seated Reps: 10 Treatments up in recliner after Rx with chair alarm on , call kirby at hand and lunch on tray in front of her Assessment Current Status: Good Progress PT Short Term Goals Short Term Goals Time Frame: Feb 16, 2021 Roll Left & Right: 6 Sit to lyin Lying to sitting on side of be: 6 Sit to stand: 4 Chair/kpp-ay-hzsus transfer: 4 Walk 10 feet: 4 Walk 50 feet with two turns: 4 PT Health Science Specialist Goals Health Science Specialist Goals PT Correction Goals Time Frame: Mar 02, 2021 Roll Left & Right (QC): 6 Sit to Lying (QC): 6 Lying-Sitting on Side/Bed(QC): 6 Sit to Stand (QC): 5 Chair/Aaf-rv-Knovm Xfer(QC): 5 Toilet Transfer (QC): 5 Car Transfer (QC): 4 Does the Patient Walk: Yes Walk 10 feet (QC): 5 Walk 50ft with 2 Turns (QC): 5 Walk 150 ft (QC): 5 Walking 10ft on Uneven Surface: 4 1 Step (curb) (QC): 4 4 Steps (QC): 4 12 Steps (QC): 88 Picking up an Object (QC): 5 Wheel 50 feet with 2 turns (QC: 9 Wheel 150 feet: 9 PT Plan Treatment/Plan Treatment Plan: Continue Plan of Care Treatment Plan: Bed Mobility, Education, Functional Activity Nas, Functional Strength, Group Therapy, Gait, Safety, Therapeutic Exercise, Transfers Treatment Duration: Mar 02, 2021 Frequency: At least 5 of 7 days/Wk (IRF) Estimated Hrs Per Day: 1.5 hours per day Patient and/or Family Agrees t: Yes Safety Risks/Education Patient Education: Gait Training, Transfer Techniques Time/GCodes Time In: 1315 Time Out: 1335 Total Billed Treatment Time: 20 Total Billed Treatment 1,FA20m MAHAMED ALLISON CENTRAL SUPPLY TECH Feb 15, 2021 13:37
[2021-02-15 20:42] VITALS: BP 148/78
[2021-02-16] MEDS: inSUlin ASPART (NovoLOG) 1 UNIT/0.01 ML (CHARGE PER UNIT) SC SCH ×4 (06:14→20:43)
[2021-02-16] MEDS: KCL 20 MEQ TAB (K-DUR) PO SCH (06:19)
[2021-02-16] MEDS: CATHETER FLUSH 10 ML SYR IV SCH ×3 (06:19→20:57)
[2021-02-16 07:34] VITALS: BP 140/80
[2021-02-16] MEDS: amLODIPine 5 MG (NORVASC) TAB PO SCH (09:53)
[2021-02-16] MEDS: PANTOPRAZOLE 40 MG (PROTONIX) TAB PO SCH (09:53)
[2021-02-16] MEDS: DOCUSATE SODIUM 100 MG (COLACE) CAP PO SCH ×2 (09:53→20:36)
[2021-02-16] MEDS: LOSARTAN 100 MG (COZAAR) TABLET PO SCH (09:53)
[2021-02-16] MEDS: ASPIRIN 81 MG CHEW (CHILDREN'S ASA) PO SCH (09:53)
[2021-02-16] MEDS: polyethylene glycoL POWDER 17 GM (MIRALAX) PACK PO SCH ×2 (09:53→20:36)
[2021-02-16] MEDS: SENNA W/DOCUSATE (SENOKOT S) TABLET PO SCH ×2 (09:53→20:37)
[2021-02-16] MEDS: SERTRALINE 100 MG (ZOLOFT) TAB PO SCH (09:53)
[2021-02-16] MEDS: DICLOFENAC 1% GEL 100 GM (VOLTAREN) TUBE TOP SCH ×4 (09:54→20:44)
[2021-02-16] MEDS: MICONAZOLE 2% POWDER (DESENEX AF) 90 GM TOP SCH ×2 (09:54→20:43)
--- NOTE | 2021-02-16 10:39 | Occupational Ther Daily Note ---
OT Current Status-Daily Note Subjective Pt agreeable to treatment. Co-treat with PT for part of session ([id number]) due to spouse in for family training. Appearance Pt left sitting in gym with physical therapy and spouse. ADL-Treatment Therapy Code Descriptions/Definitions Functional [place] Measure: 0=Not Assessed/NA 4=Minimal Assistance 1=Total Assistance 5=Supervision or Setup 2=Maximal Assistance 6=Modified [place] 3=Moderate Assistance 7=Complete IndependenceSCALE: Activities may be completed with or without assistive devices. 1-Basfgbvwwh-qkjpirj completes the activity by him/herself with no assistance from a helper. 5-Set-up or Clean-up Assistance-helper sets up or cleans up; patient completes activity. [place] assists only prior to or following the activity. 4-Supervision or Touching Assistance-helper provides verbal cues and/or touching/steadying and/or contact guard assistance as patient completes activity. Assistance may be provided throughout the activity or intermittently. 3-Partial/Moderate Assistance-helper does LESS THAN HALF the effort. [place] lifts, holds or supports trunk or limbs, but provides less than half the effort. 2-Substantial/Maximal Assistance-helper does MORE THAN HALF the effort. [place] lifts or holds trunk or limbs and provides more than half the effort. 0-Igiqzdocg-vmnvgf does ALL the effort. Patient does none of the effort to complete the activity. Or, the assistance of 2 or more helpers is required for the patient to complete the activity. If activity was not attempted, code reason: 7-Patient Refused. 9-Not Applicable-not attempted and the patient did not perform the activity before the current illness, exacerbation or injury. 10-Not Attempted due to Environmental Limitations-(lack of equipment, weather restraints, etc.). 88-Not Attempted due to Medical Conditions or Safety Concerns. Oral Hygiene (QC): 4 Upper Body Dressing (QC): 3 Lower Body Dressing (QC): 3 Toileting Hygiene (QC): 4 Toilet Transfer (QC): 4 Pt declined shower, required encouragement to change clothes. Continues to have poor safety awareness during adls, needing mod-max verbal cues. Pt will often verbalize "yes, uh huh" but then not follow through with command. When OT discussed this with patient, she was unable to give reasoning for refusal. When doffing LB clothing, pt turned around in multiple circles and attempted to kick pants off LE's. No unsteadiness observed but required cue to sit for safety. Less effort exhibited with task once sitting. She was able to bend at waist to thread [place] feet into pants but then required Min a with RLE due to non-slip sock getting caught on inside of her pants and patient impulsively trying to pull on leg. She stood with SBA to pull clothing over hips, no assist required this date. Pt initially denies need to toilet, but after encouragement from therapist agreed to sit on stool. Immediately after sitting, pt voided. Often, pt leaving walker off to side or not using correctly despite multiple cues. Thus, walker removed and pt ambulated around room with hand held assist. Spouse Pietro present towards end of session for family training. OT discussed poor safety awareness and impulsivity noted during ADLs. Pietro reports that this is normal behavior for the patient. Education/discussion on what assist/cues will be needed. Spouse asked appropriate questions and verbalizes that pt appears to be doing better than prior to admission. Other Treatment While supine, OT performed manual therapy to LUE including: shoulder flexion, abduction, and internal/external rotation. Pt more resistant to shoulder flexion this date and only able to tolerate ~90 degrees. Improved external rotation to ~35-40 degrees and abduction to ~65 degrees. External rotation appears to be most painful for patient and at times pt will pull arm from therapist and is resistant to movement. Gentle massage at levator scapulea/trap to aid in reducing tightness/tension. Pt able to complete AROM exercises elbow-distally 12x1 in all planes. Education OT Patient Education: Correct positioning, Disease process, Energy conservation, Exercise program, Modified ADL techniques, Progress toward Goal/Update tx plan, Purpose of tx/functional activities, Reviewed precautions, Safety issues, Transfer techniques Teaching Recipient: Patient, Family Teaching Methods: Demonstration, Discussion Response to Teaching: Verbalize Understanding, Reinforcement Needed OT Short Term Goals Short Term Goals Time Frame: Feb 23, 2021 Eatin Oral hygiene: 5 Toileting hygiene: 3 Shower/bathe self: 3 Upper body dressin Lower body dressin Putting on/taking off footwear: 3 OT Fpc Goals Scrape Gatherer Goals Time Frame: Mar 03, 2021 Eating (QC): 6 Oral Hygiene (QC): 6 Toileting Hygiene (QC): 5 Shower/Bathe Self (QC): 5 Upper Body Dressing (QC): 5 Lower Body Dressing (QC): 5 On/Off Footwear (QC): 5 1=Demonstrate adherence to instructed precautions during ADL tasks. 2=Patient will verbalize/demonstrate understanding of assistive devices/modifications for ADL. 3=Patient will improve strength/tolerance for activity to enable patient to perform ADL's. OT Education/Plan Problem List/Assessment Assessment: Decreased Activ Tolerance, Decreased Safety Aware, Decreased UE Strength, Impaired Cognition, Impaired I ADL's, Impaired Self-Care Skills, Restricted Funct UE ROM Discharge Recommendations Plan/Recommendations: Continue POC Treatment Plan/Plan of Care Treatment,Training & Education: Yes Patient would benefit from OT for education, treatment and training to promote independence in ADL's, mobility, safety and/or upper extremity function for ADL's. Plan of Care: ADL Retraining, Cognitive Retraining, Functional Mobility, Group Exercise/Act as Ind, UE Funct Exercise/Act, W/C Management Training Treatment Duration: Mar 03, 2021 Frequency: At least 5 of 7 days/Wk (IRF) Estimated Hrs Per Day: 1.5 hours per day Agreement: Yes Rehab Potential: Fair Time/GCodes Start Time: 09:15 Stop Time: 10:30 Total Time Billed (hr/min): 75 Billed Treatment Time 1 visit ADL x3 (50 min) MAN x2 (25 min) co-treat/family training with PT for 30 min Thea Marquis OT Feb 16, 2021 10:39
--- NOTE | 2021-02-16 11:02 | Physical Therapy Daily Note ---
PT Daily Note-Current Subjective Pt., her and OT present for spouse observation and training in anticipation of DC. Pt initially agreeable to rx but toward end of PT pt. resistive of continuing Rx and needed much encouragement. Pt. c/o she was just tired and ready to lay down Pain Numeric Pain Scale: 4 Location: Left Location Body Site: Shoulder Pain Description: Ache Mental Status Patient Orientation: Person pt. had to think but could state the name of this facility, the month , needed assist with day of the week and did not know her room number. Pt. also was told before beginning Nustep machine that she would be exercising for 8 mins but could not remember this and needed reminded several times. pt. also became irritated and rolled eyes during final 10 mins of Rx Transfers SCALE: Activities may be completed with or without assistive devices. 5-Iukyqkesxl-vruohon completes the activity by him/herself with no assistance from a helper. 5-Set-up or Clean-up Assistance-helper sets up or cleans up; patient completes activity. [place] assists only prior to or following the activity. 4-Supervision or Touching Assistance-helper provides verbal cues and/or t ouching/steadying and/or contact guard assistance as patient completes activity. Assistance may be provided throughout the activity or intermittently. 3-Partial/Moderate Assistance-helper does LESS THAN HALF the effort. [place] lifts, holds or supports trunk or limbs, but provides less than half the effort. 2-Substantial/Maximal Assistance-helper does MORE THAN HALF the effort. [place] lifts or holds trunk or limbs and provides more than half the effort. 9-Zdqgevxfd-mdzrnj does ALL the effort. Patient does none of the effort to complete the activity. Or, the assistance of 2 or more helpers is required for the patient to complete the activity. If activity was not attempted, code reason: 7-Patient Refused. 9-Not Applicable-not attempted and the patient did not perform the activity before the current illness, exacerbation or injury. 10-Not Attempted due to Environmental Limitations-(lack of equipment, weather restraints, etc.). 88-Not Attempted due to Medical Conditions or Safety Concerns. Roll Left & Right (QC): 6 Sit to Lying (QC): 6 Lying to Sitting/Side of Bed(Q: 6 Sit to Stand (QC): 6 Chair/Eoq-de-Kffyn Xfer(QC): 5 Car Transfer (QC): 5 Weight Bearing Patient has been cleared to bear weight on her left arm and can use a walker. Gait Training Does the Patient Walk?: Yes Walk 10 feet (QC): 5 Walk 50 ft with 2 Turns(QC): 5 Walk 150 ft (QC): 5 Gait Persons Needed: 1 Gait Assistive Device: FWW Pt. needs directed to her goal /destination during gait training, pt. does flex trunk over FWW and weight bears moderately on hakan RUE. AHUMADA completed and indicates either cane or FWW . Pt. cannot coordinate use of cane sequence. OT shares as does that pt. will like not use FWW or will abandon it. This FASHION BUYER recommends its use as long as she is still in need of FT supervision who can instruct to use this when she ambulates . Pts orthopedic situation with her knees causing pain also warrants use of wt bearing device to help alleviate some discomfort in bilat knees Stair Training Stair Training: Handrails/: 1 handrail #of Steps: 4 4 Steps (QC): 4 Stairs: Pattern: Step to present and shares this is how they approach stairs at home as well. pt. needs CGA as well as instruction for sequence on steps Balance Special Test Comments AHUMADA score 46/56 Exercises NuStep Minutes: 8 NuStep Workload: 2 Assessment Current Status: Good Progress cognition, mood swings and memory issues cont. FT supervision recommended PT Short Term Goals Short Term Goals Time Frame: Feb 16, 2021 Roll Left & Right: 6 Sit to lyin Lying to sitting on side of be: 6 Sit to stand: 4 Chair/clb-rf-zslap transfer: 4 Walk 10 feet: 4 Walk 50 feet with two turns: 4 PT Supervisor Sawing And Assembly Goals [facility]sp Goals PT Supervisor Sawing And Assembly Goals Time Frame: Mar 02, 2021 Roll Left & Right (QC): 6 Sit to Lying (QC): 6 Lying-Sitting on Side/Bed(QC): 6 Sit to Stand (QC): 5 Chair/Cic-au-Sfdyi Xfer(QC): 5 Toilet Transfer (QC): 5 Car Transfer (QC): 4 Does the Patient Walk: Yes Walk 10 feet (QC): 5 Walk 50ft with 2 Turns (QC): 5 Walk 150 ft (QC): 5 Walking 10ft on Uneven Surface: 4 1 Step (curb) (QC): 4 4 Steps (QC): 4 12 Steps (QC): 88 Picking up an Object (QC): 5 Wheel 50 feet with 2 turns (QC: 9 Wheel 150 feet: 9 PT Plan Treatment/Plan Treatment Plan: Continue Plan of Care Treatment Plan: Bed Mobility, Education, Functional Activity Nas, Functional Strength, Group Therapy, Gait, Safety, Therapeutic Exercise, Transfers Treatment Duration: Mar 02, 2021 Frequency: At least 5 of 7 days/Wk (IRF) Estimated Hrs Per Day: 1.5 hours per day Patient and/or Family Agrees t: Yes Safety Risks/Education Patient Education: Gait Training, Transfer Techniques, Steps, Correct Positioning, Instructions to Caregiver, Disease Process, Safety Issues Teaching Recipient: Patient Teaching Methods: Demonstration, Discussion Response to Teaching: Verbalize Understanding, Return Demonstration, Reinforcement Needed Time/GCodes Time In: 1000 Time Out: 1100 Total Billed Treatment Time: 60 Total Billed Treatment 1,NM15m,GT15m,FA15m,EX15m MAHAMED ALLISON PTA Feb 16, 2021 11:02
--- NOTE | 2021-02-16 11:18 | PM&R Progress Note ---
Subjective HPI/CC On Admission Date Seen by Provider: Feb 16, 2021 Time Seen by Provider: 11:15 Subjective/Events-last exam 02/08/2021: Patient doing very well at bedside No confusion noted wound looks good Ready for discharge on 02/20/2021 02/15/2021: Patient doing well No more loose stools Holding laxatives Refusing to learn how to give injections Son here visiting Cognition is deficient 02/14/21: Pt doing okay Bed alarm due to very labile and impulsive Memory deficit will addressed with Nausea is improved now 02/13/2021: Patient doing well Had some nausea after breakfast Bowels are moving Blood sugars maintained in good control 02/12/21: Pt doing well Full range of motion of the shoulder after X-ray obtained that Keven Graff needed Sugars noted so will decrease insulin since they are getting low 02/11/2021: Patient doing really well Sleeping currently Voltaren gel really helps Blood sugars reviewed No falls Pain is well controlled 02/10/21: Patient doing really well Perineal abscess was packed Potassium will be supplemented maintained on 20 mEq Left arm pain Diclofenac gel will be added to the knee also Review of Systems General: Fatigue, Malaise Neurological: Confusion Objective Exam Vital Signs Vital Signs Date Time Temp Pulse Resp B/P (MAP) Pulse Ox O2 Delivery O2 Flow Rate FiO2 02/16/21 21:04 Room Air 02/16/21 19:48 36.4 73 16 140/72 (94) 92 02/16/21 15:33 0.00 Capillary Refill : General Appearance: No Apparent Distress, WD/WN, Chronically ill, Obese HEENT: PERRL/EOMI, Normal ENT Inspection, Pharynx Normal Neck: Full Range of Motion, Normal Inspection, Non Tender, Supple, Carotid Bruit Respiratory: Chest Non Tender, Lungs Clear, Normal Breath Sounds, No Accessory Muscle Use, No Respiratory Distress Cardiovascular: Regular Rate, Rhythm, No Edema, No Gallop, No JVD, No Murmur, Normal Peripheral Pulses Gastrointestinal: Normal Bowel Sounds, No Organomegaly, No Pulsatile Mass, Non Tender, Soft Back: Normal Inspection, No CVA Tenderness, No Vertebral Tenderness Extremity: Normal Capillary Refill, Normal Inspection, Normal Range of Motion, Non Tender, No Calf Tenderness, No Pedal Edema Neurologic/Psychiatric: Alert, Oriented x3, No Motor/Sensory Deficits, Normal Mood/Affect, senior information security 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 FIM Transfers Therapy Code Descriptions/Definitions Functional [place] Measure: 0=Not Assessed/NA 4=Minimal Assistance 1=Total Assistance 5=Supervision or Setup 2=Maximal Assistance 6=Modified [place] 3=Moderate Assistance 7=Complete IndependenceSCALE: Activities may be completed with or without assistive devices. 0-Xyrrwhpnmb-bvpqnnn completes the activity by him/herself with no assistance from a helper. 5-Set-up or Clean-up Assistance-helper sets up or cleans up; patient completes activity. [place] assists only prior to or following the activity. 4-Supervision or Touching Assistance-helper provides verbal cues and/or touching/steadying and/or contact guard assistance as patient completes activity. Assistance may be provided throughout the activity or intermittently. 3-Partial/Moderate Assistance-helper does LESS THAN HALF the effort. [place] lifts, holds or supports trunk or limbs, but provides less than half the effort. 2-Substantial/Maximal Assistance-helper does MORE THAN HALF the effort. [place] lifts or holds trunk or limbs and provides more than half the effort. 4-Rugqtqudp-prxyqz does ALL the effort. Patient does none of the effort to complete the activity. Or, the assistance of 2 or more helpers is required for the patient to complete the activity. If activity was not attempted, code reason: 7-Patient Refused. 9-Not Applicable-not attempted and the patient did not perform the activity before the current illness, exacerbation or injury. 10-Not Attempted due to Environmental Limitations-(lack of equipment, weather restraints, etc.). 88-Not Attempted due to Medical Conditions or Safety Concerns. Roll Left to Right (QC): 6 Sit to Lying (QC): 6 Sit to Stand (QC): 6 Chair/Beo-vc-Pcjsp Xfer(QC): 5 Car Transfer (QC): 5 Gait Training Does the Patient Walk?: Yes Distance: 120'x2 Walk 10 feet (QC): 5 Walk 50 ft with 2 Turns(QC): 5 Walk 150 ft (QC): 5 Walking 10ft/uneven surface-QC: 88 Gait Persons Needed: 1 Gait Assistive Device: FWW Wheelchair Training Does the Pt Use a Wheelchair?: No Wheel 50 ft with 2 turns (QC): 1 Wheel 150 ft (QC): 1 Type of Wheelchair: N/A Stair Training Stair Training: Handrails/: 1 handrail #of Steps: 4 1 Step (curb) (QC): 88 4 Steps (QC): 4 12 Steps (QC): 88 Stairs: Pattern: Step to Balance Picking up an Object (QC): 4 (using a gardener florist) ADL-Treatment Eating (QC): 5 Oral Hygiene (QC): 4 Shower/Bathe Self (QC): 3 Upper Body Dressing (QC): 3 Lower Body Dressing (QC): 3 On/Off Footwear (QC): 3 Toileting Hygiene (QC): 4 Toilet Transfer (QC): 4 Assessment/Plan Assessment and Plan Assess & Plan/Chief Complaint Assessment: Severe debility New onset insulin-dependent diabetes with DKA Status post right perineal abscess status post incision and drainage by Dr. FISHER uncomplicated Hypertension Hyperlipidemia Depression Cognitive deficit Plan: Supportive care Inpatient rehab Appreciate Dr. FISHER Wound care 02/10/2021: Patient doing well Continue wound care Blood sugars improved 02/11/2021: Reviewed blood sugars Supportive care 02/12/21: Monitor closely Decrease insulin 02/13/2021: Blood sugar control Monitor nausea 02/14/21: Eval cognition baseline with 02/15/2021: Supportive care Insulin 02/16/2021: Cognition much improved had family training today (1) Severe sepsis Status: Acute (2) Abscess of left buttock Status: Acute (3) DKA (diabetic ketoacidosis) Status: Acute BERNA BRAVO DO Feb 16, 2021 11:18
--- NOTE | 2021-02-16 11:21 | Speech Therapy Daily Note ---
Speech Daily Progress Note Subjective Date Seen by Provider: Feb 16, 2021 Time Seen by Provider: 08:30 The patient was lying supine in bed, alert and awake. The patient greeted the clinician appropriately and was agreeable to participation in the cognitive linguistic treatment session. Per patient, "My room seems like a different room but I know that it's not. I know I am wrong." The patient's statement displays confusion however increased self-awareness of confused thought processes. Objective - Orientation: The patient is independently oriented to city, month, date, and year. The patient is one day in error of the accurate day (""). While increased processing time was provided, the patient does display consistency with orientation questions throughout the prior three treatment sessions. - Function recall/informal conversation: The patient independently recalled her visiting on this date to complete education and training. The patient reports anxiety and excitement surrounding his visit and states she is "ready!" The patient does display intermittent word-finding throughout the discussions, displaying circumlocution and synonym use consistently. - Word List Retention: The patient was provided three words and four words and asked to retain the words in order to answer specific questions. The patient displayed 100% accuracy with three word list retention. The patient displayed 80% accuracy with four word list retention. The patient was able to raise accuracy to 100% with four word list retention when a verbal cue of repetition was provided. The patient does remain intermittently confused on this date. For example, the RN requested to listen to the patient's lungs. With this request, the patient opened her mouth and stared at the RN. The RN repeated the direction and the patient shook her head as if she comprehended the request however, again, opened her mouth. Due to this, a review of body part identification took place with the clinician. The patient completed the task with 100% accuracy, independently. Assessment Assessment Current Status: Good Progress Treatment Plan Continue Plan of Care Speech Short Term Goals Short Term Goals Short Term Goals 1. The patient will complete functional memory exercises related to her daily routine with 80% accuracy or better, independently. 2. The patient will complete functional safety strategies and exercises related to their daily routine (ADL's) with 80% accuracy or higher, independently. 3. The patient will complete functional problem solving exercises related to th eir daily routine with 80% accuracy or better, independently. Speech Rod Tape Operator Goals Rod Tape Operator Goals 1. The patient will improve functional abilities related to their daily routines (ADL's) in order to require decreased assistance for completion. Speech-Plan Treatment Plan Speech Therapy Treatment Plan: Continue Plan of Care Treatment Duration: Mar 09, 2021 Frequency: 4 times per week (Four to five times per week.) Estimated Hrs Per Day: .5 hour per day Rehab Potential: Fair Barriers to Learning: Intermittent confusion. Pt/Family Agrees to Plan: Yes Safety Risks/Education Teaching Recipient: Patient Teaching Methods: Demonstration, Discussion Response to Teaching: Verbalize Understanding, Return Demonstration Education Topics Provided: Word finding strategies. Time Speech Therapy Time In: 08:30 Speech Therapy Time Out: 09:00 Total Billed Time: 30 Billed Treatment Time 1ARIANNA ELIZABETH ST Feb 16, 2021 11:21
--- NOTE | 2021-02-16 13:33 | Physical Therapy Daily Note ---
PT Daily Note-Current Subjective Agrees to Rx with encouragement Pain Numeric Pain Scale: 4 Location: Right Location Body Site: Knee Pain Description: Ache Mental Status Patient Orientation: Confused Transfers SCALE: Activities may be completed with or without assistive devices. 7-Xkauzotfjn-jhyclzf completes the activity by him/herself with no assistance from a helper. 5-Set-up or Clean-up Assistance-helper sets up or cleans up; patient completes activity. [place] assists only prior to or following the activity. 4-Supervision or Touching Assistance-helper provides verbal cues and/or touching/steadying and/or contact guard assistance as patient completes acti vity. Assistance may be provided throughout the activity or intermittently. 3-Partial/Moderate Assistance-helper does LESS THAN HALF the effort. [place] lifts, holds or supports trunk or limbs, but provides less than half the effort. 2-Substantial/Maximal Assistance-helper does MORE THAN HALF the effort. [place] lifts or holds trunk or limbs and provides more than half the effort. 3-Gynfduzek-eowtcz does ALL the effort. Patient does none of the effort to complete the activity. Or, the assistance of 2 or more helpers is required for the patient to complete the activity. If activity was not attempted, code reason: 7-Patient Refused. 9-Not Applicable-not attempted and the patient did not perform the activity before the current illness, exacerbation or injury. 10-Not Attempted due to Environmental Limitations-(lack of equipment, weather restraints, etc.). 88-Not Attempted due to Medical Conditions or Safety Concerns. rolling left and right indep, pushes self p in bed indep. sup to side to sit CGA Weight Bearing Patient has been cleared to bear weight on her left arm and can use a walker. Exercises Supine Ex: Bridging, Ankle pumps, Quad Set, Rolling, Glut sets, Heel Slides, Short Arc Quads, Scooting, Straight leg raise, Hip abd/add Supine Reps: 20 PT Short Term Goals Short Term Goals Time Frame: Feb 16, 2021 Roll Left & Right: 6 Sit to lyin Lying to sitting on side of be: 6 Sit to stand: 4 Chair/wqz-nx-ysmyz transfer: 4 Walk 10 feet: 4 Walk 50 feet with two turns: 4 PT Public Health Policy Analyst Goals Mcfp Goals PT Public Health Policy Analyst Goals Time Frame: Mar 02, 2021 Roll Left & Right (QC): 6 Sit to Lying (QC): 6 Lying-Sitting on Side/Bed(QC): 6 Sit to Stand (QC): 5 Chair/Vrm-sk-Kqten Xfer(QC): 5 Toilet Transfer (QC): 5 Car Transfer (QC): 4 Does the Patient Walk: Yes Walk 10 feet (QC): 5 Walk 50ft with 2 Turns (QC): 5 Walk 150 ft (QC): 5 Walking 10ft on Uneven Surface: 4 1 Step (curb) (QC): 4 4 Steps (QC): 4 12 Steps (QC): 88 Picking up an Object (QC): 5 Wheel 50 feet with 2 turns (QC: 9 Wheel 150 feet: 9 PT Plan Treatment/Plan Treatment Plan: Continue Plan of Care Treatment Plan: Bed Mobility, Education, Functional Activity Nas, Functional Strength, Group Therapy, Gait, Safety, Therapeutic Exercise, Transfers Treatment Duration: Mar 02, 2021 Frequency: At least 5 of 7 days/Wk (IRF) Estimated Hrs Per Day: 1.5 hours per day Patient and/or Family Agrees t: Yes Safety Risks/Education Patient Education: Correct Positioning Time/GCodes Time In: 1315 Time Out: 1330 Total Billed Treatment Time: 15 Total Billed Treatment 1,EX15m MAHAMED ALLISON SUPERVISOR TUMBLERS Feb 16, 2021 13:33
[2021-02-16 19:48] VITALS: BP 140/72
[2021-02-17] MEDS: ACETAMINOPHEN 500 MG TAB (TYLENOL) PO PRN ×2 (02:44→12:33)
[2021-02-17] MEDS: KCL 20 MEQ TAB (K-DUR) PO SCH (05:24)
[2021-02-17] MEDS: CATHETER FLUSH 10 ML SYR IV SCH ×3 (05:24→20:06)
[2021-02-17] MEDS: inSUlin ASPART (NovoLOG) 1 UNIT/0.01 ML (CHARGE PER UNIT) SC SCH ×3 (05:25→18:19)
[2021-02-17 07:42] VITALS: BP 119/63
[2021-02-17] MEDS: LOSARTAN 100 MG (COZAAR) TABLET PO SCH (09:30)
[2021-02-17] MEDS: SERTRALINE 100 MG (ZOLOFT) TAB PO SCH (09:30)
[2021-02-17] MEDS: DOCUSATE SODIUM 100 MG (COLACE) CAP PO SCH ×2 (09:30→20:37)
[2021-02-17] MEDS: PANTOPRAZOLE 40 MG (PROTONIX) TAB PO SCH (09:30)
[2021-02-17] MEDS: amLODIPine 5 MG (NORVASC) TAB PO SCH (09:30)
[2021-02-17] MEDS: ASPIRIN 81 MG CHEW (CHILDREN'S ASA) PO SCH (09:33)
[2021-02-17] MEDS: polyethylene glycoL POWDER 17 GM (MIRALAX) PACK PO SCH ×2 (09:33→19:19)
[2021-02-17] MEDS: SENNA W/DOCUSATE (SENOKOT S) TABLET PO SCH ×2 (09:33→19:22)
[2021-02-17] MEDS: MICONAZOLE 2% POWDER (DESENEX AF) 90 GM TOP SCH ×2 (09:34→20:06)
[2021-02-17] MEDS: DICLOFENAC 1% GEL 100 GM (VOLTAREN) TUBE TOP SCH ×4 (09:35→20:06)
--- NOTE | 2021-02-17 12:04 | PM&R Progress Note ---
Subjective HPI/CC On Admission Date Seen by Provider: Feb 17, 2021 Time Seen by Provider: 12:10 Subjective/Events-last exam 02/17/21: Patient doing well Cognition much improved Sugars reviewed No falls Ad diane per PT 02/16/2021: Patient doing very well at bedside No confusion noted wound looks good Ready for discharge on 02/20/2021 02/15/2021: Patient doing well No more loose stools Holding laxatives Refusing to learn how to give injections Son here visiting Cognition is deficient 02/14/21: Pt doing okay Bed alarm due to very labile and impulsive Memory deficit will addressed with Nausea is improved now 02/13/2021: Patient doing well Had some nausea after breakfast Bowels are moving Blood sugars maintained in good control 02/12/21: Pt doing well Full range of motion of the shoulder after X-ray obtained that Keven Graff needed Sugars noted so will decrease insulin since they are getting low 02/11/2021: Patient doing really well Sleeping currently Voltaren gel really helps Blood sugars reviewed No falls Pain is well controlled 02/10/21: Patient doing really well Perineal abscess was packed Potassium will be supplemented maintained on 20 mEq Left arm pain Diclofenac gel will be added to the knee also Review of Systems General: Fatigue, Malaise Objective Exam Vital Signs Vital Signs Date Time Temp Pulse Resp B/P (MAP) Pulse Ox O2 Delivery O2 Flow Rate FiO2 02/17/21 07:42 36.9 65 16 119/63 (81) 97 Room Air 0.00 0.00 Capillary Refill : General Appearance: No Apparent Distress, WD/WN, Chronically ill, Obese HEENT: PERRL/EOMI, Normal ENT Inspection, Pharynx Normal Neck: Full Range of Motion, Normal Inspection, Non Tender, Supple, Carotid Bruit Respiratory: Chest Non Tender, Lungs Clear, Normal Breath Sounds, No Accessory Muscle Use, No Respiratory Distress Cardiovascular: Regular Rate, Rhythm, No Edema, No Gallop, No JVD, No Murmur, Normal Peripheral Pulses Gastrointestinal: Normal Bowel Sounds, No Organomegaly, No Pulsatile Mass, Non Tender, Soft Back: Normal Inspection, No CVA Tenderness, No Vertebral Tenderness Extremity: Normal Capillary Refill, Normal Inspection, Normal Range of Motion, Non Tender, No Calf Tenderness, No Pedal Edema Neurologic/Psychiatric: Alert, Oriented x3, No Motor/Sensory Deficits, Normal Mood/Affect, client hr manager II-XII Norm as Tested, Motor Weakness (Generalized 4/5) Skin: Normal Color, Warm/Dry Lymphatic: No Adenopathy Results/Procedures Lab Patient resulted labs reviewed. FIM Transfers Therapy Code Descriptions/Definitions Functional [place] Measure: 0=Not Assessed/NA 4=Minimal Assistance 1=Total Assistance 5=Supervision or Setup 2=Maximal Assistance 6=Modified [place] 3=Moderate Assistance 7=Complete IndependenceSCALE: Activities may be completed with or without assistive devices. 2-Nzhmmbuxax-lsnfrzi completes the activity by him/herself with no assistance from a helper. 5-Set-up or Clean-up Assistance-helper sets up or cleans up; patient completes activity. [place] assists only prior to or following the activity. 4-Supervision or Touching Assistance-helper provides verbal cues and/or touching/steadying and/or contact guard assistance as patient completes activity. Assistance may be provided throughout the activity or intermittently. 3-Partial/Moderate Assistance-helper does LESS THAN HALF the effort. [place] lifts, holds or supports trunk or limbs, but provides less than half the effort. 2-Substantial/Maximal Assistance-helper does MORE THAN HALF the effort. [place] lifts or holds trunk or limbs and provides more than half the effort. 9-Fyhmcgntq-zvdixn does ALL the effort. Patient does none of the effort to complete the activity. Or, the assistance of 2 or more helpers is required for the patient to complete the activity. If activity was not attempted, code reason: 7-Patient Refused. 9-Not Applicable-not attempted and the patient did not perform the activity before the current illness, exacerbation or injury. 10-Not Attempted due to Environmental Limitations-(lack of equipment, weather restraints, etc.). 88-Not Attempted due to Medical Conditions or Safety Concerns. Roll Left to Right (QC): 6 Sit to Lying (QC): 6 Sit to Stand (QC): 6 Chair/Lvq-ey-Mafod Xfer(QC): 5 Car Transfer (QC): 5 Gait Training Does the Patient Walk?: Yes Distance: 120'x2 Walk 10 feet (QC): 5 Walk 50 ft with 2 Turns(QC): 5 Walk 150 ft (QC): 5 Walking 10ft/uneven surface-QC: 88 Gait Persons Needed: 1 Gait Assistive Device: FWW Wheelchair Training Does the Pt Use a Wheelchair?: No Wheel 50 ft with 2 turns (QC): 1 Wheel 150 ft (QC): 1 Type of Wheelchair: N/A Stair Training Stair Training: Handrails/: 1 handrail #of Steps: 4 1 Step (curb) (QC): 88 4 Steps (QC): 4 12 Steps (QC): 88 Stairs: Pattern: Step to Balance Picking up an Object (QC): 4 (using a administrative processor) ADL-Treatment Eating (QC): 5 Oral Hygiene (QC): 4 Shower/Bathe Self (QC): 3 Upper Body Dressing (QC): 3 Lower Body Dressing (QC): 3 On/Off Footwear (QC): 3 Toileting Hygiene (QC): 4 Toilet Transfer (QC): 4 Assessment/Plan Assessment and Plan Assess & Plan/Chief Complaint Assessment: Severe debility New onset insulin-dependent diabetes with DKA Status post right perineal abscess status post incision and drainage by Dr. FISHER uncomplicated Hypertension Hyperlipidemia Depression Cognitive deficit Plan: Supportive care Inpatient rehab Appreciate Dr. FISHER Wound care 02/10/2021: Patient doing well Continue wound care Blood sugars improved 02/11/2021: Reviewed blood sugars Supportive care 02/12/21: Monitor closely Decrease insulin 02/13/2021: Blood sugar control Monitor nausea 02/14/21: Eval cognition baseline with 02/15/2021: Supportive care Insulin 02/16/2021: Cognition much improved had family training today 02/17/21: Adjust insulin Monitor closely (1) Severe sepsis Status: Acute (2) Abscess of left buttock Status: Acute (3) DKA (diabetic ketoacidosis) Status: Acute BERNA BRAVO DO Feb 17, 2021 12:04
--- NOTE | 2021-02-17 13:08 | Physical Therapy Daily Note ---
PT Daily Note-Current Subjective Pt agreeable to ambulation. Transfers SCALE: Activities may be completed with or without assistive devices. 3-Brhkemhdyw-ekfngdt completes the activity by him/herself with no assistance from a helper. 5-Set-up or Clean-up Assistance-helper sets up or cleans up; patient completes activity. [place] assists only prior to or following the activity. 4-Supervision or Touching Assistance-helper provides verbal cues and/or touching/steadying and/or contact guard assistance as patient completes activity. Assistance may be provided throughout the activity or intermittently. 3-Partial/Moderate Assistance-helper does LESS THAN HALF the effort. [place] lifts, holds or supports trunk or limbs, but provides less than half the effort. 2-Substantial/Maximal Assistance-helper does MORE THAN HALF the effort. [place] lifts or holds trunk or limbs and provides more than half the effort. 3-Fkxllotry-glebcx does ALL the effort. Patient does none of the effort to complete the activity. Or, the assistance of 2 or more helpers is required for the patient to complete the activity. If activity was not attempted, code reason: 7-Patient Refused. 9-Not Applicable-not attempted and the patient did not perform the activity before the current illness, exacerbation or injury. 10-Not Attempted due to Environmental Limitations-(lack of equipment, weather restraints, etc.). 88-Not Attempted due to Medical Conditions or Safety Concerns. Roll Left & Right (QC): 6 Sit to Lying (QC): 6 Lying to Sitting/Side of Bed(Q: 6 Sit to Stand (QC): 6 Chair/Evi-qq-Cruoo Xfer(QC): 6 Weight Bearing Patient has been cleared to bear weight on her left arm and can use a walker. Gait Training Gait Assistive Device: FWW Gait train with FWW. Pt ambulates 200ft with FWW and SBA. PT Short Term Goals Short Term Goals Time Frame: Feb 16, 2021 Roll Left & Right: 6 Sit to lyin Lying to sitting on side of be: 6 Sit to stand: 4 Chair/hzo-ti-cnhvv transfer: 4 Walk 10 feet: 4 Walk 50 feet with two turns: 4 PT Chcf Goals Chcf Goals PT Irrigation Foreman Goals Time Frame: Mar 02, 2021 Roll Left & Right (QC): 6 Sit to Lying (QC): 6 Lying-Sitting on Side/Bed(QC): 6 Sit to Stand (QC): 5 Chair/Wuh-sg-Zulzk Xfer(QC): 5 Toilet Transfer (QC): 5 Car Transfer (QC): 4 Does the Patient Walk: Yes Walk 10 feet (QC): 5 Walk 50ft with 2 Turns (QC): 5 Walk 150 ft (QC): 5 Walking 10ft on Uneven Surface: 4 1 Step (curb) (QC): 4 4 Steps (QC): 4 12 Steps (QC): 88 Picking up an Object (QC): 5 Wheel 50 feet with 2 turns (QC: 9 Wheel 150 feet: 9 PT Plan Treatment/Plan Treatment Plan: Continue Plan of Care Treatment Plan: Bed Mobility, Education, Functional Activity Nas, Functional Strength, Group Therapy, Gait, Safety, Therapeutic Exercise, Transfers Treatment Duration: Mar 02, 2021 Frequency: At least 5 of 7 days/Wk (IRF) Estimated Hrs Per Day: 1.5 hours per day Patient and/or Family Agrees t: Yes Time/GCodes Time In: 1024 Time Out: 1040 Total Billed Treatment Time: 16 Total Billed Treatment visit, gait 16min OSWALDO ASHFORD PT Feb 17, 2021 13:08
[2021-02-17 20:33] VITALS: BP 139/64
[2021-02-18] MEDS: ACETAMINOPHEN 500 MG TAB (TYLENOL) PO PRN ×3 (00:43→20:18)
[2021-02-18] MEDS: KCL 20 MEQ TAB (K-DUR) PO SCH (05:59)
[2021-02-18] MEDS: CATHETER FLUSH 10 ML SYR IV SCH ×3 (06:00→20:20)
--- NOTE | 2021-02-18 06:17 | PM&R Progress Note ---
Subjective HPI/CC On Admission Date Seen by Provider: Feb 18, 2021 Time Seen by Provider: 12:00 Subjective/Events-last exam 02/18/21: Patient doing well Confused more today Confusion seems to be very sporadic Glucose numbers good 02/17/21: Patient doing well Cognition much improved Sugars reviewed No falls Ad diane per PT 02/16/2021: Patient doing very well at bedside No confusion noted wound looks good Ready for discharge on 02/20/2021 02/15/2021: Patient doing well No more loose stools Holding laxatives Refusing to learn how to give injections Son here visiting Cognition is deficient 02/14/21: Pt doing okay Bed alarm due to very labile and impulsive Memory deficit will addressed with Nausea is improved now 02/13/2021: Patient doing well Had some nausea after breakfast Bowels are moving Blood sugars maintained in good control 02/12/21: Pt doing well Full range of motion of the shoulder after X-ray obtained that Keven Graff needed Sugars noted so will decrease insulin since they are getting low 02/11/2021: Patient doing really well Sleeping currently Voltaren gel really helps Blood sugars reviewed No falls Pain is well controlled 02/10/21: Patient doing really well Perineal abscess was packed Potassium will be supplemented maintained on 20 mEq Left arm pain Diclofenac gel will be added to the knee also Review of Systems General: Fatigue, Malaise Objective Exam Vital Signs Vital Signs Date Time Temp Pulse Resp B/P (MAP) Pulse Ox O2 Delivery O2 Flow Rate FiO2 02/18/21 20:35 Room Air 02/18/21 19:52 36.3 69 16 129/63 (85) 96 02/17/21 07:42 0.00 0.00 Capillary Refill : General Appearance: No Apparent Distress, WD/WN, Chronically ill, Obese HEENT: PERRL/EOMI, Normal ENT Inspection, Pharynx Normal Neck: Full Range of Motion, Normal Inspection, Non Tender, Supple, Carotid Bruit Respiratory: Chest Non Tender, Lungs Clear, Normal Breath Sounds, No Accessory Muscle Use, No Respiratory Distress Cardiovascular: Regular Rate, Rhythm, No Edema, No Gallop, No JVD, No Murmur, Normal Peripheral Pulses Gastrointestinal: Normal Bowel Sounds, No Organomegaly, No Pulsatile Mass, Non Tender, Soft Back: Normal Inspection, No CVA Tenderness, No Vertebral Tenderness Extremity: Normal Capillary Refill, Normal Inspection, Normal Range of Motion, Non Tender, No Calf Tenderness, No Pedal Edema Neurologic/Psychiatric: Alert, Oriented x3, No Motor/Sensory Deficits, Normal Mood/Affect, 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 FIM Transfers Therapy Code Descriptions/Definitions Functional [place] Measure: 0=Not Assessed/NA 4=Minimal Assistance 1=Total Assistance 5=Supervision or Setup 2=Maximal Assistance 6=Modified [place] 3=Moderate Assistance 7=Complete IndependenceSCALE: Activities may be completed with or without assistive devices. 3-Fdmmpyrbwo-fmnzgnh completes the activity by him/herself with no assistance from a helper. 5-Set-up or Clean-up Assistance-helper sets up or cleans up; patient completes activity. [place] assists only prior to or following the activity. 4-Supervision or Touching Assistance-helper provides verbal cues and/or touching/steadying and/or contact guard assistance as patient completes activity. Assistance may be provided throughout the activity or intermittently. 3-Partial/Moderate Assistance-helper does LESS THAN HALF the effort. [place] lifts, holds or supports trunk or limbs, but provides less than half the effort. 2-Substantial/Maximal Assistance-helper does MORE THAN HALF the effort. [place] lifts or holds trunk or limbs and provides more than half the effort. 2-Shgtmwvqv-tjdurs does ALL the effort. Patient does none of the effort to complete the activity. Or, the assistance of 2 or more helpers is required for the patient to complete the activity. If activity was not attempted, code reason: 7-Patient Refused. 9-Not Applicable-not attempted and the patient did not perform the activity before the current illness, exacerbation or injury. 10-Not Attempted due to Environmental Limitations-(lack of equipment, weather restraints, etc.). 88-Not Attempted due to Medical Conditions or Safety Concerns. Roll Left to Right (QC): 6 Sit to Lying (QC): 6 Sit to Stand (QC): 6 Chair/Til-ml-Ofnbj Xfer(QC): 6 Car Transfer (QC): 5 Gait Training Does the Patient Walk?: Yes Distance: 120'x2 Walk 10 feet (QC): 5 Walk 50 ft with 2 Turns(QC): 5 Walk 150 ft (QC): 5 Walking 10ft/uneven surface-QC: 88 Gait Persons Needed: 1 Gait Assistive Device: FWW Wheelchair Training Does the Pt Use a Wheelchair?: No Wheel 50 ft with 2 turns (QC): 1 Wheel 150 ft (QC): 1 Type of Wheelchair: N/A Stair Training Stair Training: Handrails/: 1 handrail #of Steps: 4 1 Step (curb) (QC): 88 4 Steps (QC): 4 12 Steps (QC): 88 Stairs: Pattern: Step to Balance Picking up an Object (QC): 4 (using a holistic specialist) ADL-Treatment Eating (QC): 5 Oral Hygiene (QC): 4 Shower/Bathe Self (QC): 3 Upper Body Dressing (QC): 3 Lower Body Dressing (QC): 3 On/Off Footwear (QC): 3 Toileting Hygiene (QC): 4 Toilet Transfer (QC): 4 Assessment/Plan Assessment and Plan Assess & Plan/Chief Complaint Assessment: Severe debility New onset insulin-dependent diabetes with DKA Status post right perineal abscess status post incision and drainage by Dr. FISHER uncomplicated Hypertension Hyperlipidemia Depression Cognitive deficit Plan: Supportive care Inpatient rehab Appreciate Dr. FISHER Wound care 02/10/2021: Patient doing well Continue wound care Blood sugars improved 02/11/2021: Reviewed blood sugars Supportive care 02/12/21: Monitor closely Decrease insulin 02/13/2021: Blood sugar control Monitor nausea 02/14/21: Eval cognition baseline with 02/15/2021: Supportive care Insulin 02/16/2021: Cognition much improved had family training today 02/17/21: Adjust insulin Monitor closely 02/18/21: Monitor insulin/glucose (1) Severe sepsis Status: Acute (2) Abscess of left buttock Status: Acute (3) DKA (diabetic ketoacidosis) Status: Acute BERNA BRAVO DO Feb 18, 2021 06:17
[2021-02-18] MEDS: inSUlin ASPART (NovoLOG) 1 UNIT/0.01 ML (CHARGE PER UNIT) SC SCH ×4 (06:27→16:58)
[2021-02-18] MEDS: SERTRALINE 100 MG (ZOLOFT) TAB PO SCH (08:09)
[2021-02-18] MEDS: PANTOPRAZOLE 40 MG (PROTONIX) TAB PO SCH (08:09)
[2021-02-18] MEDS: amLODIPine 5 MG (NORVASC) TAB PO SCH (08:09)
[2021-02-18] MEDS: SENNA W/DOCUSATE (SENOKOT S) TABLET PO SCH ×2 (08:09→21:13)
[2021-02-18] MEDS: ASPIRIN 81 MG CHEW (CHILDREN'S ASA) PO SCH (08:09)
[2021-02-18] MEDS: LOSARTAN 100 MG (COZAAR) TABLET PO SCH (08:09)
[2021-02-18] MEDS: MICONAZOLE 2% POWDER (DESENEX AF) 90 GM TOP SCH ×2 (08:10→20:20)
[2021-02-18] MEDS: DOCUSATE SODIUM 100 MG (COLACE) CAP PO SCH ×2 (08:10→21:13)
[2021-02-18 08:11] VITALS: BP 137/63
[2021-02-18] MEDS: DICLOFENAC 1% GEL 100 GM (VOLTAREN) TUBE TOP SCH ×4 (09:30→20:20)
[2021-02-18] MEDS: polyethylene glycoL POWDER 17 GM (MIRALAX) PACK PO SCH ×2 (11:48→19:32)
[2021-02-18 19:52] VITALS: BP 129/63
[2021-02-19 05:38] LABS: BASOPHILS # (AUTO) 0.1 10^3/uL (0.0-0.1); BASOPHILS % (AUTO) 1 % (0-10); EOSINOPHILS # (AUTO) 0.3 10^3/uL (0.0-0.3); EOSINOPHILS % (AUTO) 3 % (0-10); HEMATOCRIT 34 % (35-52); HEMOGLOBIN 10.2 g/dL (11.5-16.0); LYMPHOCYTES # (AUTO) 2.3 10^3/uL (1.0-4.0); LYMPHOCYTES % (AUTO) 29 % (12-44); MEAN CORPUSCULAR HEMOGLOBIN 26 pg (25-34); MEAN CORPUSCULAR HGB CONC 30 g/dL (32-36); MEAN CORPUSCULAR VOLUME 84 fL (80-99); MEAN PLATELET VOLUME 10.1 fL (9.0-12.2); MONOCYTES # (AUTO) 0.5 10^3/uL (0.0-1.0); MONOCYTES % (AUTO) 6 % (0-12); NEUTROPHILS # (AUTO) 4.7 10^3/uL (1.8-7.8); NEUTROPHILS % (AUTO) 60 % (42-75); PLATELET COUNT 491 10^3/uL (130-400); WHITE BLOOD COUNT 7.9 10^3/uL (4.3-11.0)
[2021-02-19 05:51] LABS: ALBUMIN 2.9 GM/DL (3.2-4.5); POTASSIUM 3.7 MMOL/L (3.6-5.0)
[2021-02-19 05:54] LABS: TOTAL PROTEIN 5.8 GM/DL (6.4-8.2)
[2021-02-19 05:55] LABS: BILIRUBIN,TOTAL 0.4 MG/DL (0.1-1.0)
[2021-02-19 05:57] LABS: CREATININE SERUM 0.73 MG/DL (0.60-1.30)
--- NOTE | 2021-02-19 06:07 | PM&R Progress Note ---
Subjective HPI/CC On Admission Date Seen by Provider: Feb 19, 2021 Time Seen by Provider: 11:15 Subjective/Events-last exam 02/19/2021: Pt doing well Set for DC tomorrow Blood sugars are doing good Dr. Valderrama will see her in close follow up Insulin will be sent in 02/18/21: Patient doing well Confused more today Confusion seems to be very sporadic Glucose numbers good 02/17/21: Patient doing well Cognition much improved Sugars reviewed No falls Ad diane per PT 02/16/2021: Patient doing very well at bedside No confusion noted wound looks good Ready for discharge on 02/20/2021 02/15/2021: Patient doing well No more loose stools Holding laxatives Refusing to learn how to give injections Son here visiting Cognition is deficient 02/14/21: Pt doing okay Bed alarm due to very labile and impulsive Memory deficit will addressed with Nausea is improved now 02/13/2021: Patient doing well Had some nausea after breakfast Bowels are moving Blood sugars maintained in good control 02/12/21: Pt doing well Full range of motion of the shoulder after X-ray obtained that Keven Graff needed Sugars noted so will decrease insulin since they are getting low 02/11/2021: Patient doing really well Sleeping currently Voltaren gel really helps Blood sugars reviewed No falls Pain is well controlled 02/10/21: Patient doing really well Perineal abscess was packed Potassium will be supplemented maintained on 20 mEq Left arm pain Diclofenac gel will be added to the knee also Review of Systems General: Fatigue, Malaise Objective Exam Vital Signs Vital Signs Date Time Temp Pulse Resp B/P (MAP) Pulse Ox O2 Delivery O2 Flow Rate FiO2 02/19/21 20:00 Room Air 02/19/21 19:47 36.8 68 16 116/70 (85) 97 02/17/21 07:42 0.00 0.00 Capillary Refill : General Appearance: No Apparent Distress, WD/WN, Chronically ill, Obese HEENT: PERRL/EOMI, Normal ENT Inspection, Pharynx Normal Neck: Full Range of Motion, Normal Inspection, Non Tender, Supple, Carotid Bruit Respiratory: Chest Non Tender, Lungs Clear, Normal Breath Sounds, No Accessory Muscle Use, No Respiratory Distress Cardiovascular: Regular Rate, Rhythm, No Edema, No Gallop, No JVD, No Murmur, Normal Peripheral Pulses Gastrointestinal: Normal Bowel Sounds, No Organomegaly, No Pulsatile Mass, Non Tender, Soft Back: Normal Inspection, No CVA Tenderness, No Vertebral Tenderness Extremity: Normal Capillary Refill, Normal Inspection, Normal Range of Motion, Non Tender, No Calf Tenderness, No Pedal Edema Neurologic/Psychiatric: Alert, Oriented x3, No Motor/Sensory Deficits, Normal Mood/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 FIM Transfers Therapy Code Descriptions/Definitions Functional [place] Measure: 0=Not Assessed/NA 4=Minimal Assistance 1=Total Assistance 5=Supervision or Setup 2=Maximal Assistance 6=Modified [place] 3=Moderate Assistance 7=Complete IndependenceSCALE: Activities may be completed with or without assistive devices. 8-Zlcbqqtqyx-ptbumgl completes the activity by him/herself with no assistance from a helper. 5-Set-up or Clean-up Assistance-helper sets up or cleans up; patient completes activity. [place] assists only prior to or following the activity. 4-Supervision or Touching Assistance-helper provides verbal cues and/or touching/steadying and/or contact guard assistance as patient completes activity. Assistance may be provided throughout the activity or intermittently. 3-Partial/Moderate Assistance-helper does LESS THAN HALF the effort. [place] lifts, holds or supports trunk or limbs, but provides less than half the effort. 2-Substantial/Maximal Assistance-helper does MORE THAN HALF the effort. [place] lifts or holds trunk or limbs and provides more than half the effort. 0-Hsszgaxgd-yjwhps does ALL the effort. Patient does none of the effort to complete the activity. Or, the assistance of 2 or more helpers is required for the patient to complete the activity. If activity was not attempted, code reason: 7-Patient Refused. 9-Not Applicable-not attempted and the patient did not perform the activity before the current illness, exacerbation or injury. 10-Not Attempted due to Environmental Limitations-(lack of equipment, weather restraints, etc.). 88-Not Attempted due to Medical Conditions or Safety Concerns. Roll Left to Right (QC): 6 Sit to Lying (QC): 6 Sit to Stand (QC): 6 Chair/Sks-hx-Lqgkf Xfer(QC): 6 Car Transfer (QC): 5 Gait Training Does the Patient Walk?: Yes Distance: 120'x2 Walk 10 feet (QC): 5 Walk 50 ft with 2 Turns(QC): 5 Walk 150 ft (QC): 5 Walking 10ft/uneven surface-QC: 88 Gait Persons Needed: 1 Gait Assistive Device: FWW Wheelchair Training Does the Pt Use a Wheelchair?: No Wheel 50 ft with 2 turns (QC): 1 Wheel 150 ft (QC): 1 Type of Wheelchair: N/A Stair Training Stair Training: Handrails/: 1 handrail #of Steps: 4 1 Step (curb) (QC): 88 4 Steps (QC): 4 12 Steps (QC): 88 Stairs: Pattern: Step to Balance Picking up an Object (QC): 4 (using a grain oilseed or pasture farm worker) ADL-Treatment Eating (QC): 5 Oral Hygiene (QC): 4 Shower/Bathe Self (QC): 3 Upper Body Dressing (QC): 3 Lower Body Dressing (QC): 3 On/Off Footwear (QC): 3 Toileting Hygiene (QC): 4 Toilet Transfer (QC): 4 Assessment/Plan Assessment and Plan Assess & Plan/Chief Complaint Assessment: Severe debility New onset insulin-dependent diabetes with DKA Status post right perineal abscess status post incision and drainage by Dr. FISHER uncomplicated Hypertension Hyperlipidemia Depression Cognitive deficit Plan: Supportive care Inpatient rehab Appreciate Dr. FISHER Wound care 02/10/2021: Patient doing well Continue wound care Blood sugars improved 02/11/2021: Reviewed blood sugars Supportive care 02/12/21: Monitor closely Decrease insulin 02/13/2021: Blood sugar control Monitor nausea 02/14/21: Eval cognition baseline with 02/15/2021: Supportive care Insulin 02/16/2021: Cognition much improved had family training today 02/17/21: Adjust insulin Monitor closely 02/18/21: Monitor insulin/glucose 02/19/2021: Discharge home tomorrow with home health (1) Severe sepsis Status: Acute (2) Abscess of left buttock Status: Acute (3) DKA (diabetic ketoacidosis) Status: Acute BERNA BRAVO DO Feb 19, 2021 06:07
[2021-02-19] MEDS: KCL 20 MEQ TAB (K-DUR) PO SCH (06:20)
[2021-02-19] MEDS: inSUlin ASPART (NovoLOG) 1 UNIT/0.01 ML (CHARGE PER UNIT) SC SCH ×3 (06:21→16:59)
[2021-02-19] MEDS: CATHETER FLUSH 10 ML SYR IV SCH ×3 (06:21→21:32)
[2021-02-19 07:30] VITALS: BP 140/71
[2021-02-19 07:31] VITALS: BP 125/84
[2021-02-19] MEDS: amLODIPine 5 MG (NORVASC) TAB PO SCH (07:32)
[2021-02-19] MEDS: ASPIRIN 81 MG CHEW (CHILDREN'S ASA) PO SCH (07:32)
[2021-02-19] MEDS: PANTOPRAZOLE 40 MG (PROTONIX) TAB PO SCH (07:32)
[2021-02-19] MEDS: SERTRALINE 100 MG (ZOLOFT) TAB PO SCH (07:32)
[2021-02-19] MEDS: DOCUSATE SODIUM 100 MG (COLACE) CAP PO SCH ×2 (07:32→19:31)
[2021-02-19] MEDS: SENNA W/DOCUSATE (SENOKOT S) TABLET PO SCH ×2 (07:32→19:32)
[2021-02-19] MEDS: LOSARTAN 100 MG (COZAAR) TABLET PO SCH (07:32)
[2021-02-19] MEDS: polyethylene glycoL POWDER 17 GM (MIRALAX) PACK PO SCH ×2 (07:32→19:31)
[2021-02-19] MEDS: DICLOFENAC 1% GEL 100 GM (VOLTAREN) TUBE TOP SCH ×4 (07:33→21:32)
[2021-02-19] MEDS: MICONAZOLE 2% POWDER (DESENEX AF) 90 GM TOP SCH ×2 (07:34→21:47)
--- NOTE | 2021-02-19 09:47 | Speech Therapy Daily Note ---
Speech Daily Progress Note Subjective Date Seen by Provider: Feb 19, 2021 Time Seen by Provider: 08:30 The patient was walking around her room upon entrance by the clinician. The patient verbalized frustration stating, "It's just one of those days." The clinician provided support and encouragement throughout informal conversation. The patient was agreeable to participation in the skilled cognitive treatment session. To note, the patient does continue to display intermittent confusion. The clinician asked the patient to rate her pain on a scale of 1 to 10. The patient reported she "did not have much pain so probably a 300." The clinician verbally clarified the scale for a second time. The patient again stated, "300." The patient localized her pain to her wound and right knee. Objective - Orientation: The patient is independently oriented to month, year, day of week, date, city, state, and location. - Category Members: The patient was participated in a word-finding exercise where the clinician provided a category member with a specific letter. The patient was asked to provide a word which started with the specific letter and "fit into" the category. The patient displayed 75% (9/12) accuracy, independently. With category cues, the patient's accuracy increased to 91% (11/12) accuracy. - The patient denied concerns or barriers towards discharge. The patient functionally recalled the visit with Pietro and stated she is confident in their ability to meet her needs in their home. Expression of Ideas/Wants: Frequently (2) Understanding Verbal Content: Usually Understands (3) Brief Interview-Mental Status: Yes Repetition of Three Words: Three (3) Temporal Orientation: Year: Correct (3) Temporal Orientation: Month: Accurate within 5 days(2) Temporal Orientation: Day: Correct (1) Recall : Wear to say "Sock": Yes, after cueing (1) Recall : Color: Yes, after cueing (1) Recall : Bed: Yes, after cueing (1) Memory/Recall Ability: Current season, Location of own room, That he or she is in a hsp/hsp unit Assessment Assessment Current Status: Good Progress Treatment Plan Continue Plan of Care Speech Short Term Goals Short Term Goals Short Term Goals 1. The patient will complete functional memory exercises related to her daily routine with 80% accuracy or better, independently. 2. The patient will complete functional safety strategies and exercises related to their daily routine (ADL's) with 80% accuracy or higher, independently. 3. The patient will complete functional problem solving exercises related to their daily routine with 80% accuracy or better, independently. Speech Merchandise Flow Associate Goals Jail Goals 1. The patient will improve functional abilities related to their daily routines (ADL's) in order to require decreased assistance for completion. Speech-Plan Treatment Plan Speech Therapy Treatment Plan: Continue Plan of Care Treatment Duration: Mar 09, 2021 Frequency: 4 times per week (Four to five times per week.) Estimated Hrs Per Day: .5 hour per day Rehab Potential: Fair Barriers to Learning: Intermittent confusion. Pt/Family Agrees to Plan: Yes Safety Risks/Education Teaching Recipient: Patient Teaching Methods: Discussion Response to Teaching: Verbalize Understanding, Return Demonstration Education Topics Provided: Word-Finding Strategies Discharge Recommendations Scheduled Assistance, Home & Family Time Speech Therapy Time In: 08:30 Speech Therapy Time Out: 09:00 Total Billed Time: 30 Billed Treatment Time 1ARIANNADAYSI ST Feb 19, 2021 09:47
--- NOTE | 2021-02-19 11:03 | Physical Therapy Daily Note ---
PT Daily Note-Current Subjective Pt. reluctantly agrees to Rx. Much difficulty retaining instruction and info asking same questions several times Pain Numeric Pain Scale: 4 Location: Left Location Body Site: Wrist Pain Description: Stabbing Mental Status Patient Orientation: Confused Transfers SCALE: Activities may be completed with or without assistive devices. 4-Tovmmfcxev-xwwehwc completes the activity by him/herself with no assistance from a helper. 5-Set-up or Clean-up Assistance-helper sets up or cleans up; patient completes activity. [place] assists only prior to or following the activity. 4-Supervision or Touching Assistance-helper provides verbal cues and/or touching/steadying and/or contact guard assistance as patient completes activity. Assistance may be provided throughout the activity or intermittently. 3-Partial/Moderate Assistance-helper does LESS THAN HALF the effort. [place] lifts, holds or supports trunk or limbs, but provides less than half the effort. 2-Substantial/Maximal Assistance-helper does MORE THAN HALF the effort. [place] lifts or holds trunk or limbs and provides more than half the effort. 0-Gdlqgeafd-phouwz does ALL the effort. Patient does none of the effort to complete the activity. Or, the assistance of 2 or more helpers is required for the patient to complete the activity. If activity was not attempted, code reason: 7-Patient Refused. 9-Not Applicable-not attempted and the patient did not perform the activity before the current illness, exacerbation or injury. 10-Not Attempted due to Environmental Limitations-(lack of equipment, weather restraints, etc.). 88-Not Attempted due to Medical Conditions or Safety Concerns. Roll Left & Right (QC): 6 Sit to Lying (QC): 6 Lying to Sitting/Side of Bed(Q: 6 Sit to Stand (QC): 6 Chair/Nif-cd-Gsonq Xfer(QC): 6 Toilet Transfer (QC): 6 Car Transfer (QC): 5 Weight Bearing Patient has been cleared to bear weight on her left arm and can use a walker. Gait Training Does the Patient Walk?: Yes Walk 10 feet (QC): 6 Walk 50 ft with 2 Turns(QC): 6 Walk 150 ft (QC): 6 Walking 10ft/uneven surface-QC: 6 Gait Persons Needed: 1 Gait Assistive Device: FWW Stair Training Stair Training: Handrails/: 1 handrail #of Steps: 4 1 Step (curb) (QC): 4 4 Steps (QC): 4 12 Steps (QC): 7 Stairs: Pattern: Step to needs step by step instruction in hand rail as well as sequence with feet as pt. forgets each step Balance Picking up an Object (QC): 5 Exercises Seated Therapy Exercises: Ankle pumps, Sit to stand, Long arc quads, Hip flexion, Hip abd/add Seated Reps: 15 NuStep Minutes: 8 NuStep Workload: 3 Assessment Current Status: Good Progress needs supervision and reminders for safety throughout all activity PT Short Term Goals Short Term Goals Time Frame: Feb 16, 2021 Roll Left & Right: 6 Sit to lyin Lying to sitting on side of be: 6 Sit to stand: 4 Chair/lsw-bq-vmdng transfer: 4 Walk 10 feet: 4 Walk 50 feet with two turns: 4 PT Nursing Informatics Analyst Goals Nursing Informatics Analyst Goals PT Nursing Informatics Analyst Goals Time Frame: Mar 02, 2021 Roll Left & Right (QC): 6 Sit to Lying (QC): 6 Lying-Sitting on Side/Bed(QC): 6 Sit to Stand (QC): 5 Chair/Sqh-qf-Xcwku Xfer(QC): 5 Toilet Transfer (QC): 5 Car Transfer (QC): 4 Does the Patient Walk: Yes Walk 10 feet (QC): 5 Walk 50ft with 2 Turns (QC): 5 Walk 150 ft (QC): 5 Walking 10ft on Uneven Surface: 4 1 Step (curb) (QC): 4 4 Steps (QC): 4 12 Steps (QC): 88 Picking up an Object (QC): 5 Wheel 50 feet with 2 turns (QC: 9 Wheel 150 feet: 9 PT Plan Treatment/Plan Treatment Plan: Continue Plan of Care Treatment Plan: Bed Mobility, Education, Functional Activity Nas, Functional Strength, Group Therapy, Gait, Safety, Therapeutic Exercise, Transfers Treatment Duration: Mar 02, 2021 Frequency: At least 5 of 7 days/Wk (IRF) Estimated Hrs Per Day: 1.5 hours per day Patient and/or Family Agrees t: Yes Safety Risks/Education Patient Education: Gait Training, Transfer Techniques, Steps, Correct Positioning, Disease Process, Safety Issues Teaching Recipient: Patient Teaching Methods: Demonstration, Discussion Response to Teaching: Verbalize Understanding, Return Demonstration, Re inforcement Needed Time/GCodes Time In: 930 Time Out: 1015 Total Billed Treatment Time: 45 Total Billed Treatment 1,FA15m,GT15m,EX15m MAHAMED ALLISON V BELT FINISHER Feb 19, 2021 11:03
--- NOTE | 2021-02-19 13:37 | Occupational Ther Daily Note ---
OT Current Status-Daily Note Subjective Pt initially argumentative about completing ADLs for grad day. She verbalized that she had already completed a shower with her spouse (Pietro) present. Then, when questioned further, she verbalizes that it wasn't her but the nurse that assisted. When OT asked the RN, she reports that the patient took a shower over the weekend, not this am. OT came back later in day and patient more agreeable to completing ADLs. Appearance Left supine in bed, all needs within reach. Mental Status/Objective Patient Orientation: Person, Confused Attachments: IV ADL-Treatment Therapy Code Descriptions/Definitions Functional [place] Measure: 0=Not Assessed/NA 4=Minimal Assistance 1=Total Assistance 5=Supervision or Setup 2=Maximal Assistance 6=Modified [place] 3=Moderate Assistance 7=Complete IndependenceSCALE: Activities may be completed with or without assistive devices. 9-Fofeckfkuv-orhqbqi completes the activity by him/herself with no assistance from a helper. 5-Set-up or Clean-up Assistance-helper sets up or cleans up; patient completes activity. [place] assists only prior to or following the activity. 4-Supervision or Touching Assistance-helper provides verbal cues and/or touching/steadying and/or contact guard assistance as patient completes acti vity. Assistance may be provided throughout the activity or intermittently. 3-Partial/Moderate Assistance-helper does LESS THAN HALF the effort. [place] lifts, holds or supports trunk or limbs, but provides less than half the effort. 2-Substantial/Maximal Assistance-helper does MORE THAN HALF the effort. [place] lifts or holds trunk or limbs and provides more than half the effort. 1-Popzeytfy-pfptyf does ALL the effort. Patient does none of the effort to complete the activity. Or, the assistance of 2 or more helpers is required for the patient to complete the activity. If activity was not attempted, code reason: 7-Patient Refused. 9-Not Applicable-not attempted and the patient did not perform the activity before the current illness, exacerbation or injury. 10-Not Attempted due to Environmental Limitations-(lack of equipment, weather restraints, etc.). 88-Not Attempted due to Medical Conditions or Safety Concerns. Eating (QC): 6 Oral Hygiene (QC): 6 Shower/Bathe Self (QC): 4 Upper Body Dressing (QC): 3 Lower Body Dressing (QC): 4 On/Off Footwear: 4 Toileting Hygiene (QC): 6 Toilet Transfer (QC): 6 Pt made ad diane over weekend. Upon OT arrival, pt walking around room without device, no LOB. Shower performed, ~50% completing in sitting/standing. No unsteadiness in standing. Cues for safety, sequencing, and initiation required throughout task. Upon completion, pt attempting to ambulate back to room dripping wet. Cues for safety; poor follow through. Clothing donned seated EOB. Poor recall of compensatory techniques taught in past sessions. Pt continues to be impulsive with task and requires assist to thread LUE and bring sleeve over L shoulder. When donning LB clothing pt through self onto bed x3 without any reasoning except reporting that she "just needed to lay down." She threaded BLE's into pants with extra time and effort. Rather than standing to pulley maintainer hips, pt again through self onto bed and managed clothing up to waist while bridging hips. Pt exhibits very poor safety awareness and will need intermittent supervision upon return home. Education OT Patient Education: Correct positioning, Energy conservation, Modified ADL techniques, Progress toward Goal/Update tx plan, Purpose of tx/functional activities, Safety issues, Transfer techniques Teaching Recipient: Patient Teaching Methods: Demonstration, Discussion Response to Teaching: Reinforcement Needed OT Short Term Goals Short Term Goals Time Frame: Feb 23, 2021 Eatin Oral hygiene: 5 Toileting hygiene: 3 Shower/bathe self: 3 Upper body dressin Lower body dressin Putting on/taking off footwear: 3 OT Merit System Director Goals [facility] Goals Time Frame: Mar 03, 2021 Eating (QC): 6 (met) Oral Hygiene (QC): 6 (met) Toileting Hygiene (QC): 5 (met) Shower/Bathe Self (QC): 5 (not met) Upper Body Dressing (QC): 5 (not met) Lower Body Dressing (QC): 5 (not met) On/Off Footwear (QC): 5 (not met) 1=Demonstrate adherence to instructed precautions during ADL tasks. 2=Patient will verbalize/demonstrate understanding of assistive devices/modifications for ADL. 3=Patient will improve strength/tolerance for activity to enable patient to perform ADL's. OT Education/Plan Problem List/Assessment Assessment: Decreased Activ Tolerance, Decreased Safety Aware, Decreased UE Strength, Impaired Cognition, Impaired I ADL's, Impaired Self-Care Skills, Restricted Funct UE ROM Discharge Recommendations Plan/Recommendations: Continue POC Therapy Discharge Recommendati: Intermittent Supervision, Homemaker Support, Other, See Comments Target Placement home health Treatment Plan/Plan of Care Treatment,Training & Education: Yes Patient would benefit from OT for education, treatment and training to promote independence in ADL's, mobility, safety and/or upper extremity function for ADL's. Plan of Care: ADL Retraining, Cognitive Retraining, Functional Mobility, Group Exercise/Act as Ind, UE Funct Exercise/Act, W/C Management Training Treatment Duration: Mar 03, 2021 Frequency: At least 5 of 7 days/Wk (IRF) Estimated Hrs Per Day: 1.5 hours per day Agreement: Yes Rehab Potential: Fair Time/GCodes Start Time: 07:35 (1105) Stop Time: 07:45 (1210) Total Time Billed (hr/min): 75 Billed Treatment Time 2 visit ADL x5 [id number] (10 min) and [id number] (65 min) for a total time of 75 min Thea Marquis OT Feb 19, 2021 13:37
[2021-02-19] MEDS: ACETAMINOPHEN 500 MG TAB (TYLENOL) PO PRN (13:48)
--- NOTE | 2021-02-19 14:31 | Physical Therapy Daily Note ---
PT Daily Note-Current Subjective Pt. agrees to Rx. "I need to apologize for this morning for the way I spoke to you" Pt more cooperative this afternoon. Pt. holds right knee and states "something has to be done about this knee" Discussed the conservative measures that have already been taken, and suggest pt. consult Ortho again, Pt. offered ice pack for right knee Pain Numeric Pain Scale: 5-Moderate Pain Location: Right Location Body Site: Knee Pain Description: Ache Mental Status Patient Orientation: Person, Place Transfers SCALE: Activities may be completed with or without assistive devices. 9-Jazmpbbwak-pkfitmq completes the activity by him/herself with no assistance from a helper. 5-Set-up or Clean-up Assistance-helper sets up or cleans up; patient completes activity. [place] assists only prior to or following the activity. 4-Supervision or Touching Assistance-helper provides verbal cues and/or touching/steadying and/or contact guard assistance as patient completes activity. Assistance may be provided throughout the activity or intermittently. 3-Partial/Moderate Assistance-helper does LESS THAN HALF the effort. [place] lifts, holds or supports trunk or limbs, but provides less than half the effort. 2-Substantial/Maximal Assistance-helper does MORE THAN HALF the effort. [place] lifts or holds trunk or limbs and provides more than half the effort. 9-Dhbfsoqog-ivxxeo does ALL the effort. Patient does none of the effort to complete the activity. Or, the assistance of 2 or more helpers is required for the patient to complete the activity. If activity was not attempted, code reason: 7-Patient Refused. 9-Not Applicable-not attempted and the patient did not perform the activity before the current illness, exacerbation or injury. 10-Not Attempted due to Environmental Limitations-(lack of equipment, weather restraints, etc.). 88-Not Attempted due to Medical Conditions or Safety Concerns. all TRFs Mod I Weight Bearing Patient has been cleared to bear weight on her left arm and can use a walker. Gait Training Does the Patient Walk?: Yes Gait Assistive Device: FWW 170 ft x 2 FWW with education and emphasis on wt bearing on UEs to spare LEs etc Exercises Supine Ex: Bridging, Ankle pumps, Quad Set, Rolling, Glut sets, Heel Slides, Short Arc Quads, Scooting, Straight leg raise, Hip abd/add Supine Reps: 20 Seated Therapy Exercises: Ankle pumps, Hip flexion Seated Reps: 15 Treatments gait , exercise, TRFs and ice pack for right knee Assessment Current Status: Good Progress PT Short Term Goals Short Term Goals Time Frame: Feb 16, 2021 Roll Left & Right: 6 Sit to lyin Lying to sitting on side of be: 6 Sit to stand: 4 Chair/mof-ee-ezkfm transfer: 4 Walk 10 feet: 4 Walk 50 feet with two turns: 4 PT Conservation Biology Professor Goals Alf Goals PT Conservation Biology Professor Goals Time Frame: Mar 02, 2021 Roll Left & Right (QC): 6 Sit to Lying (QC): 6 Lying-Sitting on Side/Bed(QC): 6 Sit to Stand (QC): 5 Chair/Xkl-ds-Tfauc Xfer(QC): 5 Toilet Transfer (QC): 5 Car Transfer (QC): 4 Does the Patient Walk: Yes Walk 10 feet (QC): 5 Walk 50ft with 2 Turns (QC): 5 Walk 150 ft (QC): 5 Walking 10ft on Uneven Surface: 4 1 Step (curb) (QC): 4 4 Steps (QC): 4 12 Steps (QC): 88 Picking up an Object (QC): 5 Wheel 50 feet with 2 turns (QC: 9 Wheel 150 feet: 9 PT Plan Treatment/Plan Treatment Plan: Continue Plan of Care Treatment Plan: Bed Mobility, Education, Functional Activity Nas, Functional Strength, Group Therapy, Gait, Safety, Therapeutic Exercise, Transfers Treatment Duration: Mar 02, 2021 Frequency: At least 5 of 7 days/Wk (IRF) Estimated Hrs Per Day: 1.5 hours per day Patient and/or Family Agrees t: Yes Safety Risks/Education Patient Education: Gait Training, Transfer Techniques, Correct Positioning, Disease Process, Safety Issues Teaching Recipient: Patient Teaching Methods: Demonstration, Discussion Response to Teaching: Verbalize Understanding, Return Demonstration, Reinforcement Needed Time/GCodes Time In: 1400 Time Out: 1430 Total Billed Treatment Time: 30 Total Billed Treatment 1,GT10m,EX20m MAHAMED ALLISON ROLLER INSPECTOR Feb 19, 2021 14:31
[2021-02-19 19:47] VITALS: BP 116/70
[2021-02-19] MEDS ORDERED: PEN-53 MC (21:02)
[2021-02-19] MEDS ORDERED: DICL100G13 TOP (21:02)
[2021-02-19] MEDS ORDERED: INSU100I14 SQ (21:02)
[2021-02-19] MEDS ORDERED: PANT40TA52 PO (21:02)
[2021-02-19] MEDS ORDERED: INSU100I29 SQ (21:02)
--- NOTE | 2021-02-19 21:03 | D/C HH Face to Face Order ---
D/C HH Face to Face Orders Reconcile Patient Problems Problems Reviewed?: Yes Instructions for Patient HH Patient Instructions/FollowUp: pcp 1 week Physician to follow Patient: Lavelle Discharge Diet for Home: ADA Diet Patient Problems: DM perineal abscess Patient Data-Allergies,Ht & Wt Patient Allergies: Coded Allergies: Penicillins (Unverified Allergy, Unknown, 05/25/19) Sulfa (Sulfonamide Antibiotics) (Unverified Allergy, Unknown, 02/05/21) adhesive tape (Unverified Allergy, Unknown, 07/03/20) cephalexin (Unverified Allergy, Unknown, 05/25/19) hydrocodone (Unverified Allergy, Unknown, SOB, Pt has received Morphine in the past, 02/10/21) reports she feels like she can't breath. oxycodone (Unverified Adverse Reaction, Intermediate, Abdominal Pain, Confusion, 02/07/21) reports that she became very "loopy" and had to quit taking it. Home Health Need/Face to Face Date of Face to Face: Feb 19, 2021 Clinical Findings: Generalized weakness and fatigue, Instability, Muscle weakness, Unsteady gait I have seen Pt ryer-yf-gunm: Yes Discharged To: Home Diagnosis/Conditions: DM Patient is Homebound due to: CognItive deficits, [place] fall risk due to instabilty, Muscle weakness Homebound Status Due to the above stated illness, injury or surgical procedure (medical condition or diagnosis) and associated clinical findings, the patient is homebound because of his/her inability to leave home except with aid of a supportive device and/or person AND leaving the home requires a considerable and taxing effort or is medically contraindicated. Pt req the following assistanc: Walker Home Health Nursing Orders Home Health Services Order: Nursing Services, Audit Director-Evaluate & Treat, Physical Therapy-Evaluate & Treat, Wound Care-Eval/Treat Certify Stmt I certify that this patient is under my care and that I, a nurse practitioner or a physician; a assistant signal maintainer working with me, had a face to face encounter that - meets the physician face to face encounter requirements with this patient as dated. BERNA BRAVO DO Feb 19, 2021 21:03
--- NOTE | 2021-02-20 06:10 | Discharge Summary ---
Diagnosis/Chief Complaint Date of Admission Feb 09, 2021 at 09:45 Date of Discharge Discharge Date: Feb 20, 2021 Discharge Diagnosis Assessment: Severe debility New onset insulin-dependent diabetes with DKA Status post right perineal abscess status post incision and drainage by Dr. FISHER uncomplicated Hypertension Hyperlipidemia Depression Cognitive deficit Plan: Supportive care Inpatient rehab Appreciate Dr. FISHER Wound care 02/10/2021: Patient doing well Continue wound care Blood sugars improved 02/11/2021: Reviewed blood sugars Supportive care 02/12/21: Monitor closely Decrease insulin 02/13/2021: Blood sugar control Monitor nausea 02/14/21: Eval cognition baseline with 02/15/2021: Supportive care Insulin 02/16/2021: Cognition much improved had family training today 02/17/21: Adjust insulin Monitor closely 02/18/21: Monitor insulin/glucose 02/19/2021: Discharge home tomorrow with home health (1) Severe sepsis Status: Acute (2) Abscess of left buttock Status: Acute (3) DKA (diabetic ketoacidosis) Status: Acute Discharge Summary Discharge Physical Examination Allergies: Coded Allergies: Penicillins (Unverified Allergy, Unknown, 05/25/19) Sulfa (Sulfonamide Antibiotics) (Unverified Allergy, Unknown, 02/05/21) adhesive tape (Unverified Allergy, Unknown, 07/03/20) cephalexin (Unverified Allergy, Unknown, 05/25/19) hydrocodone (Unverified Allergy, Unknown, SOB, Pt has received Morphine in the past, 02/10/21) reports she feels like she can't breath. oxycodone (Unverified Adverse Reaction, Intermediate, Abdominal Pain, Confusion, 02/07/21) reports that she became very "loopy" and had to quit taking it. Vitals & I&Os Vital Signs Date Time Temp Pulse Resp B/P (MAP) Pulse Ox O2 Delivery O2 Flow Rate FiO2 02/20/21 11:00 36.1 72 20 128/62 98 Room Air 02/17/21 07:42 0.00 0.00 General Appearance: Alert, Oriented X3, Cooperative Respiratory: Clear to Auscultation Cardiovascular: Regular Rate Psych/Mental Status: Mental Status NL Hospital Course Was the Problem List Reviewed?: Yes Hospital course: Pt had an uneventful but lengthy hospital course for 12 days after she was admitted for severe debility following severe sepsis from perineal abscess s/p incision and drainage by Dr. Fisher and new onset DKA. She did result in good blood sugar control on insulin. She did not require any pain medication. Wound care will be performed by her and home health was ordered. Labs (last 24 hrs) Laboratory Tests 02/09/21 12:21: Glucometer 174H 02/09/21 15:25: Glucometer 212H 02/09/21 20:22: Glucometer 138H 02/10/21 06:08: Glucometer 85 02/10/21 06:10: White Blood Count 6.7, Red Blood Count 3.45L, Hemoglobin 9.1L, Hematocrit 29L, Mean Corpuscular Volume 83, Mean Corpuscular Hemoglobin 26, Mean Corpuscular Hemoglobin Concent 32, Red Cell Distribution Width 17.1H, Platelet Count 236, Mean Platelet Volume 10.2, Immature Granulocyte % (Auto) 1, Neutrophils (%) (Auto) 58, Lymphocytes (%) (Auto) 26, Monocytes (%) (Auto) 11, Eosinophils (%) (Auto) 4, Basophils (%) (Auto) 0, Neutrophils # (Auto) 3.9, Lymphocytes # (Auto) 1.8, Monocytes # (Auto) 0.8, Eosinophils # (Auto) 0.3, Basophils # (Auto) 0.0, Immature Granulocyte # (Auto) 0.0, Sodium Level 141, Potassium Level 3.2L, Chloride Level 103, Carbon Dioxide Level 28, Anion Gap 10, Blood Urea Nitrogen 5L, Creatinine 0.55L, Estimat Glomerular Filtration Rate 111, BUN/Creatinine Ratio 9, Glucose Level 82, Calcium Level 7.8L, Corrected Calcium 9.2, Total Bilirubin 0.3, Aspartate Amino Transf (AST/SGOT) 18, Alanine Aminotransferase (A LT/SGPT) 11, Alkaline Phosphatase 101, Total Protein 4.6L, Albumin 2.2L 02/10/21 11:20: Glucometer 89 02/10/21 16:12: Glucometer 86 02/10/21 20:47: Glucometer 174H 02/11/21 05:31: Glucometer 78 02/11/21 11:08: Glucometer 133H 02/11/21 15:20: Glucometer 90 02/11/21 20:24: Glucometer 118H 02/12/21 04:42: Glucometer 85 02/12/21 04:50: White Blood Count 6.8, Red Blood Count 3.57L, Hemoglobin 9.3L, Hematocrit 30L, Mean Corpuscular Volume 85, Mean Corpuscular Hemoglobin 26, Mean Corpuscular Hemoglobin Concent 31L, Red Cell Distribution Width 17.0H, Platelet Count 297, Mean Platelet Volume 10.3, Immature Granulocyte % (Auto) 0, Neutrophils (%) (Auto) 48, Lymphocytes (%) (Auto) 38, Monocytes (%) (Auto) 10, Eosinophils (%) (Auto) 4, Basophils (%) (Auto) 0, Neutrophils # (Auto) 3.2, Lymphocytes # (Auto) 2.5, Monocytes # (Auto) 0.7, Eosinophils # (Auto) 0.3, Basophils # (Auto) 0.0, Immature Granulocyte # (Auto) 0.0, Sodium Level 144, Potassium Level 3.2L, Chloride Level 107, Carbon Dioxide Level 24, Anion Gap 13, Blood Urea Nitrogen 6L, Creatinine 0.58L, Estimat Glomerular Filtration Rate 104, BUN/Creatinine Ratio 10, Glucose Level 80, Calcium Level 7.8L, Corrected Calcium 9.1, Total Bilirubin 0.3, Aspartate Amino Transf (AST/SGOT) 17, Alanine Aminotransferase (ALT/SGPT) 11, Alkaline Phosphatase 103, Total Protein 4.9L, Albumin 2.4L 02/12/21 11:00: Glucometer 81 02/12/21 14:15: Prealbumin 10.8L 02/12/21 15:08: Glucometer 106 02/12/21 20:21: Glucometer 174H 02/13/21 05:32: Glucometer 100 02/13/21 10:46: Glucometer 160H 02/13/21 16:47: Glucometer 105 02/13/21 21:03: Glucometer 162H 02/14/21 06:08: Glucometer 133H 02/14/21 12:01: Glucometer 147H 02/14/21 16:55: Glucometer 120H 02/14/21 20:00: Glucometer 147H 02/15/21 05:26: Glucometer 118H 02/15/21 11:51: Glucometer 174H 02/15/21 15:55: Glucometer 129H 02/15/21 20:23: Glucometer 206H 02/16/21 05:46: Glucometer 112H 02/16/21 11:36: Glucometer 193H 02/16/21 17:28: Glucometer 146H 02/16/21 20:32: Glucometer 215H 02/17/21 05:21: Glucometer 134H 02/17/21 11:58: Glucometer 187H 02/17/21 16:34: Glucometer 205H 02/17/21 20:04: Glucometer 137H 02/18/21 05:09: Glucometer 142H 02/18/21 11:21: Glucometer 123H 02/18/21 15:43: Glucometer 78 02/18/21 20:17: Glucometer 141H 02/19/21 05:25: White Blood Count 7.9, Red Blood Count 3.99, Hemoglobin 10.2L, Hematocrit 34L, Mean Corpuscular Volume 84, Mean Corpuscular Hemoglobin 26, Mean Corpuscular Hemoglobin Concent 30L, Red Cell Distribution Width 16.2H, Platelet Count 491H, Mean Platelet Volume 10.1, Immature Granulocyte % (Auto) 0, Neutrophils (%) (Auto) 60, Lymphocytes (%) (Auto) 29, Monocytes (%) (Auto) 6, Eosinophils (%) (Auto) 3, Basophils (%) (Auto) 1, Neutrophils # (Auto) 4.7, Lymphocytes # (Auto) 2.3, Monocytes # (Auto) 0.5, Eosinophils # (Auto) 0.3, Basophils # (Auto) 0.1, Immature Granulocyte # (Auto) 0.0, Sodium Level 138, Potassium Level 3.7, Chloride Level 105, Carbon Dioxide Level 20L, Anion Gap 13, Blood Urea Nitrogen 19H, Creatinine 0.73, Estimat Glomerular Filtration Rate 80, BUN/Creatinine Ratio 26, Glucose Level 236H, Calcium Level 8.0L, Corrected Calcium 8.9, Total Bilirubin 0.4, Aspartate Amino Transf (AST/SGOT) 18, Alanine Aminotransferase (ALT/SGPT) 11, Alkaline Phosphatase 104, Total Protein 5.8L, Albumin 2.9L 02/19/21 05:30: Glucometer 224H 02/19/21 12:22: Glucometer 196H 02/19/21 15:28: Glucometer 133H 02/19/21 20:07: Glucometer 184H 02/20/21 05:23: Glucometer 149H Pending Labs Laboratory Tests 02/09/21 12:21: Glucometer 174 02/09/21 15:25: Glucometer 212 02/09/21 20:22: Glucometer 138 02/10/21 06:08: Glucometer 85 02/10/21 06:10: White Blood Count 6.7, Red Blood Count 3.45, Hemoglobin 9.1, Hematocrit 29, Mean Corpuscular Volume 83, Mean Corpuscular Hemoglobin 26, Mean Corpuscular Hemoglobin Concent 32, Red Cell Distribution Width 17.1, Platelet Count 236, Mean Platelet Volume 10.2, Immature Granulocyte % (Auto) 1, Neutrophils (%) (Auto) 58, Lymphocytes (%) (Auto) 26, Monocytes (%) (Auto) 11, Eosinophils (%) (Auto) 4, Basophils (%) (Auto) 0, Neutrophils # (Auto) 3.9, Lymphocytes # (Auto) 1.8, Monocytes # (Auto) 0.8, Eosinophils # (Auto) 0.3, Basophils # (Auto) 0.0, Immature Granulocyte # (Auto) 0.0, Sodium Level 141, Potassium Level 3.2, Chloride Level 103, Carbon Dioxide Level 28, Anion Gap 10, Blood Urea Nitrogen 5, Creatinine 0.55, Estimat Glomerular Filtration Rate 111, BUN/Creatinine Ratio 9, Glucose Level 82, Calcium Level 7.8, Corrected Calcium 9.2, Total Bilirubin 0.3, Aspartate Amino Transf (AST/SGOT) 18, Alanine Aminotransferase (ALT/SGPT) 11, Alkaline Phosphatase 101, Total Protein 4.6, Albumin 2.2 02/10/21 11:20: Glucometer 89 02/10/21 16:12: Glucometer 86 02/10/21 20:47: Glucometer 174 02/11/21 05:31: Glucometer 78 02/11/21 11:08: Glucometer 133 02/11/21 15:20: Glucometer 90 02/11/21 20:24: Glucometer 118 02/12/21 04:42: Glucometer 85 02/12/21 04:50: White Blood Count 6.8, Red Blood Count 3.57, Hemoglobin 9.3, Hematocrit 30, Mean Corpuscular Volume 85, Mean Corpuscular Hemoglobin 26, Mean Corpuscular Hemoglobin Concent 31, Red Cell Distribution Width 17.0, Platelet Count 297, Mean Platelet Volume 10.3, Immature Granulocyte % (Auto) 0, Neutrophils (%) (Auto) 48, Lymphocytes (%) (Auto) 38, Monocytes (%) (Auto) 10, Eosinophils (%) (Auto) 4, Basophils (%) (Auto) 0, Neutrophils # (Auto) 3.2, Lymphocytes # (Auto) 2.5, Monocytes # (Auto) 0.7, Eosinophils # (Auto) 0.3, Basophils # (Auto) 0.0, Immature Granulocyte # (Auto) 0.0, Sodium Level 144, Potassium Level 3.2, Chloride Level 107, Carbon Dioxide Level 24, Anion Gap 13, Blood Urea Nitrogen 6, Creatinine 0.58, Estimat Glomerular Filtration Rate 104, BUN/Creatinine Ratio 10, Glucose Level 80, Calcium Level 7.8, Corrected Calcium 9.1, Total Bilirubin 0.3, Aspartate Amino Transf (AST/SGOT) 17, Alanine Aminotransferase (ALT/SGPT) 11, Alkaline Phosphatase 103, Total Protein 4.9, Albumin 2.4 02/12/21 11:00: Glucometer 81 02/12/21 14:15: Prealbumin 10.8 02/12/21 15:08: Glucometer 106 02/12/21 20:21: Glucometer 174 02/13/21 05:32: Glucometer 100 02/13/21 10:46: Glucometer 160 02/13/21 16:47: Glucometer 105 02/13/21 21:03: Glucometer 162 02/14/21 06:08: Glucometer 133 02/14/21 12:01: Glucometer 147 02/14/21 16:55: Glucometer 120 02/14/21 20:00: Glucometer 147 02/15/21 05:26: Glucometer 118 02/15/21 11:51: Glucometer 174 02/15/21 15:55: Glucometer 129 02/15/21 20:23: Glucometer 206 02/16/21 05:46: Glucometer 112 02/16/21 11:36: Glucometer 193 02/16/21 17:28: Glucometer 146 02/16/21 20:32: Glucometer 215 02/17/21 05:21: Glucometer 134 02/17/21 11:58: Glucometer 187 02/17/21 16:34: Glucometer 205 02/17/21 20:04: Glucometer 137 02/18/21 05:09: Glucometer 142 02/18/21 11:21: Glucometer 123 02/18/21 15:43: Glucometer 78 02/18/21 20:17: Glucometer 141 02/19/21 05:25: White Blood Count 7.9, Red Blood Count 3.99, Hemoglobin 10.2, Hematocrit 34, Mean Corpuscular Volume 84, Mean Corpuscular Hemoglobin 26, Mean Corpuscular Hemoglobin Concent 30, Red Cell Distribution Width 16.2, Platelet Count 491, Mean Platelet Volume 10.1, Immature Granulocyte % (Auto) 0, Neutrophils (%) (Auto) 60, Lymphocytes (%) (Auto) 29, Monocytes (%) (Auto) 6, Eosinophils (%) ( Auto) 3, Basophils (%) (Auto) 1, Neutrophils # (Auto) 4.7, Lymphocytes # (Auto) 2.3, Monocytes # (Auto) 0.5, Eosinophils # (Auto) 0.3, Basophils # (Auto) 0.1, Immature Granulocyte # (Auto) 0.0, Sodium Level 138, Potassium Level 3.7, Chloride Level 105, Carbon Dioxide Level 20, Anion Gap 13, Blood Urea Nitrogen 19, Creatinine 0.73, Estimat Glomerular Filtration Rate 80, BUN/Creatinine Ratio 26, Glucose Level 236, Calcium Level 8.0, Corrected Calcium 8.9, Total Bilirubin 0.4, Aspartate Amino Transf (AST/SGOT) 18, Alanine Aminotransferase (ALT/SGPT) 11, Alkaline Phosphatase 104, Total Protein 5.8, Albumin 2.9 02/19/21 05:30: Glucometer 224 02/19/21 12:22: Glucometer 196 02/19/21 15:28: Glucometer 133 02/19/21 20:07: Glucometer 184 02/20/21 05:23: Glucometer 149 Discharge Home Medications: Active Scripts Active Advocate Pen Needle (Pen Needle, Diabetic) 1 Each Dis.needle Each ACHS Levemir Flextouch (Insulin Detemir) 100 Unit/1 Ml Insuln.pen 7 Unit SQ BID Novolog Flexpen (Insulin Aspart) 300 Units/3 Ml Solution 3 Units SQ AC Pantoprazole Sodium 40 Mg Tablet.dr 40 Mg PO DAILY Diclofenac Sodium 100 Gm Gel..gram. 0 Gm TOP QID Reported [place] 3 1,000 mg Softgel ([place]-3 Fatty Acids/Fish Oil) 1 Each Capsule 1 Each PO DAILY Flaxseed (Flaxseed Oil) 1,000 Mg Capsule 1,000 Mg PO DAILY Tylenol Extra Strength (Acetaminophen) 500 Mg Tablet 500-1,000 Mg PO Q8H PRN [Turmeric] Chew 1 Ea PO DAILY Losartan Potassium 100 Mg Tablet 100 Mg PO DAILY Multiple Vitamin (Multivitamin with Minerals) 1 Each Tablet 1 Each PO DAILY Sertraline HCl 100 Mg Tablet 200 Mg PO DAILY TAKES 2 (100MG) TABS Pravastatin Sodium 80 Mg Tablet 80 Mg PO DAILY Aspirin 81 Mg Tab.chew 81 Mg PO DAILY Amlodipine Besylate 5 Mg Tablet 5 Mg PO DAILY Instructions to patient/family Please see electronic discharge instructions given to patient. Diagnosis/Problems Diagnosis/Problems (1) Severe sepsis Status: Acute (2) Abscess of left buttock Status: Acute (3) DKA (diabetic ketoacidosis) Status: Acute BERNA BRAVO DO Feb 20, 2021 06:10
[2021-02-20] MEDS: inSUlin ASPART (NovoLOG) 1 UNIT/0.01 ML (CHARGE PER UNIT) SC SCH (07:07)
[2021-02-20] MEDS: CATHETER FLUSH 10 ML SYR IV SCH (07:07)
[2021-02-20] MEDS: KCL 20 MEQ TAB (K-DUR) PO SCH (07:07)
[2021-02-20 07:36] VITALS: BP 149/68
[2021-02-20 08:28] VITALS: BP 128/62
[2021-02-20] MEDS: LOSARTAN 100 MG (COZAAR) TABLET PO SCH (08:38)
[2021-02-20] MEDS: ASPIRIN 81 MG CHEW (CHILDREN'S ASA) PO SCH (08:38)
[2021-02-20] MEDS: PANTOPRAZOLE 40 MG (PROTONIX) TAB PO SCH (08:39)
[2021-02-20] MEDS: polyethylene glycoL POWDER 17 GM (MIRALAX) PACK PO SCH (08:39)
[2021-02-20] MEDS: DOCUSATE SODIUM 100 MG (COLACE) CAP PO SCH (08:39)
[2021-02-20] MEDS: SENNA W/DOCUSATE (SENOKOT S) TABLET PO SCH (08:39)
[2021-02-20] MEDS: SERTRALINE 100 MG (ZOLOFT) TAB PO SCH (08:39)
[2021-02-20] MEDS: amLODIPine 5 MG (NORVASC) TAB PO SCH (08:39)
[2021-02-20] MEDS: ACETAMINOPHEN 500 MG TAB (TYLENOL) PO PRN (08:49)
[2021-02-20] MEDS: HYPOCHLOROUS ACID/NaCl (VASHE) 250 ML IR SCH (10:02)
[2021-02-20 11:00] VITALS: BP 128/62
--- NOTE | 2021-02-20 13:17 | Therapy Team Discharge Summary ---
Therapy Discharge Summary Discharge Recommendations Date of Discharge Therapy D/C Recommendations: Home w/ Family Support, Occupational Therapy Home Care, Intermittent Supervision Occupational Therapy PT admitted to ARU post I&D for perineal abscess, Sepsis, and DKA. At time of eval, pt was Max a for bathing, upper body dressing, toileting, mod a for lower body dressing and oral care and dependent for footwear. During rehab stay, OT focused on safety, sequencing, balance, LUE ROM, strength, endurance, and memory. Pt did not meet all of her intermediate goals secondary to poor safety awareness and needing supervision/cues. At time of discharge pt was: Mod I for toileting/toilet transfer, and oral care, supervision/sba for bathing, lb dressing, and footwear, and min a for upper body dressing. Pt is now discharged from this facility and will be discharged from OT. Decreased Activ Tolerance, Decreased Safety Aware, Decreased UE Strength, Impaired Cognition, Impaired I ADL's, Impaired Self-Care Skills, Restricted Funct UE ROM PT Area Attendant Goals Area Attendant Goals PT Area Attendant Goals Time Frame: Mar 02, 2021 Roll Left to Right (QC): 6 Sit to Lying (QC): 6 Lying-Sitting on Side/Bed(QC): 6 Sit to Stand (QC): 5 Chair/Byt-xr-Dyvke Xfer(QC): 5 Car Transfer (QC): 4 Does the Patient Walk: Yes Walk 10 feet (QC): 5 Walk 10ft-Uneven Surface(QC): 4 Walk 50ft with 2 Turns (QC): 5 Walk 150 ft (QC): 5 Wheel 50 feet with 2 turns (QC: 9 1 Step (curb) (QC): 4 4 Steps (QC): 4 12 Steps (QC): 88 Picking up an Object (QC): 5 OT Retirement Goals Area Attendant Goals Time Frame: Mar 03, 2021 Eating (QC): 6 (met) Oral Hygiene (QC): 6 (met) Shower/Bathe Self (QC): 5 (not met) Upper Body Dressing (QC): 5 (not met) Lower Body Dressing (QC): 5 (not met) On/Off Footwear (QC): 5 (not met) Toileting Hygiene (QC): 5 (met) Toilet/Commode Transfer (QC): 5 1=Demonstrate adherence to instructed precautions during ADL tasks. 2=Patient will verbalize/demonstrate understanding of assistive devices/lynda fications for ADL. 3=Patient will improve strength/tolerance for activity to enable patient to perform ADL's. Speech Retirement Goals Retirement Goals 1. The patient will improve functional abilities related to their daily routines (ADL's) in order to require decreased assistance for completion. Thea Marquis OT Feb 20, 2021 13:17
--- NOTE | 2021-02-21 16:01 | Therapy Team Discharge Summary ---
Therapy Discharge Summary Discharge Recommendations Date of Discharge Feb 20, 2021 at 11:00 Therapy D/C Recommendations: Home w/ Family Support, Occupational Therapy Home Care, Intermittent Supervision Physical Therapy Patient Independent with all bed mobility and transfers except car transfers, requires setup. Patient ambulates 150 feet with FWW, with mod I. She is able to ascend/descend 4 steps with CGA. Patient demonstrates Good Progress, however, needs supervision and reminders for safety throughout all activity Occupational Therapy Decreased Activ Tolerance, Decreased Safety Aware, Decreased UE Strength, Impaired Cognition, Impaired I ADL's, Impaired Self-Care Skills, Restricted Funct UE ROM PT Compliance Tester Goals Shelter Goals PT Compliance Tester Goals Time Frame: Mar 02, 2021 Roll Left to Right (QC): 6 Sit to Lying (QC): 6 Lying-Sitting on Side/Bed(QC): 6 Sit to Stand (QC): 5 Chair/Zpb-li-Aiqwf Xfer(QC): 5 Car Transfer (QC): 4 Does the Patient Walk: Yes Walk 10 feet (QC): 5 Walk 10ft-Uneven Surface(QC): 4 Walk 50ft with 2 Turns (QC): 5 Walk 150 ft (QC): 5 Wheel 50 feet with 2 turns (QC: 9 1 Step (curb) (QC): 4 4 Steps (QC): 4 12 Steps (QC): 88 Picking up an Object (QC): 5 OT Shelter Goals Compliance Tester Goals Time Frame: Mar 03, 2021 Eating (QC): 6 (met) Oral Hygiene (QC): 6 (met) Shower/Bathe Self (QC): 5 (not met) Upper Body Dressing (QC): 5 (not met) Lower Body Dressing (QC): 5 (not met) On/Off Footwear (QC): 5 (not met) Toileting Hygiene (QC): 5 (met) Toilet/Commode Transfer (QC): 5 1=Demonstrate adherence to instructed precautions during ADL tasks. 2=Patient will verbalize/demonstrate understanding of assistive devices/modifications for ADL. 3=Patient will improve strength/tolerance for activity to enable patient to perform ADL's. Speech Shelter Goals Compliance Tester Goals 1. The patient will improve functional abilities related to their daily routines (ADL's) in order to require decreased assistance for completion. GRACE AGUIRRE PT Feb 21, 2021 16:01
== END 2021-02-20 11:00 | DRG 603 ==
PROVIDERS: ADMIT Internal Medicine; ATTEND Internal Medicine
DX: L02.215 Cutaneous abscess of perineum (principal); E46 Unspecified protein-calorie malnutrition; R53.1 Weakness; R41.89 Other symptoms and signs involving cognitive functions and awareness; M79.602 Pain in left arm; E11.9 Type 2 diabetes mellitus without complications; E66.9 Obesity, unspecified; I10 Essential (primary) hypertension; E78.00 Pure hypercholesterolemia, unspecified; E78.5 Hyperlipidemia, unspecified; M19.91 Primary osteoarthritis, unspecified site; F32.A Depression, unspecified; D64.9 Anemia, unspecified; Z68.34 Body mass index [BMI] 34.0-34.9, adult; Z87.891 Personal history of nicotine dependence; Z79.84 Long term (current) use of oral hypoglycemic drugs; Z79.82 Long term (current) use of aspirin; Z88.1 Allergy status to other antibiotic agents; Z88.5 Allergy status to narcotic agent; Z88.0 Allergy status to penicillin; Z88.2 Allergy status to sulfonamides
CPT/HCPCS: 36415; 73030; 80053; 82947; 84134; 85025

== ENCOUNTER → 2021-02-22 | Outpatient (CLI) | payer BC ==
[~2021-02-22] MED LIST changes: +DICL100G13 TOP; +INSU100I14 SQ; +INSU100I29 SQ; +PANT40TA52 PO; +PEN-53 MC
--- NOTE | 2021-02-22 12:26 | Diagnostic Imaging Report ---
INDICATION: Right knee contusion. TIME OF EXAM: 11:20 a.m. FINDINGS: Three views of the right knee were obtained. There is medial and patellofemoral compartmental degenerative change with joint space narrowing and marginal spurring. Osseous densities project within the lateral compartment of the right knee, which may represent loose bodies. No fracture, dislocation, or effusion is seen. IMPRESSION: Degenerative changes and probable loose bodies. No acute fracture is identified. Dictated by: Dictated on workstation # [id number]
== END ==
LOC: RAD FS 10:31
PROVIDERS: ATTEND Nurse Practitioner
DX: S80.01XA Contusion of right knee, initial encounter (principal); M17.11 Unilateral primary osteoarthritis, right knee; X58.XXXA Exposure to other specified factors, initial encounter
CPT/HCPCS: 73562

== ENCOUNTER → 2021-02-28 | Outpatient (CLI) | payer BC | LOC: WOUNDCARE 12:58 | PROVIDERS: ATTEND Family Medicine | DX: L02.31 Cutaneous abscess of buttock (principal); E11.622 Type 2 diabetes mellitus with other skin ulcer; E11.65 Type 2 diabetes mellitus with hyperglycemia; E44.0 Moderate protein-calorie malnutrition | CPT/HCPCS: 11042; A6197; G0463 ==

== ENCOUNTER → 2021-03-07 | Outpatient (CLI) | payer BC | LOC: WOUNDCARE 14:53 | PROVIDERS: ATTEND Family Medicine | DX: L02.31 Cutaneous abscess of buttock (principal); E11.622 Type 2 diabetes mellitus with other skin ulcer; E11.65 Type 2 diabetes mellitus with hyperglycemia; E11.52 Type 2 diabetes mellitus with diabetic peripheral angiopathy with gangrene; E44.1 Mild protein-calorie malnutrition | CPT/HCPCS: 11042; G0463 ==

== ENCOUNTER → 2021-03-14 | Outpatient (CLI) | payer BC | LOC: WOUNDCARE 14:40 | PROVIDERS: ATTEND Family Medicine | DX: L02.31 Cutaneous abscess of buttock (principal); E11.622 Type 2 diabetes mellitus with other skin ulcer; E11.65 Type 2 diabetes mellitus with hyperglycemia; E44.0 Moderate protein-calorie malnutrition; E11.52 Type 2 diabetes mellitus with diabetic peripheral angiopathy with gangrene | CPT/HCPCS: 11042; G0463 ==

== ENCOUNTER → 2021-03-21 | Outpatient (CLI) | payer BC | LOC: WOUNDCARE 14:49 | PROVIDERS: ATTEND Family Medicine | DX: L02.31 Cutaneous abscess of buttock (principal); E11.622 Type 2 diabetes mellitus with other skin ulcer; E11.65 Type 2 diabetes mellitus with hyperglycemia; E44.0 Moderate protein-calorie malnutrition; B37.2 Candidiasis of skin and nail; E11.52 Type 2 diabetes mellitus with diabetic peripheral angiopathy with gangrene | CPT/HCPCS: 11042; G0463 ==

== ENCOUNTER → 2021-03-21 | Outpatient (CLI) | payer BC ==
--- NOTE | 2021-03-21 10:39 | Diagnostic Imaging Report ---
INDICATION: Follow-up of proximal humeral fracture. FINDINGS: The impacted humeral neck fracture is again demonstrated. The comminuted component of the humeral neck are again demonstrated. The overall appearance is unchanged. There continues to be some inferior subluxation of the humeral head with respect to the glenoid. There has been some bony callus formation developed. IMPRESSION: The comminuted slightly subluxed fracture of the humeral head and neck showing some early callus formation. Dictated by: Dictated on workstation # [id number]
== END ==
LOC: RAD FS 09:47
PROVIDERS: ATTEND Nurse Practitioner
DX: S42.222D 2-part displaced fracture of surgical neck of left humerus, subsequent encounter for fracture with routine healing (principal); X58.XXXD Exposure to other specified factors, subsequent encounter
CPT/HCPCS: 73030

== ENCOUNTER → 2021-03-28 | Outpatient (CLI) | payer BC | LOC: WOUNDCARE 07:58 | PROVIDERS: ATTEND Family Medicine | DX: L02.31 Cutaneous abscess of buttock (principal); E11.622 Type 2 diabetes mellitus with other skin ulcer; E11.65 Type 2 diabetes mellitus with hyperglycemia; E44.0 Moderate protein-calorie malnutrition; B37.2 Candidiasis of skin and nail | CPT/HCPCS: 11042; G0463 ==

== ENCOUNTER → 2021-04-04 | Outpatient (CLI) | payer BC | LOC: WOUNDCARE 07:59 | PROVIDERS: ATTEND Family Medicine | DX: E11.65 Type 2 diabetes mellitus with hyperglycemia (principal); E11.622 Type 2 diabetes mellitus with other skin ulcer; E44.0 Moderate protein-calorie malnutrition; B37.2 Candidiasis of skin and nail; L02.31 Cutaneous abscess of buttock | CPT/HCPCS: 99212 ==

== ENCOUNTER → 2021-04-05 | Outpatient (CLI) | payer BC ==
[2021-04-05 10:36] LABS: BASOPHILS # (AUTO) 0.1 10^3/uL (0.0-0.1); BASOPHILS % (AUTO) 0 % (0-10); EOSINOPHILS # (AUTO) 0.1 10^3/uL (0.0-0.3); EOSINOPHILS % (AUTO) 1 % (0-10); HEMATOCRIT 30 % (35-52); HEMOGLOBIN 9.2 g/dL (11.5-16.0); LYMPHOCYTES # (AUTO) 1.9 10^3/uL (1.0-4.0); LYMPHOCYTES % (AUTO) 15 % (12-44); MEAN CORPUSCULAR HEMOGLOBIN 26 pg (25-34); MEAN CORPUSCULAR HGB CONC 31 g/dL (32-36); MEAN CORPUSCULAR VOLUME 82 fL (80-99); MEAN PLATELET VOLUME 10.9 fL (9.0-12.2); MONOCYTES # (AUTO) 0.6 10^3/uL (0.0-1.0); MONOCYTES % (AUTO) 5 % (0-12); NEUTROPHILS # (AUTO) 10.1 10^3/uL (1.8-7.8); NEUTROPHILS % (AUTO) 78 % (42-75); PLATELET COUNT 505 10^3/uL (130-400); WHITE BLOOD COUNT 12.9 10^3/uL (4.3-11.0)
[2021-04-05 10:46] LABS: CLARITY,URINE TURBID; COLOR,URINE YELLOW; GLUCOSE, URINE (UA) 3+ (NEGATIVE); KETONES,URINE NEGATIVE (NEGATIVE); LEUKOCYTE ESTERASE ,URINE TRACE (NEGATIVE); NITRITE,URINE NEGATIVE (NEGATIVE); PROTEIN,URINE 1+ (NEGATIVE)
[2021-04-05 11:03] LABS: CREATININE SERUM 0.8 MG/DL (0.60-1.30); POTASSIUM 3.4 MMOL/L (3.6-5.0)
[2021-04-05 11:04] LABS: ALBUMIN 3.7 GM/DL (3.2-4.5); BILIRUBIN,TOTAL 0.3 MG/DL (0.1-1.0); TOTAL PROTEIN 6.8 GM/DL (6.4-8.2)
[2021-04-05 11:14] LABS: BACTERIA,URINE LARGE /HPF
[2021-04-05 11:15] LABS: RENAL EPITHELIAL CELLS,URINE RARE /HPF
[2021-04-05 11:16] LABS: BILIRUBIN,URINE 1+ (NEGATIVE)
== END ==
LOC: LAB FS 10:07
PROVIDERS: ATTEND Family Medicine
DX: I10 Essential (primary) hypertension (principal); R82.998 Other abnormal findings in urine
CPT/HCPCS: 36415; 80053; 81000; 85025; 87088

== ENCOUNTER → 2021-11-29 | Outpatient (CLI) | payer BC ==
[~2021-11-29] MED LIST changes: -NSTR15C TP; +NYST15CR36 TP
--- NOTE | 2021-11-29 13:08 | Diagnostic Imaging Report ---
HISTORY: Left knee pain, contusion. TECHNIQUE: 3 views of the left knee. COMPARISON: None FINDINGS: No acute fracture is seen in the left knee. Alignment appears normal. There are severe degenerative changes in the medial, lateral and patellofemoral compartments. There is a small left knee joint effusion. IMPRESSION: 1. Advanced tricompartmental degenerative changes in the left knee with a small knee joint effusion. Dictated by: Dictated on workstation # [id number]
== END ==
LOC: RAD FS 10:00
PROVIDERS: ATTEND Nurse Practitioner
DX: M17.12 Unilateral primary osteoarthritis, left knee (principal); S80.02XA Contusion of left knee, initial encounter; X58.XXXA Exposure to other specified factors, initial encounter
CPT/HCPCS: 73562

== ENCOUNTER → 2022-04-19 | Outpatient (CLI) | payer BC ==
--- NOTE | 2022-04-19 17:58 | Diagnostic Imaging Report ---
EXAMINATION: Right shoulder radiographs, 4 views. COMPARISON: None. HISTORY: 66-year-old female, right shoulder pain. FINDINGS: The humeral head is normally positioned relative to the glenoid. There is no identified glenohumeral joint space loss. There is well-corticated ossification superior to humeral head consistent with a chronic long-standing etiology. The acromioclavicular joint is normally aligned. There are no prominent acromioclavicular degenerative changes. There is no identified acute fracture. IMPRESSION: 1. Well-corticated ossification superior to the humeral head consistent with chronic long-standing etiology and potentially the sequela of remote prior injury. 2. Additional radiographic evaluation of the right shoulder is unremarkable. Dictated by: Dictated on workstation # [id number]
== END ==
LOC: RAD FS 11:08
PROVIDERS: ATTEND Nurse Practitioner
DX: M25.511 Pain in right shoulder (principal); M89.9 Disorder of bone, unspecified
CPT/HCPCS: 73030

== ENCOUNTER → 2022-04-29 | Outpatient (CLI) | payer BC ==
--- NOTE | 2022-04-29 13:16 | Diagnostic Imaging Report ---
PROCEDURE: MRI right joint upper extremity without contrast. TECHNIQUE: Multiplanar, multisequence non contrast-enhanced MRI of the right upper extremity was accomplished. INDICATION: Right shoulder pain. Bone lesion, rotator cuff tear. COMPARISON: Radiographs from 04/19/2022. FINDINGS: No acute fracture seen in the right shoulder. Alignment appears normal. There is no joint effusion. There is small flow susceptibility artifact at the shoulder which is likely from prior surgery. There is a small calcification adjacent to the acromion, may be secondary to prior surgery as well. The supraspinatus tendon demonstrates mild tendinosis with small low-grade partial-thickness tears at the articular surface. The infraspinatus tendon is intact. The teres minor tendon is intact. The subscapularis tendon is intact. There is mild atrophy of the teres minor muscle with no masses or fluid collections seen in the quadrilateral space. This is likely idiopathic. The long head of the biceps tendon is not seen and may be chronically torn and retracted, or subject to prior surgery. The glenoid labrum is suboptimally evaluated in the absence of intra-articular contrast. No paralabral cyst is seen. There does appear to be some degeneration anteriorly. The acromion has a curved undersurface. The coracoclavicular and coracoacromial ligaments are intact. There are moderate degenerative changes in the acromioclavicular joint. There is moderate fluid in the subacromial subdeltoid bursa. IMPRESSION: 1. Low-grade partial-thickness tears in the supraspinatus tendon with no high-grade partial-thickness or full-thickness rotator cuff tear seen. 2. Degenerative changes in the acromioclavicular joint. Moderate subacromial subdeltoid bursitis versus fluid from prior capsular disruption. 3. 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 Dictated by: Dictated on workstation # [id number]
== END ==
LOC: RAD 08:26
PROVIDERS: ATTEND Nurse Practitioner
DX: M89.9 Disorder of bone, unspecified (principal); M75.121 Complete rotator cuff tear or rupture of right shoulder, not specified as traumatic; M19.011 Primary osteoarthritis, right shoulder
CPT/HCPCS: 73221

== ENCOUNTER 2023-01-05 12:27 | Emergency (ER) | payer BC ==
[~2023-01-05] VITALS: Ht 62 cm; Wt 198.0 kg
[~2023-01-05 12:27] MED LIST changes: -DICL100G13 TOP; +DICL100G60 TOP; -INSU100I29 SQ; +INSU100I30 SQ; +LOSA-417 PO; -LOSA100T3 PO; -LOSA100T57 PO; +LOSA100T58 PO
[2023-01-05] MEDS ORDERED: PANTOPRAZOLE INJECTION 40 MG VIAL IV ONE (13:00)
[2023-01-05] MEDS ORDERED: ONDANSETRON INJECTION 4 MG/2 ML (SDV) IVP ONE (13:00)
[2023-01-05] MEDS ORDERED: IOHEXOL 350 MG/ML 100 ML (OMNIPAQUE 350) VIAL IV ONE (13:00)
[2023-01-05] MEDS ORDERED: CATHETER FLUSH 10 ML SYR IV PRN (13:00)
[2023-01-05] MEDS ORDERED: NS 100 ML (IVPB) BAG IV ONE (13:00)
[2023-01-05] MEDS ORDERED: HOLD METFORMIN - RECEIVED CONTRAST 20 ML VIAL IV SCH (13:00)
--- NOTE | 2023-01-05 13:01 | ED GI ---
General Chief Complaint: Abdominal/GI Problems Stated Complaint: VOMITING LOTS OF BLOOD Nursing Triage Note: Patient states she has had two episodes of vomiting bright red blood with large clots since 101 this morning. She also reports medial abdominal pain rated 4/10 that radiates to her back. She states she has had a gastric bypass years ago, states she does not take a blood thinner, denies any recent nosebleed. Source of Information: Patient Exam Limitations: No Limitations History of Present Illness Date Seen by Provider: Jan 05, 2023 Time Seen by Provider: 12:30 Initial Comments 67-year-old female with past medical history of diabetes and previous gastric bypass coming in after she had 2 episodes of bright red vomit since around 10:15 AM this morning. She has had some medial abdominal pain that is mild to moderate and goes through to her back since then. She does not take any blood thinners, denies any liver history, does not drink alcohol. Does take naproxen between 2-4 times a month for knee pain and had a dose this morning. Last had a bowel movement yesterday which was normal appearance. Denies any history of GI bleeds. Allergies and Home Medications Allergies Coded Allergies: Penicillins (Unverified Allergy, Unknown, 05/25/19) Sulfa (Sulfonamide Antibiotics) (Unverified Allergy, Unknown, 02/05/21) adhesive tape (Unverified Allergy, Unknown, 07/03/20) cephalexin (Unverified Allergy, Unknown, 05/25/19) hydrocodone (Unverified Allergy, Unknown, SOB, Pt has received Morphine in the past, 02/10/21) reports she feels like she can't breath. oxycodone (Unverified Adverse Reaction, Intermediate, Abdominal Pain, Confusion, 02/07/21) reports that she became very "loopy" and had to quit taking it. Patient Home Medication List Home Medication List Reviewed: Yes Acetaminophen (Tylenol Extra Strength) 500 Mg Tablet, 500-1,000 MG PO Q8H PRN for PAIN-MILD (1-4), (Reported) Entered as Reported by: CATHY REESE on 02/05/21 1033 Amlodipine Besylate (Amlodipine Besylate) 5 Mg Tablet, 5 MG PO DAILY, (Reported) Entered as Reported by: SKYLA MEDINA on 07/03/20 1350 Aspirin (Aspirin) 81 Mg Tab.chew, 81 MG PO DAILY, (Reported) Entered as Reported by: SKYLA MEDINA on 07/03/20 135 Diclofenac Sodium (Diclofenac Sodium) 100 Gm Gel..gram., 0 GM TOP QID Prescribed by: BERNA BRAVO on 02/19/212101 Flaxseed Oil (Flaxseed) 1,000 Mg Capsule, 1,000 MG PO DAILY, (Reported) Entered as Reported by: CATHY REESE on 02/05/211032 Insulin Aspart (Novolog Flexpen) 300 Units/3 Ml Solution, 3 UNITS SQ AC Prescribed by: BERNA BRAVO on 02/19/212101 Insulin Detemir (Levemir Flextouch) 100 Unit/1 Ml Insuln.pen, 7 UNIT SQ BID Prescribed by: BERNA BRAVO on 02/19/212101 Losartan Potassium (Losartan Potassium) 100 Mg Tablet, 100 MG PO DAILY, (Reported) Entered as Reported by: CATHY REESE on 02/05/211032 Multivitamin with Minerals (Multiple Vitamin) 1 Each Tablet, 1 EACH PO DAILY, (Reported) Entered as Reported by: SKYLA MEDINA on 07/03/201349 Nemo-3 Fatty Acids/Fish Oil (Nemo 3 1,000 mg Softgel) 1 Each Capsule, 1 EACH PO DAILY, (Reported) Entered as Reported by: CATHY REESE on 02/05/211032 Ondansetron (Ondansetron Odt) 4 Mg Tab.rapdis, 4 MG SL Q6H PRN for NAUSEA/VOMITING Prescribed by: FANY MILLER on 01/05/231422 Pantoprazole Sodium (Pantoprazole Sodium) 40 Mg Tablet.dr, 40 MG PO DAILY Prescribed by: BERNA BRAVO on 02/19/212101 Pantoprazole Sodium (Pantoprazole Sodium) 40 Mg Tablet.dr, 40 MG PO DAILY Prescribed by: FANY MILLER on 01/05/231422 Pen Needle, Diabetic (Advocate Pen Needle) 1 Each Dis.needle, EACH ACHS, (DME) Prescribed by: BERNA BRAVO on 02/19/212101 Pravastatin Sodium (Pravastatin Sodium) 80 Mg Tablet, 80 MG PO DAILY, (Reported) Entered as Reported by: SKYLA MEDINA on 07/03/20 1350 Sertraline HCl (Sertraline HCl) 100 Mg Tablet, 200 MG PO DAILY, (Reported) Entered as Reported by: SKYLA MEDINA on 07/03/20 1350 [Turmeric] CHEW, 1 EA PO DAILY, (Reported) Entered as Reported by: CATHY REESE on 02/05/21 1033 Review of Systems Review of Systems Constitutional: No fever EENTM: No Symptoms Reported Respiratory: No Symptoms Reported Cardiovascular: No Symptoms Reported Gastrointestinal: See HPI Genitourinary: No Symptoms Reported Musculoskeletal: no symptoms reported Skin: no symptoms reported Psychiatric/Neurological: No Symptoms Reported Endocrine: No Symptoms Reported Hematologic/Lymphatic: No Symptoms Reported Past Iaacmyx-Lwllvv-Pwffwe Hx Patient Social History Tobacco Use?: No Substance use?: No Alcohol Use?: No Pt feels they are or have been: No Immunizations Up To Date First/Initial COVID19 Vaccinat: Moderna Second COVID19 Vaccination Casper: Third COVID19 Vaccination Date: Seasonal Allergies Seasonal Allergies: No Past Medical History Surgery/Hospitalization HX: DM, HTN, gastric bypass Surgeries: Yes (Gastric Bypass, Rotator cuff repair, Carpal tunnel, uterine ablation) Appendectomy, Section, Gallbladder, Orthopedic Respiratory: No Currently Using CPAP: No Currently Using BIPAP: No Cardiac: Yes High Cholesterol, Hypertension Neurological: No Female Reproductive Disorders: Denies Genitourinary: No Gastrointestinal: Yes Gall Bladder Disease Musculoskeletal: Yes Arthritis Endocrine: Yes Diabetes, Non-Insulin dep HEENT: No Hearing Impairment: Denies Cancer: No Psychosocial: Yes Depression Integumentary: No Blood Disorders: No Adverse Reaction/Blood Tranf: No Physical Exam Vital Signs Vital Signs - First Documented 01/05/23 12:35 Temp 36.4 Pulse 75 Resp 16 B/P (MAP) 157/82 (107) Pulse Ox 96 O2 Delivery Room Air Capillary Refill : Less Than 3 Seconds Height/Weight/BMI Height: '" Weight: lbs. oz. kg; 515.00 BMI Method: General Appearance: WD/WN, no apparent distress HEENT: PERRL/EOMI, normal ENT inspection, pharynx normal Neck: non-tender, full range of motion, supple, normal inspection Respiratory: chest non-tender, lungs clear, normal breath sounds, no respiratory distress, no accessory muscle use Cardiovascular: regular rate, rhythm, no edema, no murmur Gastrointestinal: normal bowel sounds, soft; No distended, No guarding, No rebound; tenderness (epigastric and periumbilical) Genital/Rectal: other (No hemorrhoid, stool is brown and fecal occult blood negative) Extremities: normal range of motion, non-tender, normal inspection, no pedal edema, no calf tenderness, normal capillary refill Back: normal inspection, no CVA tenderness Neurologic/Psychiatric: no motor/sensory deficits, alert, normal mood/affect Skin: normal color, warm/dry Progress/Results/Core Measures Results/Orders Lab Results Laboratory Tests Test 01/05/23 12:45 Range/Units White Blood Count 10.5 4.3-11.0 10^3/uL Red Blood Count 4.10 3.80-5.11 10^6/uL Hemoglobin 11.5 11.5-16.0 g/dL Hematocrit 37 35-52 % Mean Corpuscular Volume 89 80-99 fL Mean Corpuscular Hemoglobin 28 25-34 pg Mean Corpuscular Hemoglobin Concent 31 L 32-36 g/dL Red Cell Distribution Width 15.0 H 10.0-14.5 % Platelet Count 265 130-400 10^3/uL Mean Platelet Volume 10.4 9.0-12.2 fL Immature Granulocyte % (Auto) 0 % Neutrophils (%) (Auto) 74 42-75 % Lymphocytes (%) (Auto) 17 12-44 % Monocytes (%) (Auto) 6 0-12 % Eosinophils (%) (Auto) 2 0-10 % Basophils (%) (Auto) 1 0-10 % Neutrophils # (Auto) 7.8 1.8-7.8 10^3/uL Lymphocytes # (Auto) 1.8 1.0-4.0 10^3/uL Monocytes # (Auto) 0.6 0.0-1.0 10^3/uL Eosinophils # (Auto) 0.2 0.0-0.3 10^3/uL Basophils # (Auto) 0.1 0.0-0.1 10^3/uL Immature Granulocyte # (Auto) 0.0 0.0-0.1 10^3/uL Prothrombin Time 12.9 12.2-14.7 SEC INR Comment 0.9 0.8-1.4 Activated Partial Thromboplast Time 24 24-35 SEC Sodium Level 141 135-145 MMOL/L Potassium Level 3.3 L 3.6-5.0 MMOL/L Chloride Level 108 H 98-107 MMOL/L Carbon Dioxide Level 24 21-32 MMOL/L Anion Gap 9 5-14 MMOL/L Blood Urea Nitrogen 18 7-18 MG/DL Creatinine 0.64 0.60-1.30 MG/DL Estimat Glomerular Filtration Rate 96 BUN/Creatinine Ratio 28 Glucose Level 110 H 70-105 MG/DL Calcium Level 8.9 8.5-10.1 MG/DL Corrected Calcium 9.2 8.5-10.1 MG/DL Magnesium Level 1.9 1.6-2.4 MG/DL Total Bilirubin 0.4 0.1-1.0 MG/DL Aspartate Amino Transf (AST/SGOT) 18 5-34 U/L Alanine Aminotransferase (ALT/SGPT) 16 0-55 U/L Alkaline Phosphatase 86 40-136 U/L Total Protein 6.3 L 6.4-8.2 GM/DL Albumin 3.6 3.2-4.5 GM/DL Lipase 17 8-78 U/L My Orders Orders - FANY MILLER MD Cbc And Automated Diff (01/05/23 12:52) Comprehensive Metabolic Panel (01/05/23 12:52) Lipase (01/05/23 12:52) Magnesium (01/05/23 12:52) Protime With Inr (01/05/23 12:52) Partial Thromboplastin Time (01/05/23 12:52) Ct Abdomen/Pelvis W (01/05/23 12:52) Ed Iv/Invasive Line Start (01/05/23 12:52) Ondansetron Injection (Ondansetron Inj (01/05/23 13:00) Pantoprazole Injection (Pantoprazole Inj (01/05/23 13:00) Iohexol Injection (Omnipaque 350 Mg/Ml 1 (01/05/23 13:00) Received Contrast (Hold Metformin- Contr (01/05/23 13:00) Sodium Chloride Flush (Catheter Flush Sy (01/05/23 13:00) Ns (Ivpb) 100 Ml (Sodium Chloride 0.9% 1 (01/05/23 13:00) Medications Given in ED Current Medications Medications Dose Ordered Sig/Anoop Route Start Time Stop Time Status Last Admin Dose Admin Iohexol 100 ml ONCE ONCE IV 01/05/23 13:00 01/05/23 13:01 DC 01/05/23 13:35 80 ML Ondansetron HCl 4 mg ONCE ONCE IVP 01/05/23 13:00 01/05/23 13:01 DC 01/05/23 13:20 4 MG Pantoprazole 40 mg ONCE ONCE IV 01/05/23 13:00 01/05/23 13:01 DC 01/05/23 13:21 40 MG Sodium Chloride 100 ml ONCE ONCE IV 01/05/23 13:00 01/05/23 13:01 DC 01/05/23 13:35 100 ML Vital Signs/I&O 01/05/23 12:35 Temp 36.4 Pulse 75 Resp 16 B/P (MAP) 157/82 (107) Pulse Ox 96 O2 Delivery Room Air Blood Pressure Mean: 107 Fecal Occult: Negative Progress Progress Note : Progress Note 67-year-old female coming in due to a couple episodes of bright red vomit. ABCs were intact and vitals were stable on presentation. Specifically, the patient is actually mildly hypertensive and is not tachycardic. She has a soft abdomen, had some epigastric discomfort. An IV was placed and basic labs were obtained and were significant for normal white blood cell count, normal hemoglobin, specifically her hemoglobin is above her baseline, normal creatinine, slightly low potassium, normal coagulation studies. CT abdomen pelvis with no acute findings in her abdomen, does have a chronic T11 fracture. I discussed this with the patient, she says she fell years ago and had back pain at that time. I did a fecal occult blood test and it was negative, additionally her stool was brown which is reassuring. I suspect this is a Christine-Higuera tear versus ulcer in her stomach. I offered admission to the hospital for consultation with the surgeon for potential upper GI scope. The patient states that she would rather go home and have rapid outpatient follow-up since she is feeling better. I think this is reasonable. I will send a prescription for pantoprazole. I discussed she should also stop all oral NSAIDs. Diagnostic Imaging Diagonstic Imaging: CT (abd/pelvis) Comments [facility]. [place], [place] NAME: JANE MCALLISTER [facility] REC#: [id number] PT STATUS: REG ER : 1955 PHYSICIAN: FANY MILLER MD ADMIT DATE: 01/05/23/ER FS Signed Date of Exam:01/05/23 CT ABDOMEN/PELVIS W EXAMINATION: CT abdomen and pelvis with intravenous contrast. TECHNIQUE: Multiple contiguous axial images were obtained through the abdomen and pelvis after the uneventful administration of intravenous contrast. All CT scans use one or more of the following dose optimizing techniques: automated exposure control, MA and/or KvP adjustment based on patient size and exam type or iterative reconstruction. HISTORY: Periumbilical pain. Vomiting blood. COMPARISON: 02/04/2021. FINDINGS: The heart is enlarged. The included lung bases are clear. The liver, spleen, pancreas, adrenal glands, and kidneys have a normal appearance. The gallbladder is not visualized and likely surgically absent. The portal vein is patent. There is no pathologically enlarged mesenteric or retroperitoneal adenopathy. Postsurgical changes are seen in the upper abdomen. The bowel loops are nondilated. There is no free fluid or free air. Age-indeterminate compression fracture is seen involving the T11 vertebral body. There is grade 1 anterolisthesis of L4 on L5. Ureters and bladder are grossly normal. There is no free air, loculated collection, or adenopathy in the pelvis. IMPRESSION: 1. Age-indeterminate fracture involving the T11 vertebral body. Recommend correlation with point tenderness and MRI of the thoracic spine to further evaluate. 2. No bowel obstruction. No free fluid or free air. 3. Cardiomegaly. Dictated by: Dictated on workstation # [id number] Dict: 01/05/23 1349 Trans: 01/05/23 1400 [id number] Interpreted by: KAREN SCHWAB DO Electronically signed by: KAREN SCHWAB DO 01/05/23 1400 Departure Impression Primary Impression: Hematemesis Qualified Codes: K92.0 - Hematemesis Disposition: 01 HOME, SELF-CARE Condition: Stable Departure-Patient Inst. Decision time for Depature: 14:25 Referrals: MANUELA TARANGO PANKAJ K MD (PCP/Family) Primary Care Physician Patient Instructions: Gastrointestinal Bleeding (DC) Add. Discharge Instructions: Based on your exam and your work-up in the ER, this is likely due to the naproxen and likely due to an erosion or ulcer in your stomach versus a very small tear in your esophagus which will heal itself. Please stop the naproxen. Tylenol is safe. You can use [id number] diclofenac gel on your knees if they hurt. A prescription was sent for pantoprazole which will help with your stomach as well. Nausea medicines were also sent to your pharmacy. Please call Dr. Tarango's office first thing in the morning to schedule an appointment to discuss your case and see if they would want to do an upper GI scope. If you feel lightheaded or like you are going to pass out, or have an increasing in the vomiting of blood, we would want you to present back to the ER. Scripts Ondansetron (Ondansetron Odt) 4 Mg Tab.rapdis 4 MG SL Q6H PRN for NAUSEA/VOMITING for 5 Days, #20 TAB Prov: FANY MILLER MD 01/05/23 Pantoprazole Sodium (Pantoprazole Sodium) 40 Mg Tablet. 40 MG PO DAILY for 30 Days, #30 TAB Prov: FANY MILLER MD 01/05/23 FANY MILLER MD Jan 05, 2023 13:01
[2023-01-05 13:02] LABS: BASOPHILS # (AUTO) 0.1 10^3/uL (0.0-0.1); BASOPHILS % (AUTO) 1 % (0-10); EOSINOPHILS # (AUTO) 0.2 10^3/uL (0.0-0.3); EOSINOPHILS % (AUTO) 2 % (0-10); HEMATOCRIT 37 % (35-52); HEMOGLOBIN 11.5 g/dL (11.5-16.0); LYMPHOCYTES # (AUTO) 1.8 10^3/uL (1.0-4.0); LYMPHOCYTES % (AUTO) 17 % (12-44); MEAN CORPUSCULAR HEMOGLOBIN 28 pg (25-34); MEAN CORPUSCULAR HGB CONC 31 g/dL (32-36); MEAN CORPUSCULAR VOLUME 89 fL (80-99); MEAN PLATELET VOLUME 10.4 fL (9.0-12.2); MONOCYTES # (AUTO) 0.6 10^3/uL (0.0-1.0); MONOCYTES % (AUTO) 6 % (0-12); NEUTROPHILS # (AUTO) 7.8 10^3/uL (1.8-7.8); NEUTROPHILS % (AUTO) 74 % (42-75); PLATELET COUNT 265 10^3/uL (130-400); WHITE BLOOD COUNT 10.5 10^3/uL (4.3-11.0)
[2023-01-05 13:03] LABS: INR 0.9 (0.8-1.4); PROTHROMBIN TIME PATIENT 12.9 SEC (12.2-14.7)
[2023-01-05 13:16] LABS: POTASSIUM 3.3 MMOL/L (3.6-5.0)
[2023-01-05 13:17] LABS: BILIRUBIN,TOTAL 0.4 MG/DL (0.1-1.0); CALCIUM 8.9 MG/DL (8.5-10.1); MAGNESIUM 1.9 MG/DL (1.6-2.4); TOTAL PROTEIN 6.3 GM/DL (6.4-8.2)
[2023-01-05 13:18] LABS: ALBUMIN 3.6 GM/DL (3.2-4.5); CREATININE SERUM 0.64 MG/DL (0.60-1.30)
--- NOTE | 2023-01-05 13:59 | Diagnostic Imaging Report ---
EXAMINATION: CT abdomen and pelvis with intravenous contrast. TECHNIQUE: Multiple contiguous axial images were obtained through the abdomen and pelvis after the uneventful administration of intravenous contrast. All CT scans use one or more of the following dose optimizing techniques: automated exposure control, MA and/or KvP adjustment based on patient size and exam type or iterative reconstruction. HISTORY: Periumbilical pain. Vomiting blood. COMPARISON: 02/04/2021. FINDINGS: The heart is enlarged. The included lung bases are clear. The liver, spleen, pancreas, adrenal glands, and kidneys have a normal appearance. The gallbladder is not visualized and likely surgically absent. The portal vein is patent. There is no pathologically enlarged mesenteric or retroperitoneal adenopathy. Postsurgical changes are seen in the upper abdomen. The bowel loops are nondilated. There is no free fluid or free air. Age-indeterminate compression fracture is seen involving the T11 vertebral body. There is grade 1 anterolisthesis of L4 on L5. Ureters and bladder are grossly normal. There is no free air, loculated collection, or adenopathy in the pelvis. IMPRESSION: 1. Age-indeterminate fracture involving the T11 vertebral body. Recommend correlation with point tenderness and MRI of the thoracic spine to further evaluate. 2. No bowel obstruction. No free fluid or free air. 3. Cardiomegaly. Dictated by: Dictated on workstation # [id number]
[2023-01-05] MEDS ORDERED: PANT40TA52 PO (14:23)
[2023-01-05] MEDS ORDERED: ONDA4TAB11 SL (14:23)
[2023-01-05 14:25] VITALS: BP 121/89
== END 2023-01-05 14:30 | disposition home or self-care (01) ==
LOC: EDUNIT# 12:27 → ER FS 12:30
DX: K92.0 Hematemesis (principal); I10 Essential (primary) hypertension
CPT/HCPCS: 36415; 74177; 80053; 82274; 83690; 83735; 85025; 85610; 85730; 96374; 96375; Q9967

== ENCOUNTER 2023-01-15 06:06 | Outpatient (CLI) | payer BC ==
[~2023-01-15] VITALS: Ht 154.9 cm; Wt 89.8 kg
[~2023-01-15 06:06] MED LIST changes: +ONDA4TAB11 SL
[2023-01-15] MEDS ORDERED: INSU100I14 SQ (09:25)
[2023-01-15] MEDS ORDERED: INSU100I88 SQ (09:25)
[2023-01-15] MEDS ORDERED: SEMA1PEN3 SQ (09:25)
== END 2023-01-15 09:31 | disposition home or self-care (01) ==
LOC: PREOP 06:06
PROVIDERS: ATTEND Surgery
DX: Z01.818 Encounter for other preprocedural examination (principal)

== ENCOUNTER 2023-01-21 08:18 | Day surgery (SDC) | payer BC ==
[~2023-01-21 08:18] MED LIST changes: +INSU100I88 SQ; +SEMA1PEN3 SQ
[2023-01-21] MEDS ORDERED: LACTATED RINGERS 1,000 ML 1,000 ML IV STA (08:28)
[2023-01-21] MEDS ORDERED: HURRICAINE EXT TUBE (BENZOCAINE) XX PRN (08:30)
[2023-01-21] MEDS ORDERED: HURRICAINE EXT TUBE (BENZOCAINE) ONE (08:34)
[2023-01-21] MEDS ORDERED: LACTATED RINGERS 1,000 ML 1,000 ML IV ONE (08:34)
[2023-01-21 09:00] VITALS: BP 149/72
--- NOTE | 2023-01-21 09:11 | Progress Note-Pre Operative ---
Pre-Operative Progress Note Date H&P Reviewed: Jan 21, 2023 Time H&P Reviewed: 09:10 History & Physical: H&P Reviewed, Patient Examed, No changes noted Pre-Operative Diagnosis: hematemesis and melena MANUELA TARANGO DO Jan 21, 2023 09:11
[2023-01-21 10:45] VITALS: BP 100/56
--- NOTE | 2023-01-21 10:45 | Progress Note-Post Operative ---
Post-Operative Progess Note Surgeon (s)/Legal Billing Clerk (s) Surgeon MANUELA TARANGO DO Legal Billing Clerk: n/a Pre-Operative Diagnosis hematemesis and melena Post-Operative Diagnosis Normal EGJ, Transverse colon polyp Procedure & Operative Findings Date of Procedure 01/21/23 Procedure Performed/Findings EGJ, Colonoscopy with hot bx polypectomy Anesthesia Type per PRINTING TABLE WORKER Estimated Blood Loss Estimated blood loss (mL): none Specimens/Packing Specimens Removed Tranverse colon polyp x1 MANUELA TARANGO DO Jan 21, 2023 10:45
--- NOTE | 2023-01-21 10:46 | Discharge Inst-Simple/Standard ---
Discharge Inst-Standard Patient Instructions/Follow Up Plan of Care/Instructions/FU: 2 weeks Wiliam Activity as Tolerated: Yes Discharge Diet: Regular Diet MANUELA TAARNGO DO Jan 21, 2023 10:46
[2023-01-21 10:50] VITALS: BP 111/56
[2023-01-21 11:00] VITALS: BP 111/56
[2023-01-21 11:19] VITALS: BP 111/56
--- NOTE | 2023-01-21 12:59 | Anesthesia-General Post-Op ---
MAC Patient Condition Mental Status/LOC: Same as Preop Cardiovascular: Satisfactory Nausea/Vomiting: Absent Respiratory: Satisfactory Pain: Controlled Complications: Absent Post Op Complications Complications None Follow Up Care/Instructions Patient Instructions None needed. Anesthesiology Discharge Order Discharge Order Patient is doing well, no complaints, stable vital signs, no apparent adverse anesthesia problems. No complications reported per nursing. RAIN HAYS CRNA Jan 21, 2023 12:59
--- NOTE | 2023-01-21 18:40 | OPERATIVE REPORT ---
DATE OF SERVICE: 01/21/2023 PREOPERATIVE DIAGNOSES: Hematemesis and melena. POSTOPERATIVE DIAGNOSES: Transverse colon polyp, normal EGJ. PROCEDURE: Esophagogastrojejunoscopy, colonoscopy with hot biopsy polypectomy x1. SURGEON: Manuela Swain DO ANESTHESIA: Per DOLL WIG MAKER. ESTIMATED BLOOD LOSS: None. COMPLICATIONS: None. INDICATIONS: The patient is a 67-year-old female who had hematemesis and also had been having melena. She understands risks and benefits of procedures and wishes to proceed. Consent was signed in chart. DESCRIPTION OF PROCEDURE: The patient was taken to endoscopy suite, placed in left lateral recumbent position. Timeout was performed. Scope was inserted in the mouth, down the esophagus, stomach and into the jejunum. The jejunum had no polyps, masses or ulcerations. Scope was slowly retracted back into the gastric pouch, which had normal appearance. The anastomosis looked good. Scope was then inserted and retracted noting no other pathology. Scope was slowly retracted back to the distal esophagus, which had normal appearance, no polyps, masses or ulcerations. Scope was slowly retracted back until completely removed. Digital rectal exam was performed. No palpable polyps, masses or ulcerations. Scope was inserted into the rectum and advanced all the way to the cecum with minimal difficulty. Prep was adequate with irrigation and suction. Scope was then slowly retracted back. No polyps, masses or ulcerations in the cecum, ascending colon. Transverse colon has small polyp, which hot biopsy polypectomy was performed. Scope was then continuously retracted back. No polyps, masses or ulcerations in remainder of the transverse, descending and sigmoid colon. Once in the rectum, scope was retroflexed noting no other pathology. Scope was returned to its normal position, slowly withdrawn until completely removed. The patient tolerated the procedure well without complications, taken to recovery room in stable condition. RECOMMENDATIONS: The patient will need repeat colonoscopy in 5 years. Any issues before that, be seen at that time. No evidence of any bleeding cause further hematemesis or melena. Suspect possible upper GI cause and this is resolved. If continues to have it, also consider doing a capsule endoscopy. The patient will follow up in 2-4 weeks to discuss pathology results. Job ID: [id number] DocumentID: [id number] Dictated Date: 01/21/2023 10:46:35 Battery Charger Tester Date: 01/21/2023 18:38:00 Dictated By: MANUELA SWAIN DO
== END 2023-01-21 11:38 | disposition home or self-care (01) ==
LOC: ENDO 08:18
PROVIDERS: ATTEND Surgery
DX: D12.3 Benign neoplasm of transverse colon (principal); K92.0 Hematemesis
CPT/HCPCS: 88305